=== PATIENT | male | born 1955 | race African-American/Black ===

== ENCOUNTER 2017-01-09 15:44 | Inpatient (IN) | payer OTHER ==
[~2017-01-09] VITALS: Ht 172.7 cm; Wt 95.1 kg
--- NOTE | 2017-01-09 16:01 | NUR ---
BIBA FROM HOME FOR INCREASED LETHARGY, ACCUCHECK >500 AND PAIN TO BUTTOCKS. PT IS WHEELCHAIR/MOTORIZED CHAIR BOUND AND WAS UNABLE TO ASSIST IN PERSONAL TRANSFER FROM CHAIR TO CAR TO SEE HIS WOUND CARE DR CONNER TODAY. ARRIVES WITH ACCUCHECK >500, MENTATING APPROPRIATELY AND NORMOTENSIVE, BUT TACHYCARDIC RATE 120'S AND FEBRILE RECTAL TEMP 102.3. INCONTINENT OF LARGE SOFT BROWN BM, GUIAIC NEGATIVE. PERICARE PROVIDED. VERY LARGE SORE NOTED TO LOWER FOLD BENEATH RIGHT BUTTOCK, AND OPEN SORE TO PENIS. ALSO NOTED TO HAVE CAVED IN HEALED SORE TO UPPER COCCYX/LOWER LUMBAR AREA. PT ENDORSES POLYDYPSIA. STATES HE USED INSULIN SLIDING SCALE THIS AM. ABDOMEN DISTENDED AND FIRM, DENIES ABD PAIN OR N/V
--- NOTE | 2017-01-09 16:24 | NUR ---
NS IVF BOLUS AND TYLENOL GTT RUNNING PER ORDER. PCXR COMPLETED. PT STATES HE DOES NOT HAVE SENSATION FOR URGES TO VOID. UNABLE TO CATH AT THIS TIME DUE TO WOUND TO PENIS
[2017-01-09 16:31] LABS: ABSOLUTE BASOPHIL COUNT 0 /CUMM (0.0-0.2); ABSOLUTE EOSINOPHIL COUNT 0 /CUMM (0.0-0.7); ABSOLUTE GRANULOCYTE CT 13.1 /CUMM (1.4-6.5); ABSOLUTE LYMPH COUNT 0.4 /CUMM (1.2-3.4); ABSOLUTE MONOCYTE COUNT 0.2 /CUMM (0.10-0.60); BASOPHIL % 0 % (0.0-2.0); EOSINOPHIL % 0.1 % (0-5); GRANULOCYTE % 95.4 % (42.2-75.2); HEMATOCRIT 27.6 % (42-52); MEAN CORPUSCULAR HGB 25.7 PG (27.0-31.0); MEAN CORPUSCULAR HGB CONC 32.3 G/DL (33.0-37.0); MEAN CORPUSCULAR VOLUME 79.8 FL (80.0-94.0); MEAN PLATELET VOLUME 8.3 FL (7.4-10.4); RBC DISTRIBUTION WIDTH 14.9 % (11.5-14.5); RED BLOOD CELL CT 3.46 /CUMM (4.70-6.10); WHITE BLOOD CELL COUNT 13.8 /CUMM (4.8-10.8)
--- NOTE | 2017-01-09 16:34 | RADIOLOGY REPORT ---
EXAMINATION: XR PORTABLE CHEST CLINICAL INFORMATION: Fever and weakness COMPARISON: None TECHNIQUE: Portable frontal view of the chest was obtained. FINDINGS: The cardiomediastinal silhouette is normal. The lungs are clear. No consolidation, pulmonary edema, pleural effusion, or pneumothorax. The spine is not well visualized due to technique. Otherwise no acute osseous abnormalities. IMPRESSION: No acute abnormality.
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
[2017-01-09 16:52] LABS: PLATELET COUNT 547 /CUMM (130-400)
[2017-01-09] MEDS ORDERED: LEVOTHYROXINE50 MCG PO (17:12)
[2017-01-09] MEDS ORDERED: LO-DOSE ASPIRIN81 MG PO (17:12)
[2017-01-09] MEDS ORDERED: BUPROPION XL150 MG PO (17:12)
[2017-01-09] MEDS ORDERED: MELATONIN5 M7 (17:13)
[2017-01-09] MEDS ORDERED: JANUVIA100 M1 (17:13)
[2017-01-09] MEDS ORDERED: PROAIR HFA8.5 GM INH (17:14)
[2017-01-09] MEDS ORDERED: LYRICA100 M1 PO (17:14)
[2017-01-09] MEDS ORDERED: BREO ELLIPTA 11 EACH INH (17:14)
[2017-01-09] MEDS ORDERED: OXCARBAZEPINE150 M1 PO (17:15)
--- NOTE | 2017-01-09 17:15 | NUR ---
CRITICAL TEST RESULTS [id number] RIO FELIPE 61 M TESTS AND RESULTS: [id number] Results received and read back by: ABISAI CHRISTIANSON Results received date and time: 01/09/17 1715 The following provider was notified of the results, and read the results back: DONA Notified date and time: 01/09/17 at 1711
[2017-01-09] MEDS ORDERED: GABAPENTIN300 M2 PO (17:16)
[2017-01-09] MEDS ORDERED: LISINOPRIL-HCT1 EAC1 PO (17:17)
[2017-01-09] MEDS ORDERED: ATORVASTATIN CA20 M1 PO (17:17)
[2017-01-09] MEDS ORDERED: AMLODIPINE BESY10 M1 PO (17:17)
[2017-01-09] MEDS ORDERED: METFORMIN HCL500 M3 PO (17:17)
[2017-01-09] MEDS ORDERED: PANTOPRAZOLE SO20 M1 PO (17:18)
--- NOTE | 2017-01-09 17:18 | NUR ---
SECOND LITER NS IVF BOLUS RUNNING AND PT MEDICATED WITH INSULIN IV PER ORDER, DOSE VERIFIED WITH ANGIE PERALTA. INFORMED WAITING PROVIDED. PT AND FRIEND AWARE OF PLAN FOR CONSULT WITH DR REGALADO WITHIN THE HOUR
--- NOTE | 2017-01-09 17:27 | NUR ---
DR REGALADO TO BEDSIDE FOR EVALUATION
--- NOTE | 2017-01-09 17:31 | NUR ---
WOUND CARE: PT SEEN IN ER WITH DR COVARRUBIAS PRESENT FOR EVALUATION OF STAGE 4 PRESSURE INJURIES TO RIGHT ISCHIUM POSITIVE OSTEOMYELITIS - SISTER PRESENT AT BEDSIDE MADE AWARE OF DR SALDANA RECOMMENDATIONS - PLEASE REFER TO MD DICTATION FOR FURTHER WOUND RECOMMENDATIONS - TO NOTE, PT WILL REQUIRE CLINITRON MATTRESS ONCE ON FLOOR INPT
--- NOTE | 2017-01-09 18:18 | NUR ---
PT AGAIN CLEANED AND PERICARE PROVIDED AFTER THIRD SOFT BM. REPOSITIONED ONTO R SIDE. REMAINS LETHARGIC, HOT TO TOUCH. REPEAT TEMP 99.6. REMAINS SINUS TACH 110. ADDITIONAL NS IVF RUNNING AND MED WITH FORTAZ, TOLERATING WELL
--- NOTE | 2017-01-09 18:21 | ED GENERAL ADULT ---
History of Present Illness General Chief Complaint: General Adult Stated Complaint: BIBA WEAKNESS Source: patient, old records, friend Exam Limitations: clinical condition Vital Signs & Intake/Output Vital Signs & Intake/Output Vital Signs Date Time Temp Pulse Resp B/P B/P Pulse O2 O2 Flow FiO2 Mean Ox Delivery Rate 01/09 1817 99.6 110 18 111/55 95 Nasal 2.0L Cannula 01/09 1659 100.4 112 16 113/59 96 Nasal 2.0L Cannula 01/09 1640 85 Room Air 01/09 1620 102.3 01/09 1612 102.3 122 16 122/66 87 Room Air Allergies Coded Allergies: Penicillins (U 01/09/17) latex (U 01/09/17) sulfamethoxazole (From BACTRIM) (U 01/09/17) trimethoprim (From BACTRIM) (U 01/09/17) Reconcile Medications Albuterol Sulfate (Proair Hfa) 90 MCG HFA.AER.AD 2 PUF INH AD PRN RESPIRATORY (Reported) Amlodipine Besylate 10 MG TABLET 1 TAB PO DAILY HEART/BP (Reported) Aspirin (Lo-Dose Aspirin EC) 81 MG TABLET.DR 1 TAB PO DAILY HEART/BLOOD ( Reported) Atorvastatin Calcium 20 MG TABLET 1 TAB PO DAILY CHOLESTEROL (Reported) Bupropion HCl (Bupropion XL) 150 MG TAB.ER.24H 1 TAB PO DAILY UNKNOWN ( Reported) Fluticasone/Vilanterol (Breo Ellipta 100-25 Mcg INH) 100 MCG-25 MCG/DOSE BLST.W.DEV 1 PUFF INH AD RESPIRATORY (Reported) Gabapentin 300 MG CAPSULE 1 CAP PO TID UNKNOWN (Reported) Levothyroxine Sodium 50 MCG TABLET 1 TAB PO DAILY THYROID (Reported) Lisinopril/Hydrochlorothiazide (Lisinopril-Hctz 20-25 MG Tab) 20 MG-25 MG TABLET 1 TAB PO AD HEART/BP (Reported) Melatonin (Unknown Strength) TABLET (Unknown Dose) UNKNOWN (Reported) Metformin HCl 500 MG TABLET 1 TAB PO DAILY DM (Reported) Oxcarbazepine 150 MG TABLET 1 TAB PO BID UNKNOWN (Reported) Pantoprazole Sodium 20 MG TABLET.DR 1 TAB PO DAILY GI (Reported) Pregabalin (Lyrica) 100 MG CAPSULE 1 CAP PO DAILY PAIN (Reported) Sitagliptin Phosphate (Januvia) (Unknown Strength) TABLET (Unknown Dose) UNKNOWN (Reported) Triage Note: BIBA FROM HOME FOR INCREASED LETHARGY, ACCUCHECK >500 AND PAIN TO BUTTOCKS. PT IS WHEELCHAIR/MOTORIZED CHAIR BOUND AND WAS UNABLE TO ASSIST IN PERSONAL TRANSFER FROM CHAIR TO CAR TO SEE HIS WOUND CARE DR CONNER TODAY. ARRIVES WITH ACCUCHECK >500, MENTATING APPROPRIATELY AND NORMOTENSIVE, BUT TACHYCARDIC RATE 120'S AND FEBRILE RECTAL TEMP 102.3. INCONTINENT OF LARGE SOFT BROWN BM, GUIAIC NEGATIVE. PERICARE PROVIDED. VERY LARGE SORE NOTED TO LOWER FOLD BENEATH RIGHT BUTTOCK, AND OPEN SORE TO PENIS. ALSO NOTED TO HAVE CAVED IN HEALED SORE TO UPPER COCCYX/LOWER LUMBAR AREA. PT ENDORSES POLYDYPSIA. STATES HE USED INSULIN SLIDING SCALE THIS AM. ABDOMEN DISTENDED AND FIRM, DENIES ABD PAIN OR N/V Triage Nurses Notes Reviewed? yes Onset: Just prior to arrival Duration: day(s):, constant, continues in ED Timing: recent history Injury Environment: home Severity: severe Modifying Factors: Improves With: movement. HPI: 1 week prior to admission patient had worsening wounds in his sacral area and scrotum. He developed increasing weakness unable to transfer himself with decreased appetite dysuria. Emergency department he had a fever. He denies nausea vomiting chest pain cough shortness of breath headache. Past History Travel History Traveled to [place] past 21 day No Medical History Any Pertinent Medical History? see below for history Neurological: NONE Endocrine: diabetes Surgical History Surgical History: non-contributory Psychosocial History What is your primary language Danish Tobacco Use: Current Daily Use Daily Tobacco Use Amount/Type: => 5 Cigarettes daily Family History Hx Contributory? No Review of Systems Review of Systems Constitutional: Reports: see HPI, fever, weakness. EENTM: Reports: no symptoms. Respiratory: Reports: no symptoms. Cardiovascular: Reports: no symptoms. GI: Reports: no symptoms. Genitourinary: Reports: see HPI, pain. Musculoskeletal: Reports: no symptoms. Skin: Reports: see HPI. Neurological/Psychological: Reports: no symptoms. Hematologic/Endocrine: Reports: no symptoms. Immunologic/Allergic: Reports: no symptoms. All Other Systems: Reviewed and Negative Physical Exam Physical Exam General Appearance: well developed/nourished, alert, awake, moderate distress, obese Head: atraumatic, normal appearance Eyes: Bilateral: normal appearance, PERRL, EOMI. Ears, Nose, Throat: normal pharynx, normal ENT inspection, dry mucous membranes Neck: normal inspection, supple, full range of motion, no midline tenderness Respiratory: normal breath sounds, chest non-tender, no respiratory distress, quiet respiration, lungs clear Cardiovascular: regular rate/rhythm, normal peripheral pulses, norml femoral pulses equa Peripheral Pulses: 4+ carotid (R), 4+ carotid (L) Gastrointestinal: normal bowel sounds, soft, non-tender, no organomegaly Back: normal inspection, no vertebral tenderness Extremities: slow capillary refill, no ligament instability Neurologic/Psych: awake, alert, oriented x 3, media manager II-XII nml as tested Reflexes: 2+: bicep (R), bicep (L). Skin: right hemiscrotum with denuded macerated skin, sacral area with chronic wound with inflammation at wound margins Lymphatic: no anterior cervical flex Core Measures ACS in differential dx? No CVA/TIA Diagnosis: No Severe Sepsis Present: Yes Septic Shock Present: No Progress Differential Diagnoses I considered the following diagnoses in my evaluation of the patient: DKA osteomyelitis bacteremia Plan of Care: Orders Procedure Date/time Status Consistent Carbohydrate 2 01/10 B Active Patient Data 01/09 191 Active LACTIC ACID 01/09 191 Active FingerStick- Glucose 01/09 1855 Active OXYGEN SETUP (GEN) 01/09 184 Active Saline Lock 01/09 1849 Active Admit to inpatient 01/09 1849 Active Vital Signs 01/09 1849 Active Activity/Ambulation 01/09 1849 Active Code Status 01/09 1849 Active C-REACTIVE PROTEIN 01/09 1619 Complete MIXED VENOUS BLOOD GAS (GEN) 01/09 161 Active BLOOD CULTURE 01/09 1613 Active TROPONIN LEVEL 01/09 161 Complete LACTIC ACID 01/09 161 Complete HIGH SENSITIVITY CRP 01/09 161 Complete WESTERGREN SED RATE 01/09 161 Complete COMPREHENSIVE METABOLIC PANEL 01/09 161 Complete CBC WITHOUT DIFFERENTIAL 01/09 161 Complete ACETONE 01/09 161 Complete EKG 01/09 1613 Active Current Medications Sig/Michelle Start time Last Medication Dose Stop Time Status Admin Sodium Chloride 1,000 ML BOLUS ONE 01/09 1830 AC (Normal Saline 0.9%) 01/09 1929 Sodium Chloride 1,000 ML BOLUS ONE 01/09 1830 AC (Normal Saline 0.9%) 01/09 1929 Laboratory Tests 01/09/17 1707: Bicarbonate Actual 27 H, Mixed VBG pH 7.44 H, Mixed VBG pCO2 42, Mixed VBG O2 Saturation 59 H, Carboxyhemoglobin 0.3 L, O2 Concentration % 2L, O2 Delivery Method N/C, Phlebotomy Draw Site VENOUS 01/09/17 1619: Anion Gap 14, Estimated GFR 44 L, BUN/Creatinine Ratio 23.8, Glucose 735 *H, Lactic Acid 2.2 H, Calcium 7.9 L, Total Bilirubin 0.6, AST 17, ALT 31, Alkaline Phosphatase 143 H, Troponin I < 0.01, C-Reactive Prot, Quant > 9.0 H, C-React Prot High Sens > 15.0 H, Total Protein 5.7 L, Albumin 2.5 L, Globulin 3.2, Albumin/Globulin Ratio 0.8 L, CBC w Diff MAN DIFF ORDERED, RBC 3.46 L, MCV 79.8 L, MCH 25.7 L, RDW 14.9 H, MPV 8.3, Gran % 95.4 H, Lymphocytes % 3.2 L, Monocytes % 1.3 L, Eosinophils % 0.1, Basophils % 0 L, Absolute Granulocytes 13.1 H, Segmented Neutrophils 89 H, Band Neutrophils 6 H, Absolute Lymphocytes 0.4 L, Lymphocytes 4 L, Monocytes 1 L, Absolute Monocytes 0.2, Absolute Eosinophils 0, Absolute Basophils 0, Platelet Estimate INCREASED, Poikilocytosis 1+, Target Cells 1+, Stomatocytes 1+, PUBS MCHC 32.3 L, ESR Westergren > 130 H, Acetone Level NEGATIVE Microbiology 01/09 173 BLOOD: Blood Culture - RECD 01/09 1707 BLOOD: Blood Culture - RECD Diagnostic Imaging: Viewed by Me: Radiology Read. Discussed w/RAD: Radiology Read. CXR Impression: no acute abnormality Initial ED EKG: normal axis, normal intervals, normal p-waves, normal QRS complex, normal sinus rhythm, nonspecific ST T wave chg Comments: D/W Dr. Ibrahim no repeat imaging of pelvis needed. Departure Departure Disposition: STILL A PATIENT Condition: Stable Clinical Impression Primary Impression: Osteomyelitis Secondary Impressions: Acute renal failure Qualifiers: Acute renal failure type: unspecified Qualified Code: N17.9 - Acute kidney failure, unspecified Hyperglycemia Leukocytosis Qualifiers: Leukocytosis type: unspecified Qualified Code: D72.829 - Elevated white blood cell count, unspecified Referrals: MARK DELUNA,LUANNE Jones (PCP/Family) Departure Forms: Customer Survey General Discharge Information Admission Note Spoke With: OMA EASON MD Documentation of Exam: Documentation of any treatments & extenuating circumstances including Concerns Regarding Discharge (functional status, medication knowledge or non-compliance, living conditions, etc.) that warrant an admission rather than observation: IV fluid IV antibiotic blood sugar control medication adjustment plastic surgery evaluation wound evaluation continuing care discharge planning Critical Care Note Critical Care Note Critical Care Time: 30-74 min (45)
--- NOTE | 2017-01-09 19:28 | NUR ---
HOUSE STAFF AT BEDSIDE. REPORT GIVEN TO RECEIVING RN AND AT BEDSIDE FOR WOUND EVAL WITH MD AND REPEAT ACCUCHECK AND VS
--- NOTE | 2017-01-09 19:30 | NUR ---
HOUSESTAFF IN TO EVAL PT. PT APPEARS TO BE IN SEVERE PAIN. FINGERSTICK [phone]. SKIN AROUND SCROTUM RED AND EXCORIATED. DEEP WOUND TO LEFT SIDE OF BUTTOCKS NONBLANCHABLE, RED, PEELING AND DARK IN COLOR. DR GOOD FIGUEROA.
--- NOTE | 2017-01-09 19:42 | NUR ---
RESP CALLED FOR TREATMENT.
--- NOTE | 2017-01-09 19:53 | NUR ---
PT MEDICATED WITH MORPHINE 2MG IV AND NOVOLOG 6 UNITS SC. RESP AT BEDSIDE.
--- NOTE | 2017-01-09 20:08 | NUR ---
REPEAT LACTIC ACID DRAWN AND SENT TO LAB.
--- NOTE | 2017-01-09 20:36 | NUR ---
PT TO AND FROM CAT SCAN WITH THIS RN AND JOSÉ CRESPO. MARTHA CARE GIVEN.
--- NOTE | 2017-01-09 20:39 | NUR ---
PAGER [phone] BEEPED REGARDING PT'S FINGERSTICK.
--- NOTE | 2017-01-09 20:41 | History & Physical ---
ANITA SHOOK 01/09/172039: General Information and HPI MD Statement: I have seen and personally examined RIO FELIPE and documented this H&P. The patient is a 61 year old M who presented with a patient stated chief complaint of [genital wound, confusion, lethargic]. Source of Information: patient, female friend Exam Limitations: patient very drowsy/lethargic History of Present Illness: Patient is 61-year-old man with past medical history significant for hypertension, hyperlipidemia, stage IV sacral wound, hypothyroidism, diabetes mellitus was brought into ER by female friend after she noticed that the patient is increasingly lethargic and confused. Patient says that he has not been feeling well since past 1 week, he started having fever since last Sunday and has been having poor oral intake. Female friend states that also the patient is wheelchair-bound however patient is very mobile in transporting himself from one chair to another or into the car. However this morning on the way to appointment to Dr. Trinidad the patient was very confused and couldn't transport himself to the car. Patient has a sacral stage IV wound which was discovered on his admission at [place] around a couple of weeks ago. Patient also reports that he has been using condom catheter for his urinary incontinence and he tried a balm for random catheter to stay in place and that caused the initial tear and later maceration of the penile and scrotal skin. Patient has also been having diarrhea since yesterday and he was found covered in stools today. Her female friend, patient has been noncompliant with his fingersticks and insulin administration. He has a visiting nurse at home, and lives alone by himself. Allergies/Medications Allergies: Coded Allergies: Penicillins (U 01/09/17) latex (U 01/09/17) sulfamethoxazole (From BACTRIM) (U 01/09/17) trimethoprim (From BACTRIM) (U 01/09/17) Home Med list Albuterol Sulfate (Proair Hfa) 90 MCG HFA.AER.AD 2 PUF INH AD PRN RESPIRATORY (Reported) Amlodipine Besylate 10 MG TABLET 1 TAB PO DAILY HEART/BP (Reported) Aspirin (Lo-Dose Aspirin EC) 81 MG TABLET.DR 1 TAB PO DAILY HEART/BLOOD ( Reported) Atorvastatin Calcium 20 MG TABLET 1 TAB PO DAILY CHOLESTEROL (Reported) Bupropion HCl (Bupropion XL) 150 MG TAB.ER.24H 1 TAB PO DAILY UNKNOWN ( Reported) Fluticasone/Vilanterol (Breo Ellipta 100-25 Mcg INH) 100 MCG-25 MCG/DOSE BLST.W.DEV 1 PUFF INH AD RESPIRATORY (Reported) Gabapentin 300 MG CAPSULE 1 CAP PO TID UNKNOWN (Reported) Levothyroxine Sodium 50 MCG TABLET 1 TAB PO DAILY THYROID (Reported) Lisinopril/Hydrochlorothiazide (Lisinopril-Hctz 20-25 MG Tab) 20 MG-25 MG TABLET 1 TAB PO AD HEART/BP (Reported) Melatonin (Unknown Strength) TABLET (Unknown Dose) UNKNOWN (Reported) Metformin HCl 500 MG TABLET 1 TAB PO DAILY DM (Reported) Oxcarbazepine 150 MG TABLET 1 TAB PO BID UNKNOWN (Reported) Pantoprazole Sodium 20 MG TABLET.DR 1 TAB PO DAILY GI (Reported) Pregabalin (Lyrica) 100 MG CAPSULE 1 CAP PO DAILY PAIN (Reported) Sitagliptin Phosphate (Januvia) (Unknown Strength) TABLET (Unknown Dose) UNKNOWN (Reported) Past History Travel History Traveled to [place] past 21 day No Medical History Neurological: NONE Endocrine: diabetes Surgical History Surgical History: non-contributory Past Family/Social History Psychosocial History Where do you live? Home Who Do You Live With? self Services at Home: Nursing Smoking Status: Current Everyday Smoker Review of Systems Review of Systems Constitutional: Reports: see HPI. Cardiovascular: Denies: chest pain. Respiratory: Denies: cough, hemoptysis, orthopnea, short of breath, sputum production. GI: Denies: abdominal pain. Genitourinary: Reports: pain, urgency. Musculoskeletal: Reports: back pain. Skin: Reports: see HPI. Neurological/Psychological: Reports: see HPI. Hematologic/Endocrine: Reports: see HPI. Exam & Diagnostic Data Last 24 Hrs of Vital Signs/I&O Vital Signs Date Time Temp Pulse Resp B/P B/P Pulse O2 O2 Flow FiO2 Mean Ox Delivery Rate 01/09 2033 98.5 116 18 115/55 95 Nasal 2.0L Cannula 01/09 1951 100 Nasal 2.0L Cannula 01/09 1934 110 18 96/64 96 Nasal 2.0L Cannula 01/09 1817 99.6 110 18 111/55 95 Nasal 2.0L Cannula 01/09 1659 100.4 112 16 113/59 96 Nasal 2.0L Cannula 01/09 1640 85 Room Air 01/09 1620 102.3 01/09 1612 102.3 122 16 122/66 87 Room Air Physical Exam General Appearance Alert, drowsy and confused during examination Skin stage 4 wound at coccyx/lumbar area. maceration of penis and scrotal area Sepsis Skin Exam (color): Normal for Ethnicity HEENT Atraumatic Neck Supple Cardiovascular Regular Rate Lungs unable to evaluate due to body habitus and patient was in pain Abdomen Soft, No Tenderness Neurological slow and incomprehensible speech Extremities No Edema Sepsis Peripheral Pulse Location: Dorsalis Pedis Sepsis Peripheral Pulse Exam: Normal Sepsis Cap Refill Exam: <2 Sec Body Front and Back (Adult) 1) 2) Last 24 Hrs of Labs/Ervin: Laboratory Tests 01/09/172006: Lactic Acid 1.9 01/09/17 1707: Bicarbonate Actual 27 H, Mixed VBG pH 7.44 H, Mixed VBG pCO2 42, Mixed VBG O2 Saturation 59 H, Carboxyhemoglobin 0.3 L, O2 Concentration % 2L, O2 Delivery Method N/C, Phlebotomy Draw Site VENOUS 01/09/17 1619: Anion Gap 14, Estimated GFR 44 L, BUN/Creatinine Ratio 23.8, Glucose 735 *H, Serum Osmolality 325 H, Lactic Acid 2.2 H, Calcium 7.9 L, Total Bilirubin 0.6 , AST 17, ALT 31, Alkaline Phosphatase 143 H, Troponin I < 0.01, C-Reactive Prot, Quant > 9.0 H, C-React Prot High Sens > 15.0 H, Total Protein 5.7 L, Albumin 2.5 L, Globulin 3.2, Albumin/Globulin Ratio 0.8 L, PT Pending, INR Pending, APTT Pending, CBC w Diff MAN DIFF ORDERED, RBC 3.46 L, MCV 79.8 L, MCH 25.7 L, RDW 14.9 H, MPV 8.3, Gran % 95.4 H, Lymphocytes % 3.2 L, Monocytes % 1.3 L, Eosinophils % 0.1, Basophils % 0 L, Absolute Granulocytes 13.1 H, Segmented Neutrophils 89 H, Band Neutrophils 6 H, Absolute Lymphocytes 0.4 L, Lymphocytes 4 L, Monocytes 1 L, Absolute Monocytes 0.2, Absolute Eosinophils 0, Absolute Basophils 0, Platelet Estimate INCREASED, Poikilocytosis 1+, Target Cells 1+, Stomatocytes 1+, PUBS MCHC 32.3 L, ESR Westergren > 130 H, Acetone Level NEGATIVE Microbiology 01/09 2030 URINE ROUT: Urine Culture - ORD 01/09 1739 BLOOD: Blood Culture - RECD 01/09 170 BLOOD: Blood Culture - RECD Diagnostic Data EKG Results Normal sinus with HR 118, non specific ST changes, QTC 460 CXR Results clear Assessment/Plan Assessment: Patient is 61-year-old male with past medical history significant for hyperlipidemia hypertension, diabetes mellitus, stage IV coccyx wound, penile sore/maceration was brought in by female friend due to increased lethargic and confusion. Patient has been complaining of fever and chills since past 1 week and upon presentation had a stage IV lumbosacral wound and maceration of penile and scrotal skin. CAT scan was significant for large amount of air in the scrotal sac into peritoneum. Patient reported excruciating pain in scrotal area upon palpation. In ER patient was given 6 bolus of normal saline to maintain pressure. And he had a blood sugar of 735 which was managed by subcutaneous NovoLog units. Patient was also given 1 dose of ceftazidime, vancomycin and IV clindamycin. Labs and vitals as above CAT scan abdominal pelvis without contrast There is a large air collection in the pelvis. Extends from the scrotal sac into the peritoneum and posterior into the initial ischio rectal fat. Extends into left buttocks subcutaneous tissue. The air extends along the left side of the anus and rectum. Air extends to the level of the pelvic sling on the left side. There is surrounding edema and induration around the air collection. No focal fluid collection or abscess. Edema is present in the lower pelvis in the presacral fat adjacent to the distal rectum sigmoid. There is no change of the bowel wall. No bowel wall edema. Moderate volume of stool in the visualized colonic bowel loops. No dilation of the bowel loops. 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 Dr. 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 We will continue broad-spectrum antibiotics including vancomycin and ceftazidime and clindamycin. -Please obtain infectious disease consult in a.m. -We will continue hydration with normal saline at 200 mL per hour after 6 boluses of normal saline. If blood pressure continues to drops patient might require pressors and central line -LORENZO will be treated with hydration as above -We will monitor fingersticks every hour if blood sugar continues to her remain greater than 500, will consider insulin drip. - Endo consult in a.m. -Patient is requiring 2 L of nasal cannula, TRC nebs as needed -will continue his home medications except antihypertensives. DVT prophylaxis subcutaneous continuous heparin Patient is full code Core Measures/Miscellaneous Acute Coronary Syndrome ACS Diagnosis: No Cerebrovascular Accident CVA/TIA Diagnosis: No Congestive Heart Failure CHF Diagnosis: No Venous Thromboembolism VTE Risk Factors: Age > 40 [facility] prophylaxis d/t: No contraindications No VTE Pharm Prophylaxis d/t: No contraindications VTE Diagnosis: No VTE Type: NONE VTE Confirmed by (Test): NONE Severe Sepsis Severe Sepsis Present: Yes Septic Shock Septic Shock Present: No Miscellaneous Documentation Attending Case Discussed With: OMA EASON MD Primary Care Physician: LUANNE FLORES MD Patient sees these Specialists unknown Level of Patient Care: Critical Care (CRI) OMA EASON 01/10/17 0031: Assessment/Plan As Ranked By This Provider Problem List: 1. Osteomyelitis 2. Hyperglycemia 3. Acute renal failure Qualifiers Acute renal failure type: unspecified Qualified Code: N17.9 - Acute kidney failure, unspecified 4. 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 Necrotizing fasciitis 7. Sepsis 8. Hyponatremia Attending MD Review Statement Attending Statement Attending MD Statement: examined this patient, discuss w/resident/PA/RESERVATIONS SALES SUPERVISOR, agreed w/resident/PA/RESERVATIONS SALES SUPERVISOR, reviewed EMR data (avail), reviewed images, amended to note Attending Assessment/Plan: CC: Fever chills, buttock wound infection PMH: HTN, HLD, DM,? Seizure, spina bifid, paraplegia, hypothyroidism Patient has long-standing nonhealing wound on sacrum since August. Patient was initially admitted to [facility] with flu, might have developed wound during that time, was discharged to rehabilitation, the wound was neglected there, again he was hospitalized in last 2-3 months and was found to have the sacral wound, treated with IV antibiotics. Because patient is urinary and fecal incontinent the wound was getting repeatedly contaminated. Eventually patient was started on condom catheter and his friend was making him sit on the commode so sacral wound gradually healed. Then a new wound started on the left buttock area. Meanwhile condom catheter was not staying on and it may have caused penile and scrotal inflammation. But main problem that the friend brought him to ER was fever and chills since yesterday. Patient had decreased oral intake, worsening wound and was confused today. So patient was taken to wound care clinic and from there patient was referred to ER. The history is provided by patient's friend. Vitals: T max 102.3, RR 16, pulse 122 initially patient's blood pressure in 122/ 66 later on dropped to 96/64 even after 3 L IV fluid, hypoxic at 85 improved to 95 after 2 L nasal cannula. On exam: Alert, not oriented, slurred speech, very dry mucosa, neck supple, and no lymphadenopathy, no JVD, decreased respiratory sounds bilateral bases, wheezing present, CVS: S1-S2, RRR. Abdomen: Distended, soft, nontender, bowel sounds present, paraplegic, lower extremity wasted. Macerated scrotal wound more so on right aspect than left, left infra gluteal fold has approximately 5 cm diameter wound with pus, patient was told incontinent, foul-smelling, on palpation no crepitus but pain out of proportion to inflammation. Labs: WBC 13.8, neutrophils 95%, bands 6, hemoglobin 8.9, hematocrit 27.6, platelet 547, sodium 129, chloride 88, BUN 38, creatinine 1.6, anion gap 14, glucose 735, lactate 2.2, albumin 2.5, INR 1.35 acetone negative. CXR:No acute abnormality CT pelvis without IV contrast Large volume of air in the scrotum and the fat at the perineum, left buttocks and ischiorectal fat. Edema induration is seen around the distal rectum and sigmoid in the pelvis but no focal abscess or fluid collection. EKG: T-wave inversion in V4 A and P Patient has sepsis secondary to wound infection he has infra gluteal fold wound on left side which appear secondarily infected, and macerated appearing scrotum, palpation has pain out of proportion to inflammation. No crepitus observed, patient's vitals and symptoms were more worrisome for either abscess formation or necrotizing fasciitis so CT pelvis was obtained without contrast which showed large volume of air in scrotum and fat in perineum. Stat call was made to surgeon. Dr. Hernandez came examined and decided to take patient for surgery. Initially patient and patient's friend was reluctant about this procedure, did not understand the gravity of situation. Later on when they spoke to surgeon, and he explained that this is life threatening situation, they agreed for the surgery. Meanwhile patient was transiently hypotensive secondary to infection, responded to fluids. Off note MRI done on December 20 shows left ischio decubitus ulcers extending to ischial tuberosity and left inferior rami. Suspected osteomyelitis. # Necrotizing fasciitis of perineum and scrotum # Sepsis # Severe hyperglycemia # Hyponatremia secondary to hyperglycemia # LORENZO # History of HTN, DM, HLD, suspected seizure disorder, spina bifida - Admit to ICU after surgery - Continue aggressive hydration with normal saline, continue at 200 mL per hour after fifth bolus - Continue vancomycin, ceftaz 2gm Q 8, clindamycin 900mg Q8 - Insulin drip if patient is does not respond to subcutaneous insulin , Accu- Cheks every hourly - blood cultures - trend lactate - add CPK to sample in lab - ID consult, Critical care consult, endocrine consult in a.m. - Appreciate surgical consult - Troponin 2, repeat EKG - Critical condition of patient is explained to patient's friend who is not immediate relative and not ready to take the responsibility. She does not understand the gravity of the situation. Patient mentions that he has a niece Charito in [facility] who should be contacted just in case. But patient's friend says that she is too young to take decisions for him. This status remains unclear. Please try to reach patient's immediate family after his consent TTS 1 hr
--- NOTE | 2017-01-09 20:43 | NUR ---
MD BROWN MADE AWARE OF PT'S FINGERSTICK OF >500.
--- NOTE | 2017-01-09 20:47 | NUR ---
PT GOING TO ROOM 107-1.
--- NOTE | 2017-01-09 20:49 | NUR ---
PER MD BOONE HOWARD, PT NEEDS URINALYSIS AND URINE CULTURE. PT IS INCONTINENT OF URINE. MD BOONE HOWARD STATES TO STRAIGHT CATH PT. MD BOONE HOWARD MADE AWARE THAT SCROTUM AREA IS VERY RED AND EXCORIATED, PER MD BOONE HOWARD, SHE WILL COME DOWN TO EVAL PT.
--- NOTE | 2017-01-09 20:55 | CT SCAN REPORT ---
EXAMINATION: CT PELVIS WITHOUT CONTRAST CLINICAL INFORMATION: Buttocks wound. Macerated scrotum. Fever. Pain. Ulceration. COMPARISON: None TECHNIQUE: Axial images obtained through pelvis. Coronal and sagittal reformatted images performed at CT scanner DLP: 877.65 mGy-cm FINDINGS: There is a large air collection in the pelvis. Extends from the scrotal sac into the peritoneum and posterior into the initial ischio rectal fat. Extends into left buttocks subcutaneous tissue. The air extends along the left side of the anus and rectum. Air extends to the level of the pelvic sling on the left side. There is surrounding edema and induration around the air collection. No focal fluid collection or abscess. Edema is present in the lower pelvis in the presacral fat adjacent to the distal rectum sigmoid. There is no change of the bowel wall. No bowel wall edema. Moderate volume of stool in the visualized colonic bowel loops. No dilation of the bowel loops. Bladder unremarkable. There is a fat-containing umbilical hernia. Fat-containing right inguinal hernia measuring 3 cm transverse. Fat-containing left inguinal hernia measuring 2 cm transverse. There are multiple small subcentimeter lymph nodes in the groin bilaterally. Largest lymph node on the left with a short axis diameter 1.5 cm. Joint narrowing of the hips bilateral with spurring at the superior lateral acetabulum. IMPRESSION: Large volume of air in the scrotum and the fat at the perineum, left buttocks and ischiorectal fat. Edema induration is seen around the distal rectum and sigmoid in the pelvis but no focal abscess or fluid collection.
--- NOTE | 2017-01-09 20:59 | NUR ---
DIA IN TO [facility] SANCHEZ
--- NOTE | 2017-01-09 21:09 | NUR ---
PT STATES HE WANTS TO TRY AND USE URINAL. PT ONLY ABLE TO EXPEL ONE DROP OF URINE. MD BOONE HOWARD MADE AWARE.
--- NOTE | 2017-01-09 22:22 | NUR ---
SURGICAL PA AT BEDSIDE FOR EVAL.
--- NOTE | 2017-01-09 22:24 | NUR ---
THIS RN AT BEDSIDE FOR BLOOD DRAW. THIS RN UNSUCCESSFUL AFTER 2 ATTEMPTS. JOSÉ CRESPO IN PRIOR TO THIS RN AND UNSUCCESSFUL. HOUSESTAFF MADE AWARE.
[2017-01-09 22:25] LABS: PT 14.1 SEC (9.4-12.5); PTT 28 SEC (25-37)
--- NOTE | 2017-01-09 22:31 | Cons- General Surgery ---
ROBEL KING PA-C 01/09/17 2229: General Information and HPI Consulting Request Date of Consult: 01/09/17 Requested By: OMA EASON MD Reason for Consult: Management of necrotizing fasciitis/simeon's gangrene Source of Information: old records, friend Exam Limitations: clinical condition, confusion History of Present Illness: Patient is 61-year-old man with past medical history significant for hypertension, hyperlipidemia, stage IV sacral wound, recent MRI December 20 2016 which shows abnormal bone marrow edema in the inferior pubic rami and to a lesser extent the inferior aspect of the adjacent ischial tuberosity and subtle osteomyelitis was brought into ER by female friend after she noticed that the patient is increasingly lethargic and confused over the last few days. He has had a sacral ulcer wound for approximately 4 months, history of spina bifida, has poor sensation in this area , when started after a fall when he was admitted to rehabilitation facility, it has progressively been getting worse, he was treated at [facility] but the female friend accompanies him in the room states that they "weren't doing anything for him" and she has been helping take care of him. He was recently seen by Juan Martinez MD at our wound care center twice in the last week who ordered the MRI and started wound care treatments. About a week ago patient started complaining of pain to the Left groin area. He also had some swelling of his scrotal area that was noted while using a condom catheter. Over the weekend he started getting more ill, fever, flulike illness, confusion, elevated blood sugar. Patient has also been having diarrhea since yesterday and he was found covered in stools today. Patient has been noncompliant with his diabetes management. He is he is lethargic but able to answer most questing in the ER. Patient was noted to have an elevated heart rate to 122, elevated temperature to 102.3 in the emergency room today and a CT scan that is suggestive of simeon's gangrene. The surgical service was consulted for managment of this. Allergies/Medications Allergies: Coded Allergies: Penicillins (U 01/09/17) latex (U 01/09/17) sulfamethoxazole (From BACTRIM) (U 01/09/17) trimethoprim (From BACTRIM) (U 01/09/17) Home Med List: Albuterol Sulfate (Proair Hfa) 90 MCG HFA.AER.AD 2 PUF INH AD PRN RESPIRATORY (Reported) Amlodipine Besylate 10 MG TABLET 1 TAB PO DAILY HEART/BP (Reported) Aspirin (Lo-Dose Aspirin EC) 81 MG TABLET.DR 1 TAB PO DAILY HEART/BLOOD ( Reported) Atorvastatin Calcium 20 MG TABLET 1 TAB PO DAILY CHOLESTEROL (Reported) Bupropion HCl (Bupropion XL) 150 MG TAB.ER.24H 1 TAB PO DAILY UNKNOWN ( Reported) Fluticasone/Vilanterol (Breo Ellipta 100-25 Mcg INH) 100 MCG-25 MCG/DOSE BLST.W.DEV 1 PUFF INH AD RESPIRATORY (Reported) Gabapentin 300 MG CAPSULE 1 CAP PO TID UNKNOWN (Reported) Levothyroxine Sodium 50 MCG TABLET 1 TAB PO DAILY THYROID (Reported) Lisinopril/Hydrochlorothiazide (Lisinopril-Hctz 20-25 MG Tab) 20 MG-25 MG TABLET 1 TAB PO AD HEART/BP (Reported) Melatonin (Unknown Strength) TABLET (Unknown Dose) UNKNOWN (Reported) Metformin HCl 500 MG TABLET 1 TAB PO DAILY DM (Reported) Oxcarbazepine 150 MG TABLET 1 TAB PO BID UNKNOWN (Reported) Pantoprazole Sodium 20 MG TABLET.DR 1 TAB PO DAILY GI (Reported) Pregabalin (Lyrica) 100 MG CAPSULE 1 CAP PO DAILY PAIN (Reported) Sitagliptin Phosphate (Januvia) (Unknown Strength) TABLET (Unknown Dose) UNKNOWN (Reported) Past History Medical History Neurological: NONE Musculoskeletal: spina bifida Endocrine: diabetes Surgical History Pertinent Surgical History: non-contributory Psychosocial History Where Do You Live? Home Who Do You Live With? self Services at Home: Nursing Smoking Status: Current Everyday Smoker Review of Systems Review of Systems: limited review of systems deu to the patient's lethargy please see HPI Exam & Diagnostic Data Vital Signs and I&O Vital Signs Date Time Temp Pulse Resp B/P B/P Pulse O2 O2 Flow FiO2 Mean Ox Delivery Rate 01/09 2222 101.2 112 18 113/78 95 Nasal 2.0L Cannula 01/09 2033 98.5 116 18 115/55 95 Nasal 2.0L Cannula 01/09 1951 100 Nasal 2.0L Cannula 01/09 1934 110 18 96/64 96 Nasal 2.0L Cannula 05/02 1817 99.6 110 18 111/55 95 Nasal 2.0L Cannula 01/09 1659 100.4 112 16 113/59 96 Nasal 2.0L Cannula 01/09 1640 85 Room Air 01/09 1620 102.3 01/09 1612 102.3 122 16 122/66 87 Room Air Physical Exam Other Physical Findings: Well-developed well-nourished -[place] male, obese, lethargic, confused, unable to provide much medical history HEENT: Atraumatic, dry mucous membranes Neck: Supple, no lymphadenopathy Heart: Tachycardic Respiratory: Tachypneic, lungs clear Abdomen: Obese, nontender Pelvic and : Necrotic skin over the proximal and anterior portion of the scrotum, more on the right side and around the foreskin of the penis, there is small amount of purulent thin discharge that is foul smelling. The skin is very thin and friable. Crepitus noted. There is tenderness and swelling into the suprapubic region and off to the right side of the groin. unable to evaluate sacrum and buttock at this time Extremities: No edema, Neuro: lethargic Psych: Unable to determine Skin: Warm, mildly diaphoretic, no rash on exposed skin Last 24 Hours of Labs: Laboratory Tests 01/09 1707 1619 Blood Gas Bicarbonate Actual (22 - 26 MEQ/L) 27 H Mixed VBG pH (7.31 - 7.41 PH) 7.44 H Mixed VBG pCO2 (41 - 51 TORR) 42 Mixed VBG O2 Saturation (35 - 45 TORR) 59 H Carboxyhemoglobin (1.5 - 5.0 %) 0.3 L O2 Concentration % 2L O2 Delivery Method N/C Chemistry Sodium (137 - 145 mmol/L) 129 L Potassium (3.5 - 5.1 mmol/L) 4.1 Chloride (98 - 107 mmol/L) 88 L Carbon Dioxide (22 - 30 mmol/L) 28 Anion Gap (5 - 16) 14 BUN (9 - 20 mg/dL) 38 H Creatinine (0.7 - 1.2 mg/dL) 1.6 H Estimated GFR (>60 ml/min) 44 L BUN/Creatinine Ratio (7 - 25 %) 23.8 Glucose (65 - 99 mg/dL) 735 *H Serum Osmolality (285 - 295 MOSM/KG) 325 H Lactic Acid (0.7 - 2.1 mmol/L) 1.9 2.2 H Calcium (8.4 - 10.2 mg/dL) 7.9 L Total Bilirubin (0.2 - 1.3 mg/dL) 0.6 AST (17 - 59 U/L) 17 ALT (21 - 72 U/L) 31 Alkaline Phosphatase (< 127 U/L) 143 H Troponin I (<0.11 ng/ml) < 0.01 C-Reactive Prot, Quant (<1.0 mg/dL) > 9.0 H C-React Prot High Sens (1.0 - 3.0 mg/L) > 15.0 H Total Protein (6.3 - 8.2 g/dL) 5.7 L Albumin (3.5 - 5.0 g/dL) 2.5 L Globulin (1.9 - 4.2 gm/dL) 3.2 Albumin/Globulin Ratio (1.1 - 2.2 %) 0.8 L Coagulation PT (9.4 - 12.5 SEC) 14.1 H INR (0.90 - 1.17) 1.35 H APTT (25 - 37 SEC) 28 Hematology CBC w Diff MAN DIFF ORDERED WBC (4.8 - 10.8 /CUMM) 13.8 H RBC (4.70 - 6.10 /CUMM) 3.46 L Hgb (14.0 - 18.0 G/DL) 8.9 L Hct (42 - 52 %) 27.6 L MCV (80.0 - 94.0 FL) 79.8 L MCH (27.0 - 31.0 PG) 25.7 L RDW (11.5 - 14.5 %) 14.9 H Plt Count (130 - 400 /CUMM) 547 H MPV (7.4 - 10.4 FL) 8.3 Gran % (42.2 - 75.2 %) 95.4 H Lymphocytes % (20.5 - 51.1 %) 3.2 L Monocytes % (1.7 - 9.3 %) 1.3 L Eosinophils % (0 - 5 %) 0.1 Basophils % (0.0 - 2.0 %) 0 L Absolute Granulocytes (1.4 - 6.5 /CUMM) 13.1 H Segmented Neutrophils (42.2 - 75.2 %) 89 H Band Neutrophils (0.0 - 5.0 %) 6 H Absolute Lymphocytes (1.2 - 3.4 /CUMM) 0.4 L Lymphocytes (20.5 - 51.1 %) 4 L Monocytes (1.7 - 9.3 %) 1 L Absolute Monocytes (0.10 - 0.60 /CUMM) 0.2 Absolute Eosinophils (0.0 - 0.7 /CUMM) 0 Absolute Basophils (0.0 - 0.2 /CUMM) 0 Platelet Estimate (ADEQUATE) INCREASED Poikilocytosis 1+ Target Cells 1+ Stomatocytes 1+ PUBS MCHC (33.0 - 37.0 G/DL) 32.3 L ESR Westergren (0 - 10 MM) > 130 H Miscellaneous Phlebotomy Draw Site VENOUS Toxicology Acetone Level (NEGATIVE) NEGATIVE Imaging Results: PATIENT: RIO FELIPE PRESENT AGE: 61 PATIENT ACCOUNT NO: [id number] : 56 LOCATION: [facility] ORDERING PHYSICIAN: OMA EASON MD SERVICE DATE: 01/09/17 EXAM TYPE: CAT - CT PELVIS WO IV CONTRAST EXAMINATION: CT PELVIS WITHOUT CONTRAST CLINICAL INFORMATION: Buttocks wound. Macerated scrotum. Fever. Pain. Ulceration. COMPARISON: None TECHNIQUE: Axial images obtained through pelvis. Coronal and sagittal reformatted images performed at CT scanner DLP: 877.65 mGy-cm FINDINGS: There is a large air collection in the pelvis. Extends from the scrotal sac into the peritoneum and posterior into the initial ischio rectal fat. Extends into left buttocks subcutaneous tissue. The air extends along the left side of the anus and rectum. Air extends to the level of the pelvic sling on the left side. There is surrounding edema and induration around the air collection. No focal fluid collection or abscess. Edema is present in the lower pelvis in the presacral fat adjacent to the distal rectum sigmoid. There is no change of the bowel wall. No bowel wall edema. Moderate volume of stool in the visualized colonic bowel loops. No dilation of the bowel loops. Bladder unremarkable. There is a fat-containing umbilical hernia. Fat-containing right inguinal hernia measuring 3 cm transverse. Fat-containing left inguinal hernia measuring 2 cm transverse. There are multiple small subcentimeter lymph nodes in the groin bilaterally. Largest lymph node on the left with a short axis diameter 1.5 cm. Joint narrowing of the hips bilateral with spurring at the superior lateral acetabulum. IMPRESSION: Large volume of air in the scrotum and the fat at the perineum, left buttocks and ischiorectal fat. Edema induration is seen around the distal rectum and sigmoid in the pelvis but no focal abscess or fluid collection. DICTATED BY: MARTA NORTH MD DATE/TIME DICTATED:01/09/172041 STAFF SONOGRAPHER:ERMA DATE/TIME TRANSCRIBED:01/09/172041 Assessment/Plan Assessment/Plan Simeon's Gangrene/necrotizing fasciitis of the scrotum, L buttock, critically ill, likely septic, hyperglycemic, multisystem organ dysfunction Requires emergent operative debridement as this is life threatening, and discussed with patient and friend, Dr. Hernandez evaluated the patient was well, agrees with plan Critical care management per the medical team, IV antibiotics, IV fluids, likely insulin drip, possibly urology consult and infectious disease consult tomorrow Consult Acknowledgment - Thank you for your consult request. TIGIST HERNANDEZ MD 01/09/17 1672: Assessment/Plan Consult Acknowledgment - Thank you for your consult request. Attending MD Review Statement Attending Statement Attending MD Statement: examined this patient, discuss w/resident/PA/WASTE CHOPPER, discussed with family, reviewed images Attending Assessment/Plan: 61-year-old male presents with progressive gas forming infection of the perineum. 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 It now has progressed to gas- forming gangrene of the perineum (Simeon's). He shows signs of sepsis with tachycardia and fevers as well as mental status changes. There is also evidence of severe hyperglycemia. Plan will be broad-spectrum IV antibiotics and prompt surgical debridement of his perineum. IV insulin drip will be initiated prior to surgery. He understands the nature of this disease process and the likely need for multiple debridements in the operating room. He understands that if necessary diverting suprapubic tube of the bladder and/or colostomy may be required at a future date. He understands that there'll be a long healing process associated with this disease and treatment of it. He also understands that without surgery mortality approaches 100%. He is in agreement to proceed with surgical resection. He and his friend at the bedside understand and asked appropriate questions. All questions were answered.
--- NOTE | 2017-01-09 22:42 | NUR ---
PT'S FINGERSTICK GREATER THAN 500. HOUSESTAFF AWARE. PT MEDICATED PER EMAR.
--- NOTE | 2017-01-09 22:42 | NUR ---
ZURDO BARBAMEGHANN AT BEDSIDE FOR BLOOD DRAW. SST, LAV, BLUE AND PINK TOP TUBES DRAWN.
--- NOTE | 2017-01-09 22:53 | NUR ---
DR MCCALLUM AT BEDSIDE FOR EVAL.
--- NOTE | 2017-01-09 23:40 | NUR ---
INSULIN DRIP STARTED PER EMAR WITH CHARGE NURSE. PT TAKEN TO OR VIA THIS RN, JOSÉ GAO AND JOSÉ DRAPER.
--- NOTE | 2017-01-10 00:35 | Admission Certification ---
Admission Certification Certification Statement - As attending physician, I certify that at the time of - admission, based on clinical presentation, severity of - symptoms, need for further diagnostic testing and - therapeutic interventions, and risk of adverse outcomes - without in-hospital treatment, in my clinical assessment, - this patient requires an acute hospital stay for a minimum - of two nights or longer. I have also considered psychsocial - factors such as support system, advanced age, financial - issues, cognitive issues, and failed out-patient treatments, - past re-admission history, safety of patient, and lack of - compliance as applicable. Specific rationale supporting this admission is: Necrotizing fasciitis perineum
--- NOTE | 2017-01-10 01:43 | Operative Report ---
Operative/Inv Procedure Report Surgery Date: 01/10/17 Name of Procedure: Debridement of skin subcutaneous tissue muscle and fascia, perineum Pre-Operative Diagnosis: Jerad's gangrene Post-Operative Diagnosis: Same Estimated Blood Loss: less than 50ml Surgeon/[place] Supervisor: Yuan Hernandez M.D./Adam CERVANTES Anesthesia: general endotracheal tube Microbiology: Tissue and fluid for culture Operative Indication: This is a this is a obese -[place] diabetic male with spina bifida and hemiparesis. He presents with necrotizing soft tissue infection to the perineum Operative/Procedure Note Note: Patient brought to the operating room and laid supine. Gen. anesthesia was obtained and placed in lithotomy position. His perineum was then prepped and draped. There was a large partially granulating initial tuberosity pressure ulcer. There appeared to be some tracking to the thigh as well as to the perineum. There was purulence in the perineum. The tissues overlying the scrotum and perineum showed partial skin necrosis. The deeper dermal tissue was viable. An incision was made over the tunnel that was palpated from the tuberosity wound. We opened the skin and in the deeper subcutaneous tissues was a large cavity with necrotic areolar tissue. We lengthened the incisions up onto the scrotum and sharply excised approximately 60-80 cm of necrotic tissue. We then pulse lavaged the area and curetted any residual necrosis. The skin, for the most part was viable. The testicles were not involved. We then curetted the tunnel down to the tuberosity wound. This wound too was sharply debrided down to muscle and fascia. There was no exposed bone. We curetted down to healthy tissue on the fascia and muscle. This area too was pulse lavaged. Once we had debrided all the necrotic tissue wounds were packed with dilute Betadine soaked Kerlix gauze. Sterile dressing was applied. CC: MARK DELUNA,LUANNE Jones
--- NOTE | 2017-01-10 02:59 | RADIOLOGY REPORT ---
EXAMINATION: XR PORTABLE CHEST CLINICAL INFORMATION: Hypertension, assess triple lumen catheter position COMPARISON: 01/09/2017 TECHNIQUE: Portable frontal view of the chest was obtained. FINDINGS: Endotracheal tube tip lies approximately 3 cm above the arie. Right IJ central line tip lies in the region of the cavoatrial junction. Enteric tube is present, although not well seen distally. The lungs are hypoinflated. No definite consolidation is seen. No evidence of pneumothorax or significant pleural effusion. There is mildly increased prominence of the cardiomediastinal contour, which may be accentuated by low lung volumes. No acute osseous findings are seen. IMPRESSION: Right IJ central line tip lies in the region of the cavoatrial junction. Low lung volumes.
[2017-01-10 03:03] LABS: ABSOLUTE BASOPHIL COUNT 0 /CUMM (0.0-0.2); ABSOLUTE EOSINOPHIL COUNT 0 /CUMM (0.0-0.7); ABSOLUTE GRANULOCYTE CT 10.4 /CUMM (1.4-6.5); ABSOLUTE LYMPH COUNT 0.7 /CUMM (1.2-3.4); ABSOLUTE MONOCYTE COUNT 0.5 /CUMM (0.10-0.60); BASOPHIL % 0.1 % (0.0-2.0); EOSINOPHIL % 0.2 % (0-5); GRANULOCYTE % 89.3 % (42.2-75.2); HEMATOCRIT 23.5 % (42-52); MEAN CORPUSCULAR HGB 25.3 PG (27.0-31.0); MEAN CORPUSCULAR HGB CONC 32.4 G/DL (33.0-37.0); MEAN CORPUSCULAR VOLUME 78.2 FL (80.0-94.0); MEAN PLATELET VOLUME 7.8 FL (7.4-10.4); PLATELET COUNT 483 /CUMM (130-400); RBC DISTRIBUTION WIDTH 15.1 % (11.5-14.5); RED BLOOD CELL CT 3.01 /CUMM (4.70-6.10); WHITE BLOOD CELL COUNT 11.6 /CUMM (4.8-10.8)
--- NOTE | 2017-01-10 06:37 | NUR ---
Admission note- Late entry- Patient arrived to ICU at 0200 am as post-op recovery. Patient arrived via stretcher and is transferred to ICU bed and placed on monitor without incident. Patient is sedated, SAS-2 without sedation and flutters eyes to sternal rub only. Patient is ST on the monitor, and SBP's are 90-100's. Patient is intubated with #7.5 ETT to the Left and upon arrival to ICU is placed on the vent at 24cm; AC-16, TV-500, FiO2- 40% and PEEP-5. There is a Guthrie in place with small amount of light cheri, clear urine noted. An OGT is placed at 60cm and taped to ETT to Left. There is a surgical site dressing in place to patients left groin and buttocks that is clean/dry/intact. There is also small open but healing area on the right roman that is covered and kept dry. Clinitron mattress is ordered. Patient has 3 patent peripheral IV's, a RIJ TLC and a Left radial A-line. There is an insulin gtt infusing and NS @ 200ml/hr. No distress noted at this time, will monitor.
--- NOTE | 2017-01-10 07:16 | Cons- CRCU ---
WILBERT DELUNA,VIKI 01/10/17 0716: General Information and HPI Consulting Request Date of Consult: 01/10/17 Requested By: Dr. Anaya Reason for Consult: Jerad's gangrene with sepsis Source of Information: old records Exam Limitations: clinical condition History of Present Illness: Mr. Bowens is a 61 year old male with PMH obesity, HTN, HLD, diabetes mellitus type 2, possible seizure disorder, stage 4 sacral wound, spina bifida, paraplegia and hypothyroidism who presented to the [facility] ED due to lethargy, confusion and fever for the past few days. As per a family friend, Angel has had a sacral wound since about August which has recently been getting worse. He placed a consultation and followed up closely with Dr. Juan Johns MD who ordered a CT scan of his wound and started wound care treatments. Along with the lethargy, fever and worsening sacral ulcer, there is also recent history of flu-like symptoms, confusion, elevated blood sugar, decreased oral intake, non-compliance with diabetic regimen and an episode of fecal incontinence yesterday. Review of systems while in ICU difficult to be obtained due to clinical condition. Of note, patient's next of kin is Purvi Sol, his niece, who can be contacted at . She would like to be contacted with any change in clinical status or change in treatment plan. Also of note, the patient is wheelchair-bound however patient is very mobile in transporting himself from one chair to another or into the car. Allergies/Medications Allergies: Coded Allergies: Penicillins (U 01/09/17) latex (U 01/09/17) sulfamethoxazole (From BACTRIM) (U 01/09/17) trimethoprim (From BACTRIM) (U 01/09/17) Home Med List: Albuterol Sulfate (Proair Hfa) 90 MCG HFA.AER.AD 2 PUF INH AD PRN RESPIRATORY (Reported) Amlodipine Besylate 10 MG TABLET 1 TAB PO DAILY HEART/BP (Reported) Aspirin (Lo-Dose Aspirin EC) 81 MG TABLET.DR 1 TAB PO DAILY HEART/BLOOD ( Reported) Atorvastatin Calcium 20 MG TABLET 1 TAB PO DAILY CHOLESTEROL (Reported) Bupropion HCl (Bupropion XL) 150 MG TAB.ER.24H 1 TAB PO DAILY UNKNOWN ( Reported) Fluticasone/Vilanterol (Breo Ellipta 100-25 Mcg INH) 100 MCG-25 MCG/DOSE BLST.W.DEV 1 PUFF INH AD RESPIRATORY (Reported) Gabapentin 300 MG CAPSULE 1 CAP PO TID UNKNOWN (Reported) Levothyroxine Sodium 50 MCG TABLET 1 TAB PO DAILY THYROID (Reported) Lisinopril/Hydrochlorothiazide (Lisinopril-Hctz 20-25 MG Tab) 20 MG-25 MG TABLET 1 TAB PO AD HEART/BP (Reported) Melatonin (Unknown Strength) TABLET (Unknown Dose) UNKNOWN (Reported) Metformin HCl 500 MG TABLET 1 TAB PO DAILY DM (Reported) Oxcarbazepine 150 MG TABLET 1 TAB PO BID UNKNOWN (Reported) Pantoprazole Sodium 20 MG TABLET.DR 1 TAB PO DAILY GI (Reported) Pregabalin (Lyrica) 100 MG CAPSULE 1 CAP PO DAILY PAIN (Reported) Sitagliptin Phosphate (Januvia) (Unknown Strength) TABLET (Unknown Dose) UNKNOWN (Reported) Current Medications: Current Medications Sig/Michelle Start time Last Medication Dose Route Stop Time Status Admin Acetaminophen 1,000 MG Q6P PRN 01/10 0830 AC 01/10 N/A 1 UNIT IV 0938 Acetaminophen 650 MG Q8P PRN 01/09 2200 DC PO Acetaminophen 0 .STK-MED ONE 01/09 1621 DC IV Acetaminophen 1,000 MG ONCE ONE 01/09 1615 DC 01/09 IV 01/09 1616 1620 Albuterol Sulfate 3 ML Q4H PRN 01/10 1015 AC INH Albuterol Sulfate 2 PUF Q4P PRN 01/09 2230 DC INH Albuterol Sulfate 3 ML ONCE ONE 01/09 1945 DC 01/09 INH 01/09 194 1948 Aspirin Buffered 81 MG DAILY 01/10 1000 CAN PO Atorvastatin Calcium 20 MG 1700 01/10 1700 CAN PO Bupropion HCl 150 MG DAILY 01/10 1000 CAN PO Ceftazidime 2,000 MG IQ8 01/10 0800 CAN IV Ceftazidime 2,000 MG IQ8 01/10 0800 DC Sodium Chloride 100 ML IV Ceftazidime 2,000 MG Q8H 01/10 0500 DC 01/10 Sodium Chloride 100 ML IV 0551 Ceftazidime 1,000 MG IQ8 01/10 0000 DC IV Ceftazidime 0 .STK-MED ONE 01/09 1804 DC .ROUTE Ceftazidime 1,000 MG ONCE ONE 01/09 1745 DC 05/ IV 01/09 1746 1810 Clindamycin 900 MG Q8H 01/10 1000 AC 05 Sodium Chloride 50 ML IV 1030 Clindamycin 600 MG ONCE ONE 01/10 0330 DC 05/ Sodium Chloride 50 ML IV 01/10 0359 0424 Clindamycin 300 MG IQ8 / 0000 DC Dextrose/Water 50 ML IV Fentanyl Citrate 1,000 MCG Q24H 01/10 0945 AC 05 Dextrose/Water 250 ML IV 1132 Fentanyl Citrate 250 MCG .STK-MED ONE 01/09 2335 DC IM 01/09 2336 Fluticasone 2 PUF BID 01/10 1000 DC Propionate INH Gabapentin 300 MG TID 01/10 1000 CAN PO Heparin Sodium 5,000 UNIT Q8 / 0600 AC 01/10 (Porcine) SC 1407 Hydromorphone HCl 1 MG Q4P PRN 01/10 0215 DC IV Hydromorphone HCl 2 MG .STK-MED ONE 01/09 2334 DC IM 01/09 2335 Insulin Aspart 0 TIDAC / 0800 CAN SC Insulin Aspart 5 UNITS ONCE ONE 01/09 2145 DC 01/09 SC 01/09 214 224 Insulin Aspart 6 UNITS ONCE ONE 01/09 194 DC 01/09 SC 01/09 1946 195 Insulin Human Regular 100 UNIT Q24H / 2300 AC 01/09 Sodium Chloride 100 ML IV 2340 Insulin Human Regular 10 UNITS ONCE ONE 01/09 1715 DC 05/ IV 01/09 171 171 Ipratropium [place] 2.5 ML ONCE ONE 01/09 194 DC 01/09 INH 01/09 1946 194 Levothyroxine Sodium 0.05 MG DAILY AC 01/10 0700 CAN PO Lorazepam 50 MG Q24H 01/10 0300 DC 05 Sodium Chloride 500 ML IV 0410 Melatonin 3 MG AT BEDTIME 01/10 2200 CAN PO Meropenem 1 GM IQ8 01/10 1600 AC IV Midazolam HCl 2 MG .STK-MED ONE 01/09 2335 DC IM 01/09 2336 Morphine Sulfate 4 MG Q6P PRN 01/09 2200 DC 05 IV 0247 Morphine Sulfate 0 .STK-MED ONE 01/09 1949 DC .ROUTE Morphine Sulfate 2 MG ONCE ONE 01/09 194 DC 05/ IV 01/09 194 195 Norepinephrine 4 MG Q24H 01/10 0530 AC 01/10 Sodium Chloride 250 ML IV 0523 Norepinephrine 4 MG .STK-MED ONE 01/10 0522 DC IV 01/10 0523 Nystatin 5 ML 4 TIMES/DAY 01/10 0530 AC 01/10 PO 1407 Omeprazole 20 MG DAILY AC 01/10 0700 CAN PO Oxcarbazepine 150 MG BID 01/10 1000 CAN PO Oxycodone/ 1 TAB Q8P PRN 01/09 2200 DC Acetaminophen PO Pantoprazole Sodium 40 MG DAILY 01/10 1000 AC 01/10 IV 1101 Potassium Chloride 10 MEQ ONCE ONE 01/10 0845 DC 01/10 IV 01/10 0846 0938 Pregabalin 100 MG DAILY 01/10 1000 CAN PO Sodium Chloride 500 ML .Q2H 01/10 0430 DC 01/10 IV 0230 Sodium Chloride 1,000 ML Q10H 01/09 2200 AC 01/10 IV 1029 Sodium Chloride 1,000 ML BOLUS ONE 01/09 1945 DC IV 01/09 2044 Sodium Chloride 1,000 ML BOLUS ONE 01/09 1945 DC IV 01/09 2044 Sodium Chloride 1,000 ML BOLUS ONE 01/09 1830 DC 05/02 IV 01/09 1929 1942 Sodium Chloride 1,000 ML BOLUS ONE 01/09 1830 DC IV 01/09 1929 Sodium Chloride 1,000 ML BOLUS ONE 01/09 1745 DC 05/ IV 01/09 1844 1810 Sodium Chloride 1,000 ML BOLUS ONE 01/09 1715 DC 05/ IV 01/09 1814 1717 Sodium Chloride 1,000 ML BOLUS ONE 01/09 1615 DC 05/ IV / 1714 1620 Vancomycin HCl 1,500 MG DAILY 01/11 1000 AC Sodium Chloride 250 ML IV Vancomycin HCl 500 MG ONCE ONE 01/10 1500 AC Sodium Chloride 250 ML IV 01/10 1559 Vancomycin HCl 500 MG ONCE ONE 01/10 1430 CAN IV 01/10 1431 Vancomycin HCl 1,000 MG DAILY 01/10 1000 AC / Sodium Chloride 250 ML IV 01/11 0959 1101 Vancomycin HCl 0 .STK-MED ONE 01/09 1825 DC .ROUTE Vancomycin HCl 1,000 MG ONCE ONE 01/09 1745 DC 01/09 Sodium Chloride 250 ML IV 01/09 4917 0762 Review of Systems Review of Systems Constitutional: Reports: see HPI, chills, diaphoresis, fever, malaise, weakness. EENTM: Reports: see HPI. Denies: nasal congestion. Cardiovascular: Reports: see HPI. Denies: chest pain, palpitations. Respiratory: Reports: see HPI. Denies: short of breath. GI: Reports: see HPI (Decreased oral intake). Genitourinary: Reports: see HPI (incontinence). Musculoskeletal: Reports: muscle pain (Area overlaying ulcer). Skin: Reports: lesions. Neurological/Psychological: Reports: confusion, weakness. Hematologic/Endocrine: Denies: bleeding. Immunologic/Allergic: Denies: splenectomy. 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 Home Who Do You Live With? self Services at Home: Nursing Smoking Status: Current Everyday Smoker Functional Ability Ambulation: non-ambulatory Exam & Diagnostic Data Last 24 Hrs of Vital Signs/I&O Vital Signs Date Time Temp Pulse Resp B/P B/P Pulse O2 O2 Flow FiO2 Mean Ox Delivery Rate 01/10 1041 40 01/10 1030 99.4 / 0938 100.6 01/10 0842 Ventilator 40% 01/10 0836 40 01/10 0800 100 Ventilator 40% 01/10 0800 100.6 108 18 112/40 97 Ventilator 40% 01/10 0615 40 / 0523 107 84/42 01/10 0309 97 Ventilator 40% 01/10 0217 40 01/09 2340 101.2 112 18 115/79 95 Nasal 2.0L Cannula 01/09 2222 101.2 112 18 113/78 95 Nasal 2.0L Cannula 01/09 2033 98.5 116 18 115/55 95 Nasal 2.0L Cannula 01/09 1951 100 Nasal 2.0L Cannula 01/09 1934 110 18 96/64 96 Nasal 2.0L Cannula 05/02 1817 99.6 110 18 111/55 95 Nasal 2.0L Cannula 01/09 1659 100.4 112 16 113/59 96 Nasal 2.0L Cannula 01/09 1640 85 Room Air 01/09 1620 102.3 01/09 1612 102.3 122 16 122/66 87 Room Air Intake & Output 01/10 1600 01/10 0800 01/10 0000 Intake Total 1544 1000 Output Total 43 Balance 1501 1000 Intake, IV 1544 1000 Output, Urine 43 Patient 271 lb Weight Weight Bed scale Measurement Method Physical Exam General Appearance: no apparent distress, sedated, intubated, obese Head: atraumatic, normal appearance Eyes: Bilateral: normal appearance. Ears, Nose, Throat: Dry mucous membranes Neck: normal inspection, supple Respiratory: normal breath sounds, no respiratory distress, Intubated, occasional crackles Cardiovascular: regular rate/rhythm, normal peripheral pulses Peripheral Pulses: 2+ carotid (R), 2+ carotid (L) Gastrointestinal: normal bowel sounds, soft, non-tender, no organomegaly, Slightly distended Extremities: normal capillary refill, no edema Neurologic/Psych: Patient currently intubated and sedated. Cranial Nerves: No facial droop appreciated. on admission, noted incomprehensible and slow speech on admission. Skin: Stage IV coccyx/lumbar wound, maceration of penis and scrotal area Lymphatic: no anterior cervical flex Last 48 Hrs of Labs/Ervin: Laboratory Tests 01/10/17 1100: Anion Gap 12, Estimated GFR 44 L, Glucose 213 H, Lactic Acid 1.9, Calcium 6.7 L, Phosphorus 2.6, Magnesium 2.0, Total Bilirubin 0.4, AST 16 L, ALT 28, Troponin I < 0.01, Albumin 1.9 L, CBC w Diff MAN DIFF ORDERED, RBC 2.77 L, MCV 80.1, MCH 25.4 L, RDW 14.5, MPV 8.0, Gran % 87.9 H, Lymphocytes % 6.8 L, Monocytes % 4.6, Eosinophils % 0.6, Basophils % 0.1, Absolute Granulocytes 10.1 H, Absolute Lymphocytes 0.8 L, Absolute Monocytes 0.5, Absolute Eosinophils 0.1 , Absolute Basophils 0, Platelet Estimate INCREASED, Hypochromic-Microcytic 1+, Poikilocytosis 1+, Anisocytosis 1+, PUBS MCHC 31.7 L 01/10/17 1035: pH 7.40, pCO2 42, pO2 79 L, HCO3 25, ABG O2 Sat (Measured) 94.0 L, P-50 (Temp Corrected) YES, Carboxyhemoglobin 0.3 L, O2 Concentration % 40%, Temperature 100.6 H, Respiration Rate 16, O2 Delivery Method VENTILATOR, Vent Mode AC, Expiratory Pressure 5, Tidal Volume 500, Phlebotomy Draw Site LIVONIA 01/10/17 0240: pH 7.39, pCO2 41, pO2 77 L, HCO3 25, ABG O2 Sat (Measured) 93.0 L, P-50 (Temp Corrected) N, Carboxyhemoglobin 0.5 L, O2 Concentration % .40, Respiration Rate 16, O2 Delivery Method VENT, Vent Mode A/C, Expiratory Pressure 5, Tidal Volume 500, Phlebotomy Draw Site LIVONIA 01/10/17 0230: Troponin I < 0.01 01/10/17 0230: Anion Gap 13, Estimated GFR 44 L, Glucose 461 H, Lactic Acid 1.6, Calcium 7.2 L, Phosphorus 3.1, Magnesium 2.0, Total Bilirubin 0.4, AST 14 L, ALT 32, Albumin 2.1 L, CBC w Diff NO MAN DIFF REQ, RBC 3.01 L, MCV 78.2 L, MCH 25.3 L, RDW 15.1 H, MPV 7.8, Gran % 89.3 H, Lymphocytes % 5.9 L, Monocytes % 4.5, Eosinophils % 0.2, Basophils % 0.1, Absolute Granulocytes 10.4 H, Absolute Lymphocytes 0.7 L, Absolute Monocytes 0.5, Absolute Eosinophils 0, Absolute Basophils 0, PUBS MCHC 32.4 L, Random Vancomycin 7.8 01/09/17 2242: Anion Gap 16, Estimated GFR 52 L, Glucose 557 *H, Calcium 7.2 L, Phosphorus 3.4, Magnesium 1.9, Total Bilirubin 0.6, AST 15 L, ALT 34, Albumin 2.4 L 01/09/17 2030: Urine Color Cancelled, Urine Clarity Cancelled, Urine pH Cancelled, Ur Specific [place] Cancelled, Urine Protein Cancelled, Urine Ketones Cancelled, Urine Nitrite Cancelled, Urine Bilirubin Cancelled, Urine Urobilinogen Cancelled, Ur Leukocyte Esterase Cancelled, Ur Microscopic Cancelled, Urine Hemoglobin Cancelled, Urine Glucose Cancelled 01/09/172006: Lactic Acid 1.9 01/09/17 1707: Bicarbonate Actual 27 H, Mixed VBG pH 7.44 H, Mixed VBG pCO2 42, Mixed VBG O2 Saturation 59 H, Carboxyhemoglobin 0.3 L, O2 Concentration % 2L, O2 Delivery Method N/C, Phlebotomy Draw Site VENOUS 01/09/17 1619: Anion Gap 14, Estimated GFR 44 L, BUN/Creatinine Ratio 23.8, Glucose 735 *H, Serum Osmolality 325 H, Lactic Acid 2.2 H, Calcium 7.9 L, Total Bilirubin 0.6 , AST 17, ALT 31, Alkaline Phosphatase 143 H, Troponin I < 0.01, C-Reactive Prot, Quant > 9.0 H, C-React Prot High Sens > 15.0 H, Total Protein 5.7 L, Albumin 2.5 L, Globulin 3.2, Albumin/Globulin Ratio 0.8 L, PT 14.1 H, INR 1.35 H, APTT 28, CBC w Diff MAN DIFF ORDERED, RBC 3.46 L, MCV 79.8 L, MCH 25.7 L, RDW 14.9 H, MPV 8.3, Gran % 95.4 H, Lymphocytes % 3.2 L, Monocytes % 1.3 L, Eosinophils % 0.1, Basophils % 0 L, Absolute Granulocytes 13.1 H, Segmented Neutrophils 89 H, Band Neutrophils 6 H, Absolute Lymphocytes 0.4 L, Lymphocytes 4 L, Monocytes 1 L, Absolute Monocytes 0.2, Absolute Eosinophils 0 , Absolute Basophils 0, Platelet Estimate INCREASED, Poikilocytosis 1+, Target Cells 1+, Stomatocytes 1+, PUBS MCHC 32.3 L, ESR Westergren > 130 H, Acetone Level NEGATIVE Diagnostic Data EKG Results Normal sinus with HR 118, non specific ST changes, QTC 460 CXR Results Within normal limits. Other Results Pelvis CT: IMPRESSION: Large volume of air in the scrotum and the fat at the perineum, left buttocks and ischiorectal fat. Edema induration is seen around the distal rectum and sigmoid in the pelvis but no focal abscess or fluid collection. 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 Bowens is a 61 year old male with PMH type 2 diabetes mellitus, medication non-compliance, HTN, HLD, spina bifida, paraplegia, hypothyroidism and stage IV sacral decubitus ulcer who presented to the [facility] ED with chief complaint of confusion and chills. Associated symptoms included worsening of his buttocks wound infection, fever, penile/scrotal irritation from catheter placement and decreased oral intake. In the ED: Vital signs showed Tmax 102.3, HR 122, RR 16, BEP 122/66 which dropped to 96/64 after 3 L IV fluid bolus, and 85% on room air improved to 95% on 2 L NC. Labs were significant for WBC 13.8, neutrophils 95%, 6 bands, H&H 8.9 /27.6, Plt 547, Na 129, Cl 88, BUN 38, cre 1.6, AG 14, Glu 735, Lactate 2.2, INR 1.35, negative acetone. CXR was WNL. CT pelvis showed air in samuel scrotum and fat at the perineum/left buttocks/ischiorectal fat. No focal collection/abscess in the distal rectum or sigmoid. EKG showed T wave inversion in V4. Patient is currently admitted to the ICU and the following is the management: 1. 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 * He remains intubated on levophed for pressor support * Continue IVF at 200 cc/h for fluid rescusitation * ID consult placed and appreciated, suggested tailoring antibiotic regimen to the following: Vancomycin 1.5 g IV daily, IV meropenem 1gm Q8 and 900 mg clindamycin IV Q8 * Cultures from the OR growing group B strep and blood cultures growing gram positive cocci in chains * Continue to monitor for fevers and provide IV tylenol as needed * Patient to return to the OR likely Sunday for further debridement, will follow up surgery recommendations * Long discussion with grey Sol (next of kin) today regarding Angel's care; will update her with any changes in clinical status 2. Severe hyperglycemia * Endocrinology consult appreciated * Glu 735 with negative acetone * Patient remains on insulin drip which is titrated per protocol, patient currently in column 2 * While patient is on levophed drip, will continue patient on insulin drip as recommended Dr. Anthony MD * Continue fluids with NS at 200 cc/h, no role for D5 as per endo * Continue accuchecks Q1H * Keep patient NPO for now 3. Acute respiratory failure * Patient noted to have an O2 saturation of 85% on room air * Continue mechanical ventialation assist control while on pressors and critially ill * Continue fentanyl drip for sedation and pain * Follow up daily CXR * IV protonix while on the vent, head of bed 30 degrees 4. Hyponatremia, resolved * Likely hyponatremia 2/2 hyperglycemia * ICU bundle Q8H for now * Na level currently 142 * Continue NS at 200 cc/h 5. LORENZO in the setting of septic shock * Baseline cre 0.9 as seen on labs from 2016; current cre 1.6 * Continue aggressive fluid hydration * Consider nephrology consult if urine output drops * F/U urine randome cre, random Na, random K, FeNa 6. Acute anemia * Patient has history of anemia noted in December 2016 at 1030.8 * However, patient acutely low at 7.2 requiring 2 U PRBC transfusion * Follow up repeat CBC and trend Q8 FULL CODE DVTP: Heparin SC Diet: NPO Pain: Fentanyl drip Recommendations: As above. Problem List: 1. Hyperglycemia 2. Necrotizing fasciitis 3. Sepsis 4. Hyperglycemia due to type 2 diabetes mellitus 5. Hyponatremia Consult Acknowledgment - Thank you for your consult request. JOÃO DELUNA,[facility] 01/10/17 0802: General Information and HPI Allergies/Medications Current Medications: Current Medications Sig/Michelle Start time Last Medication Dose Route Stop Time Status Admin Acetaminophen 650 MG Q8P PRN 01/09 2200 DC PO Acetaminophen 0 .STK-MED ONE 01/09 1621 DC IV Acetaminophen 1,000 MG ONCE ONE 01/09 1615 DC / IV 01/09 1616 1620 Albuterol Sulfate 2 PUF Q4P PRN 01/09 2230 DC INH Albuterol Sulfate 3 ML ONCE ONE 01/09 1945 DC 01/09 INH 01/09 194 1948 Aspirin Buffered 81 MG DAILY 01/10 1000 CAN PO Atorvastatin Calcium 20 MG 1700 01/10 1700 CAN PO Bupropion HCl 150 MG DAILY 01/10 1000 CAN PO Ceftazidime 2,000 MG IQ8 01/10 0800 CAN IV Ceftazidime 2,000 MG IQ8 01/10 0800 DC Sodium Chloride 100 ML IV Ceftazidime 2,000 MG Q8H / 0500 AC 05/03 Sodium Chloride 100 ML IV 0551 Ceftazidime 1,000 MG IQ8 01/10 0000 DC IV Ceftazidime 0 .STK-MED ONE 01/09 1804 DC .ROUTE Ceftazidime 1,000 MG ONCE ONE 01/09 1745 DC 01/09 IV 01/09 1746 1810 Clindamycin 900 MG Q8H 01/10 1000 AC Sodium Chloride 50 ML IV Clindamycin 600 MG ONCE ONE 01/10 0330 DC 05 Sodium Chloride 50 ML IV 01/10 0359 0424 Clindamycin 300 MG IQ8 01/10 0000 DC Dextrose/Water 50 ML IV Fentanyl Citrate 250 MCG .STK-MED ONE 01/09 2335 DC IM 01/09 2336 Fluticasone 2 PUF BID 01/10 1000 AC Propionate INH Gabapentin 300 MG TID 01/10 1000 CAN PO Heparin Sodium 5,000 UNIT Q8 01/10 0600 01/10 (Porcine) SC 0523 Hydromorphone HCl 1 MG Q4P PRN 01/10 0215 AC IV Hydromorphone HCl 2 MG .STK-MED ONE 01/09 2334 DC IM 01/09 2335 Insulin Aspart 0 TIDAC / 0800 CAN SC Insulin Aspart 5 UNITS ONCE ONE 01/09 2145 DC 01/09 SC 01/09 214 2242 Insulin Aspart 6 UNITS ONCE ONE 01/09 194 DC 01/09 SC 01/09 194 195 Insulin Human Regular 100 UNIT Q24H / 2300 AC 01/09 Sodium Chloride 100 ML IV 2340 Insulin Human Regular 10 UNITS ONCE ONE 01/09 1715 DC 05/ IV 01/09 1716 1717 Ipratropium [place] 2.5 ML ONCE ONE 01/09 194 DC 01/09 INH 01/09 194 194 Levothyroxine Sodium 0.05 MG DAILY AC 01/10 0700 CAN PO Lorazepam 50 MG Q24H / 0300 AC 01/10 Sodium Chloride 500 ML IV 0410 Melatonin 3 MG AT BEDTIME 01/10 2200 CAN PO Midazolam HCl 2 MG .STK-MED ONE 01/09 2335 DC IM 01/09 2336 Morphine Sulfate 4 MG Q6P PRN 01/09 2200 AC 01/10 IV 0247 Morphine Sulfate 0 .STK-MED ONE 01/09 194 DC .ROUTE Morphine Sulfate 2 MG ONCE ONE 01/09 1945 DC 05/02 IV 01/09 194 195 Norepinephrine 4 MG Q24H 01/10 0530 AC 01/10 Sodium Chloride 250 ML IV 0523 Nystatin 5 ML 4 TIMES/DAY 01/10 0530 AC PO Omeprazole 20 MG DAILY AC 01/10 0700 CAN PO Oxcarbazepine 150 MG BID 01/10 1000 CAN PO Oxycodone/ 1 TAB Q8P PRN 01/09 2200 DC Acetaminophen PO Pregabalin 100 MG DAILY 01/10 1000 CAN PO Sodium Chloride 500 ML .Q2H 01/10 0430 DC 01/10 IV 0230 Sodium Chloride 1,000 ML Q10H 01/09 2200 AC 01/10 IV 0219 Sodium Chloride 1,000 ML BOLUS ONE 01/09 1945 DC IV 01/09 2044 Sodium Chloride 1,000 ML BOLUS ONE 01/09 1945 DC IV 01/09 2044 Sodium Chloride 1,000 ML BOLUS ONE 01/09 1830 DC 05/02 IV 01/09 1929 1942 Sodium Chloride 1,000 ML BOLUS ONE 01/09 1830 DC IV 01/09 1929 Sodium Chloride 1,000 ML BOLUS ONE 01/09 1745 DC 05/02 IV 01/09 1844 1810 Sodium Chloride 1,000 ML BOLUS ONE 01/09 1715 DC 05/ IV 01/09 1814 1717 Sodium Chloride 1,000 ML BOLUS ONE 01/09 1615 DC 05/ IV 01/09 1714 1620 Vancomycin HCl 1,000 MG DAILY 01/10 1000 AC Sodium Chloride 250 ML IV Vancomycin HCl 0 .STK-MED ONE 01/09 182 DC .ROUTE Vancomycin HCl 1,000 MG ONCE ONE 01/09 1745 DC 01/09 Sodium Chloride 250 ML IV 01/09 1844 1829 Assessment/Plan Impression/Plan: I have personally seen and examined the patient and agree with the resident's assessment and plan as above. The patient is a 61 year old male with a past medical history significant for hypertension, hyperlipidemia, diabetes, hypothyroidism, spina bifida, in paraplegia. The patient has had chronic pain noting that he has been in and out of different hospitals but has not been to [facility] in the past. The patient was brought in for worsening of a wound infection, fever and chills for 2 days previous to admission. The patient was evaluated in the emergency department and found to have a 5 cm left inferior gluteal fold wound infection that was foul-smelling associated with urine and stool incontinence as well as significant pain. The patient had increased leukocytosis, fever, hypotension, acute kidney injury, hyperglycemia and hyponatremia. A stat pelvic CT was done that showed necrotizing fasciitis with gas in the scrotum and perineum. He was pancultured, and started on vancomycin and ceftazidime and clindamycin. He was fluid resuscitated as per the sepsis protocol. The patient was taken to the OR immediately for debridement. Postoperatively, the patient remains intubated and sedated on Ativan. His hemodynamics continued to be poor, noting that he remains on Levophed. He is making minimal urine. The patient is not able to offer complaints. Impression: 1. Jerad's gangrene, status post debridement of skin, subcutaneous tissue muscle and fascia, and perineum. 2. Multisystem organ failure with septic shock. 3. Acute kidney injury in the setting of septic shock, rule out ATN. Of note, the patient was not exposed to IV contrast during imaging studies. 4. Respiratory failure, on mechanical ventilation. 5. History of diabetes with uncontrolled hyperglycemia. No evidence of DKA. 6. History of hypothyroidism. 7. Spina bifida and paraplegia with chronic pressure ulcers. Plan: * Check an ABG now. Will adjust vent settings as necessary. * Transfuse 2 units of packed red blood cells now. * Check labs every 8 hours today including CBC, ICU bundle, troponin, and lactic acid. * Continue insulin drip, for now remain in column 1 on insulin sliding scale, moderate control for blood sugars. Endocrine called. * Start fentanyl drip at 50 g per hour. Will need to adjust for control of pain. * Disontinue Dilaudid and morphine. * IV Tylenol as needed. * Decrease/adjust Ativan to keep SAS at 2. * Continue IV fluid resuscitation with normal saline at 200 ML per hour. * Monitor strict I's and O's. Will adjust IV fluid for adequate urine output. * If the patient's urine output continues to worsen, we will consult nephrology. * Urology consult for possible necrosis of penis - suprapubic catheter placement ? * Continue Levaquin, keep MAP at > 65 mmHg. * Check an echocardiogram today. * Follow up culture results. * Continue vancomycin, ceftazidime and clindamycin. * Please request an ID consult for further recommendations. * NPO/no tube feeds for now. * Will discuss starting TPN with surgery. * Discontinue Flovent. * Add IV Protonix daily. * Continue subcutaneous heparin for DVT prophylaxis at all times. * Ventilator bundle every 8 hours. * Social service consult for assistance in determining the patient's next of kin. * We will need to update the patient's family as soon as possible. * Continue all supportive care. The patient is critically ill and needs close continuous monitoring. I have discussed the case with the housestaff and asked him to contact me should the patient's condition change or deteriorate. Consult Acknowledgment - Thank you for your consult request.
[2017-01-10 08:00] VITALS: BP 112/40
--- NOTE | 2017-01-10 08:58 | Cons- Endocrinology ---
General Information and HPI Consulting Request Date of Consult: 01/10/17 Requested By: ICU team Reason for Consult: management of DM type 2/ HHS Source of Information: old records Exam Limitations: sedation History of Present Illness: Patient is 61-year-old man with past medical history significant for hypertension, hyperlipidemia, stage IV sacral wound, hypothyroidism, diabetes mellitus type 2, was brought into ER after the patient was found to be lethargic and confused. Patient is wheel chair bound due to Hx of spina bifida. 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 He underwent debridement. Currently he is intubated, on pressor. His glucose level remains in the 300s. He is on insulin drip between 4 units per hour. Allergies/Medications Allergies: Coded Allergies: Penicillins (U 01/09/17) latex (U 01/09/17) sulfamethoxazole (From BACTRIM) (U 01/09/17) trimethoprim (From BACTRIM) (U 01/09/17) Home Med List: Albuterol Sulfate (Proair Hfa) 90 MCG HFA.AER.AD 2 PUF INH AD PRN RESPIRATORY (Reported) Amlodipine Besylate 10 MG TABLET 1 TAB PO DAILY HEART/BP (Reported) Aspirin (Lo-Dose Aspirin EC) 81 MG TABLET.DR 1 TAB PO DAILY HEART/BLOOD ( Reported) Atorvastatin Calcium 20 MG TABLET 1 TAB PO DAILY CHOLESTEROL (Reported) Bupropion HCl (Bupropion XL) 150 MG TAB.ER.24H 1 TAB PO DAILY UNKNOWN ( Reported) Fluticasone/Vilanterol (Breo Ellipta 100-25 Mcg INH) 100 MCG-25 MCG/DOSE BLST.W.DEV 1 PUFF INH AD RESPIRATORY (Reported) Gabapentin 300 MG CAPSULE 1 CAP PO TID UNKNOWN (Reported) Levothyroxine Sodium 50 MCG TABLET 1 TAB PO DAILY THYROID (Reported) Lisinopril/Hydrochlorothiazide (Lisinopril-Hctz 20-25 MG Tab) 20 MG-25 MG TABLET 1 TAB PO AD HEART/BP (Reported) Melatonin (Unknown Strength) TABLET (Unknown Dose) UNKNOWN (Reported) Metformin HCl 500 MG TABLET 1 TAB PO DAILY DM (Reported) Oxcarbazepine 150 MG TABLET 1 TAB PO BID UNKNOWN (Reported) Pantoprazole Sodium 20 MG TABLET.DR 1 TAB PO DAILY GI (Reported) Pregabalin (Lyrica) 100 MG CAPSULE 1 CAP PO DAILY PAIN (Reported) Sitagliptin Phosphate (Januvia) (Unknown Strength) TABLET (Unknown Dose) UNKNOWN (Reported) Review of Systems Review of Systems Constitutional: Reports: see HPI (intubated). 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 Home Who Do You Live With? self Services at Home: Nursing Smoking Status: Current Everyday Smoker Exam & Diagnostic Data Last 24 Hrs of Vital Signs/I&O Vital Signs Date Time Temp Pulse Resp B/P B/P Pulse O2 O2 Flow FiO2 Mean Ox Delivery Rate 01/10 0842 Ventilator 40% 01/10 0836 40 01/10 0615 40 01/10 0523 107 84/42 01/10 0309 97 Ventilator 40% 01/10 0217 40 01/09 2340 101.2 112 18 115/79 95 Nasal 2.0L Cannula 01/09 2222 101.2 112 18 113/78 95 Nasal 2.0L Cannula 01/09 2033 98.5 116 18 115/55 95 Nasal 2.0L Cannula 01/09 1951 100 Nasal 2.0L Cannula 01/09 1934 110 18 96/64 96 Nasal 2.0L Cannula 01/09 1817 99.6 110 18 111/55 95 Nasal 2.0L Cannula 01/09 1659 100.4 112 16 113/59 96 Nasal 2.0L Cannula 01/09 1640 85 Room Air 01/09 1620 102.3 05/ 1612 102.3 122 16 122/66 87 Room Air Intake & Output 01/10 1600 / 0800 05/ 0000 Intake Total 1544 1000 Output Total 43 Balance 1501 1000 Intake, IV 1544 1000 Output, Urine 43 Patient 271 lb Weight Weight Bed scale Measurement Method Physical Exam General Appearance: intubated, sedated Respiratory: decreased breath sounds Cardiovascular: tachycardia Gastrointestinal: non-tender Extremities: no edema Assessment/Plan Assessment/Plan Patient is 61-year-old man with past medical history significant for hypertension, hyperlipidemia, stage IV sacral wound, hypothyroidism, diabetes mellitus type 2, was brought into ER after the patient was found to be lethargic and confused. Patient is wheel chair bound due to Hx of spina bifida. 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 He is currently intubated, on pressor and his glucose level is not controlled. Management: 1. continue insulin drip; 2. monitor FSG every one hour; 3. adjust insulin drip rate according to in sulin drip protocol; the target of his glucose level is between 140 and 180 mg/dl. 4. monitor electrolytes. will follow. Consult Acknowledgment - Thank you for your consult request.
--- NOTE | 2017-01-10 10:11 | Cons- Infect Disease ---
General Information and HPI Consulting Request Date of Consult: 01/10/17 Requested By: OMA EASON MD Reason for Consult: Jerad's gangrene Exam Limitations: clinical condition History of Present Illness: This is a 61-year-old man with a history of spina bifida, paraplegia, diabetes, with a nonhealing sacral decubitus for the past 4 months, hospitalized at [place] and apparently treated with IV antibiotics, with a condom catheter used to avoid contamination, with the development of penile and scrotal maceration, and with the more recent development of a left ischial decubitus, with an MRI of the pelvis 3 weeks prior to admission revealing abnormal bone marrow edema in the inferior pubic rami and inferior aspect of the adjacent ischial tuberosity suspicious for subtle osteomyelitis, admitted on January 09 after he was brought to the emergency room with a one-week history of decreased oral intake, increased weakness, left groin pain and fevers and more acute onset of diarrhea and confusion. On admission he was febrile to 102.3. Laboratory data revealed a white blood cell count of 14,000, with 89 segs and 6 bands, glucose 735, BUN/ creatinine 38 and 1.6, sodium 129, lactic acid 2.2, alk phosphatase 143, INR 1.35. Chest x-ray was negative. CT of the pelvis revealed a large volume of air extending from the scrotal sac into the peritoneum and posteriorly into the ischiorectal fat, with induration seen around the distal rectum and sigmoid. He was given 6 L of fluid in the emergency room for hypotension and was begun on Vancomycin, Clindamycin and Ceftazidime. 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 A right IJ was inserted in the ER. He was transferred to the ICU postoperatively, with the addition of Levophed for hypotension, and he has remained intubated and sedated. He is, therefore, unable to provide any history at this time. This morning blood cultures 2 were reported positive for gram-positive cocci in chains. Allergies/Medications Allergies: Coded Allergies: Penicillins (U 01/09/17) latex (U 01/09/17) sulfamethoxazole (From BACTRIM) (U 01/09/17) trimethoprim (From BACTRIM) (U 01/09/17) Home Med List: Albuterol Sulfate (Proair Hfa) 90 MCG HFA.AER.AD 2 PUF INH AD PRN RESPIRATORY (Reported) Amlodipine Besylate 10 MG TABLET 1 TAB PO DAILY HEART/BP (Reported) Aspirin (Lo-Dose Aspirin EC) 81 MG TABLET.DR 1 TAB PO DAILY HEART/BLOOD ( Reported) Atorvastatin Calcium 20 MG TABLET 1 TAB PO DAILY CHOLESTEROL (Reported) Bupropion HCl (Bupropion XL) 150 MG TAB.ER.24H 1 TAB PO DAILY UNKNOWN ( Reported) Fluticasone/Vilanterol (Breo Ellipta 100-25 Mcg INH) 100 MCG-25 MCG/DOSE BLST.W.DEV 1 PUFF INH AD RESPIRATORY (Reported) Gabapentin 300 MG CAPSULE 1 CAP PO TID UNKNOWN (Reported) Levothyroxine Sodium 50 MCG TABLET 1 TAB PO DAILY THYROID (Reported) Lisinopril/Hydrochlorothiazide (Lisinopril-Hctz 20-25 MG Tab) 20 MG-25 MG TABLET 1 TAB PO AD HEART/BP (Reported) Melatonin (Unknown Strength) TABLET (Unknown Dose) UNKNOWN (Reported) Metformin HCl 500 MG TABLET 1 TAB PO DAILY DM (Reported) Oxcarbazepine 150 MG TABLET 1 TAB PO BID UNKNOWN (Reported) Pantoprazole Sodium 20 MG TABLET.DR 1 TAB PO DAILY GI (Reported) Pregabalin (Lyrica) 100 MG CAPSULE 1 CAP PO DAILY PAIN (Reported) Sitagliptin Phosphate (Januvia) (Unknown Strength) TABLET (Unknown Dose) UNKNOWN (Reported) Past History Travel History Traveled to [place] past 21 day No Medical History Blood Transfusion Hx: No EENT: NONE Cardiovascular: hypertension, hyperlipidemia Respiratory: NONE Gastrointestinal: NONE Hepatic: NONE Renal: NONE Musculoskeletal: spina bifida Psychiatric: NONE Endocrine: diabetes, hyperthyroidism Blood Disorders: NONE Cancer(s): NONE 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 Home Who Do You Live With? self Services at Home: Nursing Smoking Status: Current Everyday Smoker Review of Systems Comments Unobtainable Exam & Diagnostic Data Last 24 Hrs of Vital Signs/I&O Vital Signs Date Time Temp Pulse Resp B/P B/P Pulse O2 O2 Flow FiO2 Mean Ox Delivery Rate 01/10 0938 100.6 01/10 0842 Ventilator 40% 01/10 0836 40 01/10 0800 100 Ventilator 40% 01/10 0800 100.6 108 18 112/40 97 Ventilator 40% 01/10 0615 40 / 0523 107 84/42 05/ 0309 97 Ventilator 40% 01/10 0217 40 05/ 2340 101.2 112 18 115/79 95 Nasal 2.0L Cannula 01/09 2222 101.2 112 18 113/78 95 Nasal 2.0L Cannula 01/09 2033 98.5 116 18 115/55 95 Nasal 2.0L Cannula 01/09 1951 100 Nasal 2.0L Cannula 01/09 1934 110 18 96/64 96 Nasal 2.0L Cannula 01/09 1817 99.6 110 18 111/55 95 Nasal 2.0L Cannula 01/09 1659 100.4 112 16 113/59 96 Nasal 2.0L Cannula 01/09 1640 85 Room Air 01/09 1620 102.3 05 1612 102.3 122 16 122/66 87 Room Air Intake & Output 01/10 1600 01/10 0800 05/ 0000 Intake Total 1544 1000 Output Total 43 Balance 1501 1000 Intake, IV 1544 1000 Output, Urine 43 Patient 271 lb Weight Weight Bed scale Measurement Method Physical Exam Other Physical Findings: He is sedated, but responsive to pain on the ventilator. MAXIMUM TEMPERATURE 102.3. Skin reveals no rash. HEENT exam is negative. Neck is supple with no adenopathy; right IJ triple-lumen catheter with no inflammation at the site. Lungs are clear. Heart regular rhythm with no murmur. Abdomen is soft, nontender with positive bowel sounds. Back left ischial decubitus, with dressing in place. Extremities no cyanosis, clubbing or edema. Neuro unable to examine fully. Guthrie catheter is in place with maceration of the scrotum and with a dressing in place over the perineum. Last 24 Hours of Lab Results: Laboratory Tests 01/10 01/10 01/10 0240 0230 0230 Blood Gas pH (7.35 - 7.45 PH) 7.39 pCO2 (35 - 45 TORR) 41 pO2 (80 - 100 TORR) 77 L HCO3 (21 - 28 MEQ/L) 25 ABG O2 Sat (Measured) (>96.0 %) 93.0 L P-50 (Temp Corrected) N Carboxyhemoglobin (1.5 - 5.0 %) 0.5 L O2 Concentration % .40 Respiration Rate (BPM) 16 O2 Delivery Method VENT Vent Mode A/C Expiratory Pressure (CMH2O/P) 5 Tidal Volume (CC) 500 Chemistry Sodium (137 - 145 mmol/L) 139 Potassium (3.5 - 5.1 mmol/L) 3.7 Chloride (98 - 107 mmol/L) 102 Carbon Dioxide (22 - 30 mmol/L) 24 Anion Gap (5 - 16) 13 BUN (9 - 20 mg/dL) 37 H Creatinine (0.7 - 1.2 mg/dL) 1.6 H Estimated GFR (>60 ml/min) 44 L Glucose (65 - 99 mg/dL) 461 H Lactic Acid (0.7 - 2.1 mmol/L) 1.6 Calcium (8.4 - 10.2 mg/dL) 7.2 L Phosphorus (2.5 - 4.5 mg/dL) 3.1 Magnesium (1.6 - 2.3 mg/dL) 2.0 Total Bilirubin (0.2 - 1.3 mg/dL) 0.4 AST (17 - 59 U/L) 14 L ALT (21 - 72 U/L) 32 Troponin I (<0.11 ng/ml) < 0.01 Albumin (3.5 - 5.0 g/dL) 2.1 L Hematology CBC w Diff NO MAN DIFF REQ WBC (4.8 - 10.8 /CUMM) 11.6 H RBC (4.70 - 6.10 /CUMM) 3.01 L Hgb (14.0 - 18.0 G/DL) 7.6 L Hct (42 - 52 %) 23.5 L MCV (80.0 - 94.0 FL) 78.2 L MCH (27.0 - 31.0 PG) 25.3 L RDW (11.5 - 14.5 %) 15.1 H Plt Count (130 - 400 /CUMM) 483 H MPV (7.4 - 10.4 FL) 7.8 Gran % (42.2 - 75.2 %) 89.3 H Lymphocytes % (20.5 - 51.1 %) 5.9 L Monocytes % (1.7 - 9.3 %) 4.5 Eosinophils % (0 - 5 %) 0.2 Basophils % (0.0 - 2.0 %) 0.1 Absolute Granulocytes (1.4 - 6.5 /CUMM) 10.4 H Absolute Lymphocytes (1.2 - 3.4 /CUMM) 0.7 L Absolute Monocytes (0.10 - 0.60 /CUMM) 0.5 Absolute Eosinophils (0.0 - 0.7 /CUMM) 0 Absolute Basophils (0.0 - 0.2 /CUMM) 0 PUBS MCHC (33.0 - 37.0 G/DL) 32.4 L Miscellaneous Phlebotomy Draw Site RUSS 01/09 170 Blood Gas Bicarbonate Actual (22 - 26 MEQ/L) 27 H Mixed VBG pH (7.31 - 7.41 PH) 7.44 H Mixed VBG pCO2 (41 - 51 TORR) 42 Mixed VBG O2 Saturation (35 - 45 TORR) 59 H Carboxyhemoglobin (1.5 - 5.0 %) 0.3 L O2 Concentration % 2L O2 Delivery Method N/C Chemistry Sodium (137 - 145 mmol/L) 136 L Potassium (3.5 - 5.1 mmol/L) 4.5 Chloride (98 - 107 mmol/L) 99 Carbon Dioxide (22 - 30 mmol/L) 22 Anion Gap (5 - 16) 16 BUN (9 - 20 mg/dL) 38 H Creatinine (0.7 - 1.2 mg/dL) 1.4 H Estimated GFR (>60 ml/min) 52 L Glucose (65 - 99 mg/dL) 557 *H Lactic Acid (0.7 - 2.1 mmol/L) 1.9 Calcium (8.4 - 10.2 mg/dL) 7.2 L Phosphorus (2.5 - 4.5 mg/dL) 3.4 Magnesium (1.6 - 2.3 mg/dL) 1.9 Total Bilirubin (0.2 - 1.3 mg/dL) 0.6 AST (17 - 59 U/L) 15 L ALT (21 - 72 U/L) 34 Albumin (3.5 - 5.0 g/dL) 2.4 L Miscellaneous Phlebotomy Draw Site VENOUS 01/09 1619 Chemistry Sodium (137 - 145 mmol/L) 129 L Potassium (3.5 - 5.1 mmol/L) 4.1 Chloride (98 - 107 mmol/L) 88 L Carbon Dioxide (22 - 30 mmol/L) 28 Anion Gap (5 - 16) 14 BUN (9 - 20 mg/dL) 38 H Creatinine (0.7 - 1.2 mg/dL) 1.6 H Estimated GFR (>60 ml/min) 44 L BUN/Creatinine Ratio (7 - 25 %) 23.8 Glucose (65 - 99 mg/dL) 735 *H Serum Osmolality (285 - 295 MOSM/KG) 325 H Lactic Acid (0.7 - 2.1 mmol/L) 2.2 H Calcium (8.4 - 10.2 mg/dL) 7.9 L Total Bilirubin (0.2 - 1.3 mg/dL) 0.6 AST (17 - 59 U/L) 17 ALT (21 - 72 U/L) 31 Alkaline Phosphatase (< 127 U/L) 143 H Troponin I (<0.11 ng/ml) < 0.01 C-Reactive Prot, Quant (<1.0 mg/dL) > 9.0 H C-React Prot High Sens (1.0 - 3.0 mg/L) > 15.0 H Total Protein (6.3 - 8.2 g/dL) 5.7 L Albumin (3.5 - 5.0 g/dL) 2.5 L Globulin (1.9 - 4.2 gm/dL) 3.2 Albumin/Globulin Ratio (1.1 - 2.2 %) 0.8 L Coagulation PT (9.4 - 12.5 SEC) 14.1 H INR (0.90 - 1.17) 1.35 H APTT (25 - 37 SEC) 28 Hematology CBC w Diff MAN DIFF ORDERED WBC (4.8 - 10.8 /CUMM) 13.8 H RBC (4.70 - 6.10 /CUMM) 3.46 L Hgb (14.0 - 18.0 G/DL) 8.9 L Hct (42 - 52 %) 27.6 L MCV (80.0 - 94.0 FL) 79.8 L MCH (27.0 - 31.0 PG) 25.7 L RDW (11.5 - 14.5 %) 14.9 H Plt Count (130 - 400 /CUMM) 547 H MPV (7.4 - 10.4 FL) 8.3 Gran % (42.2 - 75.2 %) 95.4 H Lymphocytes % (20.5 - 51.1 %) 3.2 L Monocytes % (1.7 - 9.3 %) 1.3 L Eosinophils % (0 - 5 %) 0.1 Basophils % (0.0 - 2.0 %) 0 L Absolute Granulocytes (1.4 - 6.5 /CUMM) 13.1 H Segmented Neutrophils (42.2 - 75.2 %) 89 H Band Neutrophils (0.0 - 5.0 %) 6 H Absolute Lymphocytes (1.2 - 3.4 /CUMM) 0.4 L Lymphocytes (20.5 - 51.1 %) 4 L Monocytes (1.7 - 9.3 %) 1 L Absolute Monocytes (0.10 - 0.60 /CUMM) 0.2 Absolute Eosinophils (0.0 - 0.7 /CUMM) 0 Absolute Basophils (0.0 - 0.2 /CUMM) 0 Platelet Estimate (ADEQUATE) INCREASED Poikilocytosis 1+ Target Cells 1+ Stomatocytes 1+ PUBS MCHC (33.0 - 37.0 G/DL) 32.3 L ESR Westergren (0 - 10 MM) > 130 H Toxicology Acetone Level (NEGATIVE) NEGATIVE Last 24 Hours of Ervin Results: Blood cultures January 09 positive for gram-positive cocci in chains OR culture January 10 pending Urine culture January 10 pending Diagnostic Data Recent Imaging Findings: CT of the pelvis revealed a large volume of air extending from the scrotal sac into the peritoneum and posteriorly into the ischiorectal fat, with induration seen around the distal rectum and sigmoid. Chest x-ray January 10 negative Assessment/Plan Assessment/Plan Impression: This is a 61-year-old man with a history of spina bifida, paraplegia, diabetes with a chronic sacral decubitus for 4 months and the more recent development of a left ischial decubitus, with a recent MRI suggestive of possible osteomyelitis , admitted on January 09 with a one-week history of decreased intake, left groin pain , weakness and fevers and more acute onset of diarrhea and confusion, found to be febrile with a leukocytosis, hyperglycemia and an elevated lactic acid, with a CT scan of the pelvis suggesting necrotizing fasciitis, confirmed on exploration in the OR, now status post debridement of skin, subcutaneous tissue, muscle and fascia of the perineum with blood cultures 2 positive for gram- positive cocci in chains. 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 This may be polymicrobial, and will need to await OR cultures, but his blood cultures suggest streptococcus (perhaps Group A or Group B) or Enterococcus. He should be continued on broad spectrum antibiotics to cover these organisms as well as anaerobes and gram-negative rods pending final cultures. The possibility of underlying osteomyelitis must be considered based on the recent MRI, though there was no exposed bone noted in the OR. Suggestion: 1. Await return to the OR later this week for further debridement per Surgery 2. Will need to discuss possibility of bone involvement with Surgery 3. Follow-up recent blood and OR cultures 4. Discontinue Ceftazidime 5. Begin Meropenem 1 g IV every 8 hours 6. Would check a random Vancomycin level from this morning's blood work and re- dose with 1.5 grams IV if less than 15 7. Continue Clindamycin Consult Acknowledgment - Thank you for your consult request.
[2017-01-10 11:17] LABS: ABSOLUTE BASOPHIL COUNT 0 /CUMM (0.0-0.2); ABSOLUTE EOSINOPHIL COUNT 0.1 /CUMM (0.0-0.7); ABSOLUTE LYMPH COUNT 0.8 /CUMM (1.2-3.4); RBC DISTRIBUTION WIDTH 14.5 % (11.5-14.5); RED BLOOD CELL CT 2.77 /CUMM (4.70-6.10); WHITE BLOOD CELL COUNT 11.5 /CUMM (4.8-10.8)
[2017-01-10 11:25] LABS: ABSOLUTE GRANULOCYTE CT 10.1 /CUMM (1.4-6.5); ABSOLUTE MONOCYTE COUNT 0.5 /CUMM (0.10-0.60); BASOPHIL % 0.1 % (0.0-2.0); EOSINOPHIL % 0.6 % (0-5); GRANULOCYTE % 87.9 % (42.2-75.2); HEMATOCRIT 22.2 % (42-52); MEAN CORPUSCULAR HGB 25.4 PG (27.0-31.0); MEAN CORPUSCULAR HGB CONC 31.7 G/DL (33.0-37.0); MEAN CORPUSCULAR VOLUME 80.1 FL (80.0-94.0); PLATELET COUNT 452 /CUMM (130-400)
--- NOTE | 2017-01-10 13:20 | Cons- Plastic Surgery ---
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 Recently had some changes in his medical status and was brought in for evaluation. mri currently shows osteomyelitis of the right ischium. Patient was seen in the past but refused further workup or treatment. Allergies/Medications Allergies: Coded Allergies: Penicillins (U 01/09/17) latex (U 01/09/17) sulfamethoxazole (From BACTRIM) (U 01/09/17) trimethoprim (From BACTRIM) (U 01/09/17) Home Med List: Albuterol Sulfate (Proair Hfa) 90 MCG HFA.AER.AD 2 PUF INH AD PRN RESPIRATORY (Reported) Amlodipine Besylate 10 MG TABLET 1 TAB PO DAILY HEART/BP (Reported) Aspirin (Lo-Dose Aspirin EC) 81 MG TABLET.DR 1 TAB PO DAILY HEART/BLOOD ( Reported) Atorvastatin Calcium 20 MG TABLET 1 TAB PO DAILY CHOLESTEROL (Reported) Bupropion HCl (Bupropion XL) 150 MG TAB.ER.24H 1 TAB PO DAILY UNKNOWN ( Reported) Fluticasone/Vilanterol (Breo Ellipta 100-25 Mcg INH) 100 MCG-25 MCG/DOSE BLST.W.DEV 1 PUFF INH AD RESPIRATORY (Reported) Gabapentin 300 MG CAPSULE 1 CAP PO TID UNKNOWN (Reported) Levothyroxine Sodium 50 MCG TABLET 1 TAB PO DAILY THYROID (Reported) Lisinopril/Hydrochlorothiazide (Lisinopril-Hctz 20-25 MG Tab) 20 MG-25 MG TABLET 1 TAB PO AD HEART/BP (Reported) Melatonin (Unknown Strength) TABLET (Unknown Dose) UNKNOWN (Reported) Metformin HCl 500 MG TABLET 1 TAB PO DAILY DM (Reported) Oxcarbazepine 150 MG TABLET 1 TAB PO BID UNKNOWN (Reported) Pantoprazole Sodium 20 MG TABLET.DR 1 TAB PO DAILY GI (Reported) Pregabalin (Lyrica) 100 MG CAPSULE 1 CAP PO DAILY PAIN (Reported) Sitagliptin Phosphate (Januvia) (Unknown Strength) TABLET (Unknown Dose) UNKNOWN (Reported) Past History Medical History Blood Transfusion Hx: No EENT: NONE Cardiovascular: hypertension, hyperlipidemia Respiratory: NONE Gastrointestinal: NONE Hepatic: NONE Renal: NONE Musculoskeletal: spina bifida Psychiatric: NONE Endocrine: diabetes, hyperthyroidism Blood Disorders: NONE Cancer(s): NONE 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 Home Who Do You Live With? self Services at Home: Nursing Smoking Status: Current Everyday Smoker Exam & Diagnostic Data Vital Signs and I&O Vital Signs Date Time Temp Pulse Resp B/P B/P Pulse O2 O2 Flow FiO2 Mean Ox Delivery Rate 01/10 1041 40 01/10 1030 99.4 01/10 0938 100.6 01/10 0842 Ventilator 40% 01/10 0836 40 01/10 0800 100 Ventilator 40% 01/10 0800 100.6 108 18 112/40 97 Ventilator 40% 01/10 0615 40 01/10 0523 107 84/42 01/10 0309 97 Ventilator 40% 01/10 0217 40 01/09 2340 101.2 112 18 115/79 95 Nasal 2.0L Cannula 01/09 2222 101.2 112 18 113/78 95 Nasal 2.0L Cannula 01/09 2033 98.5 116 18 115/55 95 Nasal 2.0L Cannula 01/09 1951 100 Nasal 2.0L Cannula 01/09 1934 110 18 96/64 96 Nasal 2.0L Cannula 01/09 1817 99.6 110 18 111/55 95 Nasal 2.0L Cannula 01/09 1659 100.4 112 16 113/59 96 Nasal 2.0L Cannula 01/09 1640 85 Room Air 01/09 1620 102.3 05/ 1612 102.3 122 16 122/66 87 Room Air Intake & Output 01/10 1600 01/10 0800 01/10 0000 05/ 1600 01/09 0800 01/09 0000 Intake Total 1544 1000 Output Total 43 Balance 1501 1000 Intake, IV 1544 1000 Output, Urine 43 Patient 271 lb Weight Weight Bed scale Measurement Method Physical Exam: Exam shows the following abnormalities of the right buttock: There is a small area that intact to cortical bone. There is no undermining cellulitis or active drainage. There is some necrotic soft tissues overlying a pink wound bed lateral to the area of grossly exposed cortical bone. Assessment/Plan Assessment/Plan Osteomyelitis right atrium. Patient will likely be admitted for medical management which might include abx. Discussed outpatient biopsy of the right ischium when he is off antibiotics for a minimum of 3 days. This will occur if the patient chooses to follow up. Local wound care per Dr. Trinidad , wound center. Consult Acknowledgment - Thank you for your consult request.
--- NOTE | 2017-01-10 13:48 | PN- General Surgery ---
Surgical Brief Attending Note Brief Attending Note: patient still vented, pressors. plan for repeat debridement Sunday. Will coordinate suprapubic tube with urology. Dr. Garcia to cover sunday.
[2017-01-10 16:00] VITALS: BP 104/50
--- NOTE | 2017-01-10 17:41 | Cons- Urology ---
General Information and HPI Consulting Request Date of Consult: 01/10/17 Requested By: OMA EASON MD Reason for Consult: necrotic penis Source of Information: old records Exam Limitations: unable to give history History of Present Illness: 61-yo male with PMH of hypertension, hyperlipidemia, stage IV sacral wound, hypothyroidism, diabetes mellitus was brought into ER by female friend after she noticed that the patient is increasingly lethargic and confused. He was having loss of appetite and generally feeling unwell. He has a hx of sacral decubitus and has been using condom catheter for his urinary incontinence and he apparently caused a tear and later maceration of the penile and scrotal skin while caring for his condom catheter. He was found covered in stools at home. Her female friend, patient has been noncompliant with his fingersticks and insulin administration. He has a visiting nurse at home, and lives alone by himself. 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 Allergies/Medications Allergies: Coded Allergies: Penicillins (U 01/09/17) latex (U 01/09/17) sulfamethoxazole (From BACTRIM) (U 01/09/17) trimethoprim (From BACTRIM) (U 01/09/17) Home Med List: Albuterol Sulfate (Proair Hfa) 90 MCG HFA.AER.AD 2 PUF INH AD PRN RESPIRATORY (Reported) Amlodipine Besylate 10 MG TABLET 1 TAB PO DAILY HEART/BP (Reported) Aspirin (Lo-Dose Aspirin EC) 81 MG TABLET.DR 1 TAB PO DAILY HEART/BLOOD ( Reported) Atorvastatin Calcium 20 MG TABLET 1 TAB PO DAILY CHOLESTEROL (Reported) Bupropion HCl (Bupropion XL) 150 MG TAB.ER.24H 1 TAB PO DAILY UNKNOWN ( Reported) Fluticasone/Vilanterol (Breo Ellipta 100-25 Mcg INH) 100 MCG-25 MCG/DOSE BLST.W.DEV 1 PUFF INH AD RESPIRATORY (Reported) Gabapentin 300 MG CAPSULE 1 CAP PO TID UNKNOWN (Reported) Levothyroxine Sodium 50 MCG TABLET 1 TAB PO DAILY THYROID (Reported) Lisinopril/Hydrochlorothiazide (Lisinopril-Hctz 20-25 MG Tab) 20 MG-25 MG TABLET 1 TAB PO AD HEART/BP (Reported) Melatonin (Unknown Strength) TABLET (Unknown Dose) UNKNOWN (Reported) Metformin HCl 500 MG TABLET 1 TAB PO DAILY DM (Reported) Oxcarbazepine 150 MG TABLET 1 TAB PO BID UNKNOWN (Reported) Pantoprazole Sodium 20 MG TABLET.DR 1 TAB PO DAILY GI (Reported) Pregabalin (Lyrica) 100 MG CAPSULE 1 CAP PO DAILY PAIN (Reported) Sitagliptin Phosphate (Januvia) (Unknown Strength) TABLET (Unknown Dose) UNKNOWN (Reported) Current Medications: Current Medications Sig/Michelle Start time Last Medication Dose Route Stop Time Status Admin Acetaminophen 1,000 MG Q6P PRN 01/10 0830 AC 01/10 N/A 1 UNIT IV 0938 Acetaminophen 650 MG Q8P PRN 01/09 2200 DC PO Albuterol Sulfate 3 ML Q4H PRN 01/10 1015 AC INH Albuterol Sulfate 2 PUF Q4P PRN 01/09 2230 DC INH Albuterol Sulfate 3 ML ONCE ONE 01/09 1945 DC 01/09 INH 01/09 1946 1948 Aspirin Buffered 81 MG DAILY 01/10 1000 CAN PO Atorvastatin Calcium 20 MG 1700 05/ 1700 CAN PO Bupropion HCl 150 MG DAILY 01/10 1000 CAN PO Ceftazidime 2,000 MG IQ8 / 0800 CAN IV Ceftazidime 2,000 MG IQ8 / 0800 DC Sodium Chloride 100 ML IV Ceftazidime 2,000 MG Q8H 01/10 0500 DC 05 Sodium Chloride 100 ML IV 0551 Ceftazidime 1,000 MG IQ8 01/10 0000 DC IV Ceftazidime 0 .STK-MED ONE 01/09 1804 DC .ROUTE Ceftazidime 1,000 MG ONCE ONE 01/09 1745 DC 05/02 IV 01/09 1746 1810 Clindamycin 900 MG Q8H 01/10 1000 AC 05/ Sodium Chloride 50 ML IV 1709 Clindamycin 600 MG ONCE ONE 01/10 0330 DC 05 Sodium Chloride 50 ML IV 01/10 0359 0424 Clindamycin 300 MG IQ8 01/10 0000 DC Dextrose/Water 50 ML IV Fentanyl Citrate 1,000 MCG Q24H 01/10 0945 AC 05 Dextrose/Water 250 ML IV 1132 Fentanyl Citrate 250 MCG .STK-MED ONE 01/09 2335 DC IM 01/09 2336 Fluticasone 2 PUF BID 01/10 1000 DC Propionate INH Gabapentin 300 MG TID 01/10 1000 CAN PO Heparin Sodium 5,000 UNIT Q8 01/10 0600 AC 01/10 (Porcine) SC 1407 Hydromorphone HCl 1 MG Q4P PRN 01/10 0215 DC IV Hydromorphone HCl 2 MG .STK-MED ONE 01/09 2334 DC IM 01/09 2335 Insulin Aspart 0 TIDAC 01/10 0800 CAN SC Insulin Aspart 5 UNITS ONCE ONE 01/09 2145 DC 01/09 SC 01/09 214 224 Insulin Aspart 6 UNITS ONCE ONE 01/09 194 DC 01/09 SC 01/09 1941952 Insulin Human Regular 100 UNIT Q24H 01/09 2300 AC 01/09 Sodium Chloride 100 ML IV 2340 Ipratropium Regina 2.5 ML ONCE ONE 01/09 194 DC 01/09 INH 01/09 Levothyroxine Sodium 0.05 MG DAILY AC 01/10 0700 CAN PO Lorazepam 50 MG Q24H 01/10 0300 DC 01/10 Sodium Chloride 500 ML IV 0410 Melatonin 3 MG AT BEDTIME 01/10 2200 CAN PO Meropenem 1 GM IQ8 01/10 1600 AC 01/10 IV 1702 Midazolam HCl 2 MG .STK-MED ONE 01/09 233 DC IM 01/09 2336 Morphine Sulfate 4 MG Q6P PRN 01/09 2200 DC 01/10 IV 0247 Morphine Sulfate 0 .STK-MED ONE 01/09 194 DC .ROUTE Morphine Sulfate 2 MG ONCE ONE 01/09 194 DC 02 IV 01/09 1941952 Norepinephrine 4 MG Q24H 01/10 0530 AC 01/10 Sodium Chloride 250 ML IV 0523 Norepinephrine 4 MG .STK-MED ONE 01/10 0522 DC IV 01/10 0523 Nystatin 5 ML 4 TIMES/DAY 01/10 0530 AC 01/10 PO 1407 Omeprazole 20 MG DAILY AC 01/10 0700 CAN PO Oxcarbazepine 150 MG BID 01/10 1000 CAN PO Oxycodone/ 1 TAB Q8P PRN 01/09 2200 DC Acetaminophen PO Pantoprazole Sodium 40 MG DAILY 01/10 1000 AC 01/10 IV 1101 Potassium Chloride 10 MEQ Q1H 01/10 1700 AC IV 05/ 1801 Potassium Chloride 10 MEQ ONCE ONE 01/10 0845 DC 05/03 IV 05 0846 0938 Pregabalin 100 MG DAILY 05/ 1000 CAN PO Sodium Chloride 500 ML .Q2H 05/ 0430 DC 05/03 IV 0230 Sodium Chloride 1,000 ML Q10H / 2200 AC 05/03 IV 1708 Sodium Chloride 1,000 ML BOLUS ONE 01/09 1945 DC IV 05 2044 Sodium Chloride 1,000 ML BOLUS ONE 01/09 1945 DC IV 05/ 2044 Sodium Chloride 1,000 ML BOLUS ONE 01/09 1830 DC 05/ IV 01/09 1929 1942 Sodium Chloride 1,000 ML BOLUS ONE 01/09 1830 DC IV 05 1929 Sodium Chloride 1,000 ML BOLUS ONE 01/09 1745 DC 05/ IV / 1844 1810 Sodium Chloride 1,000 ML BOLUS ONE 01/09 1715 DC 05/ IV 01/09 1814 1717 Vancomycin HCl 1,500 MG DAILY 01/11 1000 AC Sodium Chloride 250 ML IV Vancomycin HCl 500 MG ONCE ONE 01/10 1500 DC 05/ Sodium Chloride 250 ML IV 01/10 1559 1657 Vancomycin HCl 500 MG ONCE ONE 01/10 1430 CAN IV 01/10 1431 Vancomycin HCl 1,000 MG DAILY / 1000 AC 05/03 Sodium Chloride 250 ML IV 01/11 0959 1101 Vancomycin HCl 0 .STK-MED ONE 01/09 1825 DC .ROUTE Vancomycin HCl 1,000 MG ONCE ONE 01/09 1745 DC 01/09 Sodium Chloride 250 ML IV 01/09 1844 1829 Past History Medical History Blood Transfusion Hx: No EENT: NONE Cardiovascular: hypertension, hyperlipidemia Respiratory: NONE Gastrointestinal: NONE Hepatic: NONE Renal: NONE Musculoskeletal: spina bifida Psychiatric: NONE Endocrine: diabetes Blood Disorders: NONE Cancer(s): NONE DISEASE MANAGEMENT NURSE/Reproductive: NONE Surgical History Pertinent Surgical History: non-contributory Psychosocial History Where Do You Live? Home Who Do You Live With? self Smoking Status: Current Everyday Smoker Functional Ability Ambulation: non-ambulatory Review of Systems Review of Systems: cannot obtain Review of Systems Constitutional: Reports: see HPI. Exam & Diagnostic Data Vital Signs and I&O Vital Signs Date Time Temp Pulse Resp B/P B/P Pulse O2 O2 Flow FiO2 Mean Ox Delivery Rate 01/10 1614 35 01/10 1600 97 Ventilator 35% 01/10 1600 98.3 102 18 104/50 98 Ventilator 35% 01/10 1405 40 05 1200 100 Ventilator 40% 01/10 1041 40 01/10 1030 99.4 01/10 0938 100.6 01/10 0842 Ventilator 40% 01/10 0836 40 01/10 0800 100 Ventilator 40% 01/10 0800 100.6 108 18 112/40 97 Ventilator 40% 01/10 0615 40 01/10 0523 107 84/42 05 0309 97 Ventilator 40% 01/10 0217 40 01/09 2340 101.2 112 18 115/79 95 Nasal 2.0L Cannula 01/09 2222 101.2 112 18 113/78 95 Nasal 2.0L Cannula 01/09 2033 98.5 116 18 115/55 95 Nasal 2.0L Cannula 01/09 1951 100 Nasal 2.0L Cannula 01/09 1934 110 18 96/64 96 Nasal 2.0L Cannula 01/09 1817 99.6 110 18 111/55 95 Nasal 2.0L Cannula Intake & Output 01/10 1600 01/10 0800 05/ 0000 / 1600 01/09 0800 01/09 0000 Intake Total 2831 1544 1000 Output Total 500 43 Balance 2331 1501 1000 Intake, Blood 459 Product Intake, IV 2372 1544 1000 Output, 200 Gastric Drainage Output, Urine 300 43 Patient 123.037 kg Weight Weight Bed scale Measurement Method Physical Exam: intubated. responds to genitalia exam with wincing and coughing bilaterally descended testicles. denuded skin on scortum and penis. Penis markedly distorted. Unclear but appears uncircumcised with markedly edematous penile foreskin? Physical Exam General Appearance: sedated, intubated Head: atraumatic, normal appearance Gastrointestinal: soft, non-tender Rectal: deferred Reproductive: Normal male genitalia (very banormal male genitalia) Last 24 Hours of Labs: Laboratory Tests 01/10 01/10 01/10 1100 1035 0240 Blood Gas pH (7.35 - 7.45 PH) 7.40 7.39 pCO2 (35 - 45 TORR) 42 41 pO2 (80 - 100 TORR) 79 L 77 L HCO3 (21 - 28 MEQ/L) 25 25 ABG O2 Sat (Measured) (>96.0 %) 94.0 L 93.0 L P-50 (Temp Corrected) YES N Carboxyhemoglobin (1.5 - 5.0 %) 0.3 L 0.5 L O2 Concentration % 40% .40 Temperature (97.0 - 100.0 FARH) 100.6 H Respiration Rate (BPM) 16 16 O2 Delivery Method VENTILATOR VENT Vent Mode AC A/C Expiratory Pressure (CMH2O/P) 5 5 Tidal Volume (CC) 500 500 Chemistry Sodium (137 - 145 mmol/L) 142 Potassium (3.5 - 5.1 mmol/L) 3.6 Chloride (98 - 107 mmol/L) 105 Carbon Dioxide (22 - 30 mmol/L) 24 Anion Gap (5 - 16) 12 BUN (9 - 20 mg/dL) 40 H Creatinine (0.7 - 1.2 mg/dL) 1.6 H Estimated GFR (>60 ml/min) 44 L Glucose (65 - 99 mg/dL) 213 H Lactic Acid (0.7 - 2.1 mmol/L) 1.9 Calcium (8.4 - 10.2 mg/dL) 6.7 L Phosphorus (2.5 - 4.5 mg/dL) 2.6 Magnesium (1.6 - 2.3 mg/dL) 2.0 Total Bilirubin (0.2 - 1.3 mg/dL) 0.4 AST (17 - 59 U/L) 16 L ALT (21 - 72 U/L) 28 Troponin I (<0.11 ng/ml) < 0.01 Albumin (3.5 - 5.0 g/dL) 1.9 L Hematology CBC w Diff MAN DIFF ORDERED WBC (4.8 - 10.8 /CUMM) 11.5 H RBC (4.70 - 6.10 /CUMM) 2.77 L Hgb (14.0 - 18.0 G/DL) 7.0 *L Hct (42 - 52 %) 22.2 L MCV (80.0 - 94.0 FL) 80.1 MCH (27.0 - 31.0 PG) 25.4 L RDW (11.5 - 14.5 %) 14.5 Plt Count (130 - 400 /CUMM) 452 H MPV (7.4 - 10.4 FL) 8.0 Gran % (42.2 - 75.2 %) 87.9 H Lymphocytes % (20.5 - 51.1 %) 6.8 L Monocytes % (1.7 - 9.3 %) 4.6 Eosinophils % (0 - 5 %) 0.6 Basophils % (0.0 - 2.0 %) 0.1 Absolute Granulocytes (1.4 - 6.5 /CUMM) 10.1 H Absolute Lymphocytes (1.2 - 3.4 /CUMM) 0.8 L Absolute Monocytes (0.10 - 0.60 /CUMM) 0.5 Absolute Eosinophils (0.0 - 0.7 /CUMM) 0.1 Absolute Basophils (0.0 - 0.2 /CUMM) 0 Platelet Estimate (ADEQUATE) INCREASED Hypochromic-Microcytic 1+ Poikilocytosis 1+ Anisocytosis 1+ PUBS MCHC (33.0 - 37.0 G/DL) 31.7 L Miscellaneous Phlebotomy Draw Site [facility] 01/10 01/10 01/09 0230 0230 2242 Chemistry Sodium (137 - 145 mmol/L) 139 136 L Potassium (3.5 - 5.1 mmol/L) 3.7 4.5 Chloride (98 - 107 mmol/L) 102 99 Carbon Dioxide (22 - 30 mmol/L) 24 22 Anion Gap (5 - 16) 13 16 BUN (9 - 20 mg/dL) 37 H 38 H Creatinine (0.7 - 1.2 mg/dL) 1.6 H 1.4 H Estimated GFR (>60 ml/min) 44 L 52 L Glucose (65 - 99 mg/dL) 461 H 557 *H Lactic Acid (0.7 - 2.1 mmol/L) 1.6 Calcium (8.4 - 10.2 mg/dL) 7.2 L 7.2 L Phosphorus (2.5 - 4.5 mg/dL) 3.1 3.4 Magnesium (1.6 - 2.3 mg/dL) 2.0 1.9 Total Bilirubin (0.2 - 1.3 mg/dL) 0.4 0.6 AST (17 - 59 U/L) 14 L 15 L ALT (21 - 72 U/L) 32 34 Troponin I (<0.11 ng/ml) < 0.01 Albumin (3.5 - 5.0 g/dL) 2.1 L 2.4 L Hematology CBC w Diff NO MAN DIFF REQ WBC (4.8 - 10.8 /CUMM) 11.6 H RBC (4.70 - 6.10 /CUMM) 3.01 L Hgb (14.0 - 18.0 G/DL) 7.6 L Hct (42 - 52 %) 23.5 L MCV (80.0 - 94.0 FL) 78.2 L MCH (27.0 - 31.0 PG) 25.3 L RDW (11.5 - 14.5 %) 15.1 H Plt Count (130 - 400 /CUMM) 483 H MPV (7.4 - 10.4 FL) 7.8 Gran % (42.2 - 75.2 %) 89.3 H Lymphocytes % (20.5 - 51.1 %) 5.9 L Monocytes % (1.7 - 9.3 %) 4.5 Eosinophils % (0 - 5 %) 0.2 Basophils % (0.0 - 2.0 %) 0.1 Absolute Granulocytes (1.4 - 6.5 /CUMM) 10.4 H Absolute Lymphocytes (1.2 - 3.4 /CUMM) 0.7 L Absolute Monocytes (0.10 - 0.60 /CUMM) 0.5 Absolute Eosinophils (0.0 - 0.7 /CUMM) 0 Absolute Basophils (0.0 - 0.2 /CUMM) 0 PUBS MCHC (33.0 - 37.0 G/DL) 32.4 L Toxicology Random Vancomycin (ug/ml) 7.8 02 01/09 Chemistry Lactic Acid (0.7 - 2.1 mmol/L) 1.9 Urines Urine Color Cancelled Urine Clarity Cancelled Urine pH Cancelled Ur Specific [place] Cancelled Urine Protein Cancelled Urine Ketones Cancelled Urine Nitrite Cancelled Urine Bilirubin Cancelled Urine Urobilinogen Cancelled Ur Leukocyte Esterase Cancelled Ur Microscopic Cancelled Urine Hemoglobin Cancelled Urine Glucose Cancelled Assessment/Plan Assessment/Plan 61yo male with poorly controlled DM with a week of detiorating condition presumeably due to a 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 He has a markedly distorted penis and active perineal/genital infection that is tracking to the backside. Recommend SPT placement in the OR when he is taken back for further debridement by Gen Surgery. Given the state of his genitalia, this will be more comfortable situation for him in the future as well. Will need to obtain consent for the SPT placement from next of kin. Consult Acknowledgment - Thank you for your consult request.
--- NOTE | 2017-01-10 19:39 | NUR ---
0800: RECEIVED PATIENT SEDATED, SAS=2 ON ATIVAN GTT AT 2 MG/HR. EVENTUALLY TITRATED PATIENT OFF AND STARTED FENTANYL GTT @ 50 MCG/HR AT 1130 AM WITH GOOD EFFECT. PUPILS 1MM AND SLUGGISH THROUGHOUT THE SHIFT BUT IMPROVED TO 3MM AND BRISK UPON WAKING PATIENT UP. PATIENT OPENS EYES UPON REQUEST BUT DOES NOT SQUEEZE YET AND ONLY INTERMITTENTLY TRACKS. NSR-ST ON THE RN BIRTHING. SBP MANUALLY AND AUTOCUFF ASSESSED TO BE 100S-120S THROUGHOUT THE DAY. A-LINE TO LEFT RADIAL ARTERY NOTED TO BE LOWER AT 80S-100S THROUGHOUT THE DAY. LEVOPHED RECEIVED AT 4.5 MCG/MIN BUT TITRATED OFF BY 1730 WHILE PATIENT MAINTAINED GOOD SB/P'S 110S. NORMAL SALINE RUNNING AT 200 MLS/HR ALONG WITH A NON-DKA INSULIN GTT THROUGH THE WHITE PORT OF THE RIJ TLC PLACED 01/10/17. GOAL BLOOD SUGAR PER DR. BROWN TO BE 140S-180S. DR. MOYER'S SLIDING SCALE IN USE. CVP = 13-14. PATIENT IS ORALLY INTUBATED W/ #7.5 AT THE LEFT, AT 24 CM AND MECHANICALLY VENTILATED W/ RATE OF 16, TV 500, FIO2 35%, AND PEEP OF 5 SATTING 97-100% ALL DAY. SCANT WHITE/CLEAR FROTHY SPUTUM NOTED UPON DEEP SUCTION AND ORALLY. THRUSH NOTED TO MOUTH AND NYSTATIN APPLIED PER EMAR. 2 UNITS PRBCS GIVEN WITHOUT INCIDENT THROUGHOUT THE DAY. NO BLEEDING NOTED. OGT TO R SIDE OF MOUTH AND WOULD NOT STAY TAPED TO ETT AT THE LEFT. TO LOW WALL SUCTION W/ BROWN DRAINAGE. ABDOMEN SOFT/NONTENDER, +BS. MONTES IN PLACE DRAINING SCANT-MODERATE CLEAR JUDY URINE. UNSTAGEABLE ULCER TO R JONES W/ OCCULUSIVE DSG. NECROTIC/MACERATED AREA TO GROIN/UNDER-SCROTUM/PERINEUM. DRESSING TO L BUTTOCK W/ SCANT-MODERATE BROWN DRAINAGE, TO BY CHANGED BY SURGERY TOMORROW 01/11/17 AND BACK TO THE OR ON 01/12/17. NO EDEMA NOTED. NEXT OF KIN/PERSON TO NOTIFY DETERMINED TODAY TO BE FREDDY, RAMOS, NIECE AND NOT 'MICHELE'. PATIENT INFORMATION OKAY'D TO BE SHARED W/ MICHELE AND PATIENT'S SISTER, LILLY. SAFETY MAINTAINED. PATIENT GIVEN VERBAL EMOTIONAL REASSURANCE.
[2017-01-10 20:01] LABS: ABSOLUTE BASOPHIL COUNT 0 /CUMM (0.0-0.2); ABSOLUTE EOSINOPHIL COUNT 0.1 /CUMM (0.0-0.7); ABSOLUTE GRANULOCYTE CT 10.3 /CUMM (1.4-6.5); ABSOLUTE MONOCYTE COUNT 0.9 /CUMM (0.10-0.60); BASOPHIL % 0.1 % (0.0-2.0); EOSINOPHIL % 0.7 % (0-5); GRANULOCYTE % 84.2 % (42.2-75.2); MEAN CORPUSCULAR HGB 26.7 PG (27.0-31.0); MEAN CORPUSCULAR VOLUME 81.1 FL (80.0-94.0); MEAN PLATELET VOLUME 8.5 FL (7.4-10.4); PLATELET COUNT 421 /CUMM (130-400); RBC DISTRIBUTION WIDTH 14.7 % (11.5-14.5); RED BLOOD CELL CT 3.36 /CUMM (4.70-6.10); WHITE BLOOD CELL COUNT 12.2 /CUMM (4.8-10.8)
[2017-01-10 20:20] LABS: HEMATOCRIT 27.3 % (42-52)
--- NOTE | 2017-01-10 21:14 | ECHOCARDIOGRAM REPORT ---
RIO FELIPE Age: 61 : 1955 Gender: M Exam Date: 01/10/2017 16:58 Exam Location: [facility] Ht (in): 68 Wt (lb): 271 BSA: 2.49 BP: 112 / 40 Ordering Physician: VIKI ATKISN MD Referring Physician: VIKI ATKINS MD Technologist: Mariann Aguilera RDCS Room Number: 107 Indications: HYPOTENSION Rhythm: Technical Quality: poor FINDINGS Left Ventricle Normal global left ventricular size, wall thickness, systolic function with no obvious regional wall motion abnormalities. Normal left ventricular ejection fraction estimated at 55-60%. Right Ventricle Right ventricle not well visualized, grossly normal. Right Atrium Right atrium not well visualized, grossly normal. Left Atrium Left atrial size at the upper limits of normal. Mitral Valve Mitral valve not well visualized, grossly normal. Mild mitral regurgitation. Aortic Valve Aortic valve not well visualized. Aortic sclerosis. Tricuspid Valve Tricuspid valve is normal in structure and function. Mild tricuspid regurgitation. Pulmonic Valve Pulmonic valve not well visualized, grossly normal. Pericardium Minimal effusion located laterally Great Vessels Normal size aortic root. CONCLUSIONS Poor Echo window. Contrast given. Normal left ventricular systolic function. No significant valvular abnormalities noted. Orlin Haile M.D. (Electronically Signed) Final Date: 10 Jan 2017 21:13 MEASUREMENTS (Male / Female) Normal Values 2D ECHO LV Diastolic Diameter PLAX 4.6 cm 4.2 - 5.9 / 3.9 - 5.3 cm LV Systolic Diameter PLAX 3.2 cm 2.1 - 4.0 cm LV Fractional Shortening PLAX 30.4 % 25 - 46 % LV Ejection Fraction 2D Teich 57.9 % IVS Diastolic Thickness 1.0 cm LVPW Diastolic Thickness 1.0 cm LV Relative Wall Thickness 0.4 RV Internal Dim ED PLAX 3.2 cm 1.9 - 3.8 cm LVOT Diameter 1.9 cm Aortic Root Diameter 2.6 cm LA Systolic Diameter LX 3.8 cm 3.0 - 4.0 / 2.7 - 3.8 cm LA Volume 37.0 cm 18 - 58 / 22 - 52 cm Ascending Aorta Diameter 2.5 cm DOPPLER AV Peak Velocity 199.0 cm/s AV Peak Gradient 15.8 mmHg AV Mean Velocity 152.0 cm/s AV Mean Gradient 10.0 mmHg AV Velocity Time Integral 36.4 cm LVOT Peak Velocity 139.0 cm/s LVOT Peak Gradient 7.7 mmHg LVOT Mean Velocity 101.0 cm/s LVOT Mean Gradient 5.0 mmHg LVOT Velocity Time Integral 25.1 cm LVOT Stroke Volume 71.2 cm AV Area Cont Eq vti 2.0 cm AV Area Cont Eq pk 2.0 cm MV Peak Velocity 144.0 cm/s MV Peak Gradient 8.3 mmHg MV Mean Velocity 85.6 cm/s MV Mean Gradient 4.0 mmHg Mitral E Point Velocity 119.0 cm/s Mitral A Point Velocity 107.0 cm/s Mitral E to A Ratio 1.1 MV PHT Velocity 145.0 cm/s MV Deceleration Tama 842.0 cm/s MV Pressure Half Time 51.7 ms MV Area PHT 4.3 cm MV Deceleration Time 185.0 ms PV Peak Velocity 116.0 cm/s PV Peak Gradient 5.4 mmHg PV Mean Velocity 84.2 cm/s PV Mean Gradient 3.0 mmHg PV Velocity Time Integral 23.0 cm LV E' Lateral Velocity 10.7 cm/s Mitral E to LV E' Lateral Ratio 11.1 LV E' Septal Velocity 7.1 cm/s Mitral E to LV E' Septal Ratio 16.8
[2017-01-11] VITALS: BP 104/60
--- NOTE | 2017-01-11 | NUR ---
PATIENT WILL OPEN EYES TO NAME.FOLLOW COMMANDS.SAS=3.PATIENT WILL FALL OFF TO SLEEP WHEN UNDISTURBED.FENTANYL DRIP AT 50 MCG/HR.MONITOR SINUS TACHYCARDIA AT RATE OF 107.BP VIA L RADIAL BFIML=937/57.CVP VIA RIJ TLC=18.IVF AT 200 ML/HR. [id number]=616.INSULIN DRIP ADJUSTED TO 2 UNITS/HR ACCORDING TO ADULT INSULIN INFUSION REGIMEN.ENDOTRACHEAL TUBE TO VENTILATOR AT 35%.OGT TO LOW WALL SUCTION.DRAINING GREEN LIQUID.MONTES CATHETER DRAINING JUDY URINE.DRESSING FROM UNDER SCROTUM TO R BUTTOCK DRY AND INTACT.
[2017-01-11 02:53] LABS: ABSOLUTE BASOPHIL COUNT 0 /CUMM (0.0-0.2); ABSOLUTE EOSINOPHIL COUNT 0.1 /CUMM (0.0-0.7); ABSOLUTE LYMPH COUNT 0.9 /CUMM (1.2-3.4); ABSOLUTE MONOCYTE COUNT 0.7 /CUMM (0.10-0.60); BASOPHIL % 0 % (0.0-2.0); EOSINOPHIL % 1.1 % (0-5); HEMATOCRIT 25.5 % (42-52); MEAN CORPUSCULAR HGB 26.4 PG (27.0-31.0); MEAN CORPUSCULAR HGB CONC 33.1 G/DL (33.0-37.0); MEAN CORPUSCULAR VOLUME 79.7 FL (80.0-94.0); MEAN PLATELET VOLUME 8.1 FL (7.4-10.4); PLATELET COUNT 425 /CUMM (130-400); RBC DISTRIBUTION WIDTH 14.4 % (11.5-14.5); WHITE BLOOD CELL COUNT 11.7 /CUMM (4.8-10.8)
[2017-01-11 03:11] LABS: GRANULOCYTE % 85.3 % (42.2-75.2)
--- NOTE | 2017-01-11 06:11 | NUR ---
SEEN BY SHAKA CERVANTES.DRESSING OF DEBRIDED AREA ON L BUTTOCK PACKED WITH BETADINE GAUZE ALONG WITH AREA BEHIND SCROTUM.
--- NOTE | 2017-01-11 06:24 | PN- Resident CRCU ---
Subjective HPI/CRCU Issues: Mr. Bowens was seen and examined this morning. He appears comfortable and is resting in bed. He was minimally responsive during our clinical interaction, however able to follow basic verbal commands. He is currently intubated. The last 24 hours required him to be on a very short duration of pressors which have subsequently been discontinued. 24 Hour Events: No issues reported. Objective Vital Signs & I&O Last 8 Hrs of Vitals and I&O: Intake & Output 05/ 1600 Intake Total 1320 Output Total 550 Balance 770 Intake, IV 1320 Output, 100 Gastric Drainage Output, Urine 450 Patient 95.073 kg Weight Weight Bed scale Measurement Method Exam General Appearance: well developed/nourished, no apparent distress, sedated, intubated, obese Head: atraumatic, normal appearance Respiratory: normal breath sounds, chest non-tender Cardiovascular: regular rate/rhythm, normal peripheral pulses Gastrointestinal: soft, non-tender, Hypoactive Bowel Sounds Extremities: normal inspection, no edema Skin: intact Skin Temp/Moisture Exam: Warm/Dry Sepsis Skin Exam (color): Normal for Ethnicity Current Medications: Current Medications Sig/Michelle Start time Last Medication Dose Route Stop Time Status Admin Acetaminophen 1,000 MG Q6P PRN / 0830 AC / N/A 1 UNIT IV 0938 Albuterol Sulfate 3 ML Q4H PRN / 1015 AC INH Clindamycin 900 MG Q8H /03 1000 DC 05/04 Sodium Chloride 50 ML IV 0125 Fat Emulsion 500 ML Q24H /04 1900 AC Intravenous IV / 1859 Fentanyl Citrate 1,000 MCG Q20H / 0300 AC Dextrose/Water 250 ML IV Fentanyl Citrate 1,000 MCG Q24H / 0945 AC 05/04 Dextrose/Water 250 ML IV / 0659 0735 Heparin Sodium 5,000 UNIT Q8 / 0600 AC 05/ (Porcine) SC 1437 Insulin Aspart 0 Q4 05/04 1000 AC 05/04 SC 1438 Insulin Detemir 10 UNITS DAILY /04 1000 DC 05/04 SC 1035 Insulin Human Regular 100 UNIT Q24H 05/02 2300 DC 05/03 Sodium Chloride 100 ML IV 2300 Meropenem 1 GM IQ8 05/03 1600 AC 05/04 IV 0747 Norepinephrine 4 MG Q24H / 0530 DC 05/03 Sodium Chloride 250 ML IV 0523 Nystatin 5 ML 4 TIMES/DAY 01/10 0530 AC 05/04 PO 1437 Pantoprazole Sodium 40 MG DAILY 01/10 1000 AC 01/11 IV 1035 Potassium Chloride 10 MEQ Q1H 01/10 1700 DC 05/ IV 01/10 1801 2036 Sodium Chloride 1,000 ML Q10H 01/09 2200 AC 05/04 IV 1439 Total Parenteral 1 UNIT ONE 01/11 1900 AC Nutrition IV 01/12 1859 Vancomycin HCl 1,500 MG DAILY 01/11 1000 CAN Sodium Chloride 250 ML IV Vancomycin HCl 500 MG ONCE ONE 01/10 1500 DC 01/10 Sodium Chloride 250 ML IV 01/10 1559 1657 Vancomycin HCl 1,000 MG DAILY 01/10 1000 DC 01/10 Sodium Chloride 250 ML IV 01/11 0959 1101 Impression/Plan Impression/Problem List Impression: Mr. Bowens is a 61 year old male with PMH type 2 diabetes mellitus, medication non-compliance, HTN, HLD, spina bifida, paraplegia, hypothyroidism and stage IV sacral decubitus ulcer who presented to the [place] ED with chief complaint of confusion and chills. Associated symptoms included worsening of his buttocks wound infection, fever, penile/scrotal irritation from catheter placement and decreased oral intake. In the ED: Vital signs showed Tmax 102.3, HR 122, RR 16, BEP 122/66 which dropped to 96/64 after 3 L IV fluid bolus, and 85% on room air improved to 95% on 2 L NC. Labs were significant for WBC 13.8, neutrophils 95%, 6 bands, H&H 8.9 /27.6, Plt 547, Na 129, Cl 88, BUN 38, cre 1.6, AG 14, Glu 735, Lactate 2.2, INR 1.35, negative acetone. CXR was WNL. CT pelvis showed air in the scrotum and fat at the perineum/left buttocks/ischiorectal fat. No focal collection/abscess in the distal rectum or sigmoid. EKG showed T wave inversion in V4. 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 Vancomycin and clindamycin discontinued. * Cultures from the OR growing Gram Negative Rods, Yeast, Alpha Strep. * Blood cultures growing Beta Strep Group B * Urine Culture: Yeast, likeley a contaminant. * Continue to monitor for fevers and provide IV tylenol as needed * Patient to return to the OR likely Sunday for further debridement and placement of a SPT, will follow up surgery recommendations #Severe hyperglycemia * Endocrinology consult appreciated * Glu 735 with negative acetone * Insulin drip was discontinued. * Continue fluids with NS at 100 cc/h, no role for D5 as per endo * Continue accuchecks Q1H * The patient was started on TPN today. 15 units of insulin will be added to his formula daily. This was confirmed with movie producer. In addition to the above the patient will also continue on NovoLog sliding scale. #Acute respiratory failure * Patient noted to have an O2 saturation of 85% on room air * Continue fentanyl drip for sedation and pain * Follow up daily CXR * IV protonix while on the vent, head of bed 30 degrees #Hyponatremia, resolved * Likely hyponatremia 2/2 hyperglycemia * ICU bundle Q12H for now * Na level currently 144 * Continue NS at 100 cc/h #LORENZO in the setting of septic shock * Baseline cre 0.9 as seen on labs from 2016; current cre 1.3 * Continue aggressive fluid hydration, 100ml/hr * Consider nephrology consult if urine output drops * F/U urine randome cre, random Na, random K, FeNa #Acute anemia * Patient has history of anemia noted in December 2016 at 1030.8 * However, patient acutely low at 7/22.2 requiring 2 U PRBC transfusion 2016. * Follow up repeat CBC and trend Q12. H/H this am: .10/06.8 FULL CODE DVTP: Heparin SC Diet: NPO Pain: Fentanyl drip Problem List: 1. Hyperglycemia 2. Necrotizing fasciitis 3. Sepsis 4. Hyperglycemia due to type 2 diabetes mellitus 5. Hyponatremia Pain Ratin Tomorrow's Labs & Rationales: CBC: Pt critically Ill ICU Bundle: Monitor electrolytes Plan DVT/Prophylaxis: pharmacological
--- NOTE | 2017-01-11 06:36 | PN- General Surgery ---
See Addendum Subjective Subjective: pod 2 s/p i&d left buttock/groin fornier's gangrene intubated/sedated(fentanyl gtt) inuslin gtt off levo gtt early this am no major issues overnight Objective Vital Signs and I&Os Vital Signs Date Time Temp Pulse Resp B/P B/P Pulse O2 O2 Flow FiO2 Mean Ox Delivery Rate 05/ 0537 35 05/04 0400 96 Ventilator 35% 05/04 0318 35 05/04 0046 35 05/04 0000 97.3 107 18 104/60 100 Ventilator 35% 05/04 0000 100 Ventilator 35% 05/03 2216 35 05/03 2000 100 Ventilator 35% 05/03 1914 35 05/03 1614 35 05/03 1600 97 Ventilator 35% 05/03 1600 98.3 102 18 104/50 98 Ventilator 35% 05/03 1405 40 05/03 1200 100 Ventilator 40% 05/03 1041 40 05/03 1030 99.4 05/03 0938 100.6 05/03 0842 Ventilator 40% 05/03 0836 40 05/03 0800 100 Ventilator 40% 05/03 0800 100.6 108 18 112/40 97 Ventilator 40% Intake & Output 05/04 0800 05/04 0000 05/03 1600 05/03 0800 05/03 0000 05/02 1600 Intake Total 1163 2831 1544 1000 Output Total 450 500 43 Balance 713 2331 1501 1000 Intake, Blood 459 Product Intake, IV 1163 2372 1544 1000 Intake, Oral 0 Output, 100 200 Gastric Drainage Output, Urine 350 300 43 Patient 271 lb Weight Weight Bed scale Measurement Method Physical Exam: rolled to right side packing removed tissue with mild purulent exudate not foul smelling minimal local necrotic tissue no claude wound crepitus Assessment/Plan Assessment/Plan pod#1 i&d left groin gangrene plan change betadine soaked packing nursing can change dressings today with bedside cleaning/rolling if needed plan for i&d in am tomorrow will d/w attending
[2017-01-11 08:00] VITALS: BP 110/50
--- NOTE | 2017-01-11 08:21 | RADIOLOGY REPORT ---
EXAMINATION: XR PORTABLE CHEST CLINICAL INFORMATION: Mechanical ventilation and critically ill patient. Evaluate endotracheal tube placement. COMPARISON: Chest x-ray dated 01/10/2017 and 01/09/2017. TECHNIQUE: Portable semierect view of the chest was obtained. FINDINGS: The patient is rotated toward the right side. Endotracheal tube is approximately 4.5 cm above the arie. Enteric tube can be followed to the GE junction with tip not visualized due to technique of the film. Right jugular central venous line is in the right atrium. The cardiomediastinal silhouette is enlarged, unchanged. Low lung volumes are seen with central vascular congestion and mild bibasilar subsegmental atelectasis, similar to previous exam. There may be a trace right-sided pleural effusion. No pneumothorax is seen. Bony structures are grossly unremarkable. IMPRESSION: 1. Endotracheal tube tip approximately 4.5 cm above the arie. 2. Positioning of the enteric tube cannot be confirmed on this exam. 3. Right jugular central venous line is in the right atrium. 4. Cardiomegaly with central vascular congestion and bibasilar subsegmental atelectasis, similar to prior exam.
--- NOTE | 2017-01-11 08:34 | PN- Diabetes ---
Assessment/Plan Assessment: Patient is 61-year-old man with past medical history significant for hypertension, hyperlipidemia, stage IV sacral wound, hypothyroidism, diabetes mellitus type 2, was brought into ER after the patient was found to be lethargic and confused. Patient is wheel chair bound due to Hx of spina bifida. 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 He underwent debridement. Currently he remains intubated. His was off on pressor and his FSGs were between 110 and 130. He was on insulin drip 2 units per hour. He is off on insulin drip and repeat FSG is 121. Currently he is on NS at 200 ml/hour. Plan: 1. d/c insulin drip; 2. consider changing IVF or addingt free water via GI as his sodium level has been rising. 3. start Levemir 10 units daily; 4. start Novolog coverage every 4 hours-- detail see the inpatient DM order; 5. monitor FSGs and electrolytes 6. please inform me if his nutritional status changes, then his insulin regimen will be adjusted accordingly. will follow. Inpatient Diabetes Orders Every 4 Hours: Bolus Insulin: Novolog < 80 mg/dl: no coverage 80-100 mg/dl: no coverage 101-120 mg/dl: no coverage 121-150 mg/dl: no coverage 151-200 mg/dl: 2 units 201-250 mg/dl: 4 units 251-300 mg/dl: 6 units 301-350 mg/dl: 8 units 351-400 mg/dl: 10 units > 400 mg/dl: 12 units Subjective Subjective: He remains intubated. Objective Last 24 Hrs of Vital Signs/I&O Vital Signs Date Time Temp Pulse Resp B/P B/P Pulse O2 O2 Flow FiO2 Mean Ox Delivery Rate / 0813 35 05/04 0537 35 05/ 0400 96 Ventilator 35% 05/ 0318 35 05/04 0046 35 05/04 0000 97.3 107 18 104/60 100 Ventilator 35% 05/04 0000 100 Ventilator 35% 05/03 2216 35 05/03 2000 100 Ventilator 35% 05/03 1914 35 05/03 1614 35 05/03 1600 97 Ventilator 35% 05/03 1600 98.3 102 18 104/50 98 Ventilator 35% 05/03 1405 40 05/03 1200 100 Ventilator 40% 05/03 1041 40 01/10 1030 99.4 01/10 0938 100.6 01/10 0842 Ventilator 40% 01/10 0836 40 Intake & Output 01/11 1600 01/11 0800 01/11 0000 Intake Total 1163 Output Total 450 Balance 713 Intake, IV 1163 Intake, Oral 0 Output, 100 Gastric Drainage Output, Urine 350 Findings Pertinent Lab/Ervin Results: Laboratory Tests 01/11 01/10 0228 1828 Chemistry Sodium (137 - 145 mmol/L) 145 143 Potassium (3.5 - 5.1 mmol/L) 4.0 3.9 Chloride (98 - 107 mmol/L) 112 H 108 H Carbon Dioxide (22 - 30 mmol/L) 23 23 Anion Gap (5 - 16) 10 11 BUN (9 - 20 mg/dL) 39 H 41 H Creatinine (0.7 - 1.2 mg/dL) 1.4 H 1.4 H Estimated GFR (>60 ml/min) 52 L 52 L Glucose (65 - 99 mg/dL) 96 134 H Lactic Acid (0.7 - 2.1 mmol/L) 0.8 1.1 Calcium (8.4 - 10.2 mg/dL) 6.4 L 6.4 L Phosphorus (2.5 - 4.5 mg/dL) 3.2 3.2 Magnesium (1.6 - 2.3 mg/dL) 1.9 1.9 Total Bilirubin (0.2 - 1.3 mg/dL) 0.5 0.6 AST (17 - 59 U/L) 24 19 ALT (21 - 72 U/L) 30 29 Troponin I (<0.11 ng/ml) 0.02 < 0.01 Albumin (3.5 - 5.0 g/dL) 1.8 L 1.9 L Hematology CBC w Diff NO MAN DIFF REQ NO MAN DIFF REQ WBC (4.8 - 10.8 /CUMM) 11.7 H 12.2 H RBC (4.70 - 6.10 /CUMM) 3.20 L 3.36 L Hgb (14.0 - 18.0 G/DL) 8.4 L 9.0 L Hct (42 - 52 %) 25.5 L 27.3 L MCV (80.0 - 94.0 FL) 79.7 L 81.1 MCH (27.0 - 31.0 PG) 26.4 L 26.7 L RDW (11.5 - 14.5 %) 14.4 14.7 H Plt Count (130 - 400 /CUMM) 425 H 421 H MPV (7.4 - 10.4 FL) 8.1 8.5 Gran % (42.2 - 75.2 %) 85.3 H 84.2 H Lymphocytes % (20.5 - 51.1 %) 7.4 L 7.8 L Monocytes % (1.7 - 9.3 %) 6.2 7.2 Eosinophils % (0 - 5 %) 1.1 0.7 Basophils % (0.0 - 2.0 %) 0 L 0.1 Absolute Granulocytes (1.4 - 6.5 /CUMM) 10.0 H 10.3 H Absolute Lymphocytes (1.2 - 3.4 /CUMM) 0.9 L 1.0 L Absolute Monocytes (0.10 - 0.60 /CUMM) 0.7 H 0.9 H Absolute Eosinophils (0.0 - 0.7 /CUMM) 0.1 0.1 Absolute Basophils (0.0 - 0.2 /CUMM) 0 0 PUBS MCHC (33.0 - 37.0 G/DL) 33.1 33.0 05/03 05/03 1100 1035 Blood Gas pH (7.35 - 7.45 PH) 7.40 pCO2 (35 - 45 TORR) 42 pO2 (80 - 100 TORR) 79 L HCO3 (21 - 28 MEQ/L) 25 ABG O2 Sat (Measured) (>96.0 %) 94.0 L P-50 (Temp Corrected) YES Carboxyhemoglobin (1.5 - 5.0 %) 0.3 L O2 Concentration % 40% Temperature (97.0 - 100.0 FARH) 100.6 H Respiration Rate (BPM) 16 O2 Delivery Method VENTILATOR Vent Mode AC Expiratory Pressure (CMH2O/P) 5 Tidal Volume (CC) 500 Chemistry Sodium (137 - 145 mmol/L) 142 Potassium (3.5 - 5.1 mmol/L) 3.6 Chloride (98 - 107 mmol/L) 105 Carbon Dioxide (22 - 30 mmol/L) 24 Anion Gap (5 - 16) 12 BUN (9 - 20 mg/dL) 40 H Creatinine (0.7 - 1.2 mg/dL) 1.6 H Estimated GFR (>60 ml/min) 44 L Glucose (65 - 99 mg/dL) 213 H Lactic Acid (0.7 - 2.1 mmol/L) 1.9 Calcium (8.4 - 10.2 mg/dL) 6.7 L Phosphorus (2.5 - 4.5 mg/dL) 2.6 Magnesium (1.6 - 2.3 mg/dL) 2.0 Total Bilirubin (0.2 - 1.3 mg/dL) 0.4 AST (17 - 59 U/L) 16 L ALT (21 - 72 U/L) 28 Troponin I (<0.11 ng/ml) < 0.01 Albumin (3.5 - 5.0 g/dL) 1.9 L Hematology CBC w Diff MAN DIFF ORDERED WBC (4.8 - 10.8 /CUMM) 11.5 H RBC (4.70 - 6.10 /CUMM) 2.77 L Hgb (14.0 - 18.0 G/DL) 7.0 *L Hct (42 - 52 %) 22.2 L MCV (80.0 - 94.0 FL) 80.1 MCH (27.0 - 31.0 PG) 25.4 L RDW (11.5 - 14.5 %) 14.5 Plt Count (130 - 400 /CUMM) 452 H MPV (7.4 - 10.4 FL) 8.0 Gran % (42.2 - 75.2 %) 87.9 H Lymphocytes % (20.5 - 51.1 %) 6.8 L Monocytes % (1.7 - 9.3 %) 4.6 Eosinophils % (0 - 5 %) 0.6 Basophils % (0.0 - 2.0 %) 0.1 Absolute Granulocytes (1.4 - 6.5 /CUMM) 10.1 H Absolute Lymphocytes (1.2 - 3.4 /CUMM) 0.8 L Absolute Monocytes (0.10 - 0.60 /CUMM) 0.5 Absolute Eosinophils (0.0 - 0.7 /CUMM) 0.1 Absolute Basophils (0.0 - 0.2 /CUMM) 0 Platelet Estimate (ADEQUATE) INCREASED Hypochromic-Microcytic 1+ Poikilocytosis 1+ Anisocytosis 1+ PUBS MCHC (33.0 - 37.0 G/DL) 31.7 L Miscellaneous Phlebotomy Draw Site JUNCOS
--- NOTE | 2017-01-11 09:22 | PN- CRCU ---
Subjective HPI/Critical Care Issues: The patient is more awake. He remains on mechanical ventilation at 35% with saturations in the high 90s to 100%. He is afebrile. The patient's urine output has significantly improved. He is now off pressors. The patient is much more awake and is responding to questions. He remains on a fentanyl drip and denies any pain at present. Overall, he appears to be significantly improving. Objective Current Medications: Current Medications Sig/Michelle Start time Last Medication Dose Route Stop Time Status Admin Acetaminophen 1,000 MG Q6P PRN 01/10 0830 AC 05 N/A 1 UNIT IV 0938 Albuterol Sulfate 3 ML Q4H PRN / 1015 AC INH Ceftazidime 2,000 MG Q8H / 0500 DC 05/03 Sodium Chloride 100 ML IV 0551 Clindamycin 900 MG Q8H / 1000 AC 05/ Sodium Chloride 50 ML IV 0125 Fentanyl Citrate 1,000 MCG Q24H / 0945 AC 01/11 Dextrose/Water 250 ML IV 0735 Fluticasone 2 PUF BID 05/ 1000 DC Propionate INH Heparin Sodium 5,000 UNIT Q8 / 0600 AC 05/04 (Porcine) SC 0638 Hydromorphone HCl 1 MG Q4P PRN / 0215 DC IV Insulin Aspart 0 Q4 / 1000 AC SC Insulin Detemir 10 UNITS DAILY 04 1000 AC SC Insulin Human Regular 100 UNIT Q24H 05/ 2300 DC 05/03 Sodium Chloride 100 ML IV 2300 Lorazepam 50 MG Q24H / 0300 DC 05/03 Sodium Chloride 500 ML IV 0410 Meropenem 1 GM IQ8 05/03 1600 AC 05/04 IV 0747 Morphine Sulfate 4 MG Q6P PRN 05/ 2200 DC 05/03 IV 0247 Norepinephrine 4 MG Q24H / 0530 DC 05/03 Sodium Chloride 250 ML IV 0523 Nystatin 5 ML 4 TIMES/DAY 05/ 0530 AC 05/03 PO 2118 Pantoprazole Sodium 40 MG DAILY 05/03 1000 AC 05/03 IV 1101 Potassium Chloride 10 MEQ Q1H 05/03 1700 DC 05/03 IV 05/03 1801 2036 Sodium Chloride 1,000 ML Q10H 05/02 2200 AC 05/04 IV 0635 Vancomycin HCl 1,500 MG DAILY 01/11 1000 AC Sodium Chloride 250 ML IV Vancomycin HCl 500 MG ONCE ONE 01/10 1500 DC 01/10 Sodium Chloride 250 ML IV 01/10 1559 1657 Vancomycin HCl 500 MG ONCE ONE 01/10 1430 CAN IV 01/10 1431 Vancomycin HCl 1,000 MG DAILY 01/10 1000 AC 01/10 Sodium Chloride 250 ML IV 01/11 0959 1101 Vital Signs & I&O Last 24 Hrs of Vitals and I&O: Vital Signs Date Time Temp Pulse Resp B/P B/P Pulse O2 O2 Flow FiO2 Mean Ox Delivery Rate 01/11 0813 35 / 0800 97.8 114 18 110/50 100 Ventilator 35% / 0537 35 / 0400 96 Ventilator 35% / 0318 35 / 0046 35 05/ 0000 97.3 107 18 104/60 100 Ventilator 35% 05/ 0000 100 Ventilator 35% / 2216 35 / 2000 100 Ventilator 35% 05/03 1914 35 /03 1614 35 /03 1600 97 Ventilator 35% 05/03 1600 98.3 102 18 104/50 98 Ventilator 35% 05/03 1405 40 05/03 1200 100 Ventilator 40% 05/03 1041 40 05/03 1030 99.4 05/03 0938 100.6 Intake & Output 01/11 1600 01/11 0800 01/11 0000 Intake Total 1163 Output Total 450 Balance 713 Intake, IV 1163 Intake, Oral 0 Output, 100 Gastric Drainage Output, Urine 350 Physical Exam General Appearance: no apparent distress, sedated, intubated, obese Head: atraumatic, normal appearance. Neck: normal inspection, supple Respiratory: normal breath sounds, no respiratory distress, Intubated, occasional crackles Cardiovascular: regular rate/rhythm, normal peripheral pulses Gastrointestinal: normal bowel quiet, soft, non-tender, no organomegaly Extremities: normal capillary refill, no edema Neurologic/Psych: Patient currently intubated and sedated. Skin: Stage IV coccyx/lumbar wound, maceration of penis and scrotal area Results Last 24 Hrs of Lab Results: Laboratory Tests 01/11/17 0228: Anion Gap 10, Estimated GFR 52 L, Glucose 96, Lactic Acid 0.8, Calcium 6.4 L, Phosphorus 3.2, Magnesium 1.9, Total Bilirubin 0.5, AST 24, ALT 30, Troponin I 0.02, Albumin 1.8 L, CBC w Diff NO MAN DIFF REQ, RBC 3.20 L, MCV 79.7 L, MCH 26.4 L, RDW 14.4, MPV 8.1, Gran % 85.3 H, Lymphocytes % 7.4 L, Monocytes % 6.2, Eosinophils % 1.1, Basophils % 0 L, Absolute Granulocytes 10.0 H, Absolute Lymphocytes 0.9 L, Absolute Monocytes 0.7 H, Absolute Eosinophils 0.1 , Absolute Basophils 0, PUBS MCHC 33.1 01/10/17 1828: Anion Gap 11, Estimated GFR 52 L, Glucose 134 H, Lactic Acid 1.1, Calcium 6.4 L, Phosphorus 3.2, Magnesium 1.9, Total Bilirubin 0.6, AST 19, ALT 29, Troponin I < 0.01, Albumin 1.9 L, CBC w Diff NO MAN DIFF REQ, RBC 3.36 L, MCV 81.1, MCH 26.7 L, RDW 14.7 H, MPV 8.5, Gran % 84.2 H, Lymphocytes % 7.8 L, Monocytes % 7.2, Eosinophils % 0.7, Basophils % 0.1, Absolute Granulocytes 10.3 H, Absolute Lymphocytes 1.0 L, Absolute Monocytes 0.9 H, Absolute Eosinophils 0.1, Absolute Basophils 0, PUBS MCHC 33.0 01/10/17 1100: Anion Gap 12, Estimated GFR 44 L, Glucose 213 H, Lactic Acid 1.9, Calcium 6.7 L, Phosphorus 2.6, Magnesium 2.0, Total Bilirubin 0.4, AST 16 L, ALT 28, Troponin I < 0.01, Albumin 1.9 L, CBC w Diff MAN DIFF ORDERED, RBC 2.77 L, MCV 80.1, MCH 25.4 L, RDW 14.5, MPV 8.0, Gran % 87.9 H, Lymphocytes % 6.8 L, Monocytes % 4.6, Eosinophils % 0.6, Basophils % 0.1, Absolute Granulocytes 10.1 H, Absolute Lymphocytes 0.8 L, Absolute Monocytes 0.5, Absolute Eosinophils 0.1 , Absolute Basophils 0, Platelet Estimate INCREASED, Hypochromic-Microcytic 1+, Poikilocytosis 1+, Anisocytosis 1+, PUBS MCHC 31.7 L 01/10/17 1035: pH 7.40, pCO2 42, pO2 79 L, HCO3 25, ABG O2 Sat (Measured) 94.0 L, P-50 (Temp Corrected) YES, Carboxyhemoglobin 0.3 L, O2 Concentration % 40%, Temperature 100.6 H, Respiration Rate 16, O2 Delivery Method VENTILATOR, Vent Mode AC, Expiratory Pressure 5, Tidal Volume 500, Phlebotomy Draw Site RUSS Impression/Plan Impression/Plan Impression/Plan: 1. Jerad's gangrene, status post debridement of skin, subcutaneous tissue muscle and fascia, and perineum, POD # 2. 2. Multisystem organ failure with septic shock - hemodynamics improving. 3. Acute kidney injury in the setting of septic shock, ATN. UO improving with fluid resuscitation. 4. Respiratory failure, on mechanical ventilation. 5. History of diabetes with uncontrolled hyperglycemia, now off insulin drip. 6. History of hypothyroidism. 7. Spina bifida and paraplegia with chronic pressure ulcers. Recommendations: * Check labs every 12 hours today including CBC, and ICU bundle. * Start fentanyl drip at 50 g per hour. Will need to adjust for control of pain. * Continue IV fluid resuscitation with normal saline at 100 ML per hour. * Monitor strict I's and O's. Will adjust IV fluid for adequate urine output. * Suprapubic catheter placement and debridement tomorrow. * Continue antibiotics per ID. * Please request an ID consult for further recommendations. * NPO/no tube feeds for now. * Start TPN today. Please discuss the need for insulin in the TPN with Dr. Cruz. * IV Protonix daily. * Continue subcutaneous heparin for DVT prophylaxis at all times. * Ventilator bundle every 8 hours. * Continue all supportive care. The patient is critically ill and needs close continuous monitoring. I have discussed the case with the housestaff and asked them to contact me should the patient's condition change or deteriorate.
--- NOTE | 2017-01-11 10:03 | PN- Infect Dx ---
Subjective Subjective: Afebrile. His blood pressure has improved, now off pressors. Objective Last 24 Hrs of Vital Signs/I&O Vital Signs Date Time Temp Pulse Resp B/P B/P Pulse O2 O2 Flow FiO2 Mean Ox Delivery Rate 01/11 0813 35 05/ 0800 100 Ventilator 35% 05/ 0800 97.8 114 18 110/50 100 Ventilator 35% 05/04 0537 35 05/04 0400 96 Ventilator 35% 05/04 0318 35 05/04 0046 35 05/04 0000 97.3 107 18 104/60 100 Ventilator 35% 05/04 0000 100 Ventilator 35% 05/03 2216 35 05/03 2000 100 Ventilator 35% 05/03 1914 35 05/03 1614 35 05/03 1600 97 Ventilator 35% 05/03 1600 98.3 102 18 104/50 98 Ventilator 35% 05/03 1405 40 05/03 1200 100 Ventilator 40% 05/03 1041 40 05/03 1030 99.4 Intake & Output / 1600 / 0800 05/ 0000 Intake Total 1163 Output Total 450 Balance 713 Intake, IV 1163 Intake, Oral 0 Output, 100 Gastric Drainage Output, Urine 350 Physical Exam Other Physical Findings: He is awake and alert on the ventilator in no acute distress Neck right IJ triple lumen catheter with no inflammation at the site Lungs rhonchi bilaterally Heart regular rhythm with no murmur Abdomen is soft, nontender with positive bowel sounds Extremities no cyanosis, clubbing or edema Guthrie catheter remains in place; dressing in place over the perineum Results Last 24 Hours of Lab Results: Laboratory Tests 01/11 01/10 0228 1828 Chemistry Sodium (137 - 145 mmol/L) 145 143 Potassium (3.5 - 5.1 mmol/L) 4.0 3.9 Chloride (98 - 107 mmol/L) 112 H 108 H Carbon Dioxide (22 - 30 mmol/L) 23 23 Anion Gap (5 - 16) 10 11 BUN (9 - 20 mg/dL) 39 H 41 H Creatinine (0.7 - 1.2 mg/dL) 1.4 H 1.4 H Estimated GFR (>60 ml/min) 52 L 52 L Glucose (65 - 99 mg/dL) 96 134 H Lactic Acid (0.7 - 2.1 mmol/L) 0.8 1.1 Calcium (8.4 - 10.2 mg/dL) 6.4 L 6.4 L Phosphorus (2.5 - 4.5 mg/dL) 3.2 3.2 Magnesium (1.6 - 2.3 mg/dL) 1.9 1.9 Total Bilirubin (0.2 - 1.3 mg/dL) 0.5 0.6 AST (17 - 59 U/L) 24 19 ALT (21 - 72 U/L) 30 29 Troponin I (<0.11 ng/ml) 0.02 < 0.01 Albumin (3.5 - 5.0 g/dL) 1.8 L 1.9 L Hematology CBC w Diff NO MAN DIFF REQ NO MAN DIFF REQ WBC (4.8 - 10.8 /CUMM) 11.7 H 12.2 H RBC (4.70 - 6.10 /CUMM) 3.20 L 3.36 L Hgb (14.0 - 18.0 G/DL) 8.4 L 9.0 L Hct (42 - 52 %) 25.5 L 27.3 L MCV (80.0 - 94.0 FL) 79.7 L 81.1 MCH (27.0 - 31.0 PG) 26.4 L 26.7 L RDW (11.5 - 14.5 %) 14.4 14.7 H Plt Count (130 - 400 /CUMM) 425 H 421 H MPV (7.4 - 10.4 FL) 8.1 8.5 Gran % (42.2 - 75.2 %) 85.3 H 84.2 H Lymphocytes % (20.5 - 51.1 %) 7.4 L 7.8 L Monocytes % (1.7 - 9.3 %) 6.2 7.2 Eosinophils % (0 - 5 %) 1.1 0.7 Basophils % (0.0 - 2.0 %) 0 L 0.1 Absolute Granulocytes (1.4 - 6.5 /CUMM) 10.0 H 10.3 H Absolute Lymphocytes (1.2 - 3.4 /CUMM) 0.9 L 1.0 L Absolute Monocytes (0.10 - 0.60 /CUMM) 0.7 H 0.9 H Absolute Eosinophils (0.0 - 0.7 /CUMM) 0.1 0.1 Absolute Basophils (0.0 - 0.2 /CUMM) 0 0 PUBS MCHC (33.0 - 37.0 G/DL) 33.1 33.0 05/03 05/03 1100 1035 Blood Gas pH (7.35 - 7.45 PH) 7.40 pCO2 (35 - 45 TORR) 42 pO2 (80 - 100 TORR) 79 L HCO3 (21 - 28 MEQ/L) 25 ABG O2 Sat (Measured) (>96.0 %) 94.0 L P-50 (Temp Corrected) YES Carboxyhemoglobin (1.5 - 5.0 %) 0.3 L O2 Concentration % 40% Temperature (97.0 - 100.0 FARH) 100.6 H Respiration Rate (BPM) 16 O2 Delivery Method VENTILATOR Vent Mode AC Expiratory Pressure (CMH2O/P) 5 Tidal Volume (CC) 500 Chemistry Sodium (137 - 145 mmol/L) 142 Potassium (3.5 - 5.1 mmol/L) 3.6 Chloride (98 - 107 mmol/L) 105 Carbon Dioxide (22 - 30 mmol/L) 24 Anion Gap (5 - 16) 12 BUN (9 - 20 mg/dL) 40 H Creatinine (0.7 - 1.2 mg/dL) 1.6 H Estimated GFR (>60 ml/min) 44 L Glucose (65 - 99 mg/dL) 213 H Lactic Acid (0.7 - 2.1 mmol/L) 1.9 Calcium (8.4 - 10.2 mg/dL) 6.7 L Phosphorus (2.5 - 4.5 mg/dL) 2.6 Magnesium (1.6 - 2.3 mg/dL) 2.0 Total Bilirubin (0.2 - 1.3 mg/dL) 0.4 AST (17 - 59 U/L) 16 L ALT (21 - 72 U/L) 28 Troponin I (<0.11 ng/ml) < 0.01 Albumin (3.5 - 5.0 g/dL) 1.9 L Hematology CBC w Diff MAN DIFF ORDERED WBC (4.8 - 10.8 /CUMM) 11.5 H RBC (4.70 - 6.10 /CUMM) 2.77 L Hgb (14.0 - 18.0 G/DL) 7.0 *L Hct (42 - 52 %) 22.2 L MCV (80.0 - 94.0 FL) 80.1 MCH (27.0 - 31.0 PG) 25.4 L RDW (11.5 - 14.5 %) 14.5 Plt Count (130 - 400 /CUMM) 452 H MPV (7.4 - 10.4 FL) 8.0 Gran % (42.2 - 75.2 %) 87.9 H Lymphocytes % (20.5 - 51.1 %) 6.8 L Monocytes % (1.7 - 9.3 %) 4.6 Eosinophils % (0 - 5 %) 0.6 Basophils % (0.0 - 2.0 %) 0.1 Absolute Granulocytes (1.4 - 6.5 /CUMM) 10.1 H Absolute Lymphocytes (1.2 - 3.4 /CUMM) 0.8 L Absolute Monocytes (0.10 - 0.60 /CUMM) 0.5 Absolute Eosinophils (0.0 - 0.7 /CUMM) 0.1 Absolute Basophils (0.0 - 0.2 /CUMM) 0 Platelet Estimate (ADEQUATE) INCREASED Hypochromic-Microcytic 1+ Poikilocytosis 1+ Anisocytosis 1+ PUBS MCHC (33.0 - 37.0 G/DL) 31.7 L Miscellaneous Phlebotomy Draw Site RUSS Last 24 Hours of Ervin Results: Blood cultures 2 January 09 positive for Group B strep Urine culture January 10 approximately 15,000 colonies of yeast OR culture January 10 positive for Group B strep, Klebsiella resistant to Ampicillin and a second gram-negative rhonda to be identified Recent Imaging Studies: Chest x-ray January 11, personally reviewed, reveals cardiomegaly with central vascular congestion and bibasilar atelectasis Assessment/Plan 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 He is scheduled for a return to the OR in the a.m. for further debridement and suprapubic cystostomy. The possibility of underlying osteomyelitis must be considered based on the recent MRI, though there was no exposed bone noted in the OR. The positive urine culture likely represents contamination or colonization and would not treat at this time. Suggestion: 1. Await return to the OR in the a.m. for further debridement and suprapubic cystostomy 2. Would consider bone biopsy in the OR to rule out underlying osteomyelitis 3. Follow-up final OR cultures 4. Would pursue placement of a PICC so that the right IJ can be removed 5. Discontinue Vancomycin and Clindamycin 6. Continue Meropenem pending above
--- NOTE | 2017-01-11 11:10 | NUR ---
RECEIVED PATIENT AT 0800, AROUSABLE, SAS 3-4. DENIES PAIN. ON FENTANYL GTT @ 50 MCG/HR OR 12.5 MLS/HR THROUGH THE WHITE PORT OF THE RIJ TLC PLACED 01/10/17. ST ON THE SUGAR MIXER 110S UPON RECEIVING PATIENT BUT INCREASING TO THE 120S AT REST AND UP TO 133 WITH RETAPING OF THE ETT AT 1100. LEB=563I MANUALLY AND PER THE RUSS IN THE LEFT WRIST ARTERY. AUTOCUFF READING 120S-130S. NS DECREASED FROM 200 MLS/HR TO 100 MLS/HR AT 1053. CVP READING 16 TO BROWN PORT OF RIJ TLC. INSULIN GTT D/C'D AT 0720 AND BLOOD SUGARS RUNNING 121-149. TO GIVEN REGULAR INSULIN FOR BS >149 AND LEVEMIR BID. PATIENT IS NPO. OGT TO R SIDE OF MOUTH TO LOW WALL SUCTION W/ MODERATE BILIOUS DRAINAGE. ABDOMEN SOFT/NONTENDER, +BS. MONTES IN PLACE W/ IMPROVED LIGHT HAZY JUDY OUTPUT. RIGHT JONES UNSTAGEABLE ULCER W/ OCCULUSIVE DRESSING. L BUTTOCK DRESSING CHANGED THIS AM BY SURGICAL SHAKA CERVANTES. BETADINE SOAKED GAUZE IN PLACE. PATIENT TO BE PLACED ON CLINITRON THIS AFTERNOON. EULALIO CALLED TO SAY BED IS ON ITS WAY. MACERATED TISSUE NOTED TO SCROTUM/PERINEUM/AND PENIS. NO DRAINAGE NOTED. PATIENT REORIENTED TO ROOM/FOLLOWS COMMANDS/ MOVES ARMS. GIVEN VERBAL EMOTIONAL REASSURANCE AND SAFETY MAINTAINED.
[2017-01-11 11:41] LABS: ABSOLUTE BASOPHIL COUNT 0 /CUMM (0.0-0.2); ABSOLUTE EOSINOPHIL COUNT 0.1 /CUMM (0.0-0.7); ABSOLUTE GRANULOCYTE CT 11.2 /CUMM (1.4-6.5); ABSOLUTE LYMPH COUNT 0.8 /CUMM (1.2-3.4); ABSOLUTE MONOCYTE COUNT 0.9 /CUMM (0.10-0.60); BASOPHIL % 0 % (0.0-2.0); EOSINOPHIL % 0.4 % (0-5); GRANULOCYTE % 86.2 % (42.2-75.2); HEMATOCRIT 27.8 % (42-52); MEAN CORPUSCULAR HGB 26.5 PG (27.0-31.0); MEAN CORPUSCULAR HGB CONC 32.6 G/DL (33.0-37.0); MEAN CORPUSCULAR VOLUME 81.2 FL (80.0-94.0); MEAN PLATELET VOLUME 8.6 FL (7.4-10.4); PLATELET COUNT 437 /CUMM (130-400); RBC DISTRIBUTION WIDTH 14.9 % (11.5-14.5); RED BLOOD CELL CT 3.42 /CUMM (4.70-6.10)
--- NOTE | 2017-01-11 15:02 | NUR ---
Referral received yesterday . This patient is a 61 year old man, admitted to the hospital on 01/09/17 with hyperglycemia. Patient subsequently deteriorated; was intubated and taken to OR. Reason for social work consult was related to assessing who patients next of kin is. I spoke with patients nurse Jennifer, yesterday. She reports that reina hernández has been to the hospital and has provided her contact information. Admitting office updated. Purvi Sol is doorperson or luggage porter for now. Follow.
[2017-01-11 16:00] VITALS: BP 132/78
[2017-01-11 20:00] VITALS: BP 118/60
[2017-01-11 20:58] LABS: ABSOLUTE BASOPHIL COUNT 0 /CUMM (0.0-0.2); ABSOLUTE EOSINOPHIL COUNT 0.1 /CUMM (0.0-0.7); ABSOLUTE GRANULOCYTE CT 9.9 /CUMM (1.4-6.5); ABSOLUTE LYMPH COUNT 1.1 /CUMM (1.2-3.4); ABSOLUTE MONOCYTE COUNT 0.8 /CUMM (0.10-0.60); BASOPHIL % 0.2 % (0.0-2.0); EOSINOPHIL % 0.7 % (0-5); MEAN CORPUSCULAR HGB 26.2 PG (27.0-31.0); MEAN CORPUSCULAR HGB CONC 32.1 G/DL (33.0-37.0); MEAN CORPUSCULAR VOLUME 81.7 FL (80.0-94.0); MEAN PLATELET VOLUME 8.2 FL (7.4-10.4); PLATELET COUNT 432 /CUMM (130-400); RBC DISTRIBUTION WIDTH 15.5 % (11.5-14.5); RED BLOOD CELL CT 3.31 /CUMM (4.70-6.10); WHITE BLOOD CELL COUNT 11.9 /CUMM (4.8-10.8)
--- NOTE | 2017-01-12 01:41 | NUR ---
@1999 RECEIVED PT DROWSY BUT AROUSABLE TO SPEECH, FOLLOWS COMMANDS, +HAND GRASPS ABLE TO COMMUNICATE BY SHAKING HEAD YES OR NO. FENTANYL @50MCG/HR=12.5ML/HR, SAS 4, HR ST 116'S, AFEBRILE, BP STABLE SEE ICU FLOWSHEET FOR HOURLY VITALS.CVP 15 PT RECIEVING IVF @100ML/HR PER MD ORDER PT VENTED ON 35% FIO2 SCATTERED RHONCHI AND WHEEZING NOTED, ET SUCTIONING WITH THICK YELLOW CREAMY RETURNS, INCREASED ORAL SECRETIONS NOTED, DURING ORAL SUCTIONING OR MOUTH CARE PT FREQUENTLY THRASHES HEAD SIDE TO SIDE. TPN AND LIPIDS STARTED PER MD ORDER. MONTES IN PLACE ADEQUATE OUTPUT. SURGICAL DRESSING CHANGED IN AM BY PA, PT TO GO TO OR IN AM FOR DEBRIDEMENT AND SUPRAPUBIC TUBE, PT REPOSITIONED ON CLINITRON BED.
[2017-01-12 05:26] LABS: ABSOLUTE BASOPHIL COUNT 0 /CUMM (0.0-0.2); ABSOLUTE EOSINOPHIL COUNT 0.1 /CUMM (0.0-0.7); ABSOLUTE GRANULOCYTE CT 9.9 /CUMM (1.4-6.5); ABSOLUTE LYMPH COUNT 1.1 /CUMM (1.2-3.4); ABSOLUTE MONOCYTE COUNT 0.8 /CUMM (0.10-0.60); BASOPHIL % 0.1 % (0.0-2.0); EOSINOPHIL % 1.1 % (0-5); GRANULOCYTE % 83.4 % (42.2-75.2); HEMATOCRIT 27.2 % (42-52); MEAN CORPUSCULAR HGB 26.4 PG (27.0-31.0); MEAN CORPUSCULAR HGB CONC 32.6 G/DL (33.0-37.0); MEAN PLATELET VOLUME 8.4 FL (7.4-10.4); PLATELET COUNT 457 /CUMM (130-400); RBC DISTRIBUTION WIDTH 15.8 % (11.5-14.5); RED BLOOD CELL CT 3.36 /CUMM (4.70-6.10); WHITE BLOOD CELL COUNT 11.9 /CUMM (4.8-10.8)
--- NOTE | 2017-01-12 06:21 | PN- Resident CRCU ---
Subjective HPI/CRCU Issues: Mr Bowens was seen and examined this morning is resting comfortably in bed. He appears in no distress. He is able to follow commands and able to respond via his hand. He denies any fever, chills, nausea, vomiting. 24 Hour Events: No Events reported Objective Vital Signs & I&O Last 8 Hrs of Vitals and I&O: T: 97.7-98.5 HR:107-130 BP:94/48-137/63 : Urine Output: SI:450 SII:600 SIII: 980 Intake & Output 05 1600 Intake Total 760 Output Total 600 Balance 160 Intake, IV 760 Output, Urine 600 Exam General Appearance: well developed/nourished Head: atraumatic Ears, Nose, Throat: normal pharynx, Right IJ in Place Neck: Right IJ in place Respiratory: normal breath sounds Cardiovascular: regular rate/rhythm Gastrointestinal: normal bowel sounds, soft, non-tender Extremities: normal inspection, normal capillary refill, normal range of motion Cranial Nerves: PERRL Skin: Penile and scrotal Maceration. Lumbar/Coccyx wound Stage IV, dressing present Current Medications: Current Medications Sig/Michelle Start time Last Medication Dose Route Stop Time Status Admin Acetaminophen 1,000 MG Q6P PRN 01/10 0830 AC 01/10 N/A 1 UNIT IV 0938 Albuterol Sulfate 3 ML Q4H PRN / 1015 AC INH Fat Emulsion 500 ML Q24H / 1900 AC / Intravenous IV / 1859 1930 Fentanyl Citrate 1,000 MCG Q20H / 0300 AC / Dextrose/Water 250 ML IV 0049 Fentanyl Citrate 1,000 MCG Q24H / 0945 DC / Dextrose/Water 250 ML IV / 0659 0735 Heparin Sodium 5,000 UNIT Q8 / 0600 AC 01/11 (Porcine) SC 2140 Insulin Aspart 0 Q4 / 1000 AC 01/12 SC 0625 Insulin Detemir 10 UNITS DAILY / 1000 DC 01/11 SC 1035 Lorazepam 1 MG ONCE ONE 01/12 0845 DC 01/12 IV 01/12 0846 0843 Meropenem 1 GM IQ8 / 1600 AC 01/12 IV 0836 Nystatin 5 ML 4 TIMES/DAY 01/10 0530 AC 05/04 PO 2140 Pantoprazole Sodium 40 MG DAILY 01/10 1000 AC 01/11 IV 1035 Sodium Chloride 1,000 ML Q10H 01/09 2200 DC 01/11 IV 2343 Total Parenteral 1 UNIT ONE 01/11 1900 AC 01/11 Nutrition IV 01/12 1859 1930 Vancomycin HCl 1,000 MG DAILY 01/10 1000 DC 01/10 Sodium Chloride 250 ML IV 01/11 0959 1101 Impression/Plan Impression/Problem List Impression: Mr. Bowens is a 61 year old male with PMH type 2 diabetes mellitus, medication non-compliance, HTN, HLD, spina bifida, paraplegia, hypothyroidism and stage IV sacral decubitus ulcer who presented to the [facility] ED with chief complaint of confusion and chills. Associated symptoms included worsening of his buttocks wound infection, fever, penile/scrotal irritation from catheter placement and decreased oral intake. In the ED: Vital signs showed Tmax 102.3, HR 122, RR 16, BEP 122/66 which dropped to 96/64 after 3 L IV fluid bolus, and 85% on room air improved to 95% on 2 L NC. Labs were significant for WBC 13.8, neutrophils 95%, 6 bands, H&H 8.9 /27.6, Plt 547, Na 129, Cl 88, BUN 38, cre 1.6, AG 14, Glu 735, Lactate 2.2, INR 1.35, negative acetone. CXR was WNL. CT pelvis showed air in the scrotum and fat at the perineum/left buttocks/ischiorectal fat. No focal collection/abscess in the distal rectum or sigmoid. EKG showed T wave inversion in V4. 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 Vancomycin and clindamycin discontinued. * Cultures from the OR growing Gram Negative Rods, Yeast, Alpha Strep. * Blood cultures growing Beta Strep Group B * Urine Culture: Yeast, beginning Fluconazole 800 mg IV loading dose, followed by 600 mg IV from 01/13/2017. * Continue to monitor for fevers and provide IV tylenol as needed * Patient to return to the OR later today for further debridement and placement of a suprapubic cystostomy, will follow up surgery recommendations * We have also asked them to take a bone biopsy as recomended by ID to rule out possibility of Osteomyelitis. * PICC placement recommendations have been placed #Severe hyperglycemia * Endocrinology consult appreciated * Glu 735 with negative acetone * Insulin drip was discontinued. * Fluids have been discontinued, we will repeat a ICU bundle this evening and monitor the NA level. * Continue accuchecks Q1H * The patient is on TPN today, day two. 45 units of insulin will be added to his formula. This was confirmed with line closer. In addition to the above the patient will also continue on NovoLog sliding scale, this has been corrected as blood sugars were elevated. #Acute respiratory failure * Patient noted to have an O2 saturation of 85% on room air * Continue fentanyl drip for sedation and pain * Follow up daily CXR * IV protonix while on the vent, head of bed 30 degrees #Hypernatremia * ICU bundle Q12H for now, repeat CBC in PM. * Na level currently 146 #Hypocalcemia * Ionized Calcium to be repeated this evening. #LORENZO in the setting of septic shock * Baseline cre 0.9 as seen on labs from 2016; current cre 1.0 * Consider nephrology consult if urine output drops #Acute anemia * Patient has history of anemia noted in December 2016 at 10/30.8 * However, patient acutely low at 7/22.2 requiring 2 U PRBC transfusion 2016. * Follow up repeat CBC and trend Q12. H/H this am: 8.9/27.2 FULL CODE DVTP: Heparin SC Diet: NPO Pain: Fentanyl drip Problem List: 1. Sepsis 2. 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 Leukocytosis 5. Acute renal failure 6. Hyperglycemia Pain Ratin Tomorrow's Labs & Rationales: CBC ICU Bundle ABG Plan DVT/Prophylaxis: pharmacological
[2017-01-12 08:00] VITALS: BP 134/72
--- NOTE | 2017-01-12 08:10 | RADIOLOGY REPORT ---
EXAMINATION: XR PORTABLE CHEST CLINICAL INFORMATION: Status post intubation. Check ET tube placement. COMPARISON: Chest done on 01/11/2017. TECHNIQUE: Portable frontal view of the chest was obtained. FINDINGS: The tip of the endotracheal tube is located 4.3 cm above the level of the arie. There is a right-sided central line present, appear to be projecting at the cavoatrial junction. Asymmetric airspace opacities noted within the right hemithorax, not optimally included within the tonuw-le-rpmh, may represent edema versus infection. Focal airspace disease is also noted at left lung base, unchanged. Enteric tube is visualized however, the tip is not optimally identified within the abdomen. IMPRESSION: The tip of the endotracheal tube is located approximately 4.3 cm above the level of the arie, unchanged.
--- NOTE | 2017-01-12 09:49 | PN- CRCU ---
Subjective HPI/Critical Care Issues: pt seen and examined remains on mechanical ventilation fio2 35% ETT 4.3cm above arie on cxr wbc 11.9 sodium 146 creatinine 1 calcium 6.4 ROS unobtainable secondary to ventilated state Objective Current Medications: Current Medications Sig/Michelle Start time Last Medication Dose Route Stop Time Status Admin Acetaminophen 1,000 MG Q6P PRN / 0830 AC 01/10 N/A 1 UNIT IV 0938 Albuterol Sulfate 3 ML Q4H PRN / 1015 AC INH Fat Emulsion 500 ML Q24H / 1900 AC 05/ Intravenous IV 01/12 1859 1930 Fentanyl Citrate 1,000 MCG Q20H / 0300 AC 05 Dextrose/Water 250 ML IV 0049 Fentanyl Citrate 1,000 MCG Q24H / 0945 DC / Dextrose/Water 250 ML IV 01/12 0659 0735 Heparin Sodium 5,000 UNIT Q8 / 0600 AC 01/11 (Porcine) SC 2140 Insulin Aspart 0 Q4 / 1000 AC 01/12 SC 0625 Insulin Detemir 10 UNITS DAILY / 1000 DC / SC 1035 Lorazepam 1 MG ONCE ONE 01/12 0845 DC 05 IV 05 0846 0843 Meropenem 1 GM IQ8 05/ 1600 AC 05 IV 0836 Nystatin 5 ML 4 TIMES/DAY / 0530 AC 05/ PO 2140 Pantoprazole Sodium 40 MG DAILY 05/ 1000 AC 05/ IV 1035 Sodium Chloride 1,000 ML Q10H 05/02 2200 DC 05/ IV 2343 Total Parenteral 1 UNIT ONE 01/11 1900 AC 01/11 Nutrition IV 01/12 1859 1930 Vancomycin HCl 1,000 MG DAILY 05/ 1000 DC 05/ Sodium Chloride 250 ML IV 05/ 0959 1101 Vital Signs & I&O Last 24 Hrs of Vitals and I&O: Vital Signs Date Time Temp Pulse Resp B/P B/P Pulse O2 O2 Flow FiO2 Mean Ox Delivery Rate 01/12 0849 35 / 0800 97.9 111 19 134/72 97 Ventilator 30% 01/12 0800 97 Ventilator 35% 01/12 0554 35 05/05 0400 98 Ventilator 35% 01/12 0325 35 / 0026 35 05/ 0000 97 Ventilator 35% 01/11 2229 35 01/12 2000 98 Ventilator 35% 01/12 2000 98.3 115 20 118/60 98 Ventilator 35% 01/11 1910 35 01/11 1605 35 01/11 1600 99 Ventilator 35% 01/11 1600 98.1 130 34 132/78 100 Ventilator 35% 01/11 1355 35 01/11 1200 99 Ventilator 35% 01/11 1107 35 Intake & Output 01/12 0800 01/12 0000 Intake Total 1497.1 987.0 Output Total 1025 650 Balance 472.1 337.0 Intake, IV 1058 879.1 Intake, Lipid 72.1 17.9 Intake, Oral 0 0 Intake, 367 90 TPN/PPN Number 0 Bowel Movements Output, 75 50 Gastric Drainage Output, Urine 950 600 Exam Other Physical Findings: gen intubated heent ett cvs s1, s2 lungs transmitted bs abd soft bs+ ext without edema sacral wound, genital area wounds Results Last 24 Hrs of Lab Results: Laboratory Tests 01/12/17 0343: Anion Gap 11, Estimated GFR > 60, Glucose 232 H, Calcium 6.4 L, Phosphorus 3.0 , Magnesium 2.0, Total Bilirubin 0.4, AST 17, ALT 31, Albumin 1.9 L, CBC w Diff NO MAN DIFF REQ, RBC 3.36 L, MCV 81.0, MCH 26.4 L, RDW 15.8 H, MPV 8.4, Gran % 83.4 H, Lymphocytes % 8.9 L, Monocytes % 6.5, Eosinophils % 1.1, Basophils % 0.1, Absolute Granulocytes 9.9 H, Absolute Lymphocytes 1.1 L, Absolute Monocytes 0.8 H, Absolute Eosinophils 0.1, Absolute Basophils 0, PUBS MCHC 32.6 L 01/11/172030: Anion Gap 13, Estimated GFR > 60, Glucose 161 H, Calcium 6.5 L, Phosphorus 3.3 , Magnesium 1.9, Total Bilirubin 0.4, AST 21, ALT 32, Albumin 1.9 L, CBC w Diff NO MAN DIFF REQ, RBC 3.31 L, MCV 81.7, MCH 26.2 L, RDW 15.5 H, MPV 8.2, Gran % 83.0 H, Lymphocytes % 9.2 L, Monocytes % 6.9, Eosinophils % 0.7, Basophils % 0.2, Absolute Granulocytes 9.9 H, Absolute Lymphocytes 1.1 L, Absolute Monocytes 0.8 H, Absolute Eosinophils 0.1, Absolute Basophils 0, PUBS MCHC 32.1 L 01/11/17 1048: Anion Gap 14, Estimated GFR 56 L, Glucose 136 H, Lactic Acid 0.7, Calcium 6.4 L, Phosphorus 3.3, Magnesium 1.8, Total Bilirubin 0.6, AST 27, ALT 37, Troponin I 0.02, Albumin 2.0 L, CBC w Diff NO MAN DIFF REQ, RBC 3.42 L, MCV 81.2, MCH 26.5 L, RDW 14.9 H, MPV 8.6, Gran % 86.2 H, Lymphocytes % 6.4 L, Monocytes % 7.0, Eosinophils % 0.4, Basophils % 0 L, Absolute Granulocytes 11.2 H, Absolute Lymphocytes 0.8 L, Absolute Monocytes 0.9 H, Absolute Eosinophils 0.1 , Absolute Basophils 0, PUBS MCHC 32.6 L Impression/Plan Impression/Plan Impression/Plan: Impression 61 year old man * necrotizing fasciitis, s/p surgical intervention * MODS - hemodynamically stable * LORENZO, s/p septic shock and hypovolemia * respiratory failure on mechanical ventilation * spina bifida history, paraplegia/chronic pressure ulcers Plan Respiratory - check abg - ett in good position ID - f/u ID recs - on meropenem - fluconazole added due to yeast in urine (also in sputum) - back to OR today - wash out, with consderation for bx CVS - monitor hemodynamics - when feasible get PICC and d/c tlc Heme -monitor cbc, coags Metabolic - ins/outs - check ionized calcium and replete if needed - monitor electrolytes and urine outut Alimentary - nutrition consultation Neuro - sedation as needed DVT prophylaxis at all times TTS 40 min
--- NOTE | 2017-01-12 10:24 | PN- Infect Dx ---
Subjective Subjective: Afebrile without complaints Objective Last 24 Hrs of Vital Signs/I&O Vital Signs Date Time Temp Pulse Resp B/P B/P Pulse O2 O2 Flow FiO2 Mean Ox Delivery Rate 01/12 0849 35 01/12 08 97.9 111 19 134/72 97 Ventilator 30% 01/12 0800 97 Ventilator 35% 01/12 0554 35 01/12 0400 98 Ventilator 35% 01/12 0325 35 01/12 0026 35 01/12 0000 97 Ventilator 35% 01/11 2229 35 01/12 2000 98 Ventilator 35% 01/12 2000 98.3 115 20 118/60 98 Ventilator 35% 01/11 1910 35 01/11 1605 35 01/11 1600 99 Ventilator 35% 01/11 1600 98.1 130 34 132/78 100 Ventilator 35% 01/11 1355 35 01/11 1200 99 Ventilator 35% 01/11 1107 35 Intake & Output 01/12 1600 01/12 0800 05 0000 Intake Total 1497.1 987.0 Output Total 1025 650 Balance 472.1 337.0 Intake, IV 1058 879.1 Intake, Lipid 72.1 17.9 Intake, Oral 0 0 Intake, 367 90 TPN/PPN Number 0 Bowel Movements Output, 75 50 Gastric Drainage Output, Urine 950 600 Physical Exam Other Physical Findings: He appears comfortable on the ventilator in no acute distress Neck right IJ triple lumen catheter with no inflammation at the site Lungs are clear Heart regular rhythm with no murmur Abdomen is soft, nontender with positive bowel sounds Extremities right hand swelling with IV in place Guthrie catheter in place; perineal dressing intact Results Last 24 Hours of Lab Results: Laboratory Tests 01/12 Chemistry Sodium (137 - 145 mmol/L) 146 H 143 Potassium (3.5 - 5.1 mmol/L) 4.2 4.0 Chloride (98 - 107 mmol/L) 112 H 110 H Carbon Dioxide (22 - 30 mmol/L) 23 19 L Anion Gap (5 - 16) 11 13 BUN (9 - 20 mg/dL) 33 H 35 H Creatinine (0.7 - 1.2 mg/dL) 1.0 1.2 Estimated GFR (>60 ml/min) > 60 > 60 Glucose (65 - 99 mg/dL) 232 H 161 H Calcium (8.4 - 10.2 mg/dL) 6.4 L 6.5 L Phosphorus (2.5 - 4.5 mg/dL) 3.0 3.3 Magnesium (1.6 - 2.3 mg/dL) 2.0 1.9 Total Bilirubin (0.2 - 1.3 mg/dL) 0.4 0.4 AST (17 - 59 U/L) 17 21 ALT (21 - 72 U/L) 31 32 Albumin (3.5 - 5.0 g/dL) 1.9 L 1.9 L Hematology CBC w Diff NO MAN DIFF REQ NO MAN DIFF REQ WBC (4.8 - 10.8 /CUMM) 11.9 H 11.9 H RBC (4.70 - 6.10 /CUMM) 3.36 L 3.31 L Hgb (14.0 - 18.0 G/DL) 8.9 L 8.7 L Hct (42 - 52 %) 27.2 L 27.0 L MCV (80.0 - 94.0 FL) 81.0 81.7 MCH (27.0 - 31.0 PG) 26.4 L 26.2 L RDW (11.5 - 14.5 %) 15.8 H 15.5 H Plt Count (130 - 400 /CUMM) 457 H 432 H MPV (7.4 - 10.4 FL) 8.4 8.2 Gran % (42.2 - 75.2 %) 83.4 H 83.0 H Lymphocytes % (20.5 - 51.1 %) 8.9 L 9.2 L Monocytes % (1.7 - 9.3 %) 6.5 6.9 Eosinophils % (0 - 5 %) 1.1 0.7 Basophils % (0.0 - 2.0 %) 0.1 0.2 Absolute Granulocytes (1.4 - 6.5 /CUMM) 9.9 H 9.9 H Absolute Lymphocytes (1.2 - 3.4 /CUMM) 1.1 L 1.1 L Absolute Monocytes (0.10 - 0.60 /CUMM) 0.8 H 0.8 H Absolute Eosinophils (0.0 - 0.7 /CUMM) 0.1 0.1 Absolute Basophils (0.0 - 0.2 /CUMM) 0 0 PUBS MCHC (33.0 - 37.0 G/DL) 32.6 L 32.1 L 01/11 1048 Chemistry Sodium (137 - 145 mmol/L) 144 Potassium (3.5 - 5.1 mmol/L) 4.1 Chloride (98 - 107 mmol/L) 110 H Carbon Dioxide (22 - 30 mmol/L) 19 L Anion Gap (5 - 16) 14 BUN (9 - 20 mg/dL) 36 H Creatinine (0.7 - 1.2 mg/dL) 1.3 H Estimated GFR (>60 ml/min) 56 L Glucose (65 - 99 mg/dL) 136 H Lactic Acid (0.7 - 2.1 mmol/L) 0.7 Calcium (8.4 - 10.2 mg/dL) 6.4 L Phosphorus (2.5 - 4.5 mg/dL) 3.3 Magnesium (1.6 - 2.3 mg/dL) 1.8 Total Bilirubin (0.2 - 1.3 mg/dL) 0.6 AST (17 - 59 U/L) 27 ALT (21 - 72 U/L) 37 Troponin I (<0.11 ng/ml) 0.02 Albumin (3.5 - 5.0 g/dL) 2.0 L Hematology CBC w Diff NO MAN DIFF REQ WBC (4.8 - 10.8 /CUMM) 13.0 H RBC (4.70 - 6.10 /CUMM) 3.42 L Hgb (14.0 - 18.0 G/DL) 9.1 L Hct (42 - 52 %) 27.8 L MCV (80.0 - 94.0 FL) 81.2 MCH (27.0 - 31.0 PG) 26.5 L RDW (11.5 - 14.5 %) 14.9 H Plt Count (130 - 400 /CUMM) 437 H MPV (7.4 - 10.4 FL) 8.6 Gran % (42.2 - 75.2 %) 86.2 H Lymphocytes % (20.5 - 51.1 %) 6.4 L Monocytes % (1.7 - 9.3 %) 7.0 Eosinophils % (0 - 5 %) 0.4 Basophils % (0.0 - 2.0 %) 0 L Absolute Granulocytes (1.4 - 6.5 /CUMM) 11.2 H Absolute Lymphocytes (1.2 - 3.4 /CUMM) 0.8 L Absolute Monocytes (0.10 - 0.60 /CUMM) 0.9 H Absolute Eosinophils (0.0 - 0.7 /CUMM) 0.1 Absolute Basophils (0.0 - 0.2 /CUMM) 0 PUBS MCHC (33.0 - 37.0 G/DL) 32.6 L Last 24 Hours of Ervin Results: OR culture January 3 positive for alpha strep, Group B strep, Escherichia coli resistant to Ampicillin, Klebsiella resistant to Ampicillin and yeast Urine culture January 3 approximately 15,000 colonies of yeast Sputum culture January 11 light growth of yeast Recent Imaging Studies: Chest x-ray January 12, with right lung partially obscured, reveals asymmetric airspace opacities within the right hemithorax and focal airspace disease at the left lung base Assessment/Plan Impression: 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 The significance of yeast in this setting is unclear but, as it has also been isolated from the sputum and urine, it may be reasonable to treat. He is scheduled for a return to the OR later today for further debridement and placement of suprapubic cystostomy. The possibility of underlying osteomyelitis must be considered based on the recent MRI, though there was no exposed bone noted in the OR. Suggestion: 1. Await return to the OR later today for further debridement and suprapubic cystostomy 2. Would consider bone biopsy in the OR to rule out underlying osteomyelitis 3. Would pursue placement of a PICC so that the right IJ can be removed 4. Begin Fluconazole 800 mg IV loading dose, followed by 600 mg IV every 24 hours 5. Continue Meropenem
--- NOTE | 2017-01-12 11:50 | NUR ---
Patient is drowsey but easily arousable to verbal stimuli, SAS 3-4. Can follow commands and shakes head yes and no appropriately to questions. Hx. of paraplegia. Fentanyl gtt infusing at 100mcg and was titrated up for pain- he also received a 1 time dose of 1mg IV ativan for c/o anxiety. Sfot bilateral wrist restraints in place. ST on tele monitor, HR= 100-120's. SBP: 120-140's and pt denies chest pain. Left radial Eliz in place and site is WNL- site is positional. CVP ranging from 13-15. Remains intubated with a #7.5 to the right at 24cm, Vent settings currently AC 16/500/35/5. Lungs clear with scattered rhonchi. O2 sats stable at 95-99%. Suctioned frequently for a moderate amount of thick martinez secretions. OGT in place to low wall suction with green output. Abdomen is distended and soft with very hypoactive bowel sounds. Remains NPO. Guthrie in place draining clear yellow urine with good output. A healing wound is noted to the right roman. A surgical dressing is noted to the perineum and extends around to the left ischium and buttock. Multiple full thickness wounds are also noted to the right ischium and buttocks which were present on admission per notes and nursing staff. Patient is followed by Dr. Martinez at the wound center for chronic non healing pressure injuries. Scrotum appears macerated. He was placed on a Clinatron bed yesterday. TPN and Lipids infusing per order. NS has been d/c. IV abx per ID. Plan if for another debridement with a dressing change in the OR this afternoon followed by a suprapubic tube placement. PICC line placement also being discussed- Vitals currently stable. Will continue to closely monitor patient.
--- NOTE | 2017-01-12 12:08 | PN- Diabetes ---
Assessment/Plan Assessment: Patient is 61-year-old man with past medical history significant for hypertension, hyperlipidemia, stage IV sacral wound, hypothyroidism, diabetes mellitus type 2, was brought into ER after the patient was found to be lethargic and confused. Patient is wheel chair bound due to Hx of spina bifida. 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 He underwent debridement. Currently he remains intubated. He was put on Levemir 10 units daily and Novolog coverage every 4 hours. Last night, he was started on TPN-- 15% dextrose x 1000 ml/ 24 hours with 15 units of insulin in TPN. His FSGs were 169, 231, 181, 187, 235, 274 and 312. His TPN for today will be 18% dextrose x 1300 ml/24 hours. Plan: 1. add 45 units of insulin to today's TPN ( 18% dextrose x 1300 ml/24 hours); 2. adjust Novolog coverage every 4 hours-- detail see the insulin order sheet. 3. monitor FSGs and electrolytes; will follow. Inpatient Diabetes Orders Every 4 Hours: Bolus Insulin: Novolog < 80 mg/dl: no coverage 80-100 mg/dl: no coverage 101-120 mg/dl: no coverage 121-150 mg/dl: no coverage 151-200 mg/dl: 5 units 201-250 mg/dl: 8 units 251-300 mg/dl: 11 units 301-350 mg/dl: 14 units 351-400 mg/dl: 16 units > 400 mg/dl: 18 units Subjective Subjective: patient is intubated. Objective Last 24 Hrs of Vital Signs/I&O Vital Signs Date Time Temp Pulse Resp B/P B/P Pulse O2 O2 Flow FiO2 Mean Ox Delivery Rate 01/12 1140 35 05/05 0849 35 05/ 0800 97.9 111 19 134/72 97 Ventilator 30% 05/ 0800 97 Ventilator 35% 05/05 0554 35 05/ 0400 98 Ventilator 35% 05/ 0325 35 05/ 0026 35 05/ 0000 97 Ventilator 35% 05/ 2229 35 / 2000 98 Ventilator 35% 051999 98.3 115 20 118/60 98 Ventilator 35% 05/ 1910 35 05/ 1605 35 05/04 1600 99 Ventilator 35% 05/ 1600 98.1 130 34 132/78 100 Ventilator 35% 01/11 1355 35 Intake & Output 01/12 1600 01/12 0800 01/12 0000 Intake Total 1497.1 987.0 Output Total 1025 650 Balance 472.1 337.0 Intake, IV 1058 879.1 Intake, Lipid 72.1 17.9 Intake, Oral 0 0 Intake, 367 90 TPN/PPN Number 0 Bowel Movements Output, 75 50 Gastric Drainage Output, Urine 950 600
--- NOTE | 2017-01-12 16:00 | NUR ---
Patient was transported to the OR by stretcher on athletic monitor. Report was given to anesthesia. Family updated on POC. Vitals stable.
[2017-01-12 18:38] VITALS: BP 138/64
--- NOTE | 2017-01-12 18:46 | NUR ---
Patient arrived back to [facility] from OR at approx 1745 accompanied by OR staff. Patient remains sedated on a fentanyl gtt that is infusing at 100mcg- SAS 2-3 post-op, at this time patient is arousable to verbal stimuli. Soft bilateral wrist restrains in place. ST on tele monitor, HR= 100-110's. SBP: 120-140's. Left radial a-line in place and site is WNL. Remains intubated with a #7.5 to the right at 24cm, he was suctioned for a large amount of secretions both orally and to the ETT- mostly white and thin. Lungs clear with scant rhonchi noted. O2 sats 95-99%. Vent settings currently AC 16/500/35/5. OGT in place to low wall suction with green output. NPO. Abdomen is soft and non tender. Guthrie remamins in place draining clear yellow urine. A suprapubic tube was placed with pink tinged urine noted pos-op. Dressing to surgical site is clean dry and intact and extends from the perineum to the buttocks. Clinatron mattress remains in place. RIJ TLC in place and WNL. TPN and lipids continue to infuse. No s/s of pain are currently noted and vitals are stable. Patient was recovered by this RN post-op- see sheet for vitals. Labs drawn at 1820 per order. Will continue to closely monitor patient.
--- NOTE | 2017-01-12 19:24 | Operative Report ---
Operative/Inv Procedure Report Surgery Date: 01/12/17 Name of Procedure: Sharp scalpel debridement of necrotizing fasciitis scrotum and left perineum, extent included skin subcutaneous fat deep fascia muscle, periosteum and bone ( sent for micro, histo) Pre-Operative Diagnosis: Necrotizing fasciitis perineum and scrotum Post-Operative Diagnosis: Same Estimated Blood Loss: less than 50ml Surgeon/Sheet Rocker: MD Dr. Мария Francois Anesthesia: general endotracheal tube Operative/Procedure Note Note: Patient was transferred from the hospital bed to the operating room table and his legs were positioned in stirrups, lithotomy. After urology placed the suprapubic catheter he was repositioned slightly and the previous excision site that was open and packed at his scrotum and perineum and ischial areas were prepped and draped in the usual sterile fashion. Sharp excisional debridement was done both with scissors and scalpel of the surfaces of this open wound, to the bleeding edge. Overall there was some granulation there was no obvious tracking deeper further spreading fasciitis, there was some exposed bone issue which appeared grossly healthy but we cut some off with a scalpel and sent for specimen, after Sharp excisional debridement with further pulse lavaged the area and then we dressed it by packing it with 2 inch iodoform gauze tape followed by gauze and ABDs and tape. Of note the testicles and rectum were palpable and exposed in this complex wound but both were not breeched. EBL minimal lap and sponge counts correct wound expectancy contaminated, IV fluids crystalloid complications none patient tolerated the procedure well was extubated and returned to recovery room (ICU), in satisfactory condition.
[2017-01-13] VITALS: BP 132/70
--- NOTE | 2017-01-13 00:01 | PN- General Surgery ---
Subjective Subjective: Postop check Pt is now s/p re-I&D of simeon's gangrene with placement of suprapubic catheter. He tolerated the procedure well and returned to the ICU. He is intubated and sedated. Not on any pressors. Tmax 99. U/o 60-90 mL per hour. Objective Vital Signs and I&Os Vital Signs Date Time Temp Pulse Resp B/P B/P Pulse O2 O2 Flow FiO2 Mean Ox Delivery Rate 01/12 2139 35 01/12 2000 98 Ventilator 35% 0505 1838 97.1 104 16 138/64 100 Ventilator 35% 05/ 1808 35 05/ 1545 100 Ventilator 35% 05 1342 35 05/05 1200 100 Ventilator 35% 05/ 1140 35 / 0849 35 05/ 0800 97.9 111 19 134/72 97 Ventilator 30% / 0800 97 Ventilator 35% 05/05 0554 35 05/05 0400 98 Ventilator 35% 01/12 0325 35 05 0026 35 05/ 0000 97 Ventilator 35% Intake & Output 01/12 1600 05/ 0800 05/05 0000 /04 1600 01/11 0800 05/ 0000 Intake Total 760 1497.1 987.0 1320 1163 Output Total 600 1025 650 550 450 Balance 160 472.1 337.0 770 713 Intake, IV 760 1058 879.1 1320 1163 Intake, Lipid 72.1 17.9 Intake, Oral 0 0 0 Intake, 367 90 TPN/PPN Number 0 Bowel Movements Output, 75 50 100 100 Gastric Drainage Output, Urine 600 950 600 450 350 Patient 210 lb Weight Weight Bed scale Measurement Method Physical Exam: General: Pt is intubated and sedated. Responds to painful stimuli. Ext: the posterior dressing contains a moderate amount of serosanginous drainage. Guthrie catheter is in place with clear urine. There is mild hematuria from the suprapubic tube. Sloughing of the R penile skin is noted. Current Medications: Current Medications Sig/Michelle Start time Last Medication Dose Route Stop Time Status Admin Acetaminophen 1,000 MG Q6P PRN 01/10 0830 AC / N/A 1 UNIT IV 0938 Albuterol Sulfate 3 ML Q4H PRN 01/10 1015 AC INH Fat Emulsion 500 ML Q24H 01/12 1900 AC 01/12 Intravenous IV 01/13 Fat Emulsion 500 ML Q24H / 1900 DC / Intravenous IV 01/12 185 193 Fentanyl Citrate 250 MCG .STK-MED ONE 01/12 1458 DC IM / 1459 Fentanyl Citrate 1,000 MCG Q20H / 0300 AC 05/ Dextrose/Water 250 ML IV 2229 Fentanyl Citrate 1,000 MCG Q24H / 0945 DC 01/11 Dextrose/Water 250 ML IV 01/12 0659 0735 Fluconazole 200 MG Q24H / 1200 AC Sodium Chloride 100 ML IV Fluconazole 400 MG Q24H / 1200 AC Sodium Chloride 200 ML IV Fluconazole 400 MG Q2H / 1200 DC 01/12 Sodium Chloride 200 ML IV 01/12 1559 1452 Heparin Sodium 5,000 UNIT Q8 / 0600 AC 01/12 (Porcine) SC 2233 Hydromorphone HCl 2 MG .STK-MED ONE 01/12 1458 DC IM 01/12 1459 Insulin Aspart 0 Q4 01/11 1000 AC 01/12 SC 2233 Ketamine HCl 50 MG .STK-MED ONE 01/12 1458 DC IM 01/12 1459 Lorazepam 1 MG ONCE ONE 01/12 0845 DC 01/12 IV 01/12 0846 0843 Meropenem 1 GM IQ8 / 1600 AC 01/12 IV 2300 Midazolam HCl 5 MG .STK-MED ONE 01/12 1500 DC IM 01/12 1501 Nystatin 5 ML 4 TIMES/DAY 01/10 0530 AC 01/12 PO 2233 Pantoprazole Sodium 40 MG DAILY 01/10 1000 AC 01/12 IV 1007 Sodium Chloride 1,000 ML Q10H / 2200 DC 01/11 IV 2343 Total Parenteral 1 UNIT ONE 01/12 190 AC 01/12 Nutrition IV 01/13 Total Parenteral 1 UNIT ONE 01/11 190 DC 01/11 Nutrition IV 01/12 1859 193 Results Last 48 Hours of Labs: Laboratory Tests 01/12 01/12 01/12 01/12 1930 1820 1820 0500 Blood Gas pH (7.35 - 7.45 PH) 7.36 pCO2 (35 - 45 TORR) 41 pO2 (80 - 100 TORR) 79 L HCO3 (21 - 28 MEQ/L) 23 ABG O2 Sat (Measured) (>96.0 %) 93.0 L P-50 (Temp Corrected) Y Carboxyhemoglobin (1.5 - 5.0 %) 0.7 L O2 Concentration % 35% Temperature (97.0 - 100.0 FARH) 99.0 Respiration Rate (BPM) 16 O2 Delivery Method VENT Vent Mode CMV Expiratory Pressure (CMH2O/P) 5 Tidal Volume (CC) 500 Chemistry Sodium (137 - 145 mmol/L) 146 H Potassium (3.5 - 5.1 mmol/L) 4.2 Chloride (98 - 107 mmol/L) 112 H Carbon Dioxide (22 - 30 mmol/L) 22 Anion Gap (5 - 16) 11 BUN (9 - 20 mg/dL) 27 H Creatinine (0.7 - 1.2 mg/dL) 0.9 Estimated GFR (>60 ml/min) > 60 Glucose (65 - 99 mg/dL) 220 H Calcium (8.4 - 10.2 mg/dL) 6.8 L Ionized Calcium Pending Cancelled Phosphorus (2.5 - 4.5 mg/dL) 3.2 Magnesium (1.6 - 2.3 mg/dL) 2.1 Total Bilirubin (0.2 - 1.3 mg/dL) 0.3 AST (17 - 59 U/L) 15 L ALT (21 - 72 U/L) 29 Albumin (3.5 - 5.0 g/dL) 2.1 L Miscellaneous Phlebotomy Draw Site [place] 01/12 01/11 0343 2030 Chemistry Sodium (137 - 145 mmol/L) 146 H 143 Potassium (3.5 - 5.1 mmol/L) 4.2 4.0 Chloride (98 - 107 mmol/L) 112 H 110 H Carbon Dioxide (22 - 30 mmol/L) 23 19 L Anion Gap (5 - 16) 11 13 BUN (9 - 20 mg/dL) 33 H 35 H Creatinine (0.7 - 1.2 mg/dL) 1.0 1.2 Estimated GFR (>60 ml/min) > 60 > 60 Glucose (65 - 99 mg/dL) 232 H 161 H Calcium (8.4 - 10.2 mg/dL) 6.4 L 6.5 L Phosphorus (2.5 - 4.5 mg/dL) 3.0 3.3 Magnesium (1.6 - 2.3 mg/dL) 2.0 1.9 Total Bilirubin (0.2 - 1.3 mg/dL) 0.4 0.4 AST (17 - 59 U/L) 17 21 ALT (21 - 72 U/L) 31 32 Albumin (3.5 - 5.0 g/dL) 1.9 L 1.9 L Hematology CBC w Diff NO MAN DIFF REQ NO MAN DIFF REQ WBC (4.8 - 10.8 /CUMM) 11.9 H 11.9 H RBC (4.70 - 6.10 /CUMM) 3.36 L 3.31 L Hgb (14.0 - 18.0 G/DL) 8.9 L 8.7 L Hct (42 - 52 %) 27.2 L 27.0 L MCV (80.0 - 94.0 FL) 81.0 81.7 MCH (27.0 - 31.0 PG) 26.4 L 26.2 L RDW (11.5 - 14.5 %) 15.8 H 15.5 H Plt Count (130 - 400 /CUMM) 457 H 432 H MPV (7.4 - 10.4 FL) 8.4 8.2 Gran % (42.2 - 75.2 %) 83.4 H 83.0 H Lymphocytes % (20.5 - 51.1 %) 8.9 L 9.2 L Monocytes % (1.7 - 9.3 %) 6.5 6.9 Eosinophils % (0 - 5 %) 1.1 0.7 Basophils % (0.0 - 2.0 %) 0.1 0.2 Absolute Granulocytes (1.4 - 6.5 /CUMM) 9.9 H 9.9 H Absolute Lymphocytes (1.2 - 3.4 /CUMM) 1.1 L 1.1 L Absolute Monocytes (0.10 - 0.60 /CUMM) 0.8 H 0.8 H Absolute Eosinophils (0.0 - 0.7 /CUMM) 0.1 0.1 Absolute Basophils (0.0 - 0.2 /CUMM) 0 0 PUBS MCHC (33.0 - 37.0 G/DL) 32.6 L 32.1 L /01/11 1048 0228 Chemistry Sodium (137 - 145 mmol/L) 144 145 Potassium (3.5 - 5.1 mmol/L) 4.1 4.0 Chloride (98 - 107 mmol/L) 110 H 112 H Carbon Dioxide (22 - 30 mmol/L) 19 L 23 Anion Gap (5 - 16) 14 10 BUN (9 - 20 mg/dL) 36 H 39 H Creatinine (0.7 - 1.2 mg/dL) 1.3 H 1.4 H Estimated GFR (>60 ml/min) 56 L 52 L Glucose (65 - 99 mg/dL) 136 H 96 Lactic Acid (0.7 - 2.1 mmol/L) 0.7 0.8 Calcium (8.4 - 10.2 mg/dL) 6.4 L 6.4 L Phosphorus (2.5 - 4.5 mg/dL) 3.3 3.2 Magnesium (1.6 - 2.3 mg/dL) 1.8 1.9 Total Bilirubin (0.2 - 1.3 mg/dL) 0.6 0.5 AST (17 - 59 U/L) 27 24 ALT (21 - 72 U/L) 37 30 Troponin I (<0.11 ng/ml) 0.02 0.02 Albumin (3.5 - 5.0 g/dL) 2.0 L 1.8 L Hematology CBC w Diff NO MAN DIFF REQ NO MAN DIFF REQ WBC (4.8 - 10.8 /CUMM) 13.0 H 11.7 H RBC (4.70 - 6.10 /CUMM) 3.42 L 3.20 L Hgb (14.0 - 18.0 G/DL) 9.1 L 8.4 L Hct (42 - 52 %) 27.8 L 25.5 L MCV (80.0 - 94.0 FL) 81.2 79.7 L MCH (27.0 - 31.0 PG) 26.5 L 26.4 L RDW (11.5 - 14.5 %) 14.9 H 14.4 Plt Count (130 - 400 /CUMM) 437 H 425 H MPV (7.4 - 10.4 FL) 8.6 8.1 Gran % (42.2 - 75.2 %) 86.2 H 85.3 H Lymphocytes % (20.5 - 51.1 %) 6.4 L 7.4 L Monocytes % (1.7 - 9.3 %) 7.0 6.2 Eosinophils % (0 - 5 %) 0.4 1.1 Basophils % (0.0 - 2.0 %) 0 L 0 L Absolute Granulocytes (1.4 - 6.5 /CUMM) 11.2 H 10.0 H Absolute Lymphocytes (1.2 - 3.4 /CUMM) 0.8 L 0.9 L Absolute Monocytes (0.10 - 0.60 /CUMM) 0.9 H 0.7 H Absolute Eosinophils (0.0 - 0.7 /CUMM) 0.1 0.1 Absolute Basophils (0.0 - 0.2 /CUMM) 0 0 PUBS MCHC (33.0 - 37.0 G/DL) 32.6 L 33.1 Assessment/Plan Assessment/Plan Pt is a 61 yo M, admitted 01/09/17 with necrotizing fascitis of the scrotum and left buttock. Now s/p 2nd I&D. He remains intubated and sedated. Off pressors. Plan: -Dressing change in the morning most likely. -Continue IV vanco/meropenem/diflucan as per ID. Monitor temps, wbc. -Continue TPN for nutrional support. -Blood glucose control. -Medical management per critical care team. Core Measures/Miscellaneous Guthrie Catheter Still Needed? Yes Venous Thromboembolism VTE Risk Factors: Acute medical illness, Age > 40, Immobility, paresis, Obesity, Surgery VTE Contraindications: No Contraindications VTE Diagnosis: No VTE Type: NONE VTE Confirmed by (Test): NONE Beta Rodrigo Is Beta Rodrigo a Home Med? No Antibiotics Is Patient on Antibiotics? Yes If Yes: infection
[2017-01-13 04:57] LABS: ABSOLUTE BASOPHIL COUNT 0 /CUMM (0.0-0.2); ABSOLUTE EOSINOPHIL COUNT 0.1 /CUMM (0.0-0.7); ABSOLUTE LYMPH COUNT 1.2 /CUMM (1.2-3.4); ABSOLUTE MONOCYTE COUNT 0.9 /CUMM (0.10-0.60); BASOPHIL % 0.2 % (0.0-2.0); EOSINOPHIL % 1.1 % (0-5); GRANULOCYTE % 83.1 % (42.2-75.2); HEMATOCRIT 28.2 % (42-52); MEAN CORPUSCULAR HGB 26.6 PG (27.0-31.0); MEAN CORPUSCULAR HGB CONC 32.8 G/DL (33.0-37.0); MEAN CORPUSCULAR VOLUME 81.2 FL (80.0-94.0); PLATELET COUNT 477 /CUMM (130-400); RBC DISTRIBUTION WIDTH 15.9 % (11.5-14.5); RED BLOOD CELL CT 3.48 /CUMM (4.70-6.10); WHITE BLOOD CELL COUNT 13.3 /CUMM (4.8-10.8)
--- NOTE | 2017-01-13 07:15 | RADIOLOGY REPORT ---
EXAMINATION: XR PORTABLE CHEST CLINICAL INFORMATION: Intubated. Check ET tube placement. COMPARISON: Previous chest x-rays most recent from yesterday TECHNIQUE: Portable frontal view of the chest was obtained. FINDINGS: There is a right internal jugular line with tip projecting over the SVC. There is an endotracheal tube tip 8 cm above the arie. This has pulled back compared to yesterday's exam. Nasogastric tube tip is not well seen. The cardiac and mediastinal contours are stable. The lung volumes are low. There may be atelectasis at the lung bases. There is no pleural effusion or pneumothorax. IMPRESSION: Endotracheal tube tip 8 cm above the arie. Advancement several centimeters should be considered. Satisfactory position of right internal jugular line. Nasogastric tube tip is not well seen. Low lung volumes and atelectasis at the lung bases.
[2017-01-13 08:00] VITALS: BP 128/62
--- NOTE | 2017-01-13 08:05 | PN- Resident CRCU ---
Subjective HPI/CRCU Issues: 1. Necrotizing fasciitis of the perineum and scrotum 2. Severe hyperglycemia 3. Respiratory failure, on ventilation 4. Hypernatremia 5. Hypocalcemia 6. LORENZO in the setting of septic shock 7. Acute anemia 24 Hour Events: Patient was agitated overnight requiring two runs of 1 mg IV ativan. No events were recorded on telemetry. He is alert and awake this morning, able to follow commands and able to move his head for yes or no. Does not report any pain and does not seem to be in any distress. Objective Vital Signs & I&O Last 8 Hrs of Vitals and I&O: max Temp 99.4 NJ 98-108 RR 16-18 BP systolic 114 to 132 BP diastolic 58-70 Ventilation setting: Rate 16/ TV 500/ Fio2 35%/PEEP 5 SO2 98-100% I 774 O 465 Exam General Appearance: well developed/nourished, no apparent distress, alert, awake , intubated, obese Head: atraumatic, normal appearance Ears, Nose, Throat: normal ENT inspection Neck: normal inspection, supple, full range of motion Respiratory: normal breath sounds, no respiratory distress, quiet respiration, lungs clear, intubated Cardiovascular: regular rate/rhythm Gastrointestinal: normal bowel sounds, soft, non-tender Extremities: normal capillary refill, normal range of motion, no edema Cranial Nerves: normal hearing Skin: intact, normal color, warm/dry Skin Temp/Moisture Exam: Warm/Dry Current Medications: Current Medications Sig/Michelle Start time Last Medication Dose Route Stop Time Status Admin Acetaminophen 1,000 MG Q6P PRN / 0830 AC 01/10 N/A 1 UNIT IV 0938 Albuterol Sulfate 3 ML Q4H PRN 05/03 1015 AC / INH 1412 Fat Emulsion 300 ML 1900 / 1900 AC Intravenous IV / 1859 Fat Emulsion 500 ML Q24H / 1900 AC 05/05 Intravenous IV / 185 2014 Fat Emulsion 500 ML Q24H / 1900 DC 05/04 Intravenous IV 05/ 185 1930 Fentanyl Citrate 1,000 MCG Q8H / 0700 AC 05/06 Dextrose/Water 250 ML IV 1550 Fentanyl Citrate 1,000 MCG Q20H /05 0300 DC 05/05 Dextrose/Water 250 ML IV 2229 Fluconazole 200 MG Q24H / 1200 AC 05/ Sodium Chloride 100 ML IV 1146 Fluconazole 400 MG Q24H 05/06 1200 AC 05/06 Sodium Chloride 200 ML IV 1146 Heparin Sodium 5,000 UNIT Q8 / 0600 AC 05/ (Porcine) SC 1504 Insulin Aspart 0 Q4 / 1000 AC 05/ SC 1503 Lorazepam 1 MG ONCE ONE 01/13 0700 DC 05/ IV 01/13 0701 0655 Lorazepam 1 MG ONCE ONE 01/13 0030 DC 05/ IV 01/13 0031 0036 Meropenem 1 GM IQ8 / 1600 AC 05/ IV 1646 Nystatin 5 ML 4 TIMES/DAY 01/10 0530 AC / PO 1503 Pantoprazole Sodium 40 MG DAILY 01/10 1000 AC 05/ IV 1119 Total Parenteral 1 UNIT 1900 01/13 1900 AC Nutrition IV 01/14 185 Total Parenteral 1 UNIT ONE 01/12 1900 AC 01/12 Nutrition IV 01/13 1852013 Total Parenteral 1 UNIT ONE 01/11 1900 DC 01/11 Nutrition IV 01/12 185 1930 Impression/Plan Impression/Problem List Impression: Mr. Bowens is a 61 year old male with PMH type 2 diabetes mellitus, medication non-compliance, HTN, HLD, spina bifida, paraplegia, hypothyroidism and stage IV sacral decubitus ulcer who presented to the [facility] ED with chief complaint of confusion and chills. Associated symptoms included worsening of his buttocks wound infection, fever, penile/scrotal irritation from catheter placement and decreased oral intake. In the ED: Vital signs showed Tmax 102.3, HR 122, RR 16, BEP 122/66 which dropped to 96/64 after 3 L IV fluid bolus, and 85% on room air improved to 95% on 2 L NC. Labs were significant for WBC 13.8, neutrophils 95%, 6 bands, H&H 8.9 /27.6, Plt 547, Na 129, Cl 88, BUN 38, cre 1.6, AG 14, Glu 735, Lactate 2.2, INR 1.35, negative acetone. CXR was WNL. CT pelvis showed air in the scrotum and fat at the perineum/left buttocks/ischiorectal fat. No focal collection/abscess in the distal rectum or sigmoid. EKG showed T wave inversion in V4. 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 Vancomycin and clindamycin discontinued. * Cultures from the OR growing Gram Negative Rods, Yeast, Alpha Strep. * Blood cultures growing Beta Strep Group B * Urine Culture: growing Yeast, beginning Fluconazole 800 mg IV loading dose, followed by 600 mg IV from 01/13/2017. * Continue to monitor for fevers and provide IV tylenol as needed * Patient went to the OR yesterday for further debridement and placement of a suprapubic cystostomy, will follow up surgery recommendations, he will go to the OR again on Sunday per Sx * Sx were asked to take a bone biopsy as recomended by ID to rule out possibility of Osteomyelitis, will follow * PICC placement recommendations have been placed #Severe hyperglycemia * Endocrinology consult appreciated * Glu 735 with negative acetone * Insulin drip and IV fluids are discontinued. * Continue accuchecks Q1H * The patient is on TPN today, day 3. Increased Insulin to 60 in the TPN today, this was confirmed with parking lot manager. In addition to the above the patient will also continue on NovoLog sliding scale, this has been further adjusted as blood sugars were elevated. #Acute respiratory failure * Patient noted to have an O2 saturation of 85% on room air * Continue fentanyl drip for sedation and pain * Follow up daily CXR * IV protonix while on the vent, head of bed 30 degrees #Hypernatremia * ICU bundle Q12H for now * Na level currently 149, decreased Na in the TPN. We will monitor the Na level this pm. #Hypocalcemia * Ca slightly increased however remains to be low, we continued Ca at the same rate of 9 mEq/liter for Day 3 TPN * repeat ICU bundle this pm #LORENZO in the setting of septic shock * Baseline cre 0.9 as seen on labs from 2016; current cre 0.8 * Consider nephrology consult if urine output drops #Acute anemia * Patient has history of anemia noted in December 2016 at 10/30.8 * However, patient acutely low at 7/22.2 requiring 2 U PRBC transfusion 2016. * Follow up repeat CBC and trend Q12. H/H this am: 9.11/07.2 FULL CODE DVTP: Heparin SC Diet: NPO Pain: Fentanyl drip Problem List: 1. Sepsis 2. 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 Leukocytosis 5. Acute renal failure 6. Hyperglycemia Pain Ratin Tomorrow's Labs & Rationales: CBC (leukocytosis) ICU bundle (hypernatremia, monitor electrolytes while on TPN) Lipid panel (while on TPN) Plan DVT/Prophylaxis: pharmacological
--- NOTE | 2017-01-13 09:51 | PN- CRCU ---
Subjective HPI/Critical Care Issues: She remains intubated is hemodynamically stable is becoming more hypernatremic and hyperchloremic Objective Current Medications: Current Medications Sig/Michelle Start time Last Medication Dose Route Stop Time Status Admin Acetaminophen 1,000 MG Q6P PRN 01/10 0830 AC 01/10 N/A 1 UNIT IV 0938 Albuterol Sulfate 3 ML Q4H PRN / 1015 AC INH Fat Emulsion 500 ML Q24H 01/12 1900 AC 01/12 Intravenous IV 01/13 1852013 Fat Emulsion 500 ML Q24H / 1900 DC / Intravenous IV 01/12 185 1930 Fentanyl Citrate 1,000 MCG Q8H / 0700 AC 01/13 Dextrose/Water 250 ML IV 0546 Fentanyl Citrate 250 MCG .STK-MED ONE 01/12 1458 DC IM 01/12 1459 Fentanyl Citrate 1,000 MCG Q20H / 0300 DC 05/ Dextrose/Water 250 ML IV 2229 Fluconazole 200 MG Q24H / 1200 AC Sodium Chloride 100 ML IV Fluconazole 400 MG Q24H / 1200 AC Sodium Chloride 200 ML IV Fluconazole 400 MG Q2H / 1200 DC 01/12 Sodium Chloride 200 ML IV / 1559 1452 Heparin Sodium 5,000 UNIT Q8 / 0600 AC 01/13 (Porcine) SC 0548 Hydromorphone HCl 2 MG .STK-MED ONE 01/12 1458 DC IM 01/12 1459 Insulin Aspart 0 Q4 / 1000 AC / SC 0548 Ketamine HCl 50 MG .STK-MED ONE 01/12 1458 DC IM 01/12 1459 Lorazepam 1 MG ONCE ONE 01/13 0700 DC 05/ IV 01/13 0701 0655 Lorazepam 1 MG ONCE ONE 01/13 0030 DC 05/ IV / 0031 0036 Meropenem 1 GM IQ8 01/10 1600 AC 01/13 IV 0750 Midazolam HCl 5 MG .STK-MED ONE 01/12 1500 DC IM 01/12 1501 Nystatin 5 ML 4 TIMES/DAY / 0530 AC 05 PO 2233 Pantoprazole Sodium 40 MG DAILY / 1000 AC 01/12 IV 1007 Total Parenteral 1 UNIT ONE 01/12 190 AC 01/12 Nutrition IV 01/13 1852013 Total Parenteral 1 UNIT ONE 01/11 1900 DC 01/11 Nutrition IV 01/12 1859 1930 Vital Signs & I&O Last 24 Hrs of Vitals and I&O: Vital Signs Date Time Temp Pulse Resp B/P B/P Pulse O2 O2 Flow FiO2 Mean Ox Delivery Rate / 0844 35 05/ 0800 100 Ventilator 35% / 0800 97.7 102 16 128/62 100 Ventilator 35% 05/06 0620 35 05/06 0400 98 Ventilator 35% 05/06 0308 35 05/06 0038 35 05/06 0000 98 Ventilator 35% 05/06 0000 99.1 106 16 132/70 98 Ventilator 35% 05/05 2139 35 05/05 2000 98 Ventilator 35% 05/05 1838 97.1 104 16 138/64 100 Ventilator 35% 05/05 1808 35 05/05 1545 100 Ventilator 35% 05/05 1342 35 05/05 1200 100 Ventilator 35% 05/05 1140 35 Intake & Output / 1600 01/13 0800 05/ 0000 Intake Total 774.0 675.0 Output Total 465 1260 Balance 309.0 -585.0 Intake, IV 260 236 Intake, Lipid 96.0 76.0 Intake, Oral 0 0 Intake, 418 363 TPN/PPN Number 0 0 Bowel Movements Output, 50 Gastric Drainage Output, Urine 415 1260 Ventilatory settings reviewed arterial blood gases appropriate. Temperature shows diminished breath sounds cardiac exam shows regular S1 and S2 Sebastian of the abdomen shows quiet abdomen Impression/Plan Impression/Plan Impression/Plan: [id number] status post repeated surgery for necrotizing fasciitis is currently hemodynamically stable well oxygenated on mechanical ventilation coming more hypernatremic hyperchloremic Recommendations: Change IV fluids to D5W with tight glycemic control contact pharmacy regarding adjustment of sodium and chloride content to TPN continue current ventilator settings FiO2 can be tapered
--- NOTE | 2017-01-13 11:10 | PN- Diabetes ---
Assessment/Plan Assessment: Patient is 61-year-old man with past medical history significant for hypertension, hyperlipidemia, stage IV sacral wound, hypothyroidism, diabetes mellitus type 2, was brought into ER after the patient was found to be lethargic and confused. Patient is wheel chair bound due to Hx of spina bifida. 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 He underwent debridement. Currently he remains intubated. He is on TPN-- 18% dextrose x 1400 ml/ 24 hours with 45 units of insulin in TPN. His FSGs were 345, 260, 262, 228, 233 and 228. His TPN for today will be 18% dextrose x 1400 ml/24 hours. Am lab showed sodium 149 which is rising. Plan: 1. Hypernatremia ---check with pharmacy ? decrease on sodium in TPN or consider giving patient free water via OG tube; ---monitor electrolytes twice a day 2. DM: ---add 60 units of insulin to TPN (18% dextrose x 1400 ml/24 hours) ---monitor lipid panel tomorrow ---adjust Novolog coverage every 4 hours-- detail see the insulin order; ---monitor FSGs; goal of FSG is between 140 and 180 mg/dl. will follow. Inpatient Diabetes Orders Every 4 Hours: Bolus Insulin: Novolog < 80 mg/dl: no coverage 80-100 mg/dl: no coverage 101-120 mg/dl: no coverage 121-150 mg/dl: 4 units 151-200 mg/dl: 7 units 201-250 mg/dl: 10 units 251-300 mg/dl: 13 units 301-350 mg/dl: 16 units 351-400 mg/dl: 18 units > 400 mg/dl: 20 units Subjective Subjective: patient remains intubated. Objective Last 24 Hrs of Vital Signs/I&O Vital Signs Date Time Temp Pulse Resp B/P B/P Pulse O2 O2 Flow FiO2 Mean Ox Delivery Rate 01/13 1020 35 01/13 0844 35 01/13 0800 100 Ventilator 35% 01/13 0800 97.7 102 16 128/62 100 Ventilator 35% 05/ 0620 35 01/13 0400 98 Ventilator 35% 01/13 0308 35 01/13 0038 35 05 0000 98 Ventilator 35% 01/13 0000 99.1 106 16 132/70 98 Ventilator 35% 01/12 2139 35 01/13 2000 98 Ventilator 35% 01/12 1838 97.1 104 16 138/64 100 Ventilator 35% 01/12 1808 35 01/12 1545 100 Ventilator 35% 01/12 1342 35 01/12 1200 100 Ventilator 35% 01/12 1140 35 Intake & Output 01/13 1600 01/13 0800 05 0000 Intake Total 774.0 675.0 Output Total 465 1260 Balance 309.0 -585.0 Intake, IV 260 236 Intake, Lipid 96.0 76.0 Intake, Oral 0 0 Intake, 418 363 TPN/PPN Number 0 0 Bowel Movements Output, 50 Gastric Drainage Output, Urine 415 1260 Findings Pertinent Lab/Ervin Results: Laboratory Tests 01/13 01/12 01/12 0415 1930 1820 Blood Gas pH (7.35 - 7.45 PH) 7.36 pCO2 (35 - 45 TORR) 41 pO2 (80 - 100 TORR) 79 L HCO3 (21 - 28 MEQ/L) 23 ABG O2 Sat (Measured) (>96.0 %) 93.0 L P-50 (Temp Corrected) Y Carboxyhemoglobin (1.5 - 5.0 %) 0.7 L O2 Concentration % 35% Temperature (97.0 - 100.0 FARH) 99.0 Respiration Rate (BPM) 16 O2 Delivery Method VENT Vent Mode CMV Expiratory Pressure (CMH2O/P) 5 Tidal Volume (CC) 500 Chemistry Sodium (137 - 145 mmol/L) 149 H Potassium (3.5 - 5.1 mmol/L) 4.4 Chloride (98 - 107 mmol/L) 115 H Carbon Dioxide (22 - 30 mmol/L) 23 Anion Gap (5 - 16) 11 BUN (9 - 20 mg/dL) 26 H Creatinine (0.7 - 1.2 mg/dL) 0.8 Estimated GFR (>60 ml/min) > 60 Glucose (65 - 99 mg/dL) 165 H Calcium (8.4 - 10.2 mg/dL) 7.0 L Ionized Calcium Pending Phosphorus (2.5 - 4.5 mg/dL) 3.2 Magnesium (1.6 - 2.3 mg/dL) 2.1 Total Bilirubin (0.2 - 1.3 mg/dL) 0.2 AST (17 - 59 U/L) 15 L ALT (21 - 72 U/L) 32 Albumin (3.5 - 5.0 g/dL) 2.0 L Hematology CBC w Diff MAN DIFF ORDERED WBC (4.8 - 10.8 /CUMM) 13.3 H RBC (4.70 - 6.10 /CUMM) 3.48 L Hgb (14.0 - 18.0 G/DL) 9.2 L Hct (42 - 52 %) 28.2 L MCV (80.0 - 94.0 FL) 81.2 MCH (27.0 - 31.0 PG) 26.6 L RDW (11.5 - 14.5 %) 15.9 H Plt Count (130 - 400 /CUMM) 477 H MPV (7.4 - 10.4 FL) 8.0 Gran % (42.2 - 75.2 %) 83.1 H Lymphocytes % (20.5 - 51.1 %) 8.8 L Monocytes % (1.7 - 9.3 %) 6.8 Eosinophils % (0 - 5 %) 1.1 Basophils % (0.0 - 2.0 %) 0.2 Absolute Granulocytes (1.4 - 6.5 /CUMM) 11.0 H Absolute Lymphocytes (1.2 - 3.4 /CUMM) 1.2 Absolute Monocytes (0.10 - 0.60 /CUMM) 0.9 H Absolute Eosinophils (0.0 - 0.7 /CUMM) 0.1 Absolute Basophils (0.0 - 0.2 /CUMM) 0 Platelet Estimate (ADEQUATE) INCREASED Ovalocytes 1+ PUBS MCHC (33.0 - 37.0 G/DL) 32.8 L Miscellaneous Phlebotomy Draw Site [place] 01/12 1820 Chemistry Sodium (137 - 145 mmol/L) 146 H Potassium (3.5 - 5.1 mmol/L) 4.2 Chloride (98 - 107 mmol/L) 112 H Carbon Dioxide (22 - 30 mmol/L) 22 Anion Gap (5 - 16) 11 BUN (9 - 20 mg/dL) 27 H Creatinine (0.7 - 1.2 mg/dL) 0.9 Estimated GFR (>60 ml/min) > 60 Glucose (65 - 99 mg/dL) 220 H Calcium (8.4 - 10.2 mg/dL) 6.8 L Phosphorus (2.5 - 4.5 mg/dL) 3.2 Magnesium (1.6 - 2.3 mg/dL) 2.1 Total Bilirubin (0.2 - 1.3 mg/dL) 0.3 AST (17 - 59 U/L) 15 L ALT (21 - 72 U/L) 29 Albumin (3.5 - 5.0 g/dL) 2.1 L
--- NOTE | 2017-01-13 12:12 | RADIOLOGY REPORT ---
EXAMINATION: XR PORTABLE CHEST CLINICAL INFORMATION: Intubated patient. Repeat x-ray after advancement of endotracheal tube. COMPARISON: Several prior chest x-rays, most recent of which is from earlier today. TECHNIQUE: Portable AP semierect view of the chest was obtained. FINDINGS: Endotracheal tube is approximately 4 cm above the arie. Enteric tube can only be followed to the mid retrocardiac region with remainder of the endotracheal tube obscured by soft tissues. Right jugular central venous line is in the right atrium. Cardiomediastinal silhouette is enlarged, unchanged. Low lung volumes are again seen with bibasilar opacities, consistent with subsegmental atelectasis. No central vascular congestion, pulmonary edema or pneumothorax. No significant pleural effusion. Bony structures unremarkable. IMPRESSION: 1. Endotracheal tube tip approximately 4 cm above the arie. 2. Enteric tube course not adequately assessed. 3. Right jugular central venous line in right atrium. 4. Low lung volumes with bibasilar subsegmental atelectasis, unchanged from prior exam.
[2017-01-13 16:00] VITALS: BP 130/68
--- NOTE | 2017-01-13 17:32 | NUR ---
1645: RECEIVED PATIENT W/ PENDING 200 CC FLUSH OF FREE WATER TO OGT. MULTIPLE XRAYS DONE AND PLACEMENT ON TIP NOTED TO BE VAGUE. UPON AIR BOLUS, THIS RN CONFIRMED UPON AUSCULTATION THAT OGT IS LOCATED IN THE STOMACH. WHEN CONNECTED TO LOW WALL SUCTION, SMALL-MODERATE BILEOUS FLUID COMING UP THE TUBE INTO SUCTION CANISTER. OGT TAPED AT 52 CM AT THE ETT. NO NEW XRAY ORDERED. THIS WAS CONFIRMED PER DR. JACOB AND DR. SHOOK.
--- NOTE | 2017-01-13 19:11 | RADIOLOGY REPORT ---
EXAMINATION: XR PORTABLE CHEST CLINICAL INFORMATION: Verification of oral gastric tube tip positioning. COMPARISON: Chest x-ray from earlier today. TECHNIQUE: Portable frontal view of the abdomen focused on the left upper quadrant was obtained. FINDINGS: Enteric tube continues to be poorly visualized and can be followed down to approximately the T6-T7 level, beyond which, its course is not adequately seen. IMPRESSION: Coarse of enteric tube cannot be verified on this radiograph. Clinical staff does not desire additional view at this point.
[2017-01-14] VITALS: BP 133/55
--- NOTE | 2017-01-14 05:19 | NUR ---
PT HAS EXCESSIVE SECRETIONS WITH VERY STRONG COUGH,OGT WAS COUGHED OUT AT MIDNIGHT UNABLE TO REINSERT PT NOT COOPERATIVE, DISCUSSED THIS WITH DR HUTCHISON, PT IS AWAKE WANTS TO WATCH TV SOFT RESTRAINTS TO WRISTS TO PREVENT EXTUBATION. MONTES DRAINING CLOUDY YELLOW URINE. SUPRAPUBIC TUBE DRAINING SMA AMT ORANGE TINGED URINE.
[2017-01-14 05:24] LABS: ABSOLUTE BASOPHIL COUNT 0 /CUMM (0.0-0.2); ABSOLUTE EOSINOPHIL COUNT 0.2 /CUMM (0.0-0.7); ABSOLUTE GRANULOCYTE CT 10.8 /CUMM (1.4-6.5); ABSOLUTE LYMPH COUNT 1.3 /CUMM (1.2-3.4); ABSOLUTE MONOCYTE COUNT 0.9 /CUMM (0.10-0.60); BASOPHIL % 0.3 % (0.0-2.0); EOSINOPHIL % 1.6 % (0-5); GRANULOCYTE % 81.5 % (42.2-75.2); HEMATOCRIT 28.6 % (42-52); MEAN CORPUSCULAR HGB 26.1 PG (27.0-31.0); MEAN CORPUSCULAR HGB CONC 31.8 G/DL (33.0-37.0); MEAN CORPUSCULAR VOLUME 81.9 FL (80.0-94.0); MEAN PLATELET VOLUME 8.8 FL (7.4-10.4); PLATELET COUNT 461 /CUMM (130-400); RBC DISTRIBUTION WIDTH 15.9 % (11.5-14.5); RED BLOOD CELL CT 3.49 /CUMM (4.70-6.10); WHITE BLOOD CELL COUNT 13.2 /CUMM (4.8-10.8)
--- NOTE | 2017-01-14 07:11 | PN- General Surgery ---
Subjective Subjective: Pt is now POD 2 s/p re-I&D of simeon's gangrene with placement of suprapubic catheter. He tolerated the procedure well and returned to the ICU. He remains intubated and sedated. Not on any pressors. Objective Vital Signs and I&Os Vital Signs Date Time Temp Pulse Resp B/P B/P Pulse O2 O2 Flow FiO2 Mean Ox Delivery Rate 01/14 0546 30 / 0302 30 / 0054 30 01/14 0000 99 Ventilator 30% 05/ 0000 98.1 111 16 133/55 99 Ventilator 30% 05/ 2255 30 05/ 2000 98 Ventilator 30% 05/ 1950 30 05/06 1635 30 05/ 1600 97.6 101 16 130/68 100 Ventilator 35% 05/06 1600 100 Ventilator 35% 05/06 1358 35 05/06 1200 100 Ventilator 35% 05/06 1020 35 05/06 0844 35 05/ 0800 100 Ventilator 35% / 0800 97.7 102 16 128/62 100 Ventilator 35% Intake & Output 01/14 0800 05/07 0000 05/06 1600 05/06 0800 05/06 0000 05/05 1600 Intake Total 999.0 1143 774.0 675.0 760 Output Total 620 629 009 4317 600 Balance 379.0 640 309.0 -585.0 160 Intake, IV 250 1143 260 236 760 Intake, Lipid 100.0 96.0 76.0 Intake, Oral 0 0 0 Intake, 449 418 363 TPN/PPN Intake, Tube 200 Irrigant Number 0 0 0 Bowel Movements Output, 75 50 Gastric Drainage Output, Urine 620 734 313 1143 600 Physical Exam: General: Intubated, sedated but arousable Cardiac: sinus tachycardia, hr 110's Pulm: Vented, cta Dressings contain serosanguinous drainage, suprapubic tube with mild hematuria, castaneda catheter in place with minimal output Assessment/Plan Assessment/Plan This is a 61 year old male, hospital day 5, s/p I&D x2 and 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 PMH significant for: dm, htn, spina bifida, and sacral wound Has been normotensive and afebrile over the past 24 hours, heart rate remaining in 100's. Plan: -Continue current pain regimen -Continue IV abx/diflucan per ID recommendations -Continue TPN -Plan for OR on Sunday -Keep castaneda catheter for now in addition to suprapubic catheter, will discuss removal of castaneda with Dr. Willoughby
[2017-01-14 08:00] VITALS: BP 132/64
--- NOTE | 2017-01-14 09:32 | PN- Infect Dx ---
Subjective Subjective: Afebrile without complaints Objective Last 24 Hrs of Vital Signs/I&O Vital Signs Date Time Temp Pulse Resp B/P B/P Pulse O2 O2 Flow FiO2 Mean Ox Delivery Rate 01/14 0820 30 01/14 0800 98.7 108 18 132/64 100 Ventilator 30% 01/14 0800 99 Ventilator 30% / 0546 30 01/14 0400 100 Ventilator 30% 01/14 0302 30 01/14 0054 30 01/14 0000 99 Ventilator 30% 01/14 0000 98.1 111 16 133/55 99 Ventilator 30% 05/ 2255 30 01/13 2000 98 Ventilator 30% / 1950 30 / 1635 30 01/13 1600 97.6 101 16 130/68 100 Ventilator 35% 01/13 1600 100 Ventilator 35% 01/13 1358 35 / 1200 100 Ventilator 35% 01/13 1020 35 Intake & Output 01/14 1600 01/14 0800 05 0000 Intake Total 816.0 999.0 Output Total 585 650 Balance 231.0 349.0 Intake, IV 250 250 Intake, Lipid 100.0 100.0 Intake, 466 449 TPN/PPN Intake, Tube 200 Irrigant Output, Other 15 30 Output, Urine 570 620 Physical Exam Other Physical Findings: He is sedated but responsive in no acute distress on the ventilator Neck right IJ triple-lumen catheter with no inflammation at the site Lungs are clear Heart regular rhythm with no murmur Abdomen mildly distended, nontender with positive bowel sounds; suprapubic catheter in place with no urine output Extremities 1+ edema of the upper extremities perineal dressings intact; Guthrie catheter remains in place with urine output Results Last 24 Hours of Lab Results: Laboratory Tests 01/14 01/13 0430 1900 Chemistry Sodium (137 - 145 mmol/L) 147 H 148 H Potassium (3.5 - 5.1 mmol/L) 4.5 4.5 Chloride (98 - 107 mmol/L) 112 H 114 H Carbon Dioxide (22 - 30 mmol/L) 24 24 Anion Gap (5 - 16) 11 10 BUN (9 - 20 mg/dL) 23 H 23 H Creatinine (0.7 - 1.2 mg/dL) 0.8 0.8 Estimated GFR (>60 ml/min) > 60 > 60 Glucose (65 - 99 mg/dL) 98 167 H Calcium (8.4 - 10.2 mg/dL) 7.2 L 7.0 L Phosphorus (2.5 - 4.5 mg/dL) 3.3 3.2 Magnesium (1.6 - 2.3 mg/dL) 2.2 2.1 Total Bilirubin (0.2 - 1.3 mg/dL) 0.3 0.2 AST (17 - 59 U/L) 16 L 14 L ALT (21 - 72 U/L) 27 28 Albumin (3.5 - 5.0 g/dL) 2.0 L 2.0 L Triglycerides (<150 mg/dL) 144 Cholesterol (< 200 MG/DL) 68 LDL Cholesterol, Calc (65 - 129 mg/dL) 26 L HDL Cholesterol (40 - 60 mg/dL) 14 L Cholesterol/HDL Ratio (0.00 - 4.88 %) 5 H Hematology CBC w Diff NO MAN DIFF REQ WBC (4.8 - 10.8 /CUMM) 13.2 H RBC (4.70 - 6.10 /CUMM) 3.49 L Hgb (14.0 - 18.0 G/DL) 9.1 L Hct (42 - 52 %) 28.6 L MCV (80.0 - 94.0 FL) 81.9 MCH (27.0 - 31.0 PG) 26.1 L RDW (11.5 - 14.5 %) 15.9 H Plt Count (130 - 400 /CUMM) 461 H MPV (7.4 - 10.4 FL) 8.8 Gran % (42.2 - 75.2 %) 81.5 H Lymphocytes % (20.5 - 51.1 %) 10.1 L Monocytes % (1.7 - 9.3 %) 6.5 Eosinophils % (0 - 5 %) 1.6 Basophils % (0.0 - 2.0 %) 0.3 Absolute Granulocytes (1.4 - 6.5 /CUMM) 10.8 H Absolute Lymphocytes (1.2 - 3.4 /CUMM) 1.3 Absolute Monocytes (0.10 - 0.60 /CUMM) 0.9 H Absolute Eosinophils (0.0 - 0.7 /CUMM) 0.2 Absolute Basophils (0.0 - 0.2 /CUMM) 0 PUBS MCHC (33.0 - 37.0 G/DL) 31.8 L Last 24 Hours of Ervin Results: OR culture January 12 labeled gluteal area positive for Group B strep Recent Imaging Studies: Chest x-ray January 13, personally reviewed, reveals atelectasis at the lung bases Assessment/Plan Impression: Stable status post further debridement of necrotizing fasciitis 2 days ago, with exposed bone identified, with Group B strep isolated from a culture labeled gluteal area, which is presumably the bone specimen, but it is not clear if a specimen was submitted for pathology. He remains afebrile with white blood cell count mildly elevated on Meropenem and Fluconazole for Jerad's gangrene, which is polymicrobial with alpha strep, Klebsiella, Escherichia coli, yeast as well as Group B strep isolated from the OR cultures and with blood cultures also positive for Group B strep. He also underwent placement of a suprapubic cystostomy in the OR 2 days ago, with no urine output noted, and with the Guthrie catheter left in place, which is draining urine. Suggestion: 1. Urology follow-up regarding removal of the Guthrie catheter 2. Follow-up final bone biopsy results 3. Would pursue placement of a PICC in the a.m. so that the right IJ can be removed 4. Continue Meropenem and Fluconazole
--- NOTE | 2017-01-14 09:33 | PN- General Surgery ---
Surgical Brief Attending Note Brief Attending Note: stable. plan for last OR debridement tomorrow. d/c castaneda. continue suprapubic tube.
--- NOTE | 2017-01-14 10:45 | PN- CRCU ---
Subjective HPI/Critical Care Issues: Patient remains intubated in preparation for further debridement tomorrow Objective Current Medications: Current Medications Sig/Michelle Start time Last Medication Dose Route Stop Time Status Admin Acetaminophen 1,000 MG Q6P PRN / 0830 AC 01/10 N/A 1 UNIT IV 0938 Albuterol Sulfate 3 ML Q4H PRN /03 1015 AC / INH 1412 Fat Emulsion 300 ML 1900 / 1900 AC / Intravenous IV 01/14 1851999 Fat Emulsion 500 ML Q24H /05 1900 DC 05/05 Intravenous IV / 1852013 Fentanyl Citrate 1,000 MCG Q8H / 0700 AC 01/14 Dextrose/Water 250 ML IV 0603 Fluconazole 200 MG Q24H / 1200 AC / Sodium Chloride 100 ML IV 1146 Fluconazole 400 MG Q24H / 1200 AC / Sodium Chloride 200 ML IV 1146 Heparin Sodium 5,000 UNIT Q8 / 0600 01/14 (Porcine) SC 0601 Insulin Aspart 0 Q4 / 1000 01/14 SC 1041 Meropenem 1 GM IQ8 05/03 1600 AC 01/14 IV 0819 Nystatin 5 ML 4 TIMES/DAY / 0530 DC 01/13 PO 2239 Pantoprazole Sodium 40 MG DAILY / 1000 AC 01/14 IV 1042 Total Parenteral 1 UNIT 1900 / 1900 AC / Nutrition IV 01/14 1851999 Total Parenteral 1 UNIT ONE / 1900 DC 01/12 Nutrition IV 01/13 Vital Signs & I&O Last 24 Hrs of Vitals and I&O: Vital Signs Date Time Temp Pulse Resp B/P B/P Pulse O2 O2 Flow FiO2 Mean Ox Delivery Rate 01/14 0820 30 01/14 0800 98.7 108 18 132/64 100 Ventilator 30% 01/14 0800 99 Ventilator 30% / 0546 30 01/14 0400 100 Ventilator 30% / 0302 30 / 0054 30 05/ 0000 99 Ventilator 30% 05/ 0000 98.1 111 16 133/55 99 Ventilator 30% 05/06 2255 30 / 2000 98 Ventilator 30% 05/ 1950 30 05/ 1635 30 05/ 1600 97.6 101 16 130/68 100 Ventilator 35% 05/06 1600 100 Ventilator 35% 01/13 1358 35 / 1200 100 Ventilator 35% Intake & Output 01/14 1600 01/14 0800 05 0000 Intake Total 816.0 999.0 Output Total 585 650 Balance 231.0 349.0 Intake, IV 250 250 Intake, Lipid 100.0 100.0 Intake, 466 449 TPN/PPN Intake, Tube 200 Irrigant Output, Other 15 30 Output, Urine 570 620 Oxygen saturation 30% 99% exam of his chest shows occasional rhonchi cardiac exam shows a regular rhythm abdomen is soft Impression/Plan Impression/Plan Impression/Plan: [id number] status post repeated surgery for necrotizing fasciitis is currently hemodynamically stable well oxygenated on mechanical ventilation coming more hypernatremic hyperchloremic Recommendations: Change IV fluids to D5W with tight glycemic control contact pharmacy regarding adjustment of sodium and chloride content to TPN continue current ventilator settings FiO2 can be tapered. Continue present ventilator settings hypernatremia is improving
--- NOTE | 2017-01-14 11:28 | PN- Diabetes ---
Assessment/Plan Assessment: Patient is 61-year-old man with past medical history significant for hypertension, hyperlipidemia, stage IV sacral wound, hypothyroidism, diabetes mellitus type 2, was brought into ER after the patient was found to be lethargic and confused. Patient is wheel chair bound due to Hx of spina bifida. 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 He underwent debridement. Currently he remains intubated. He is on TPN-- 18% dextrose x 1400 ml/ 24 hours with 60 units of insulin in TPN. His FSGs were 206, 136, 137 and 124. Sodium content in TPN was adjusted yesterday. Repeat sodium level this morning was 147 which is improving. His TPN for today will be 20% dextrose x 1700 ml/24 hours. Plan: 1. add insulin 70 units to today's TPN ( 20% dextrosex 1700 ml/24 hours); 2. continue the current Novolog coverage every 4 hours; 3. monitor electrolytes twice a day and continuje monitoring FSGs; will follow. Subjective Subjective: patient remains intubated. Objective Last 24 Hrs of Vital Signs/I&O Vital Signs Date Time Temp Pulse Resp B/P B/P Pulse O2 O2 Flow FiO2 Mean Ox Delivery Rate 01/14 0820 30 / 0800 98.7 108 18 132/64 100 Ventilator 30% 01/14 0800 99 Ventilator 30% 05/ 0546 30 / 0400 100 Ventilator 30% / 0302 30 / 0054 30 05/ 0000 99 Ventilator 30% 05/ 0000 98.1 111 16 133/55 99 Ventilator 30% 05/06 2255 30 / 2000 98 Ventilator 30% 05/06 1950 30 05/06 1635 30 05/ 1600 97.6 101 16 130/68 100 Ventilator 35% 05/06 1600 100 Ventilator 35% 05/06 1358 35 05/06 1200 100 Ventilator 35% Intake & Output 01/14 1600 / 0800 05/ 0000 Intake Total 816.0 999.0 Output Total 585 650 Balance 231.0 349.0 Intake, IV 250 250 Intake, Lipid 100.0 100.0 Intake, 466 449 TPN/PPN Intake, Tube 200 Irrigant Output, Other 15 30 Output, Urine 570 620 Findings Pertinent Lab/Ervin Results: Laboratory Tests 01/14 01/13 0430 1900 Chemistry Sodium (137 - 145 mmol/L) 147 H 148 H Potassium (3.5 - 5.1 mmol/L) 4.5 4.5 Chloride (98 - 107 mmol/L) 112 H 114 H Carbon Dioxide (22 - 30 mmol/L) 24 24 Anion Gap (5 - 16) 11 10 BUN (9 - 20 mg/dL) 23 H 23 H Creatinine (0.7 - 1.2 mg/dL) 0.8 0.8 Estimated GFR (>60 ml/min) > 60 > 60 Glucose (65 - 99 mg/dL) 98 167 H Calcium (8.4 - 10.2 mg/dL) 7.2 L 7.0 L Phosphorus (2.5 - 4.5 mg/dL) 3.3 3.2 Magnesium (1.6 - 2.3 mg/dL) 2.2 2.1 Total Bilirubin (0.2 - 1.3 mg/dL) 0.3 0.2 AST (17 - 59 U/L) 16 L 14 L ALT (21 - 72 U/L) 27 28 Albumin (3.5 - 5.0 g/dL) 2.0 L 2.0 L Triglycerides (<150 mg/dL) 144 Cholesterol (< 200 MG/DL) 68 LDL Cholesterol, Calc (65 - 129 mg/dL) 26 L HDL Cholesterol (40 - 60 mg/dL) 14 L Cholesterol/HDL Ratio (0.00 - 4.88 %) 5 H Hematology CBC w Diff NO MAN DIFF REQ WBC (4.8 - 10.8 /CUMM) 13.2 H RBC (4.70 - 6.10 /CUMM) 3.49 L Hgb (14.0 - 18.0 G/DL) 9.1 L Hct (42 - 52 %) 28.6 L MCV (80.0 - 94.0 FL) 81.9 MCH (27.0 - 31.0 PG) 26.1 L RDW (11.5 - 14.5 %) 15.9 H Plt Count (130 - 400 /CUMM) 461 H MPV (7.4 - 10.4 FL) 8.8 Gran % (42.2 - 75.2 %) 81.5 H Lymphocytes % (20.5 - 51.1 %) 10.1 L Monocytes % (1.7 - 9.3 %) 6.5 Eosinophils % (0 - 5 %) 1.6 Basophils % (0.0 - 2.0 %) 0.3 Absolute Granulocytes (1.4 - 6.5 /CUMM) 10.8 H Absolute Lymphocytes (1.2 - 3.4 /CUMM) 1.3 Absolute Monocytes (0.10 - 0.60 /CUMM) 0.9 H Absolute Eosinophils (0.0 - 0.7 /CUMM) 0.2 Absolute Basophils (0.0 - 0.2 /CUMM) 0 PUBS MCHC (33.0 - 37.0 G/DL) 31.8 L
--- NOTE | 2017-01-14 11:34 | PN- Resident CRCU ---
Subjective HPI/CRCU Issues: Mr. Bowens was seen and examined this morning. Is resting comfortably in bed. He is alert and oriented although is currently intubated. He is able to follow commands and was able to respond by hand squeeze. Denies any pain. Currently has both a Castaneda and supra pubic catheter in place. 24 Hour Events: No events Reported Objective Vital Signs & I&O Last 8 Hrs of Vitals and I&O: T: 97.8 HR: 98-112 ST/SR RR: 16 BP: 104/66-146/62 Urine Output: S1 425 S2 620 S3 570 Exam General Appearance: well developed/nourished, no apparent distress, intubated Neck: normal inspection Respiratory: normal breath sounds, chest non-tender Cardiovascular: regular rate/rhythm Gastrointestinal: soft, non-tender, distention, Hypoactive BS Extremities: normal inspection, no edema Cranial Nerves: normal hearing Skin: Penile Maceration. Back wound, covered in dressing. Skin Temp/Moisture Exam: Warm/Dry Weaning Parameters NIF: 499 Minute Volume: 10.8 Resp rate: 22 Vt: 506 Heart Rate: 108 Weaning Schedule Start Time: 1105 Minute Volume: 7.33 Resp Rate: 15 Vt: 543 Heart Rate: 108 End Time: 1204 Minute Volume: 7.50 Resp Rate: 14 Vt: 600 Heart Rate: 105 Current Medications: Current Medications Sig/Michelle Start time Last Medication Dose Route Stop Time Status Admin Acetaminophen 1,000 MG Q6P PRN / 0830 AC 01/10 N/A 1 UNIT IV 0938 Albuterol Sulfate 3 ML Q4H PRN / 1015 AC / INH 1412 Dextrose/Water 1,000 ML ONCE ONE 01/14 1130 CAN IV 01/15 0729 Fat Emulsion 300 ML 1900 / 1900 AC Intravenous IV / 1859 Fat Emulsion 300 ML 1900 / 1900 AC 05/06 Intravenous IV / 1851999 Fat Emulsion 500 ML Q24H / 1900 DC 05/05 Intravenous IV / 1852013 Fentanyl Citrate 1,000 MCG Q8H / 0700 AC 05/07 Dextrose/Water 250 ML IV 0603 Fluconazole 200 MG Q24H 05/06 1200 AC 05/06 Sodium Chloride 100 ML IV 1146 Fluconazole 400 MG Q24H 05/06 1200 AC 05/06 Sodium Chloride 200 ML IV 1146 Heparin Sodium 5,000 UNIT Q8 01/10 0600 AC 01/14 (Porcine) SC 0601 Insulin Aspart 0 Q4 01/11 1000 AC 01/14 SC 1041 Lorazepam 1 MG ONCE ONE 01/14 1200 DC / IV 01/14 1201 1205 Meropenem 1 GM IQ8 / 1600 AC 01/14 IV 0819 Nystatin 5 ML 4 TIMES/DAY 01/10 0530 DC 01/13 PO 2239 Oxybutynin Chloride 30 MG DAILY 01/14 1143 UNVr PO Pantoprazole Sodium 40 MG DAILY 01/10 1000 AC 05 IV 1042 Total Parenteral 1 UNIT 1900 01/14 1900 AC Nutrition IV 01/15 1859 Total Parenteral 1 UNIT 1900 01/13 1900 AC / Nutrition IV 01/14 1851999 Total Parenteral 1 UNIT ONE 01/12 1900 DC 01/12 Nutrition IV 01/13 1852013 Impression/Plan Impression/Problem List Impression: Mr. Bowens is a 61 year old male with PMH type 2 diabetes mellitus, medication non-compliance, HTN, HLD, spina bifida, paraplegia, hypothyroidism and stage IV sacral decubitus ulcer who presented to the [facility] ED with chief complaint of confusion and chills. Associated symptoms included worsening of his buttocks wound infection, fever, penile/scrotal irritation from catheter placement and decreased oral intake. In the ED: Vital signs showed Tmax 102.3, HR 122, RR 16, BEP 122/66 which dropped to 96/64 after 3 L IV fluid bolus, and 85% on room air improved to 95% on 2 L NC. Labs were significant for WBC 13.8, neutrophils 95%, 6 bands, H&H 8.9 /27.6, Plt 547, Na 129, Cl 88, BUN 38, cre 1.6, AG 14, Glu 735, Lactate 2.2, INR 1.35, negative acetone. CXR was WNL. CT pelvis showed air in the scrotum and fat at the perineum/left buttocks/ischiorectal fat. No focal collection/abscess in the distal rectum or sigmoid. EKG showed T wave inversion in V4. 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 Vancomycin and clindamycin discontinued. * Cultures from the OR growing Gram Negative Rods, Yeast, Alpha Strep. * Blood cultures growing Beta Strep Group B * Urine Culture: growing Yeast, Continue Fluconazole 600 mg IV from 01/13/2017. * Continue to monitor for fevers and provide IV tylenol as needed * This morning the patient's Castaneda was discontinued. He subsequently developed decreased output from the SPT. Brief conversation had with the urologist revealed that the patient is likely having bladder spasms and would benefit from some oxybutynin. Currently no by mouth oxybutynin available. We placed a pad under the patient however continued to be incontinent of a significant amount of urine via penis. Reinserted the castaneda and will reclamp in the hope that this will improve output through the SPT. * He will go to the OR again on Sunday per Sx * Sx were asked to take a bone biopsy as recomended by ID to rule out possibility of Osteomyelitis, will follow * PICC placement recommendations have been placed #Severe hyperglycemia * Endocrinology consult appreciated * Glu 735 with negative acetone * Insulin drip and IV fluids are discontinued. * Continue accuchecks Q1H * The patient is on TPN today, day 4. Increased Insulin to 70 in the TPN today, this was confirmed with industrial manufacturing technician. In addition to the above the patient will also continue on NovoLog sliding scale. #Acute respiratory failure * Patient noted to have an O2 saturation of 85% on room air * Continue fentanyl drip for sedation and pain * Follow up daily CXR * IV protonix while on the vent, head of bed 30 degrees #Hypernatremia * ICU bundle Q12H for now * Na level currently 147, decreased Na in the TPN. We will monitor the Na level this pm. #Hypocalcemia * Ca slightly increased however remains to be low, we continued Ca at the same rate of 9 mEq/liter for Day 4 TPN * Ionized Calcium level pending * repeat ICU bundle this pm #LORENZO in the setting of septic shock * Baseline cre 0.9 as seen on labs from 2016; current cre 0.8 * Consider nephrology consult if urine output drops #Acute anemia * Patient has history of anemia noted in December 2016 at 07/09.8 * However, patient acutely low at 7.2 requiring 2 U PRBC transfusion 2016. * Follow up repeat CBC and trend Q12. H/H this am: 9.10/07.6 FULL CODE DVTP: Heparin SC Diet: NPO Pain: Fentanyl drip Problem List: 1. Hyperglycemia due to type 2 diabetes mellitus 2. Sepsis 3. 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 Leukocytosis 6. Acute renal failure 7. Hyperglycemia 8. Osteomyelitis Pain Ratin Tomorrow's Labs & Rationales: CBC ICU Chest X Ray Plan DVT/Prophylaxis: pharmacological
[2017-01-14 16:00] VITALS: BP 140/80
--- NOTE | 2017-01-14 19:06 | NUR ---
RECEIVED PATIENT AT 0800, SAS 3-4, FOLLOWS COMMANDS, MOVES ARMS, NODS/SHAKES HEAD TO QUESTIONS. FENTANYL GTT RUNNING AT 125 MCG THROUGH RIJ TLC. DIMINISHED PEDAL PULSES BILATERALLY AND RADIAL PULSES ASSESSED BILATERALLY AND WNL. ORALLY INTUBATED W/ #7.5 ETT TO THE RIGHT AT 24 CM AND MECHANICALLY VENTILATED W/ AC-16, TV-500, FIO2 30%, PEEP OF 5 SATTING 99-100%. SUCTIONED FOR OCCASIONAL MOD FROTHY WHITE SECRETIONS. ST ON THE ASSOCIATE MEDICAL DIRECTOR 110S, DOWN TO 90S WHEN SLEEPING, AND UP TO 130S WITH RESTLESSNESS. OGT NO LONGER IN PLACE. ABDOMEN IS SOFT/DISTENDED W/ POSITIVE BOWEL SOUNDS. TPN/LIPIDS RUNNING THROUGH RIJ TLC, TPN RATE-58.3 MLS/HR AND LIPIDS RATE-12.5 MLS/HR. NO PAIN NOTED. UNSTAGEABLE ULCER TO R JONES, SURGICAL WOUND TO L BUTTOCK W/ DEEP PACKING. OUTER DRESSING REPLACED. SUPRAPUBIC TO MIDLINE ABDOMEN W/ NO OUTPUT. 450 ML CLOUDY JUDY URINE IN MONTES FROM 7A-10A. MONTES REMOVED AT [address] ACOSTA. URINE DID NOT COME FROM SUPRAPUBIC CATHETER. PATIENT INCONTINENT OF LARGE AMOUNT OF URINE. UNABLE TO GIVE DITROPAN SINCE PATIENT DOES NOT HAVE GI ACCESS. 1MG OF IV ATIVAN GIVEN TO RELAX PATIENT BEFORE REPLACING MONTES. MONTES REPLACED PER DR. TAYLRO AND OKAY'D PER DR. PRINGLE AT 1300. CLAMPED OFF UNTIL 1700 TO SEE IF URINE COMES FROM SUPRAPUBIC. AFTER 4 HOURS, SUPRAPUBIC STILL HAS NO DRAINAGE. UNCLAMPED MONTES WITH LITTLE DRAINAGE TO MONTES. FLUSHED WITH 10 CC OF NORMAL SALINE WITH CLEAR YELLOW URINE DRAINAGE PICKING UP. PATIENT HAS INCREASED EDEMA TO UPPER MARTH[place] AREA. DR. TAYLOR AWARE. RECOMMENDED TO ONCOMING RN AND DR. TAYLOR TO PLACE KO FEED FOR ADDITIONAL PO MEDS. A-LINE D/C'D AT 1830 FOR IRREGULAR VALUES AND INABILITY TO DRAW BLOOD OFF OF EVEN THOUGH IT WAS PREVIOUS EXTENDED X1 DAY.
--- NOTE | 2017-01-14 23:02 | NUR ---
PT C/O LOWER ABD AND BUTTOCK PAIN SPOKE WITH DR TAYLOR FENTANYL GTT INCREASED TO 150 MCG WITH ADEQUATE RELIEF OF DISCOMFORT. MONTES DRAINING CL YELLOW URINE, SUPRAPUBIC DRAINING SCANT AMT ORANGE. BUTTOCK DRSG D/I. SUCTIONED LG AMTS SECRETIONS FROM MOUTH, SUCTIONED SM AMTS WHITE THICK FROM ETT.
[2017-01-15] VITALS: BP 132/60
[2017-01-15 06:20] LABS: ABSOLUTE BASOPHIL COUNT 0 /CUMM (0.0-0.2); ABSOLUTE EOSINOPHIL COUNT 0.2 /CUMM (0.0-0.7); ABSOLUTE LYMPH COUNT 1.6 /CUMM (1.2-3.4); BASOPHIL % 0.1 % (0.0-2.0); EOSINOPHIL % 1.2 % (0-5); MEAN CORPUSCULAR HGB 26.3 PG (27.0-31.0)
[2017-01-15 06:39] LABS: HEMATOCRIT 22.9 % (42-52)
--- NOTE | 2017-01-15 06:56 | PN- Resident CRCU ---
[facility] 01/15/17 0656: Subjective HPI/CRCU Issues: Mr. Bowens was seen and examined this morning. He is resting comfortably in bed. He is alert and able to follow verbal commands by way of his right hand. Unable to elicit any pain. He currently is scheduled to go to the OR later on today with Dr. Hernandez for wound debridement/revision. 24 Hour Events: Suprapubic catheter has had minimal drainage overnight. Objective Vital Signs & I&O Last 8 Hrs of Vitals and I&O: T: 97.9 HR: 92-124 ST/SR RR: 16-20 BP: 119/47-150/62 Urine Output: S1: 450 S2: 464 S3:760 Exam General Appearance: well developed/nourished Respiratory: normal breath sounds, quiet respiration, lungs clear Cardiovascular: regular rate/rhythm Gastrointestinal: normal bowel sounds, soft, non-tender, distention Extremities: normal inspection, Left Heel Ulcer. 1.5cm x 1.5 cm. Cranial Nerves: normal hearing Skin: Wound Dressed. Penile Maceration. Guthrie in Place. Draining well. SPT in place, minimal drainage. Skin Temp/Moisture Exam: Warm/Dry Weaning Parameters NIF: 499 Minute Volume: 10.8 Resp rate: 22 Vt: 506 Heart Rate: 108 Weaning Schedule Start Time: 1105 Minute Volume: 7.33 Resp Rate: 15 Vt: 543 Heart Rate: 108 End Time: 1204 Minute Volume: 7.50 Resp Rate: 14 Vt: 600 Heart Rate: 105 Current Medications: Current Medications Sig/Michelle Start time Last Medication Dose Route Stop Time Status Admin Acetaminophen 1,000 MG Q6P PRN 01/10 0830 AC 01/10 N/A 1 UNIT IV 0938 Albuterol Sulfate 3 ML Q4H PRN / 1015 AC / INH 1412 Dextrose/Water 1,000 ML ONCE ONE 01/15 0900 AC / IV 01/16 0459 0930 Fat Emulsion 300 ML Q24H 01/15 1900 AC Intravenous IV 01/16 1859 Fat Emulsion 300 ML 1900 01/14 1900 AC /07 Intravenous IV 01/15 185 194 Fat Emulsion 300 ML 19001/13 1900 DC / Intravenous IV 01/14 1851999 Fentanyl Citrate 1,000 MCG Q8H 01/13 0700 AC 05/08 Dextrose/Water 250 ML IV 0836 Fluconazole 200 MG Q24H 05/06 1200 AC 05/08 Sodium Chloride 100 ML IV 1241 Fluconazole 400 MG Q24H 05/06 1200 AC 05/08 Sodium Chloride 200 ML IV 1240 Heparin Sodium 5,000 UNIT Q8 05/03 0600 AC 05/08 (Porcine) SC 1407 Insulin Aspart 0 Q4 05/04 1000 AC 05/08 SC 1404 Meropenem 1 GM IQ8 05/03 1600 AC 05/08 IV 1603 Pantoprazole Sodium 40 MG DAILY / 1000 AC 05/08 IV 0941 Total Parenteral 1 UNIT 1900 05/08 1900 AC Nutrition IV / 1859 Total Parenteral 1 UNIT 1900 /07 1900 AC 05/07 Nutrition IV / 1859 1949 Total Parenteral 1 UNIT 1900 /06 1900 DC 05/06 Nutrition IV / 1859 1999 CXR Findings: SERVICE DATE: 01/15/17 EXAM TYPE: RAD - XRY-PORTABLE CHEST XRAY EXAMINATION: XR PORTABLE CHEST. CLINICAL INFORMATION: Confirm NG tube placement. Patient currently intubated. COMPARISON: X-ray portable chest dated 01/13/2017, 01/12/2017, 01/11/2017, 01/10/2017, 01/09/2017. TECHNIQUE: Portable frontal view of the chest was obtained. FINDINGS: Endotracheal tube is approximately 4 cm above the arie. Enteric tube can only be followed to the mid chest, beyond which it is not visualized due to technique. There is a right jugular central venous line in place. Tip is obscured by overlying external EKG leads but appears to be at the cavoatrial junction region. The cardiomediastinal silhouette is enlarged, unchanged. Low lung volumes are seen with bibasilar opacities, consistent with subsegmental atelectasis. No pulmonary edema, effusion or pneumothorax is noted. Bony structures are grossly unremarkable. IMPRESSION: 1. Endotracheal tube tip approximately 4 cm above the arie. 2. Enteric tube positioning cannot be verified. 3. Right jugular central venous line tip suboptimally seen but likely in region of the cavoatrial junction. 4. Bibasilar subsegmental atelectasis. DICTATED BY: VALE DELUNA,ANTONIO Alcocer Impression/Plan Impression/Problem List Impression: Mr. Bowens is a 61 year old male with PMH type 2 diabetes mellitus, medication non-compliance, HTN, HLD, spina bifida, paraplegia, hypothyroidism and stage IV sacral decubitus ulcer who presented to the [place] ED with chief complaint of confusion and chills. Associated symptoms included worsening of his buttocks wound infection, fever, penile/scrotal irritation from catheter placement and decreased oral intake. In the ED: Vital signs showed Tmax 102.3, HR 122, RR 16, BEP 122/66 which dropped to 96/64 after 3 L IV fluid bolus, and 85% on room air improved to 95% on 2 L NC. Labs were significant for WBC 13.8, neutrophils 95%, 6 bands, H&H 8.9 /27.6, Plt 547, Na 129, Cl 88, BUN 38, cre 1.6, AG 14, Glu 735, Lactate 2.2, INR 1.35, negative acetone. CXR was WNL. CT pelvis showed air in the scrotum and fat at the perineum/left buttocks/ischiorectal fat. No focal collection/abscess in the distal rectum or sigmoid. EKG showed T wave inversion in V4. 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 Vancomycin and clindamycin discontinued. * Cultures from the OR growing Gram Negative Rods, Yeast, Alpha Strep. * Blood cultures growing Beta Strep Group B * Urine Culture: growing Yeast. Continue Fluconazole 600 mg IV from 01/13/2017. * Patient has continued to have minimal discharge of urine from SPT. Urologist has been informed and came to see patient. She requested to be informed when the patient goes down to the OR for debridement later today. * He will go to the OR again today * Sx were asked to take a bone biopsy as recomended by ID to rule out possibility of Osteomyelitis. * PICC placement recommendations have been placed owing to needing detention antibiotics (minimum four weeks), Gluteal Area: Klebsiella, Escherichia coli, yeast, alpha strep, Beta group strep B. #Severe hyperglycemia * Endocrinology consult appreciated * Glu 735 with negative acetone * Insulin drip and IV fluids are discontinued. * The patient is on TPN today, day 5. Increased Insulin to 80 in the TPN today, this was confirmed with truck chauffeur. * In addition to the above the patient will also continue on NovoLog sliding scale. * FS, 143, 172, 208 and 242. [place] FSG between 140-180 * Sliding scale has been adjusted. #Acute respiratory failure * Patient noted to have an O2 saturation of 85% on room air * Continue fentanyl drip for sedation and pain * Follow up daily CXR * IV protonix while on the vent, head of bed 30 degrees #Hypernatremia * ICU bundle Q12H for now * Na level currently 148, decreased Na in the TPN to 0. * We will monitor the Na level this pm. * Patient was also started on D5 at 50ml/hr per hour. Repeat BEP at 1800. If level wnl, consider discontinuing fluids. Monitor NA in a.m. with ICU bundle. #Hypocalcemia * Ca slightly increased however remains to be low, we continued Ca at the same rate of 9 mEq/liter for Day 5 TPN * Ionized Calcium level: 4.1 #LORENZO in the setting of septic shock * Baseline cre 0.9 as seen on labs from 2016; current cre 0.7 * Consider nephrology consult if urine output drops #Acute anemia * Patient has history of anemia noted in December 2016 at 07/09.8 * However, patient required 2 U PRBC transfusion 01/11/2017. * Follow up repeat CBC. H/H this am: 7.4 and 22.9. A repeat CBC at 9:30 AM revealed that H&H was stable at 8.5 and 26.3. Maintain H&H above 7. * Type and cross was ordered although patient was not transfused. #Left Necrotic Ulcer foot * Obtain Podiatry consultation. FULL CODE DVTP: Heparin SC Diet: NPO Pain: Fentanyl drip Problem List: 1. Hyperglycemia due to type 2 diabetes mellitus 2. 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 Leukocytosis 5. Acute renal failure 6. Hyperglycemia 7. Hypernatremia Pain Ratin Tomorrow's Labs & Rationales: CBC ICU Plan DVT/Prophylaxis: pharmacological JASSI MONTERO MD 01/15/17 1100: Attending MD Review Statement Attending Sign Off Attending Cosign Statement: I have: examined this patient, reviewed avalbl EMR data, personally reviewd images, discussd w/resident/PA/BINDER SORTER, discussed mgmt plan w/devika, discussed mgmt plan w/CM, discussed mgmt plan w/pt, agreed w/resident/PA/BINDER SORTER, amended to note. Other Findings: IJassi M.D. have examined this patient, reviewed available EMR data, personally reviewed images, discussed with resident/PA/BINDER SORTER, discussed management plan with housestaff and nursing staff, discussed managment plan all of healthcare providers, discussed management plan with patient and/or family, agreed with resident/PA/BINDER SORTER. The past history and parts of the chart have been autopopulated. Impression 61 year old man * necrotizing fasciitis, s/p surgical intervention * MODS - hemodynamically stable * LORENZO, s/p septic shock and hypovolemia * respiratory failure on mechanical ventilation * spina bifida history, paraplegia/chronic pressure ulcers * anemia stable this am Plan Respiratory - monitor abgs - ett in good position ID - f/u ID recs - on meropenem - fluconazole added due to yeast in urine (also in sputum) - back to OR today [facility] - monitor hemodynamics - when feasible get PICC and d/c tlc Heme -monitor cbc, coags Metabolic - ins/outs - monitor electrolytes and urine outut Alimentary - nutrition/TPN Neuro - sedation as needed DVT prophylaxis at all times TTS 35 min
[2017-01-15 07:08] LABS: ABSOLUTE GRANULOCYTE CT 11.3 /CUMM (1.4-6.5); ABSOLUTE MONOCYTE COUNT 0.7 /CUMM (0.10-0.60); MEAN CORPUSCULAR HGB CONC 32.2 G/DL (33.0-37.0); MEAN CORPUSCULAR VOLUME 81.6 FL (80.0-94.0); MEAN PLATELET VOLUME 8.7 FL (7.4-10.4); PLATELET COUNT 571 /CUMM (130-400); RBC DISTRIBUTION WIDTH 16.1 % (11.5-14.5); WHITE BLOOD CELL COUNT 13.8 /CUMM (4.8-10.8)
[2017-01-15 08:00] VITALS: BP 139/62
--- NOTE | 2017-01-15 09:49 | PN- Diabetes ---
Assessment/Plan Assessment: Patient is 61-year-old man with past medical history significant for hypertension, hyperlipidemia, stage IV sacral wound, hypothyroidism, diabetes mellitus type 2, was brought into ER after the patient was found to be lethargic and confused. Patient is wheel chair bound due to Hx of spina bifida. 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 He underwent debridement. Currently he remains intubated. He is on TPN-- 20% dextrose x 1700 ml/ 24 hours with 70 units of insulin in TPN. In addition, he is on Novolog coverage every 4 hours. His FSGs were 153, 143, 172, 208 and 242. Sodium content in TPN was adjusted yesterday. Repeat sodium level this morning was 148 which remains mildly elevated. His TPN for today will be 20% dextrose x 1700 ml/24 hours. Plan: 1. will add 80 units of insulin to today's TPN ( 20 % dextrose x 1700 ml/24 hours); 2. mild hypernatremia--- as patient doesn't have OG tube at this point, I have recommended adding D5W at 50 ml/hour and monitoring electrolytes twice a day. 3. adjust Novolog coverage every 4 hours--detail see the inpatient DM order; 4. monitor FSGS. will follow. Inpatient Diabetes Orders Every 4 Hours: Bolus Insulin: Novolog < 80 mg/dl: no coverage 80-100 mg/dl: no coverage 101-120 mg/dl: no coverage 121-150 mg/dl: 5 units 151-200 mg/dl: 8 units 201-250 mg/dl: 11 units 251-300 mg/dl: 14 units 301-350 mg/dl: 17 units 351-400 mg/dl: 20 units > 400 mg/dl: 23 units Subjective Subjective: Patient remains intubated. Objective Last 24 Hrs of Vital Signs/I&O Vital Signs Date Time Temp Pulse Resp B/P B/P Pulse O2 O2 Flow FiO2 Mean Ox Delivery Rate 01/15 0903 100 Ventilator 30% 01/15 0857 30 01/15 0519 30 01/15 0400 100 Ventilator 30% 01/15 0243 30 01/15 0058 30 01/15 0000 99 Ventilator 30% 01/15 0000 97.9 102 20 132/60 99 Ventilator 30% 01/14 2230 30 01/14 2000 100 Ventilator 30% 01/14 1925 30 01/14 1600 30 01/14 1600 97.7 106 17 140/80 99 Ventilator 30% 01/14 1600 99 Ventilator 30% 01/14 1425 30 01/14 1205 30 01/14 1200 99 Ventilator 30% Intake & Output 01/15 0800 05 0000 Intake Total 1066.4 973.0 Output Total 760 464 Balance 306.4 509.0 Intake, IV 400 369 Intake, Lipid 100.0 100.0 Intake, 566.4 504 TPN/PPN Output, Urine 760 464 Findings Pertinent Lab/Ervin Results: Laboratory Tests 01/15 01/15 01/14 0617 0415 1840 Chemistry Sodium (137 - 145 mmol/L) 148 H 150 H Potassium (3.5 - 5.1 mmol/L) 4.7 4.6 Chloride (98 - 107 mmol/L) 113 H 114 H Carbon Dioxide (22 - 30 mmol/L) 27 26 Anion Gap (5 - 16) 9 10 BUN (9 - 20 mg/dL) 22 H 23 H Creatinine (0.7 - 1.2 mg/dL) 0.7 0.8 Estimated GFR (>60 ml/min) > 60 > 60 Glucose (65 - 99 mg/dL) 174 H 123 H Calcium (8.4 - 10.2 mg/dL) 7.6 L 7.3 L Phosphorus (2.5 - 4.5 mg/dL) 3.5 3.5 Magnesium (1.6 - 2.3 mg/dL) 2.0 2.0 Total Bilirubin (0.2 - 1.3 mg/dL) 0.2 0.1 L AST (17 - 59 U/L) 13 L 15 L ALT (21 - 72 U/L) 30 33 Albumin (3.5 - 5.0 g/dL) 2.0 L 2.0 L Hematology CBC w Diff MAN DIFF ORDERED Cancelled WBC (4.8 - 10.8 /CUMM) 13.8 H Cancelled RBC (4.70 - 6.10 /CUMM) 2.80 L Cancelled Hgb (14.0 - 18.0 G/DL) 7.4 *L Cancelled Hct (42 - 52 %) 22.9 L Cancelled MCV (80.0 - 94.0 FL) 81.6 Cancelled MCH (27.0 - 31.0 PG) 26.3 L Cancelled RDW (11.5 - 14.5 %) 16.1 H Cancelled Plt Count (130 - 400 /CUMM) 571 H Cancelled MPV (7.4 - 10.4 FL) 8.7 Cancelled Gran % (42.2 - 75.2 %) 82.0 H Cancelled Lymphocytes % (20.5 - 51.1 %) 11.6 L Cancelled Monocytes % (1.7 - 9.3 %) 5.1 Cancelled Eosinophils % (0 - 5 %) 1.2 Cancelled Basophils % (0.0 - 2.0 %) 0.1 Cancelled Absolute Granulocytes (1.4 - 6.5 /CUMM) 11.3 H Cancelled Segmented Neutrophils (42.2 - 75.2 %) 70 Absolute Lymphocytes (1.2 - 3.4 /CUMM) 1.6 Cancelled Lymphocytes (20.5 - 51.1 %) 14 L Monocytes (1.7 - 9.3 %) 13 H Absolute Monocytes (0.10 - 0.60 /CUMM) 0.7 H Cancelled Eosinophils (0 - 5.0 %) 1 Absolute Eosinophils (0.0 - 0.7 /CUMM) 0.2 Cancelled Absolute Basophils (0.0 - 0.2 /CUMM) 0 Cancelled Metamyelocytes (0.0 - 1.0 %) 2 H Platelet Estimate (ADEQUATE) INCREASED Hypochromic-Microcytic 1+ Ovalocytes 1+ PUBS MCHC (33.0 - 37.0 G/DL) 32.2 L Cancelled
--- NOTE | 2017-01-15 10:01 | PN- Infect Dx ---
Subjective Subjective: Afebrile without complaints Objective Last 24 Hrs of Vital Signs/I&O Vital Signs Date Time Temp Pulse Resp B/P B/P Pulse O2 O2 Flow FiO2 Mean Ox Delivery Rate 01/15 0903 100 Ventilator 30% 01/15 0857 30 01/15 0519 30 01/15 0400 100 Ventilator 30% 01/15 0243 30 01/15 0058 30 01/15 0000 99 Ventilator 30% 01/15 0000 97.9 102 20 132/60 99 Ventilator 30% 01/14 2230 30 01/14 2000 100 Ventilator 30% 01/14 1925 30 01/14 1600 30 01/14 1600 97.7 106 17 140/80 99 Ventilator 30% 01/14 1600 99 Ventilator 30% 01/14 1425 30 01/14 1205 30 01/14 1200 99 Ventilator 30% Intake & Output 01/15 1600 01/15 0800 05 0000 Intake Total 1066.4 973.0 Output Total 760 464 Balance 306.4 509.0 Intake, IV 400 369 Intake, Lipid 100.0 100.0 Intake, 566.4 504 TPN/PPN Output, Urine 760 464 Physical Exam Other Physical Findings: He appears comfortable on the ventilator in no acute distress Neck right IJ triple-lumen catheter with no inflammation at the site Lungs are clear Heart regular rhythm with no murmur Abdomen mildly distended, nontender with positive bowel sounds; suprapubic tube in place with no urine output Extremities minimal edema of the upper extremities Guthrie catheter is in place; dressings intact in the perineum Results Last 24 Hours of Lab Results: Laboratory Tests 01/15 01/15 01/14 0617 0415 1840 Chemistry Sodium (137 - 145 mmol/L) 148 H 150 H Potassium (3.5 - 5.1 mmol/L) 4.7 4.6 Chloride (98 - 107 mmol/L) 113 H 114 H Carbon Dioxide (22 - 30 mmol/L) 27 26 Anion Gap (5 - 16) 9 10 BUN (9 - 20 mg/dL) 22 H 23 H Creatinine (0.7 - 1.2 mg/dL) 0.7 0.8 Estimated GFR (>60 ml/min) > 60 > 60 Glucose (65 - 99 mg/dL) 174 H 123 H Calcium (8.4 - 10.2 mg/dL) 7.6 L 7.3 L Phosphorus (2.5 - 4.5 mg/dL) 3.5 3.5 Magnesium (1.6 - 2.3 mg/dL) 2.0 2.0 Total Bilirubin (0.2 - 1.3 mg/dL) 0.2 0.1 L AST (17 - 59 U/L) 13 L 15 L ALT (21 - 72 U/L) 30 33 Albumin (3.5 - 5.0 g/dL) 2.0 L 2.0 L Hematology CBC w Diff MAN DIFF ORDERED Cancelled WBC (4.8 - 10.8 /CUMM) 13.8 H Cancelled RBC (4.70 - 6.10 /CUMM) 2.80 L Cancelled Hgb (14.0 - 18.0 G/DL) 7.4 *L Cancelled Hct (42 - 52 %) 22.9 L Cancelled MCV (80.0 - 94.0 FL) 81.6 Cancelled MCH (27.0 - 31.0 PG) 26.3 L Cancelled RDW (11.5 - 14.5 %) 16.1 H Cancelled Plt Count (130 - 400 /CUMM) 571 H Cancelled MPV (7.4 - 10.4 FL) 8.7 Cancelled Gran % (42.2 - 75.2 %) 82.0 H Cancelled Lymphocytes % (20.5 - 51.1 %) 11.6 L Cancelled Monocytes % (1.7 - 9.3 %) 5.1 Cancelled Eosinophils % (0 - 5 %) 1.2 Cancelled Basophils % (0.0 - 2.0 %) 0.1 Cancelled Absolute Granulocytes (1.4 - 6.5 /CUMM) 11.3 H Cancelled Segmented Neutrophils (42.2 - 75.2 %) 70 Absolute Lymphocytes (1.2 - 3.4 /CUMM) 1.6 Cancelled Lymphocytes (20.5 - 51.1 %) 14 L Monocytes (1.7 - 9.3 %) 13 H Absolute Monocytes (0.10 - 0.60 /CUMM) 0.7 H Cancelled Eosinophils (0 - 5.0 %) 1 Absolute Eosinophils (0.0 - 0.7 /CUMM) 0.2 Cancelled Absolute Basophils (0.0 - 0.2 /CUMM) 0 Cancelled Metamyelocytes (0.0 - 1.0 %) 2 H Platelet Estimate (ADEQUATE) INCREASED Hypochromic-Microcytic 1+ Ovalocytes 1+ PUBS MCHC (33.0 - 37.0 G/DL) 32.2 L Cancelled Last 24 Hours of Ervin Results: OR culture January 5 labeled gluteal area positive for Group B strep and yeast Assessment/Plan Impression: Stable status post further debridement of necrotizing fasciitis 3 days ago, with exposed bone identified, with Group B strep and yeast isolated from a culture labeled gluteal area, which is presumably bone, thouh it is not clear if a specimen was submitted for pathology. Based on this result he will require a prolonged course (minimum 4 weeks) of IV antibiotics. He remains afebrile with white blood cell count continuing to increase on Meropenem and Fluconazole for Jerad's gangrene, with Group B strep isolated from the OR cultures, along with other organisms, as well as the blood in addition to the recently obtained bone specimen. He is scheduled for a return to the OR later today for further debridement. He underwent placement of a suprapubic cystostomy in the OR 3 days ago, but he has had no urine output from this catheter, even when the Guthrie was temporarily removed yesterday. This has been discussed with Urology, who attributes this to spasms, and will reevaluate today. Suggestion: 1. Await Urology follow-up regarding the suprapubic catheter 2. Follow-up final bone biopsy (if specimen submitted to pathology) 3. Await return to the OR later today 4. Would pursue placement of a PICC so that the right IJ can be removed 5. Continue Meropenem and Fluconazole
--- NOTE | 2017-01-15 10:10 | NUR ---
TYPE AND SCREEN OBTAINED AND CBC SENT TO CONFIRM H/H. D5 5O ML/HR STARTED PER ENDO/. BS 187 COVERED W 8U OF NOVOLOG. TPN/LIPIDS REMAIN INFUSING. PT REMAINS ON FENTANYL GTT AT 150MCG, SAS OF 4.
--- NOTE | 2017-01-15 10:12 | NUR ---
DTI TO L HEEL NOTICED. WOUND CONSULT PLACED.
--- NOTE | 2017-01-15 10:32 | NUR ---
PT COUGHING AND TOUNGING TUBE, ALMOST TO THE POINT OF DISLODGING TUBE. RE CALLED TO BEDSIDE TO SECURE AND RETAPE ETT.
[2017-01-15 10:44] LABS: ABSOLUTE BASOPHIL COUNT 0.1 /CUMM (0.0-0.2); ABSOLUTE EOSINOPHIL COUNT 0.2 /CUMM (0.0-0.7); ABSOLUTE GRANULOCYTE CT 9.3 /CUMM (1.4-6.5); ABSOLUTE LYMPH COUNT 1.2 /CUMM (1.2-3.4); ABSOLUTE MONOCYTE COUNT 1.1 /CUMM (0.10-0.60); BASOPHIL % 0.5 % (0.0-2.0); EOSINOPHIL % 1.4 % (0-5); GRANULOCYTE % 78.1 % (42.2-75.2); HEMATOCRIT 26.3 % (42-52); MEAN CORPUSCULAR HGB 26.2 PG (27.0-31.0); MEAN CORPUSCULAR HGB CONC 32.3 G/DL (33.0-37.0); MEAN PLATELET VOLUME 8.6 FL (7.4-10.4); PLATELET COUNT 582 /CUMM (130-400); RBC DISTRIBUTION WIDTH 15.7 % (11.5-14.5); RED BLOOD CELL CT 3.24 /CUMM (4.70-6.10); WHITE BLOOD CELL COUNT 11.9 /CUMM (4.8-10.8)
--- NOTE | 2017-01-15 14:55 | RADIOLOGY REPORT ---
EXAMINATION: XR PORTABLE CHEST. CLINICAL INFORMATION: Confirm NG tube placement. Patient currently intubated. COMPARISON: X-ray portable chest dated 01/13/2017, 01/12/2017, 01/11/2017, 01/10/2017, 01/09/2017. TECHNIQUE: Portable frontal view of the chest was obtained. FINDINGS: Endotracheal tube is approximately 4 cm above the arie. Enteric tube can only be followed to the mid chest, beyond which it is not visualized due to technique. There is a right jugular central venous line in place. Tip is obscured by overlying external EKG leads but appears to be at the cavoatrial junction region. The cardiomediastinal silhouette is enlarged, unchanged. Low lung volumes are seen with bibasilar opacities, consistent with subsegmental atelectasis. No pulmonary edema, effusion or pneumothorax is noted. Bony structures are grossly unremarkable. IMPRESSION: 1. Endotracheal tube tip approximately 4 cm above the arie. 2. Enteric tube positioning cannot be verified. 3. Right jugular central venous line tip suboptimally seen but likely in region of the cavoatrial junction. 4. Bibasilar subsegmental atelectasis.
[2017-01-15 16:00] VITALS: BP 156/71
--- NOTE | 2017-01-15 18:02 | PN- Urology ---
Subjective Subjective: pt still intubated Objective Vital Signs and I&Os Vital Signs Date Time Temp Pulse Resp B/P B/P Pulse O2 O2 Flow FiO2 Mean Ox Delivery Rate 01/15 1600 30 01/15 1600 97.4 107 23 156/71 99 Ventilator 30% 01/15 1330 30 01/15 1200 100 Ventilator 30% 01/15 1129 30 01/15 0903 100 Ventilator 30% 01/15 0857 30 01/15 0800 99 Ventilator 30% 01/15 0800 97.8 109 17 139/62 97 Nasal 30% Cannula 01/15 0519 30 01/15 0400 100 Ventilator 30% 01/15 0243 30 01/15 0058 30 05/ 0000 99 Ventilator 30% 01/15 0000 97.9 102 20 132/60 99 Ventilator 30% 01/14 2230 30 01/14 2000 100 Ventilator 30% 01/14 1925 30 Intake & Output 01/15 1600 01/15 0800 05/08 0000 05/ 1600 01/14 0800 05/ 0000 Intake Total 1406.0 1066.4 973.0 1023 816.0 999.0 Output Total 850 760 464 450 585 650 Balance 556.0 306.4 509.0 573 231.0 349.0 Intake, IV 740 572 429 6629 250 250 Intake, Lipid 100.0 100.0 100.0 100.0 100.0 Intake, Oral 0 Intake, 566 566.4 504 466 449 TPN/PPN Intake, Tube 200 Irrigant Number 0 Bowel Movements Output, Other 15 30 Output, Urine 850 760 464 450 570 620 Physical Exam: Pt with SPT in place as well as the castaneda. Castaneda draining yellow urine. SPT with minimal UOP. Physical Exam General Appearance: intubated Head: atraumatic Abdomen: normal bowel sounds (SPT site c/d/i) Reproductive: Normal male genitalia (castaneda in place) Current Medications: Current Medications Sig/Michelle Start time Last Medication Dose Route Stop Time Status Admin Acetaminophen 1,000 MG Q6P PRN 01/10 0830 AC 01/10 N/A 1 UNIT IV 0938 Albuterol Sulfate 3 ML Q4H PRN 01/10 1015 AC 01/13 INH 1412 Dextrose/Water 1,000 ML ONCE ONE 01/15 900 AC 01/15 IV 01/16 0459 0930 Fat Emulsion 300 ML Q24H 01/15 1900 AC Intravenous IV 01/16 1859 Fat Emulsion 300 ML 1900 01/14 190 AC / Intravenous IV 01/15 Fat Emulsion 300 ML 1900 / 1900 DC / Intravenous IV 01/14 Fentanyl Citrate 1,000 MCG Q8H / 0700 AC / Dextrose/Water 250 ML IV 1641 Fluconazole 200 MG Q24H 05/ 1200 AC 05/ Sodium Chloride 100 ML IV 1241 Fluconazole 400 MG Q24H 05/06 1200 AC /08 Sodium Chloride 200 ML IV 1240 Heparin Sodium 5,000 UNIT Q8 / 0600 AC 01/15 (Porcine) SC 1407 Insulin Aspart 0 Q4 / 1000 AC / SC 1404 Meropenem 1 GM IQ8 05/ 1600 AC 01/15 IV 1603 Pantoprazole Sodium 40 MG DAILY / 1000 AC 01/15 IV 0941 Total Parenteral 1 UNIT 0 01/15 190 AC Nutrition IV 01/16 1859 Total Parenteral 1 UNIT 1900 01/14 190 AC 01/14 Nutrition IV 01/15 Total Parenteral 1 UNIT 1900 01/13 190 DC 01/13 Nutrition IV 01/14 Results Last 48 Hours of Labs: Laboratory Tests 01/15 01/15 1550 0935 Chemistry Sodium (137 - 145 mmol/L) 141 Potassium (3.5 - 5.1 mmol/L) 4.8 Chloride (98 - 107 mmol/L) 109 H Carbon Dioxide (22 - 30 mmol/L) 24 Anion Gap (5 - 16) 8 BUN (9 - 20 mg/dL) 23 H Creatinine (0.7 - 1.2 mg/dL) 0.7 Estimated GFR (>60 ml/min) > 60 Glucose (65 - 99 mg/dL) 237 H Calcium (8.4 - 10.2 mg/dL) 7.6 L Phosphorus (2.5 - 4.5 mg/dL) 3.5 Magnesium (1.6 - 2.3 mg/dL) 1.8 Total Bilirubin (0.2 - 1.3 mg/dL) 0.3 AST (17 - 59 U/L) 14 L ALT (21 - 72 U/L) 33 Albumin (3.5 - 5.0 g/dL) 2.0 L Hematology CBC w Diff NO MAN DIFF REQ WBC (4.8 - 10.8 /CUMM) 11.9 H RBC (4.70 - 6.10 /CUMM) 3.24 L Hgb (14.0 - 18.0 G/DL) 8.5 L Hct (42 - 52 %) 26.3 L MCV (80.0 - 94.0 FL) 81.0 MCH (27.0 - 31.0 PG) 26.2 L RDW (11.5 - 14.5 %) 15.7 H Plt Count (130 - 400 /CUMM) 582 H MPV (7.4 - 10.4 FL) 8.6 Gran % (42.2 - 75.2 %) 78.1 H Lymphocytes % (20.5 - 51.1 %) 10.4 L Monocytes % (1.7 - 9.3 %) 9.6 H Eosinophils % (0 - 5 %) 1.4 Basophils % (0.0 - 2.0 %) 0.5 Absolute Granulocytes (1.4 - 6.5 /CUMM) 9.3 H Absolute Lymphocytes (1.2 - 3.4 /CUMM) 1.2 Absolute Monocytes (0.10 - 0.60 /CUMM) 1.1 H Absolute Eosinophils (0.0 - 0.7 /CUMM) 0.2 Absolute Basophils (0.0 - 0.2 /CUMM) 0.1 PUBS MCHC (33.0 - 37.0 G/DL) 32.3 L 01/15 01/15 01/14 0617 0415 1840 Chemistry Sodium (137 - 145 mmol/L) 148 H 150 H Potassium (3.5 - 5.1 mmol/L) 4.7 4.6 Chloride (98 - 107 mmol/L) 113 H 114 H Carbon Dioxide (22 - 30 mmol/L) 27 26 Anion Gap (5 - 16) 9 10 BUN (9 - 20 mg/dL) 22 H 23 H Creatinine (0.7 - 1.2 mg/dL) 0.7 0.8 Estimated GFR (>60 ml/min) > 60 > 60 Glucose (65 - 99 mg/dL) 174 H 123 H Calcium (8.4 - 10.2 mg/dL) 7.6 L 7.3 L Phosphorus (2.5 - 4.5 mg/dL) 3.5 3.5 Magnesium (1.6 - 2.3 mg/dL) 2.0 2.0 Total Bilirubin (0.2 - 1.3 mg/dL) 0.2 0.1 L AST (17 - 59 U/L) 13 L 15 L ALT (21 - 72 U/L) 30 33 Albumin (3.5 - 5.0 g/dL) 2.0 L 2.0 L Hematology CBC w Diff MAN DIFF ORDERED Cancelled WBC (4.8 - 10.8 /CUMM) 13.8 H Cancelled RBC (4.70 - 6.10 /CUMM) 2.80 L Cancelled Hgb (14.0 - 18.0 G/DL) 7.4 *L Cancelled Hct (42 - 52 %) 22.9 L Cancelled MCV (80.0 - 94.0 FL) 81.6 Cancelled MCH (27.0 - 31.0 PG) 26.3 L Cancelled RDW (11.5 - 14.5 %) 16.1 H Cancelled Plt Count (130 - 400 /CUMM) 571 H Cancelled MPV (7.4 - 10.4 FL) 8.7 Cancelled Gran % (42.2 - 75.2 %) 82.0 H Cancelled Lymphocytes % (20.5 - 51.1 %) 11.6 L Cancelled Monocytes % (1.7 - 9.3 %) 5.1 Cancelled Eosinophils % (0 - 5 %) 1.2 Cancelled Basophils % (0.0 - 2.0 %) 0.1 Cancelled Absolute Granulocytes (1.4 - 6.5 /CUMM) 11.3 H Cancelled Segmented Neutrophils (42.2 - 75.2 %) 70 Absolute Lymphocytes (1.2 - 3.4 /CUMM) 1.6 Cancelled Lymphocytes (20.5 - 51.1 %) 14 L Monocytes (1.7 - 9.3 %) 13 H Absolute Monocytes (0.10 - 0.60 /CUMM) 0.7 H Cancelled Eosinophils (0 - 5.0 %) 1 Absolute Eosinophils (0.0 - 0.7 /CUMM) 0.2 Cancelled Absolute Basophils (0.0 - 0.2 /CUMM) 0 Cancelled Metamyelocytes (0.0 - 1.0 %) 2 H Platelet Estimate (ADEQUATE) INCREASED Hypochromic-Microcytic 1+ Ovalocytes 1+ PUBS MCHC (33.0 - 37.0 G/DL) 32.2 L Cancelled 01/14 01/13 0430 1900 Chemistry Sodium (137 - 145 mmol/L) 147 H 148 H Potassium (3.5 - 5.1 mmol/L) 4.5 4.5 Chloride (98 - 107 mmol/L) 112 H 114 H Carbon Dioxide (22 - 30 mmol/L) 24 24 Anion Gap (5 - 16) 11 10 BUN (9 - 20 mg/dL) 23 H 23 H Creatinine (0.7 - 1.2 mg/dL) 0.8 0.8 Estimated GFR (>60 ml/min) > 60 > 60 Glucose (65 - 99 mg/dL) 98 167 H Calcium (8.4 - 10.2 mg/dL) 7.2 L 7.0 L Phosphorus (2.5 - 4.5 mg/dL) 3.3 3.2 Magnesium (1.6 - 2.3 mg/dL) 2.2 2.1 Total Bilirubin (0.2 - 1.3 mg/dL) 0.3 0.2 AST (17 - 59 U/L) 16 L 14 L ALT (21 - 72 U/L) 27 28 Albumin (3.5 - 5.0 g/dL) 2.0 L 2.0 L Triglycerides (<150 mg/dL) 144 Cholesterol (< 200 MG/DL) 68 LDL Cholesterol, Calc (65 - 129 mg/dL) 26 L HDL Cholesterol (40 - 60 mg/dL) 14 L Cholesterol/HDL Ratio (0.00 - 4.88 %) 5 H Hematology CBC w Diff NO MAN DIFF REQ WBC (4.8 - 10.8 /CUMM) 13.2 H RBC (4.70 - 6.10 /CUMM) 3.49 L Hgb (14.0 - 18.0 G/DL) 9.1 L Hct (42 - 52 %) 28.6 L MCV (80.0 - 94.0 FL) 81.9 MCH (27.0 - 31.0 PG) 26.1 L RDW (11.5 - 14.5 %) 15.9 H Plt Count (130 - 400 /CUMM) 461 H MPV (7.4 - 10.4 FL) 8.8 Gran % (42.2 - 75.2 %) 81.5 H Lymphocytes % (20.5 - 51.1 %) 10.1 L Monocytes % (1.7 - 9.3 %) 6.5 Eosinophils % (0 - 5 %) 1.6 Basophils % (0.0 - 2.0 %) 0.3 Absolute Granulocytes (1.4 - 6.5 /CUMM) 10.8 H Absolute Lymphocytes (1.2 - 3.4 /CUMM) 1.3 Absolute Monocytes (0.10 - 0.60 /CUMM) 0.9 H Absolute Eosinophils (0.0 - 0.7 /CUMM) 0.2 Absolute Basophils (0.0 - 0.2 /CUMM) 0 PUBS MCHC (33.0 - 37.0 G/DL) 31.8 L Assessment/Plan Assessment/Plan 61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 He has had minimal urine output from his SPT since placement. Given his previous hx of urinary incontinence with use of a condom catheter, it is unlikely that the urine will exit from the SPT during the time he is supine. Once he is up and about in his wheelchair, it will likely be functional. Would not remove the SPT as it is not a site worrisome for UTI and the patient is on abx. Would continue the castaneda catheter to aid in healing of the Jerad's infection site.
--- NOTE | 2017-01-15 18:02 | NUR ---
PT TO OR AT 1730, REPORT GIVEN TO ANESTHESIA.
--- NOTE | 2017-01-15 18:31 | Operative Report ---
Operative/Inv Procedure Report Surgery Date: 01/15/17 Name of Procedure: replacement of castaneda catheter Pre-Operative Diagnosis: Jerad's infection Post-Operative Diagnosis: same Estimated Blood Loss: scant Surgeon/Bench Worker Apprentice: Мария Willoughby Anesthesia: general endotracheal tube Drains: castaneda catheter 18fr Complications: castaneda catheter inadvertantly was expelled out of the urethra during debridement of the perineal region due to necrotic tissue of the urethra and bulbar spongiosum from infection. Condition: stable Operative Indication: castaneda expelled out of perineal urethra Operative/Procedure Note Note: patient was undergoing additional debridement of the Jerad's infection site by general surgery when the castaneda catheter was inadvertantly expelled out of the urethra while exploring the perineal site. The castaneda was placed back into the bladder with finger manipulationn. The balloon was inflated to 20cc to ensure that it stays in the bladder and hopefully will empty the bladder without compromising the perineal open wound site. Findings: castaneda balloon in the perineum outside the perineal urethra Discharge Disposition: Critical Care Unit
--- NOTE | 2017-01-15 18:40 | Operative Report ---
Operative/Inv Procedure Report Surgery Date: 01/15/17 Name of Procedure: Debridement of perineum Pre-Operative Diagnosis: Simeon's gangrene Post-Operative Diagnosis: Same Estimated Blood Loss: scant Surgeon/Sewing Machine Tester: Yuan Hernandez M.D./Мария Willoughby M.D. Anesthesia: general endotracheal tube Operative Indication: Patient presents for planned serial debridement of perineum for simeon's gangrene Operative/Procedure Note Note: Patient brought to the operating room and laid supine. He's placed in lithotomy position and his perineum was prepped and draped. The wound was explored. There was fibrinous exudate throughout the wound but no significant necrosis. The entire wound was explored and there appeared to be a cystic mass near the base of the penis. When I pushed on it the Guthrie balloon became visible. I asked Dr. Willoughby for intraoperative consultation. She confirmed that the gangrene had eroded into the urethra. She replaced the Guthrie and inflated the balloon. Wound was then curetted sharply. The wound was pulse lavaged with saline. Iodoform soaked sterile gauze was placed. Sterile dressings were applied. CC: MARK DELUNA,LUANNE Jones
--- NOTE | 2017-01-15 19:31 | NUR ---
PT RETURN FROM OR AT 1900.
[2017-01-16] VITALS: BP 124/80
--- NOTE | 2017-01-16 00:32 | PN- General Surgery ---
Subjective Subjective: POC PAIN CONTROLLED, REMAINS INTUBATED, NO ISSUES PER RN Objective Vital Signs and I&Os Vital Signs Date Time Temp Pulse Resp B/P B/P Pulse O2 O2 Flow FiO2 Mean Ox Delivery Rate 01/15 2227 35 01/16 2000 98 Ventilator 35% 01/15 1915 30 01/15 1600 30 01/15 1600 99 Ventilator 30% 01/15 1600 97.4 107 23 156/71 99 Ventilator 30% 01/15 1330 30 01/15 1200 100 Ventilator 30% 01/15 1129 30 01/15 0903 100 Ventilator 30% 01/15 0857 30 01/15 0800 99 Ventilator 30% 01/15 0800 97.8 109 17 139/62 97 Nasal 30% Cannula 01/15 0519 30 01/15 0400 100 Ventilator 30% 01/15 0243 30 01/15 0058 30 Intake & Output 01/16 0800 05/09 0000 / 1600 / 0800 05/ 0000 01/14 1600 Intake Total 1233.0 1406.0 1066.4 973.0 1023 Output Total 550 850 760 464 450 Balance 683.0 556.0 306.4 509.0 573 Intake, IV 621 740 661 194 6803 Intake, Lipid 91.0 100.0 100.0 100.0 Intake, Oral 0 0 Intake, 521 566 566.4 504 TPN/PPN Number 0 0 Bowel Movements Output, Urine 550 850 760 464 450 Physical Exam: GEN: NAD CARD: S1S2 TACHY PULM; COAUSE THROUGHOUT, INTUBATED ABD: OBESE GROIN/PERINEUM: dressing cdi, ttp, suprapubic tube in place, castaneda in place Assessment/Plan Assessment/Plan A: POD0 sp debridement forniers gangrene, castaneda reinsertion, remains intubated in ICU P: continue current care. Dressing change in ?am- will germán Hernandez. Tight glycemic control. 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
[2017-01-16 04:43] LABS: ABSOLUTE BASOPHIL COUNT 0 /CUMM (0.0-0.2); ABSOLUTE EOSINOPHIL COUNT 0.1 /CUMM (0.0-0.7); ABSOLUTE GRANULOCYTE CT 9.7 /CUMM (1.4-6.5); ABSOLUTE LYMPH COUNT 1.4 /CUMM (1.2-3.4); ABSOLUTE MONOCYTE COUNT 1.2 /CUMM (0.10-0.60); BASOPHIL % 0.1 % (0.0-2.0); GRANULOCYTE % 78.5 % (42.2-75.2); HEMATOCRIT 25.8 % (42-52); MEAN CORPUSCULAR HGB 26.4 PG (27.0-31.0); MEAN CORPUSCULAR HGB CONC 32.4 G/DL (33.0-37.0); MEAN CORPUSCULAR VOLUME 81.4 FL (80.0-94.0); MEAN PLATELET VOLUME 7.7 FL (7.4-10.4); PLATELET COUNT 586 /CUMM (130-400); RBC DISTRIBUTION WIDTH 16.3 % (11.5-14.5); RED BLOOD CELL CT 3.17 /CUMM (4.70-6.10); WHITE BLOOD CELL COUNT 12.4 /CUMM (4.8-10.8)
--- NOTE | 2017-01-16 05:45 | PN- Resident CRCU ---
Subjective HPI/CRCU Issues: Patient was seen and examined this morning, he is alert, intubated, follow simple commands. Upon questioning him if he has any pain he nodded his head "yes", denied chest pain, abdominal pain. 24 Hour Events: Temperature 99.8, MAXIMUM TEMPERATURE 100.2 Heartrate lowest 92, highest 118 sinus rhythm Blood pressure lowest 110/48, highest 161/67 Mechanical ventilator AC mode, tidal volume 500, rate 16, peak flow 650, PEEP 5, FiO2 35 TPN, lipids, Ventolin drip running at 375, 500 normal saline bolus for relatively low blood pressure 110/48 the avarage BP throughout the day yesterday was 140/60 Objective Vital Signs & I&O Last 8 Hrs of Vitals and I&O: 222 Exam General Appearance: alert, intubated Head: atraumatic, normal appearance Neck: normal inspection, full range of motion Respiratory: normal breath sounds, chest non-tender Cardiovascular: regular rate/rhythm Gastrointestinal: soft, non-tender, decrease bowel sound Extremities: pedal edema trace Bl upper and lower extermities Cranial Nerves: normal hearing, PERRL Skin: intact, normal color, warm/dry Skin Temp/Moisture Exam: Warm/Dry Other Physical Findings: castaneda catheter in place, some blood at the the tip of the exist Weaning Parameters NIF: 499 Minute Volume: 10.8 Resp rate: 22 Vt: 506 Heart Rate: 108 Weaning Schedule Start Time: 1105 Minute Volume: 7.33 Resp Rate: 15 Vt: 543 Heart Rate: 108 End Time: 1204 Minute Volume: 7.50 Resp Rate: 14 Vt: 600 Heart Rate: 105 Current Medications: Current Medications Sig/Michelle Start time Last Medication Dose Route Stop Time Status Admin Acetaminophen 1,000 MG Q6P PRN 01/10 0830 AC 01/10 N/A 1 UNIT IV 0938 Albuterol Sulfate 3 ML Q4H PRN 01/10 1015 AC 01/13 INH 1412 Dextrose/Water 1,000 ML ONCE ONE 01/15 0900 DC 05/ IV 01/16 0459 0930 Fat Emulsion 300 ML Q24H 01/15 1900 AC / Intravenous IV 01/16 1852024 Fat Emulsion 300 ML 1900 01/14 1900 DC 01/14 Intravenous IV 01/15 185 194 Fentanyl Citrate 1,000 MCG Q10H 01/16 1700 AC Dextrose/Water 250 ML IV Fentanyl Citrate 250 MCG .STK-MED ONE 01/15 1718 DC IM 01/15 1719 Fentanyl Citrate 1,000 MCG Q8H 01/13 0700 AC / Dextrose/Water 250 ML IV 01/16 1659 0708 Fluconazole 200 MG Q24H / 1200 AC 01/15 Sodium Chloride 100 ML IV 1241 Fluconazole 400 MG Q24H / 1200 AC / Sodium Chloride 200 ML IV 1240 Heparin Sodium 5,000 UNIT Q8 / 0600 AC 01/16 (Porcine) SC 0550 Hydromorphone HCl 2 MG .STK-MED ONE 01/15 1718 DC IM 01/15 1719 Insulin Aspart 0 Q4 01/11 1000 AC 01/16 SC 0300 Meropenem 1 GM IQ8 01/10 1600 AC 01/16 IV 0900 Pantoprazole Sodium 40 MG DAILY / 1000 AC 01/16 IV 0915 Sodium Chloride 500 ML BOLUS ONE 01/16 0615 DC 01/16 IV 01/16 0714 0641 Total Parenteral 1 UNIT 1900 / 1900 AC /08 Nutrition IV 01/16 1859 2025 Total Parenteral 1 UNIT 1900 /07 1900 DC /07 Nutrition IV 01/15 1859 1949 Impression/Plan Impression/Problem List Impression: Mr. Bowens is a 61 year old male with PMH type 2 diabetes mellitus, medication non-compliance, HTN, HLD, spina bifida, paraplegia, hypothyroidism and stage IV sacral decubitus ulcer who presented to the [facility] with chief complaint of confusion and chills. Associated symptoms included worsening of his buttocks wound infection, fever, penile/scrotal irritation from catheter placement and decreased oral intake. Patient is currently admitted to the ICU and the following is the management: #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 * Patient s/p debridement of skin, subcutaneous tissue, muscle and fascia of the perineum d/t Jerad's gangrene, no plans for further debridement per surgery * ID consult placed and appreciated, suggested tailoring antibiotic regimen to the following: IV meropenem 1gm Q8 and fluconazole 400 mg daily * Cultures from the OR growing Gram Negative Rods, Yeast, Alpha Strep. * Blood cultures growing Beta Strep Group B * Urine Culture: growing Yeast. Continue Fluconazole 600 mg IV from 01/13/2017. * Continue Castaneda and supra pubic tube * Follow up with biopsy * PICC placement recommendations have been placed owing to needing prison antibiotics (minimum four weeks), Gluteal Area: Klebsiella, Escherichia coli, yeast, alpha strep, Beta group strep B and removal of right IJ tube * Repeat ESR, initial ESR more than 130 on January 09 #Severe hyperglycemia * Endocrinology consult appreciated * Glu 735 with negative acetone * The patient is on TPN today, day 6. Decrease Insulin to 72 in the TPN today, this was confirmed with ribbon cleaner. * Every 4 insulin sliding scale was adjusted #Acute respiratory failure * Patient noted to have an O2 saturation of 85% on room air * Decreased fentanyl drip to 100 * Will start to wean in process for extubation today * Follow up daily CXR * IV protonix while on the vent, head of bed 30 degrees #Hypernatremia * ICU bundle Q12H for now * Na level normalized 144, follow-up electrolyte every 12 #Hypocalcemia * Ca slightly increased however remains to be low, we continued Ca at the same rate of 9 mEq/liter for Day 5 TPN * Ionized Calcium level: 4.1 #LORENZO in the setting of septic shock * Baseline cre 0.9 as seen on labs from 2016; current cre 0.7 * Consider nephrology consult if urine output drops #Acute anemia * Patient has history of anemia noted in December 2016 at 1030.8 * However, patient required 2 U PRBC transfusion 01/11/2017. * Type and cross was ordered although patient was not transfused. #Left Necrotic Ulcer foot * Obtain Podiatry consultation. FULL CODE DVTP: Heparin SC Diet: NPO Pain: Fentanyl drip decreased to 100 Plan for extubation today Problem List: 1. Osteomyelitis 2. Hyperglycemia 3. Hypernatremia 4. Necrotizing fasciitis Pain Ratin Tomorrow's Labs & Rationales: ICU bundle at 16:00 and 5:00 CBC at 5am Plan DVT/Prophylaxis: pharmacological
--- NOTE | 2017-01-16 06:28 | NUR ---
CVP 5, URINE OUTPUT FOR THE LAST TWO HRS 20ML/HR. MD ROTH MADE AWARE.
[2017-01-16 07:00] VITALS: BP 114/70
--- NOTE | 2017-01-16 07:44 | PN- General Surgery ---
Subjective Subjective: comfortable, some pain. intubated, dressing reinforced overnight by nursing Objective Vital Signs and I&Os Vital Signs Date Time Temp Pulse Resp B/P B/P Pulse O2 O2 Flow FiO2 Mean Ox Delivery Rate 01/16 0556 35 01/16 0400 100 Ventilator 35% 01/16 0347 35 01/16 0126 35 01/16 0000 98.2 114 18 124/80 100 Ventilator 35% 01/16 0000 100 Ventilator 35% 01/15 2227 35 01/15 2000 98 Ventilator 35% 01/15 1915 30 01/15 1600 30 01/15 1600 99 Ventilator 30% 01/15 1600 97.4 107 23 156/71 99 Ventilator 30% 01/15 1330 30 01/15 1200 100 Ventilator 30% 01/15 1129 30 01/15 0903 100 Ventilator 30% 01/15 0857 30 01/15 0800 99 Ventilator 30% 01/15 0800 97.8 109 17 139/62 97 Nasal 30% Cannula Intake & Output 01/16 08/ 0000 / 1600 01/15 0800 05/ 0000 01/14 1600 Intake Total 1392.0 1233.0 1406.0 1066.4 973.0 1023 Output Total 270 550 850 760 464 450 Balance 1122.0 683.0 556.0 306.4 509.0 573 Intake, IV 725 621 740 906 750 9443 Intake, Lipid 100.0 91.0 100.0 100.0 100.0 Intake, Oral 0 0 Intake, 567 521 566 566.4 504 TPN/PPN Number 0 0 0 Bowel Movements Output, Urine 270 550 850 760 464 450 Physical Exam: gen: intubated card: s1s2 slightly tachy @105 pulm: coarse, intubated abd: obese soft nt groin/perineum: dressing cdi, sp tube in place, castaneda tube in place Results Last 48 Hours of Labs: Laboratory Tests 01/16 01/15 01/15 0420 1915 1550 Blood Gas pH (7.35 - 7.45 PH) 7.43 pCO2 (35 - 45 TORR) 39 pO2 (80 - 100 TORR) 63 L HCO3 (21 - 28 MEQ/L) 25 ABG O2 Sat (Measured) (>96.0 %) 91.0 L P-50 (Temp Corrected) N Carboxyhemoglobin (1.5 - 5.0 %) 0.3 L O2 Concentration % 30% Temperature (97.0 - 100.0 FARH) 97.0 Respiration Rate (BPM) 16 O2 Delivery Method ESPRIT Vent Mode AC Expiratory Pressure (CMH2O/P) 5 Tidal Volume (CC) 500 Chemistry Sodium (137 - 145 mmol/L) 144 141 Potassium (3.5 - 5.1 mmol/L) 4.7 4.8 Chloride (98 - 107 mmol/L) 109 H 109 H Carbon Dioxide (22 - 30 mmol/L) 26 24 Anion Gap (5 - 16) 9 8 BUN (9 - 20 mg/dL) 24 H 23 H Creatinine (0.7 - 1.2 mg/dL) 0.8 0.7 Estimated GFR (>60 ml/min) > 60 > 60 Glucose (65 - 99 mg/dL) 145 H 237 H Calcium (8.4 - 10.2 mg/dL) 7.4 L 7.6 L Phosphorus (2.5 - 4.5 mg/dL) 3.7 3.5 Magnesium (1.6 - 2.3 mg/dL) 1.7 1.8 Total Bilirubin (0.2 - 1.3 mg/dL) 0.2 0.3 AST (17 - 59 U/L) 13 L 14 L ALT (21 - 72 U/L) 23 33 Albumin (3.5 - 5.0 g/dL) 1.8 L 2.0 L Hematology CBC w Diff NO MAN DIFF REQ WBC (4.8 - 10.8 /CUMM) 12.4 H RBC (4.70 - 6.10 /CUMM) 3.17 L Hgb (14.0 - 18.0 G/DL) 8.4 L Hct (42 - 52 %) 25.8 L MCV (80.0 - 94.0 FL) 81.4 MCH (27.0 - 31.0 PG) 26.4 L RDW (11.5 - 14.5 %) 16.3 H Plt Count (130 - 400 /CUMM) 586 H MPV (7.4 - 10.4 FL) 7.7 Gran % (42.2 - 75.2 %) 78.5 H Lymphocytes % (20.5 - 51.1 %) 11.0 L Monocytes % (1.7 - 9.3 %) 9.4 H Eosinophils % (0 - 5 %) 1.0 Basophils % (0.0 - 2.0 %) 0.1 Absolute Granulocytes (1.4 - 6.5 /CUMM) 9.7 H Absolute Lymphocytes (1.2 - 3.4 /CUMM) 1.4 Absolute Monocytes (0.10 - 0.60 /CUMM) 1.2 H Absolute Eosinophils (0.0 - 0.7 /CUMM) 0.1 Absolute Basophils (0.0 - 0.2 /CUMM) 0 PUBS MCHC (33.0 - 37.0 G/DL) 32.4 L Miscellaneous Phlebotomy Draw Site RIGHT RADIAL 01/15 01/15 5345 6807 Hematology CBC w Diff NO MAN DIFF REQ MAN DIFF ORDERED WBC (4.8 - 10.8 /CUMM) 11.9 H 13.8 H RBC (4.70 - 6.10 /CUMM) 3.24 L 2.80 L Hgb (14.0 - 18.0 G/DL) 8.5 L 7.4 *L Hct (42 - 52 %) 26.3 L 22.9 L MCV (80.0 - 94.0 FL) 81.0 81.6 MCH (27.0 - 31.0 PG) 26.2 L 26.3 L RDW (11.5 - 14.5 %) 15.7 H 16.1 H Plt Count (130 - 400 /CUMM) 582 H 571 H MPV (7.4 - 10.4 FL) 8.6 8.7 Gran % (42.2 - 75.2 %) 78.1 H 82.0 H Lymphocytes % (20.5 - 51.1 %) 10.4 L 11.6 L Monocytes % (1.7 - 9.3 %) 9.6 H 5.1 Eosinophils % (0 - 5 %) 1.4 1.2 Basophils % (0.0 - 2.0 %) 0.5 0.1 Absolute Granulocytes (1.4 - 6.5 /CUMM) 9.3 H 11.3 H Segmented Neutrophils (42.2 - 75.2 %) 70 Absolute Lymphocytes (1.2 - 3.4 /CUMM) 1.2 1.6 Lymphocytes (20.5 - 51.1 %) 14 L Monocytes (1.7 - 9.3 %) 13 H Absolute Monocytes (0.10 - 0.60 /CUMM) 1.1 H 0.7 H Eosinophils (0 - 5.0 %) 1 Absolute Eosinophils (0.0 - 0.7 /CUMM) 0.2 0.2 Absolute Basophils (0.0 - 0.2 /CUMM) 0.1 0 Metamyelocytes (0.0 - 1.0 %) 2 H Platelet Estimate (ADEQUATE) INCREASED Hypochromic-Microcytic 1+ Ovalocytes 1+ PUBS MCHC (33.0 - 37.0 G/DL) 32.3 L 32.2 L 01/15 05 0415 1840 Chemistry Sodium (137 - 145 mmol/L) 148 H 150 H Potassium (3.5 - 5.1 mmol/L) 4.7 4.6 Chloride (98 - 107 mmol/L) 113 H 114 H Carbon Dioxide (22 - 30 mmol/L) 27 26 Anion Gap (5 - 16) 9 10 BUN (9 - 20 mg/dL) 22 H 23 H Creatinine (0.7 - 1.2 mg/dL) 0.7 0.8 Estimated GFR (>60 ml/min) > 60 > 60 Glucose (65 - 99 mg/dL) 174 H 123 H Calcium (8.4 - 10.2 mg/dL) 7.6 L 7.3 L Phosphorus (2.5 - 4.5 mg/dL) 3.5 3.5 Magnesium (1.6 - 2.3 mg/dL) 2.0 2.0 Total Bilirubin (0.2 - 1.3 mg/dL) 0.2 0.1 L AST (17 - 59 U/L) 13 L 15 L ALT (21 - 72 U/L) 30 33 Albumin (3.5 - 5.0 g/dL) 2.0 L 2.0 L Hematology CBC w Diff Cancelled WBC Cancelled RBC Cancelled Hgb Cancelled Hct Cancelled MCV Cancelled MCH Cancelled RDW Cancelled Plt Count Cancelled MPV Cancelled Gran % Cancelled Lymphocytes % Cancelled Monocytes % Cancelled Eosinophils % Cancelled Basophils % Cancelled Absolute Granulocytes Cancelled Absolute Lymphocytes Cancelled Absolute Monocytes Cancelled Absolute Eosinophils Cancelled Absolute Basophils Cancelled PUBS MCHC Cancelled Assessment/Plan Assessment/Plan pod s/p perineal debridement, stable from surgical standpoint. no futher debridement needed per dr. reilly. will need dressing change. continue current care per medical/icu team. tight glycemix control for wound healing.
--- NOTE | 2017-01-16 08:14 | PN- Diabetes ---
Assessment/Plan Assessment: Patient is 61-year-old man with past medical history significant for hypertension, hyperlipidemia, stage IV sacral wound, hypothyroidism, diabetes mellitus type 2, was brought into ER after the patient was found to be lethargic and confused. Patient is wheel chair bound due to Hx of spina bifida. 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 He underwent debridement. Currently he remains intubated. He is on TPN-- 20% dextrose x 1700 ml/ 24 hours with 80 units of insulin in TPN. In addition, he is on D5W at 50 ml/hour and he is on Novolog coverage every 4 hours. His FSGs were 262, 291, 254, 152 and 116. Repeat sodium level this morning was 144 which is improving. His TPN for today will be 20% dextrose x 1700 ml/24 hours. Plan: 1. sodium level has improved; I will recommend discontinue D5W. 2. decrease insulin to TPN to 72 units today ( 20% dextrose x 1700 ml/24 hours); 3. monitor electrolytes twice a day; 4. adjust Novolog coverage every 4 hours-- detail see the insulin order; 5. monitor FSGs will follow. Inpatient Diabetes Orders Every 4 Hours: Bolus Insulin: Novolog < 80 mg/dl: no coverage 80-100 mg/dl: no coverage 101-120 mg/dl: no coverage 121-150 mg/dl: 3 units 151-200 mg/dl: 6 units 201-250 mg/dl: 9 units 251-300 mg/dl: 12 units 301-350 mg/dl: 15 units 351-400 mg/dl: 18 units > 400 mg/dl: 20 units Subjective Subjective: He remains intubated. Objective Last 24 Hrs of Vital Signs/I&O Vital Signs Date Time Temp Pulse Resp B/P B/P Pulse O2 O2 Flow FiO2 Mean Ox Delivery Rate 01/16 0556 35 01/16 0400 100 Ventilator 35% 01/16 0347 35 01/16 0126 35 01/16 0000 98.2 114 18 124/80 100 Ventilator 35% 01/16 0000 100 Ventilator 35% 01/15 2227 35 01/16 2000 98 Ventilator 35% 01/15 1915 30 01/15 1600 30 01/15 1600 99 Ventilator 30% 01/15 1600 97.4 107 23 156/71 99 Ventilator 30% 01/15 1330 30 01/15 1200 100 Ventilator 30% 01/15 1129 30 01/15 0903 100 Ventilator 30% 01/15 0857 30 Intake & Output 01/16 1600 01/16 0800 01/16 0000 Intake Total 1392.0 1233.0 Output Total 270 550 Balance 1122.0 683.0 Intake, IV 725 621 Intake, Lipid 100.0 91.0 Intake, Oral 0 Intake, 567 521 TPN/PPN Number 0 0 Bowel Movements Output, Urine 270 550 Findings Pertinent Lab/Ervin Results: Laboratory Tests 01/16 01/15 01/15 0420 1915 1550 Blood Gas pH (7.35 - 7.45 PH) 7.43 pCO2 (35 - 45 TORR) 39 pO2 (80 - 100 TORR) 63 L HCO3 (21 - 28 MEQ/L) 25 ABG O2 Sat (Measured) (>96.0 %) 91.0 L P-50 (Temp Corrected) N Carboxyhemoglobin (1.5 - 5.0 %) 0.3 L O2 Concentration % 30% Temperature (97.0 - 100.0 FARH) 97.0 Respiration Rate (BPM) 16 O2 Delivery Method ESPRIT Vent Mode AC Expiratory Pressure (CMH2O/P) 5 Tidal Volume (CC) 500 Chemistry Sodium (137 - 145 mmol/L) 144 141 Potassium (3.5 - 5.1 mmol/L) 4.7 4.8 Chloride (98 - 107 mmol/L) 109 H 109 H Carbon Dioxide (22 - 30 mmol/L) 26 24 Anion Gap (5 - 16) 9 8 BUN (9 - 20 mg/dL) 24 H 23 H Creatinine (0.7 - 1.2 mg/dL) 0.8 0.7 Estimated GFR (>60 ml/min) > 60 > 60 Glucose (65 - 99 mg/dL) 145 H 237 H Calcium (8.4 - 10.2 mg/dL) 7.4 L 7.6 L Phosphorus (2.5 - 4.5 mg/dL) 3.7 3.5 Magnesium (1.6 - 2.3 mg/dL) 1.7 1.8 Total Bilirubin (0.2 - 1.3 mg/dL) 0.2 0.3 AST (17 - 59 U/L) 13 L 14 L ALT (21 - 72 U/L) 23 33 Albumin (3.5 - 5.0 g/dL) 1.8 L 2.0 L Hematology CBC w Diff NO MAN DIFF REQ WBC (4.8 - 10.8 /CUMM) 12.4 H RBC (4.70 - 6.10 /CUMM) 3.17 L Hgb (14.0 - 18.0 G/DL) 8.4 L Hct (42 - 52 %) 25.8 L MCV (80.0 - 94.0 FL) 81.4 MCH (27.0 - 31.0 PG) 26.4 L RDW (11.5 - 14.5 %) 16.3 H Plt Count (130 - 400 /CUMM) 586 H MPV (7.4 - 10.4 FL) 7.7 Gran % (42.2 - 75.2 %) 78.5 H Lymphocytes % (20.5 - 51.1 %) 11.0 L Monocytes % (1.7 - 9.3 %) 9.4 H Eosinophils % (0 - 5 %) 1.0 Basophils % (0.0 - 2.0 %) 0.1 Absolute Granulocytes (1.4 - 6.5 /CUMM) 9.7 H Absolute Lymphocytes (1.2 - 3.4 /CUMM) 1.4 Absolute Monocytes (0.10 - 0.60 /CUMM) 1.2 H Absolute Eosinophils (0.0 - 0.7 /CUMM) 0.1 Absolute Basophils (0.0 - 0.2 /CUMM) 0 PUBS MCHC (33.0 - 37.0 G/DL) 32.4 L Miscellaneous Phlebotomy Draw Site RIGHT RADIAL 01/15 0935 Hematology CBC w Diff NO MAN DIFF REQ WBC (4.8 - 10.8 /CUMM) 11.9 H RBC (4.70 - 6.10 /CUMM) 3.24 L Hgb (14.0 - 18.0 G/DL) 8.5 L Hct (42 - 52 %) 26.3 L MCV (80.0 - 94.0 FL) 81.0 MCH (27.0 - 31.0 PG) 26.2 L RDW (11.5 - 14.5 %) 15.7 H Plt Count (130 - 400 /CUMM) 582 H MPV (7.4 - 10.4 FL) 8.6 Gran % (42.2 - 75.2 %) 78.1 H Lymphocytes % (20.5 - 51.1 %) 10.4 L Monocytes % (1.7 - 9.3 %) 9.6 H Eosinophils % (0 - 5 %) 1.4 Basophils % (0.0 - 2.0 %) 0.5 Absolute Granulocytes (1.4 - 6.5 /CUMM) 9.3 H Absolute Lymphocytes (1.2 - 3.4 /CUMM) 1.2 Absolute Monocytes (0.10 - 0.60 /CUMM) 1.1 H Absolute Eosinophils (0.0 - 0.7 /CUMM) 0.2 Absolute Basophils (0.0 - 0.2 /CUMM) 0.1 PUBS MCHC (33.0 - 37.0 G/DL) 32.3 L
--- NOTE | 2017-01-16 08:48 | RADIOLOGY REPORT ---
EXAMINATION: XR PORTABLE CHEST CLINICAL INFORMATION: Intubated patient. Confirm ET tube placement. COMPARISON: Several prior chest x-rays, most recent of which is dated 01/15/2017. TECHNIQUE: Portable AP semierect view of the chest was obtained. FINDINGS: Endotracheal tube is in place with tip approximately 3.4 cm above the arie. As previously, the enteric tube can only be followed down to the mid mediastinum level with the distal course not visualized. A right jugular central venous line is in region of the right atrium. The cardiovascular style silhouette is within normal limits in size allowing for technique of the film and low lung volumes. Ectasia and tortuosity of the aorta is again noted. There are bibasilar parenchymal opacities again seen, consistent with subsegmental atelectasis. There may be mild central vascular congestion. No pulmonary edema. No effusion or pneumothorax. Bony structures unremarkable. IMPRESSION: 1. Unchanged appearance of the chest with endotracheal tube tip 3.4 cm above arie, right jugular central venous line tip in region of the right atrium, and bibasilar subsegmental atelectasis. 2. Enteric tube positioning cannot be verified.
--- NOTE | 2017-01-16 09:12 | PN- Pulmonary ---
Subjective HPI/Critical Care Issues: The patient is awake and alert. The patient is following commands. He remains on mechanical ventilation. He was taken to the OR yesterday for additional debridement. There is currently no plan to go back to the OR unless the patient 's clinical condition changes. He remains on TPN. Objective Current Medications: Current Medications Sig/Michelle Start time Last Medication Dose Route Stop Time Status Admin Acetaminophen 1,000 MG Q6P PRN 01/10 0830 AC 01/10 N/A 1 UNIT IV 0938 Albuterol Sulfate 3 ML Q4H PRN / 1015 AC 01/13 INH 1412 Dextrose/Water 1,000 ML ONCE ONE 01/15 0900 DC 01/15 IV 01/16 0459 0930 Fat Emulsion 300 ML Q24H / 1900 AC / Intravenous IV 01/16 [id number] Fat Emulsion 300 ML 1900 / 1900 DC / Intravenous IV 01/15 1859 194 Fentanyl Citrate 250 MCG .STK-MED ONE 01/15 1718 DC IM 01/15 1719 Fentanyl Citrate 1,000 MCG Q8H / 0700 AC / Dextrose/Water 250 ML IV 0708 Fluconazole 200 MG Q24H / 1200 AC / Sodium Chloride 100 ML IV 1241 Fluconazole 400 MG Q24H / 1200 AC / Sodium Chloride 200 ML IV 1240 Heparin Sodium 5,000 UNIT Q8 / 0600 AC 01/16 (Porcine) SC 0550 Hydromorphone HCl 2 MG .STK-MED ONE 01/15 171 DC IM 01/15 1719 Insulin Aspart 0 Q4 / 1000 AC 01/16 SC 0300 Meropenem 1 GM IQ8 / 1600 AC 01/16 IV 0052 Pantoprazole Sodium 40 MG DAILY / 1000 AC / IV 0941 Sodium Chloride 500 ML BOLUS ONE 01/16 0615 DC 01/16 IV 01/16 0714 0641 Total Parenteral 1 UNIT 1900 01/15 1900 AC 01/15 Nutrition IV 01/16 Total Parenteral 1 UNIT 1900 / 1900 DC 01/14 Nutrition IV 01/15 185 194 Vital Signs & I&O Last 24 Hrs of Vitals and I&O: Vital Signs Date Time Temp Pulse Resp B/P B/P Pulse O2 O2 Flow FiO2 Mean Ox Delivery Rate 01/16 0817 35 01/16 0800 99 Ventilator 35% 01/16 0556 35 01/16 0400 100 Ventilator 35% 01/16 0347 35 01/16 0126 35 01/16 0000 98.2 114 18 124/80 100 Ventilator 35% 05 0000 100 Ventilator 35% / 2227 35 / 2000 98 Ventilator 35% 01/15 1915 30 01/15 1600 30 01/15 1600 99 Ventilator 30% 01/15 1600 97.4 107 23 156/71 99 Ventilator 30% 01/15 1330 30 01/15 1200 100 Ventilator 30% 01/15 1129 30 01/15 0903 100 Ventilator 30% 01/15 0857 30 Intake & Output 01/16 1600 01/16 0800 05 0000 Intake Total 1392.0 1233.0 Output Total 270 550 Balance 1122.0 683.0 Intake, IV 725 621 Intake, Lipid 100.0 91.0 Intake, Oral 0 Intake, 567 521 TPN/PPN Number 0 0 Bowel Movements Output, Urine 270 550 Physical Exam General Appearance: no apparent distress, sedated, intubated, obese Head: atraumatic, normal appearance. Neck: normal inspection, supple Respiratory: normal breath sounds, no respiratory distress, Intubated, occasional crackles Cardiovascular: regular rate/rhythm, normal peripheral pulses Gastrointestinal: normal bowel quiet, soft, non-tender, no organomegaly Extremities: normal capillary refill, no edema Neurologic/Psych: Patient currently intubated and sedated. Skin: Stage IV coccyx/lumbar wound, maceration of penis and scrotal area Results Last 24 Hrs of Lab Results: Laboratory Tests 01/16/17 0420: Anion Gap 9, Estimated GFR > 60, Glucose 145 H, Calcium 7.4 L, Phosphorus 3.7, Magnesium 1.7, Total Bilirubin 0.2, AST 13 L, ALT 23, Albumin 1.8 L, CBC w Diff NO MAN DIFF REQ, RBC 3.17 L, MCV 81.4, MCH 26.4 L, RDW 16.3 H, MPV 7.7, Gran % 78.5 H, Lymphocytes % 11.0 L, Monocytes % 9.4 H, Eosinophils % 1.0, Basophils % 0.1, Absolute Granulocytes 9.7 H, Absolute Lymphocytes 1.4, Absolute Monocytes 1.2 H, Absolute Eosinophils 0.1, Absolute Basophils 0, PUBS MCHC 32.4 L 01/15/17 1915: pH 7.43, pCO2 39, pO2 63 L, HCO3 25, ABG O2 Sat (Measured) 91.0 L, P-50 (Temp Corrected) N, Carboxyhemoglobin 0.3 L, O2 Concentration % 30%, Temperature 97.0 , Respiration Rate 16, O2 Delivery Method ESPRIT, Vent Mode AC, Expiratory Pressure 5, Tidal Volume 500, Phlebotomy Draw Site RIGHT RADIAL 01/15/17 1550: Anion Gap 8, Estimated GFR > 60, Glucose 237 H, Calcium 7.6 L, Phosphorus 3.5, Magnesium 1.8, Total Bilirubin 0.3, AST 14 L, ALT 33, Albumin 2.0 L 01/15/17 0935: CBC w Diff NO MAN DIFF REQ, RBC 3.24 L, MCV 81.0, MCH 26.2 L, RDW 15.7 H, MPV 8.6, Gran % 78.1 H, Lymphocytes % 10.4 L, Monocytes % 9.6 H, Eosinophils % 1.4, Basophils % 0.5, Absolute Granulocytes 9.3 H, Absolute Lymphocytes 1.2, Absolute Monocytes 1.1 H, Absolute Eosinophils 0.2, Absolute Basophils 0.1, PUBS MCHC 32.3 L Impression/Plan Impression/Plan Impression/Plan: 1. Jerad's gangrene, status post debridement of skin, subcutaneous tissue muscle and fascia, and perineum. 2. Multisystem organ failure, improved. 3. LORENZO - improving. Status post suprapubic catheter placement, and Castaneda catheter placement for urethral tear. 4. Respiratory failure, on mechanical ventilation. 5. History of diabetes with uncontrolled hyperglycemia, insulin added to TPN. 6. History of hypothyroidism. 7. Spina bifida and paraplegia with chronic pressure ulcers. Recommendations: * Weaning trials to begin. Will extubate if parameters are acceptable. * Decrease fentanyl drip to 100 g per hour. * Discontinue D5W. * Suprapubic catheter and castaneda to continue. * Continue antibiotics per ID. * NPO/no tube feeds. * Continue TPN and insulin. * IV Protonix daily. * Continue subcutaneous heparin for DVT prophylaxis at all times. * Ventilator bundle every 8 hours. * Continue all supportive care.
--- NOTE | 2017-01-16 09:13 | PN- General Surgery ---
See Addendum Surgical Brief Attending Note Brief Attending Note: no plans for further surgical debridement. start vent wean. begin daily dressing changes at bedside. continue both castaneda and suprapubic tube.
--- NOTE | 2017-01-16 10:18 | PN- Infect Dx ---
Subjective Subjective: MAXIMUM TEMPERATURE 100.2. He offers no complaints. Objective Last 24 Hrs of Vital Signs/I&O Vital Signs Date Time Temp Pulse Resp B/P B/P Pulse O2 O2 Flow FiO2 Mean Ox Delivery Rate 01/16 817 35 01/16 08 99 Ventilator 35% 01/16 0556 35 01/16 0400 100 Ventilator 35% 01/16 0347 35 01/16 0126 35 05 0000 98.2 114 18 124/80 100 Ventilator 35% 01/16 0000 100 Ventilator 35% 01/15 2227 35 01/15 2000 98 Ventilator 35% 01/15 1915 30 01/15 1600 30 01/15 1600 99 Ventilator 30% 01/15 1600 97.4 107 23 156/71 99 Ventilator 30% 01/15 1330 30 01/15 1200 100 Ventilator 30% 01/15 1129 30 Intake & Output 01/16 1600 01/16 0800 05 0000 Intake Total 1392.0 1233.0 Output Total 270 550 Balance 1122.0 683.0 Intake, IV 725 621 Intake, Lipid 100.0 91.0 Intake, Oral 0 Intake, 567 521 TPN/PPN Number 0 0 Bowel Movements Output, Urine 270 550 Physical Exam Other Physical Findings: He appears comfortable on the ventilator in no acute distress Neck right IJ triple-lumen catheter with no inflammation at the site Lungs are clear Heart regular rhythm with no murmur Abdomen is distended, nontender with positive bowel sounds; suprapubic catheter in place with no urine output Extremities 1+ edema both upper extremities Guthrie catheter in place, with urine output; perineal dressing intact Results Last 24 Hours of Lab Results: Laboratory Tests 01/16 01/15 01/15 0420 1915 1550 Blood Gas pH (7.35 - 7.45 PH) 7.43 pCO2 (35 - 45 TORR) 39 pO2 (80 - 100 TORR) 63 L HCO3 (21 - 28 MEQ/L) 25 ABG O2 Sat (Measured) (>96.0 %) 91.0 L P-50 (Temp Corrected) N Carboxyhemoglobin (1.5 - 5.0 %) 0.3 L O2 Concentration % 30% Temperature (97.0 - 100.0 FARH) 97.0 Respiration Rate (BPM) 16 O2 Delivery Method ESPRIT Vent Mode AC Expiratory Pressure (CMH2O/P) 5 Tidal Volume (CC) 500 Chemistry Sodium (137 - 145 mmol/L) 144 141 Potassium (3.5 - 5.1 mmol/L) 4.7 4.8 Chloride (98 - 107 mmol/L) 109 H 109 H Carbon Dioxide (22 - 30 mmol/L) 26 24 Anion Gap (5 - 16) 9 8 BUN (9 - 20 mg/dL) 24 H 23 H Creatinine (0.7 - 1.2 mg/dL) 0.8 0.7 Estimated GFR (>60 ml/min) > 60 > 60 Glucose (65 - 99 mg/dL) 145 H 237 H Calcium (8.4 - 10.2 mg/dL) 7.4 L 7.6 L Phosphorus (2.5 - 4.5 mg/dL) 3.7 3.5 Magnesium (1.6 - 2.3 mg/dL) 1.7 1.8 Total Bilirubin (0.2 - 1.3 mg/dL) 0.2 0.3 AST (17 - 59 U/L) 13 L 14 L ALT (21 - 72 U/L) 23 33 Albumin (3.5 - 5.0 g/dL) 1.8 L 2.0 L Hematology CBC w Diff NO MAN DIFF REQ WBC (4.8 - 10.8 /CUMM) 12.4 H RBC (4.70 - 6.10 /CUMM) 3.17 L Hgb (14.0 - 18.0 G/DL) 8.4 L Hct (42 - 52 %) 25.8 L MCV (80.0 - 94.0 FL) 81.4 MCH (27.0 - 31.0 PG) 26.4 L RDW (11.5 - 14.5 %) 16.3 H Plt Count (130 - 400 /CUMM) 586 H MPV (7.4 - 10.4 FL) 7.7 Gran % (42.2 - 75.2 %) 78.5 H Lymphocytes % (20.5 - 51.1 %) 11.0 L Monocytes % (1.7 - 9.3 %) 9.4 H Eosinophils % (0 - 5 %) 1.0 Basophils % (0.0 - 2.0 %) 0.1 Absolute Granulocytes (1.4 - 6.5 /CUMM) 9.7 H Absolute Lymphocytes (1.2 - 3.4 /CUMM) 1.4 Absolute Monocytes (0.10 - 0.60 /CUMM) 1.2 H Absolute Eosinophils (0.0 - 0.7 /CUMM) 0.1 Absolute Basophils (0.0 - 0.2 /CUMM) 0 PUBS MCHC (33.0 - 37.0 G/DL) 32.4 L Miscellaneous Phlebotomy Draw Site RIGHT RADIAL Last 24 Hours of Ervin Results: Urine culture January 15 negative Blood cultures 2 January 16 pending Urine culture January 16 pending Recent Imaging Studies: Chest x-ray January 16, personally reviewed, reveals bibasilar subsegmental atelectasis Assessment/Plan Impression: Stable status post further debridement of a polymicrobial necrotizing fasciitis yesterday, with fibrinous exudate noted throughout the wound but with no significant necrosis reported, and with the Guthrie catheter replaced intraoperatively, with evidence of gangrene erosion into the urethra. He remains on Meropenem and Fluconazole, with low-grade fever overnight, likely related to the recent surgery, and with white blood cell count decreased though still mildly elevated. Given the isolation of Group B strep and yeast from the OR culture labeled gluteal area(which I suspect is bone) he will likely require a prolonged course of antibiotics (4 weeks minimum), primarily directed against these organisms. It does appear that a specimen was submitted to pathology as well, which is pending. Suggestion: 1. Follow-up bone biopsy 2. Would pursue placement of a PICC so that the right IJ can be removed 3. Repeat ESR 4. Continue Meropenem and Fluconazole
--- NOTE | 2017-01-16 12:22 | NUR ---
Received patient at 0800, orally intubated w/ ETT # 7.5 to the right at 24 cm and mechanically ventilated at AC-16, TV-500, Fio2 35% and peep of 5. O2 sats 99-100%. Trialed w/ PSV of 6 at 0917 until 1032 when placed on a T-piece w/ 35%. Patient tolerated well. Fentanyl titrated down to [address] Downing. And patient extubated at 1148 and placed on Aerosol mask at 35%. Restraints removed at 1200 and d/c'd per Garry DELUNA. Patient's voice is hoarse but he's SAS-4 and following commands. Unable to understand exactly what he is saying yet to assess orientation but allowing throat to rest post extubation. Call dunne in reach. Patient oriented to RIJ TLC getting TPN @ 70.8 mls/hr and lipids @ 12.5 mls/hr. Abdomen is distended/soft, +BS. Guthrie in place draining clear cheri urine, suprapubic in place not draining. Large packed surgical dsg to left buttock - wet to dry. R roman unstageable JADON. DTI to left heel. +1 edema to lower ext., trace generalized edema, +1 scrotal/upper perineal area. Call dunne in reach. Continuing to monitor.
--- NOTE | 2017-01-16 12:40 | Cons- Podiatry ---
General Information and HPI Consulting Request Date of Consult: 01/16/17 Requested By: OMA EASON MD History of Present Illness: Mr. Bowens is a 61-year-old male with a history of diabetes and multiple other medical conditions, who is status post multiple debridements for a scrotal necrotizing fasciitis. The patient was noted on physical exam to have a necrotic lesion at the posterior lateral aspect of his left heel. The patient denies any specific complaints associated with his foot. Allergies/Medications Allergies: Coded Allergies: Penicillins (U 01/09/17) latex (U 01/09/17) sulfamethoxazole (From BACTRIM) (U 01/09/17) trimethoprim (From BACTRIM) (U 01/09/17) Home Med List: Albuterol Sulfate (Proair Hfa) 90 MCG HFA.AER.AD 2 PUF INH AD PRN RESPIRATORY (Reported) Amlodipine Besylate 10 MG TABLET 1 TAB PO DAILY HEART/BP (Reported) Aspirin (Lo-Dose Aspirin EC) 81 MG TABLET.DR 1 TAB PO DAILY HEART/BLOOD ( Reported) Atorvastatin Calcium 20 MG TABLET 1 TAB PO DAILY CHOLESTEROL (Reported) Bupropion HCl (Bupropion XL) 150 MG TAB.ER.24H 1 TAB PO DAILY UNKNOWN ( Reported) Fluticasone/Vilanterol (Breo Ellipta 100-25 Mcg INH) 100 MCG-25 MCG/DOSE BLST.W.DEV 1 PUFF INH AD RESPIRATORY (Reported) Gabapentin 300 MG CAPSULE 1 CAP PO TID UNKNOWN (Reported) Levothyroxine Sodium 50 MCG TABLET 1 TAB PO DAILY THYROID (Reported) Lisinopril/Hydrochlorothiazide (Lisinopril-Hctz 20-25 MG Tab) 20 MG-25 MG TABLET 1 TAB PO AD HEART/BP (Reported) Melatonin (Unknown Strength) TABLET (Unknown Dose) UNKNOWN (Reported) Metformin HCl 500 MG TABLET 1 TAB PO DAILY DM (Reported) Oxcarbazepine 150 MG TABLET 1 TAB PO BID UNKNOWN (Reported) Pantoprazole Sodium 20 MG TABLET.DR 1 TAB PO DAILY GI (Reported) Pregabalin (Lyrica) 100 MG CAPSULE 1 CAP PO DAILY PAIN (Reported) Sitagliptin Phosphate (Januvia) (Unknown Strength) TABLET (Unknown Dose) UNKNOWN (Reported) Past History Medical History Blood Transfusion Hx: No EENT: NONE Cardiovascular: hypertension, hyperlipidemia Respiratory: NONE Gastrointestinal: NONE Hepatic: NONE Renal: NONE Musculoskeletal: spina bifida Psychiatric: NONE Endocrine: diabetes Blood Disorders: NONE Cancer(s): NONE GORE MAKER/Reproductive: NONE Surgical History Pertinent Surgical History: non-contributory Psychosocial History Where Do You Live? Home Who Do You Live With? self Smoking Status: Current Everyday Smoker Functional Ability Ambulation: non-ambulatory Review of Systems Review of Systems: Unremarkable except noted history of present illness Exam & Diagnostic Data Vital Signs and I&O Vital Signs Date Time Temp Pulse Resp B/P B/P Pulse O2 O2 Flow FiO2 Mean Ox Delivery Rate 01/16 1200 99 Aerosol 35% Mask 01/16 0817 35 01/16 0800 99 Ventilator 35% 01/16 0700 98.3 106 16 114/70 100 Ventilator 35% 01/16 0556 35 01/16 0400 100 Ventilator 35% 01/16 0347 35 01/16 0126 35 01/16 0000 98.2 114 18 124/80 100 Ventilator 35% / 0000 100 Ventilator 35% 01/15 2227 35 01/15 2000 98 Ventilator 35% 01/15 1915 30 01/15 1600 30 01/15 1600 99 Ventilator 30% 01/15 1600 97.4 107 23 156/71 99 Ventilator 30% 01/15 1330 30 Intake & Output 01/16 1600 / 0800 / 0000 / 1600 01/15 0800 05/ 0000 Intake Total 1392.0 1233.0 1406.0 1066.4 973.0 Output Total 270 550 850 760 464 Balance 1122.0 683.0 556.0 306.4 509.0 Intake, IV 725 621 740 400 369 Intake, Lipid 100.0 91.0 100.0 100.0 100.0 Intake, Oral 0 Intake, 567 521 566 566.4 504 TPN/PPN Number 0 0 0 Bowel Movements Output, Urine 270 550 850 760 464 Physical Exam: 4 cm x 3 half centimeter eschar overlying the posterior lateral aspect of the left heel. The lesion is unstageable. Slight boggy feel noted to palpation. No fluctuance or crepitus identified. No active drainage identified. No probing or undermining identified. Assessment/Plan Assessment/Plan Deep tissue injury posterior lateral aspect the left heel. Recommend keeping the lesion dry with daily Betadine paint. Continue with offloading bed. Deferred to wound care for any further recommendations. Consult Acknowledgment - Thank you for your consult request. Attending MD Review Statement Attending Statement Attending MD Statement: examined this patient
[2017-01-16 16:00] VITALS: BP 130/70
--- NOTE | 2017-01-16 20:00 | NUR ---
MD HARRIS MADE AWARE, RIJ TLC MAY BE D.C, PT HAS KHUSHBU PICC. STATES SHE WILL REMOVE IT.
[2017-01-17] VITALS: BP 120/60
--- NOTE | 2017-01-17 05:46 | PN- General Surgery ---
Subjective Subjective: Extubated, feeling better today than yesterday. Pain has improved. No bowel movement, no flatus Objective Vital Signs and I&Os Vital Signs Date Time Temp Pulse Resp B/P B/P Pulse O2 O2 Flow FiO2 Mean Ox Delivery Rate 01/16 192 100 Nasal 2.0L Cannula 01/17 1600 97.5 110 17 130/70 100 Nasal 2.0L Cannula 01/17 1600 99 Nasal 2.0L Cannula 01/16 1200 99 Aerosol 35% Mask 01/16 817 35 01/17 800 99 Ventilator 35% 01/16 700 98.3 106 16 114/70 100 Ventilator 35% 01/16 0556 35 Intake & Output 01/17 0000 01/16 0000 01/15 1600 Intake Total 1587 1392.0 1233.0 1406.0 Output Total 700 270 550 850 Balance 887 1122.0 683.0 556.0 Intake, IV 1587 725 621 740 Intake, Lipid 100.0 91.0 100.0 Intake, Oral 0 Intake, 567 521 566 TPN/PPN Number 0 0 0 Bowel Movements Output, Urine 700 270 550 850 Physical Exam: Well-developed well-nourished no apparent distress. HEENT: Atraumatic, Neck: Supple, no lymphadenopathy Heart: Tachycardic, regular rhythm Respiratory: No respiratory distress, mild coarse breath sounds throughout Abdomen: Soft nontender nondistended. Obese. No bowel sounds. Perianal wound, moderate discharge from wound, serous sanguinous and purulent. Extremities: No edema, Neuro: Alert Skin: Warm and dry, no rash on exposed skin Results Last 48 Hours of Labs: Laboratory Tests 01/17 01/16 01/16 01/16 0540 1600 1500 1130 Blood Gas pH (7.35 - 7.45 PH) 7.43 pCO2 (35 - 45 TORR) 40 pO2 (80 - 100 TORR) 114 H HCO3 (21 - 28 MEQ/L) 26 ABG O2 Sat (Measured) (>96.0 %) 98.0 P-50 (Temp Corrected) N Carboxyhemoglobin (1.5 - 5.0 %) 0.1 L O2 Concentration % 35% O2 Delivery Method T-PIECE Chemistry Sodium (137 - 145 mmol/L) Pending 139 Cancelled Potassium (3.5 - 5.1 mmol/L) Pending 4.9 Cancelled Chloride (98 - 107 mmol/L) Pending 106 Cancelled Carbon Dioxide (22 - 30 mmol/L) Pending 26 Cancelled Anion Gap (5 - 16) Pending 8 Cancelled BUN (9 - 20 mg/dL) Pending 25 H Cancelled Creatinine (0.7 - 1.2 mg/dL) Pending 0.8 Cancelled Estimated GFR (>60 ml/min) > 60 BUN/Creatinine Ratio Cancelled Glucose (65 - 99 mg/dL) Pending 110 H Calcium (8.4 - 10.2 mg/dL) Pending 7.6 L Phosphorus (2.5 - 4.5 mg/dL) Pending 4.0 Magnesium (1.6 - 2.3 mg/dL) Pending 1.7 Total Bilirubin (0.2 - 1.3 mg/dL) Pending 0.3 AST (17 - 59 U/L) Pending 18 ALT (21 - 72 U/L) Pending 34 Troponin I (<0.11 ng/ml) < 0.01 Albumin (3.5 - 5.0 g/dL) Pending 1.9 L Hematology CBC w Diff Pending WBC Pending RBC Pending Hgb Pending Hct Pending MCV Pending MCH Pending RDW Pending Plt Count Pending MPV Pending PUBS MCHC Pending ESR Westergren (0 - 10 MM) 126 H Miscellaneous Phlebotomy Draw Site RIGHT RADIAL 01/16 01/15 01/15 0420 1915 1550 Blood Gas pH (7.35 - 7.45 PH) 7.43 pCO2 (35 - 45 TORR) 39 pO2 (80 - 100 TORR) 63 L HCO3 (21 - 28 MEQ/L) 25 ABG O2 Sat (Measured) (>96.0 %) 91.0 L P-50 (Temp Corrected) N Carboxyhemoglobin (1.5 - 5.0 %) 0.3 L O2 Concentration % 30% Temperature (97.0 - 100.0 FARH) 97.0 Respiration Rate (BPM) 16 O2 Delivery Method ESPRIT Vent Mode AC Expiratory Pressure (CMH2O/P) 5 Tidal Volume (CC) 500 Chemistry Sodium (137 - 145 mmol/L) 144 141 Potassium (3.5 - 5.1 mmol/L) 4.7 4.8 Chloride (98 - 107 mmol/L) 109 H 109 H Carbon Dioxide (22 - 30 mmol/L) 26 24 Anion Gap (5 - 16) 9 8 BUN (9 - 20 mg/dL) 24 H 23 H Creatinine (0.7 - 1.2 mg/dL) 0.8 0.7 Estimated GFR (>60 ml/min) > 60 > 60 Glucose (65 - 99 mg/dL) 145 H 237 H Calcium (8.4 - 10.2 mg/dL) 7.4 L 7.6 L Phosphorus (2.5 - 4.5 mg/dL) 3.7 3.5 Magnesium (1.6 - 2.3 mg/dL) 1.7 1.8 Total Bilirubin (0.2 - 1.3 mg/dL) 0.2 0.3 AST (17 - 59 U/L) 13 L 14 L ALT (21 - 72 U/L) 23 33 Albumin (3.5 - 5.0 g/dL) 1.8 L 2.0 L Hematology CBC w Diff NO MAN DIFF REQ WBC (4.8 - 10.8 /CUMM) 12.4 H RBC (4.70 - 6.10 /CUMM) 3.17 L Hgb (14.0 - 18.0 G/DL) 8.4 L Hct (42 - 52 %) 25.8 L MCV (80.0 - 94.0 FL) 81.4 MCH (27.0 - 31.0 PG) 26.4 L RDW (11.5 - 14.5 %) 16.3 H Plt Count (130 - 400 /CUMM) 586 H MPV (7.4 - 10.4 FL) 7.7 Gran % (42.2 - 75.2 %) 78.5 H Lymphocytes % (20.5 - 51.1 %) 11.0 L Monocytes % (1.7 - 9.3 %) 9.4 H Eosinophils % (0 - 5 %) 1.0 Basophils % (0.0 - 2.0 %) 0.1 Absolute Granulocytes (1.4 - 6.5 /CUMM) 9.7 H Absolute Lymphocytes (1.2 - 3.4 /CUMM) 1.4 Absolute Monocytes (0.10 - 0.60 /CUMM) 1.2 H Absolute Eosinophils (0.0 - 0.7 /CUMM) 0.1 Absolute Basophils (0.0 - 0.2 /CUMM) 0 PUBS MCHC (33.0 - 37.0 G/DL) 32.4 L Miscellaneous Phlebotomy Draw Site RIGHT RADIAL 01/15 01/15 0935 0617 Hematology CBC w Diff NO MAN DIFF REQ MAN DIFF ORDERED WBC (4.8 - 10.8 /CUMM) 11.9 H 13.8 H RBC (4.70 - 6.10 /CUMM) 3.24 L 2.80 L Hgb (14.0 - 18.0 G/DL) 8.5 L 7.4 *L Hct (42 - 52 %) 26.3 L 22.9 L MCV (80.0 - 94.0 FL) 81.0 81.6 MCH (27.0 - 31.0 PG) 26.2 L 26.3 L RDW (11.5 - 14.5 %) 15.7 H 16.1 H Plt Count (130 - 400 /CUMM) 582 H 571 H MPV (7.4 - 10.4 FL) 8.6 8.7 Gran % (42.2 - 75.2 %) 78.1 H 82.0 H Lymphocytes % (20.5 - 51.1 %) 10.4 L 11.6 L Monocytes % (1.7 - 9.3 %) 9.6 H 5.1 Eosinophils % (0 - 5 %) 1.4 1.2 Basophils % (0.0 - 2.0 %) 0.5 0.1 Absolute Granulocytes (1.4 - 6.5 /CUMM) 9.3 H 11.3 H Segmented Neutrophils (42.2 - 75.2 %) 70 Absolute Lymphocytes (1.2 - 3.4 /CUMM) 1.2 1.6 Lymphocytes (20.5 - 51.1 %) 14 L Monocytes (1.7 - 9.3 %) 13 H Absolute Monocytes (0.10 - 0.60 /CUMM) 1.1 H 0.7 H Eosinophils (0 - 5.0 %) 1 Absolute Eosinophils (0.0 - 0.7 /CUMM) 0.2 0.2 Absolute Basophils (0.0 - 0.2 /CUMM) 0.1 0 Metamyelocytes (0.0 - 1.0 %) 2 H Platelet Estimate (ADEQUATE) INCREASED Hypochromic-Microcytic 1+ Ovalocytes 1+ PUBS MCHC (33.0 - 37.0 G/DL) 32.3 L 32.2 L Assessment/Plan Assessment/Plan Hospital day #8 status post debridement of Jerad's gangrene Continued care per medical team Daily with dry dressing changes, packing with kerlex Continue antibiotics per ID Labs pending this morning Continue TPN and IV hydration Continue both suprapubic and Guthrie catheters
[2017-01-17 05:48] LABS: ABSOLUTE BASOPHIL COUNT 0 /CUMM (0.0-0.2); ABSOLUTE EOSINOPHIL COUNT 0.1 /CUMM (0.0-0.7); ABSOLUTE GRANULOCYTE CT 9.8 /CUMM (1.4-6.5); ABSOLUTE LYMPH COUNT 1.4 /CUMM (1.2-3.4); ABSOLUTE MONOCYTE COUNT 1.4 /CUMM (0.10-0.60); BASOPHIL % 0.1 % (0.0-2.0); EOSINOPHIL % 0.9 % (0-5); GRANULOCYTE % 77.1 % (42.2-75.2); HEMATOCRIT 26.1 % (42-52); MEAN CORPUSCULAR HGB 26.3 PG (27.0-31.0); MEAN CORPUSCULAR HGB CONC 32.6 G/DL (33.0-37.0); MEAN CORPUSCULAR VOLUME 80.6 FL (80.0-94.0); MEAN PLATELET VOLUME 7.2 FL (7.4-10.4); PLATELET COUNT 645 /CUMM (130-400); RBC DISTRIBUTION WIDTH 16.1 % (11.5-14.5); RED BLOOD CELL CT 3.23 /CUMM (4.70-6.10); WHITE BLOOD CELL COUNT 12.8 /CUMM (4.8-10.8)
--- NOTE | 2017-01-17 07:03 | PN- Resident CRCU ---
Subjective HPI/CRCU Issues: Patient was seen and examined this morning, he was extubated yesterday, he is alert oriented 3, He asked for his classes, followed commands and answered questions, denied any chest pain, abdominal pain, pain at surgical site, nausea, vomiting, shortness of breath. No bowel movement or flatus yet. No overnight events reported by the nurse. POD#3 24 Hour Events: Temperature 98.4, MAXIMUM TEMPERATURE 99.4 Heart rate lowest 106, highest 118 sinus rhythm Blood pressure lowest 100/74, highest 151/73 Respiratory rate 26 saturation 99% on room air PICC line in place right arm, TPN and lipids are running Intakes 3021, output 2400 Fentanyl drip was discontinued yesterday at 10 PM Objective Vital Signs & I&O Last 8 Hrs of Vitals and I&O: 111 Exam General Appearance: alert, awake Head: atraumatic, normal appearance Ears, Nose, Throat: normal pharynx, normal ENT inspection Neck: normal inspection, supple, full range of motion Respiratory: normal breath sounds, chest non-tender, no respiratory distress Cardiovascular: regular rate/rhythm Gastrointestinal: normal bowel sounds, soft, non-tender, distention Extremities: normal inspection, normal capillary refill, normal range of motion, Left +1 pedal edema Right trace pedal edema Cranial Nerves: normal hearing, normal speech, PERRL Skin: intact, normal color, warm/dry Weaning Parameters NIF: 39 Minute Volume: 17.2 Resp rate: 28 Vt: 640 Heart Rate: 109 Weaning Schedule Start Time: 0917 Minute Volume: 13.0 Resp Rate: 21 Vt: 621 Heart Rate: 112 End Time: 1032 Minute Volume: 10.6 Resp Rate: 17 Vt: 626 Heart Rate: 108 Start Time: 1032 Resp Rate: 20 Heart Rate: 112 End Time: 1148 Resp Rate: 22 Heart Rate: 118 Current Medications: Current Medications Sig/Michelle Start time Last Medication Dose Route Stop Time Status Admin Acetaminophen 1,000 MG Q6P PRN 01/10 0830 AC 01/10 N/A 1 UNIT IV 0938 Albuterol Sulfate 3 ML Q4H PRN 01/10 1015 AC 01/13 INH 1412 Fat Emulsion 500 ML Q24H 01/17 1900 AC Intravenous IV 01/18 1859 Fat Emulsion 500 ML Q24H 01/16 1900 AC 01/16 Intravenous IV 01/17 Fat Emulsion 300 ML Q24H / 1900 DC 05/08 Intravenous IV 01/16 Fentanyl Citrate 1,000 MCG Q10H / 1700 DC / Dextrose/Water 250 ML IV 1813 Fentanyl Citrate 1,000 MCG Q8H / 0700 DC / Dextrose/Water 250 ML IV / 1659 0708 Fluconazole 200 MG Q24H / 1200 AC 05/ Sodium Chloride 100 ML IV 1415 Fluconazole 400 MG Q24H / 1200 AC 05/ Sodium Chloride 200 ML IV 1140 Heparin Sodium 0 .STK-MED ONE 01/16 1544 DC (Porcine) IV Heparin Sodium 5,000 UNIT Q8 / 0600 AC 01/17 (Porcine) SC 0630 Insulin Aspart 0 Q4 01/17 1400 AC SC Insulin Aspart 0 Q4 / 1000 DC 01/17 SC 1020 Lidocaine 0 .STK-MED ONE 01/16 1544 DC .ROUTE Meropenem 1 GM IQ8 01/10 1600 AC 01/17 IV 0903 Morphine Sulfate 2 MG Q4P PRN 01/16 2030 AC 01/16 IV 2102 Pantoprazole Sodium 40 MG DAILY 01/10 1000 AC 01/17 IV 0903 Total Parenteral 1 UNIT ONE 01/17 1900 AC Nutrition IV 01/18 1859 Total Parenteral 1 UNIT ONE 01/16 1900 AC 01/16 Nutrition IV 01/17 Total Parenteral 1 UNIT 1900 01/15 1900 DC 01/15 Nutrition IV 01/16 Impression/Plan Impression/Problem List Impression: Mr. Bowens is a 61 year old male with PMH type 2 diabetes mellitus, medication non-compliance, HTN, HLD, spina bifida, paraplegia, hypothyroidism and stage IV sacral decubitus ulcer who presented to the [place] ED with chief complaint of confusion and chills. Associated symptoms included worsening of his buttocks wound infection, fever, penile/scrotal irritation from catheter placement and decreased oral intake. 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 * Blood cultures growing Beta Strep Group B * Urine Culture: growing Yeast. Continue Fluconazole 600 mg IV from 01/13/2017. * Continue Guthrie and supra pubic tube * Biposy did not relveal any signs of acute or chronic osteomyelitis * PICC was placed 01/16/17 for care home antibotic use, IJ was removed today * ESR 126<130 #Severe hyperglycemia * Endocrinology consult appreciated * Patient had a swallow evaluation today, he is good for puree and regular thin * Will start clear liquids for breakfast, if tolerated advance diet * Will start weaning off TPN today as well, nutrition departement was contacted for recommendations * I contact Dr. storey for her recommendation regarding NovoLog sliding scale every 4, adjustment was made * The patient is on TPN today, day 7. Insulin to 72 in the TPN * Every 4 insulin sliding scale was adjusted #Acute respiratory failure * Extubated * On room air saturation 99% * Off fentanyl drip * IV protonix 40 mg daily #Hypernatremia * Improved * TPN has zero Na #Hypocalcemia * Resolved * Corrected Ca 9.5 #LORENZO in the setting of septic shock * Resolved #Acute anemia * Patient has history of anemia noted in December 2016 at 30.8 * 2 U PRBC transfusion 01/11/2017 * H/H stable #Left Necrotic Ulcer foot * Podiatry consultation was obtained, the recommendation * Recommendation to keep the lesion dry with daily Betadine paint. Continue with offloading bed FULL CODE DVTP: Heparin SC Diet: CC2 Puree and thin Will downgrade to general med Problem List: 1. Osteomyelitis Pain Ratin Tomorrow's Labs & Rationales: ICU bundle CBC Plan DVT/Prophylaxis: pharmacological
--- NOTE | 2017-01-17 07:09 | Transfer of Care Summary ---
Hospital Course Course Hospital Course: Mr. Bowens is a 61 year old male with PMH type 2 diabetes mellitus, medication non-compliant, HTN, HLD, spina bifida, paraplegia, hypothyroidism and stage IV sacral decubitus ulcer who presented to the [facility] ED with chief complaint of confusion and chills. Associated symptoms included worsening of his buttock wound infection, fever, penile/scrotal irritation from catheter placement and decreased oral intake. In the ED: Vital signs showed Tmax 102.3, HR 122, RR 16, BEP 122/66 which dropped to 96/64 after 3 L IV fluid bolus, and 85% on room air improved to 95% on 2 L NC. Labs were significant for WBC 13.8, neutrophils 95%, 6 bands, H&H 8.9 /27.6, Plt 547, Na 129, Cl 88, BUN 38, cre 1.6, AG 14, Glu 735, Lactate 2.2, INR 1.35, negative acetone. CXR was WNL. CT pelvis showed air in the scrotum and fat at the perineum/left buttocks/ischiorectal fat. No focal collection/abscess in the distal rectum or sigmoid. EKG showed T wave inversion in V4. 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 ID consult was placed who suggested IV Meropenem. Prior to this the patient had empirically been started on Vancomycin and Clindamycin. Cultures from the OR growing Gram Negative Rods, Yeast, Alpha Strep. Blood cultures growing Beta Strep Group B. Urine Culture: growing Yeast. Patient was also started on Fluconazole IV. Surgery were asked to take a bone biopsy as recomended by ID to rule out possibility of Osteomyelitis. Patient may require half-way antibiotics via PICC #SPT Placement. Patient has continued to have minimal discharge of urine from SPT. Urologist has been informed and came to see patient. She requested to be informed when the patient goes down to the OR for debridement on 01/15/2017. #Severe hyperglycemia At the time of admission, glucose level 735. Patient was initially started on an insulin drip and IV fluids. We obtained an endocrinology consultation. Once the patient was more stable, we began him on TPN. Fasting Blood Sugars were moniroted routinely. Mr Guillaume insulin requirements were changed on a daily basis and adeed to his TPM. We also maintained him on a sliding scale. #Hypernatremia The patient was initially Hyponatremic, however developed hypernatremia. His sodium level in the TPN was reduced to the minimum. He also needed to be started on D5 at 50ml/hr per hour in an effort to bring down his sodium. We monitored his BEP every 12 hours. #Hypocalcemia Patient was hypocalcemic. An ionized Calcium level was 4.1. Calcium was supplemented through his TPN. #Acute anemia Patient has history of anemia noted in December 2016 at 07/09. During this admission, the patient was transfused two units of PRBC on 01/11/2017. On the morning of 01/15/2017, his H/H was : 7.4 and 22.9. A repeat CBC done again on 01/15 revealed that H&H was stable at 8.5 and 26.3. Our goal is to maintain H&H above 7. #Left Necrotic Ulcer foot We obtained a podiatry consultation on 01/15/2017. Diet: Patient is currently on TPN Full Code Complications: On 01/14/2017, we pulled the Guthrie catheter in an effort to encourage drainage from the suprapubic catheter. The patient however was incontinent of urine through his penis and the suprapubic catheter did not drain. Significant amount of urine was coming through and in an effort to preserve integrity of wound dressings Guthrie was reinserted. The urology service was notified of these developments. Assessment/Plan: Pending above, please follow up on the followin) Surgery: Patient was scheduled to go to the OR for further wound debridement. Please follow-up recommendations from surgery status post debridement 01/15/2017. 2) Urology: Patient continues to have both a suprapubic catheter and a Guthrie catheter. Please follow urology recommendations regarding which of the catheters the patient should be discharged home with. Since minimal urine has been draining from the suprapubic catheter consider confirming placement. 3) Podiatry: On physical exam of 01/15/2017 the patient did have a 1.5 cm 1.5 cm posterior lateral necrotic ulcer on his left heel. We subsequently requested a podiatry consultation and further recommendations. 4) Infectious: Patient antibiotics will need to be tailored appropriately. We had recommended placement of PICC line as the patient required long-term antibiotics. Pending above, please follow up on the followin) Surgery: Patient was scheduled to go to the OR for further wound debridement. Please follow-up recommendations from surgery status post debridement 01/15/2017. 2) Urology: Patient continues to have both a suprapubic catheter and a Guthrie catheter. Please follow urology recommendations regarding which of the catheters the patient should be discharged home with. Since minimal urine has been draining from the suprapubic catheter consider confirming placement. 3) Podiatry: On physical exam of 01/15/2017 the patient did have a 1.5 cm 1.5 cm posterior lateral necrotic ulcer on his left heel. We subsequently requested a podiatry consultation and further recommendations. 4) Infectious: Patient antibiotics will need to be tailored appropriately. We had recommended placement of PICC line as the patient required long-term antibiotics.
[2017-01-17 08:00] VITALS: BP 126/56
--- NOTE | 2017-01-17 08:26 | PN- Diabetes ---
Assessment/Plan Assessment: Patient is 61-year-old man with past medical history significant for hypertension, hyperlipidemia, stage IV sacral wound, hypothyroidism, diabetes mellitus type 2, was brought into ER after the patient was found to be lethargic and confused. Patient is wheel chair bound due to Hx of spina bifida. 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 He underwent debridement. Patient was extubated on 01/16/2017. He is on TPN-- 20% dextrose x 1700 ml/ 24 hours with 72 units of insulin in TPN. In addition, he is on Novolog coverage every 4 hours. His FSGs were 137, 156, 121, 160, 129 and 132. Repeat sodium level this morning was 141 which is in the normal range. His TPN for today will be 20% dextrose x 1700 ml/24 hours. Plan: 1. continue insulin 72 units in TPN ( 20% dextrose x 1700 ml/24 hours); 2. continue the current Novolog coverage every 4 hours; 3. please inform me if TPN formula or rate changes and then I will adjust insulin regimen accordingly. 4. Most likely patient will be on clear liquid diet after he passes swallow evaluation. I will recommend clear liquid diet without juice. 5. monitor FSGs and electrolytes. will follow. Subjective Subjective: Patient is awake. Objective Last 24 Hrs of Vital Signs/I&O Vital Signs Date Time Temp Pulse Resp B/P B/P Pulse O2 O2 Flow FiO2 Mean Ox Delivery Rate 01/17 0000 98.2 110 22 120/60 100 Room Air Room Air 01/17 0000 100 Room Air Room Air 01/16 2000 100 Nasal 2.0L Cannula 01/16 1922 100 Nasal 2.0L Cannula 01/16 1600 97.5 110 17 130/70 100 Nasal 2.0L Cannula 01/16 1600 99 Nasal 2.0L Cannula 01/16 1200 99 Aerosol 35% Mask Intake & Output 01/17 0800 01/17 0000 Intake Total 633.0 801.0 Output Total 1200 500 Balance -567.0 301.0 Intake, IV 94 Intake, Lipid 94.0 105.0 Intake, Oral 0 Intake, 539 602 TPN/PPN Number 0 0 Bowel Movements Output, Urine 1200 500 Findings Pertinent Lab/Ervin Results: Laboratory Tests 05/10 05/09 05/09 0540 1600 1500 Chemistry Sodium (137 - 145 mmol/L) 141 139 Cancelled Potassium (3.5 - 5.1 mmol/L) 4.7 4.9 Cancelled Chloride (98 - 107 mmol/L) 106 106 Cancelled Carbon Dioxide (22 - 30 mmol/L) 27 26 Cancelled Anion Gap (5 - 16) 8 8 Cancelled BUN (9 - 20 mg/dL) 26 H 25 H Cancelled Creatinine (0.7 - 1.2 mg/dL) 0.8 0.8 Cancelled Estimated GFR (>60 ml/min) > 60 > 60 BUN/Creatinine Ratio Cancelled Glucose (65 - 99 mg/dL) 113 H 110 H Calcium (8.4 - 10.2 mg/dL) 7.9 L 7.6 L Phosphorus (2.5 - 4.5 mg/dL) 3.9 4.0 Magnesium (1.6 - 2.3 mg/dL) 1.8 1.7 Total Bilirubin (0.2 - 1.3 mg/dL) 0.3 0.3 AST (17 - 59 U/L) 18 18 ALT (21 - 72 U/L) 34 34 Troponin I (<0.11 ng/ml) < 0.01 Albumin (3.5 - 5.0 g/dL) 2.0 L 1.9 L Hematology CBC w Diff NO MAN DIFF REQ WBC (4.8 - 10.8 /CUMM) 12.8 H RBC (4.70 - 6.10 /CUMM) 3.23 L Hgb (14.0 - 18.0 G/DL) 8.5 L Hct (42 - 52 %) 26.1 L MCV (80.0 - 94.0 FL) 80.6 MCH (27.0 - 31.0 PG) 26.3 L RDW (11.5 - 14.5 %) 16.1 H Plt Count (130 - 400 /CUMM) 645 H MPV (7.4 - 10.4 FL) 7.2 L Gran % (42.2 - 75.2 %) 77.1 H Lymphocytes % (20.5 - 51.1 %) 11.2 L Monocytes % (1.7 - 9.3 %) 10.7 H Eosinophils % (0 - 5 %) 0.9 Basophils % (0.0 - 2.0 %) 0.1 Absolute Granulocytes (1.4 - 6.5 /CUMM) 9.8 H Absolute Lymphocytes (1.2 - 3.4 /CUMM) 1.4 Absolute Monocytes (0.10 - 0.60 /CUMM) 1.4 H Absolute Eosinophils (0.0 - 0.7 /CUMM) 0.1 Absolute Basophils (0.0 - 0.2 /CUMM) 0 PUBS MCHC (33.0 - 37.0 G/DL) 32.6 L ESR Westergren (0 - 10 MM) 126 H 05/ 1130 Blood Gas pH (7.35 - 7.45 PH) 7.43 pCO2 (35 - 45 TORR) 40 pO2 (80 - 100 TORR) 114 H HCO3 (21 - 28 MEQ/L) 26 ABG O2 Sat (Measured) (>96.0 %) 98.0 P-50 (Temp Corrected) N Carboxyhemoglobin (1.5 - 5.0 %) 0.1 L O2 Concentration % 35% O2 Delivery Method T-PIECE Miscellaneous Phlebotomy Draw Site RIGHT RADIAL
--- NOTE | 2017-01-17 08:57 | PN- CRCU ---
Subjective HPI/Critical Care Issues: The patient is awake and has been stable post extubation. He is now on room air with improvement in his speech. He is off the Fentanyl drip and denies being in any pain at the present time. He remains on TPN. The patient's MAXIMUM TEMPERATURE was 99.4. Objective Current Medications: Current Medications Sig/Michelle Start time Last Medication Dose Route Stop Time Status Admin Acetaminophen 1,000 MG Q6P PRN 01/10 0830 AC 01/10 N/A 1 UNIT IV 0938 Albuterol Sulfate 3 ML Q4H PRN 01/10 1015 AC 01/13 INH 1412 Fat Emulsion 500 ML Q24H 01/16 1900 AC 01/16 Intravenous IV 01/17 Fat Emulsion 300 ML Q24H / 1900 DC 01/15 Intravenous IV 01/16 Fentanyl Citrate 1,000 MCG Q10H 01/16 1700 DC 01/16 Dextrose/Water 250 ML IV 1813 Fentanyl Citrate 1,000 MCG Q8H / 0700 DC 01/16 Dextrose/Water 250 ML IV 01/16 1659 0708 Fluconazole 200 MG Q24H / 1200 AC 01/16 Sodium Chloride 100 ML IV 1415 Fluconazole 400 MG Q24H / 1200 AC / Sodium Chloride 200 ML IV 1112 Heparin Sodium 0 .STK-MED ONE 01/16 1544 DC (Porcine) IV Heparin Sodium 5,000 UNIT Q8 / 0600 AC 01/17 (Porcine) SC 0630 Insulin Aspart 0 Q4 / 1000 AC 01/17 SC 0629 Lidocaine 0 .STK-MED ONE 01/16 1544 DC .ROUTE Meropenem 1 GM IQ8 01/10 1600 AC 01/17 IV 0010 Morphine Sulfate 2 MG Q4P PRN 01/16 2030 AC 01/16 IV 2102 Pantoprazole Sodium 40 MG DAILY / 1000 AC 01/16 IV 0915 Total Parenteral 1 UNIT ONE 01/16 1900 AC 01/16 Nutrition IV 01/17 Total Parenteral 1 UNIT 1900 01/15 1900 DC 01/15 Nutrition IV 01/16 Vital Signs & I&O Last 24 Hrs of Vitals and I&O: Vital Signs Date Time Temp Pulse Resp B/P B/P Pulse O2 O2 Flow FiO2 Mean Ox Delivery Rate 01/17 0000 98.2 110 22 120/60 100 Room Air Room Air 01/17 0000 100 Room Air Room Air 01/16 2000 100 Nasal 2.0L Cannula 01/16 1922 100 Nasal 2.0L Cannula 01/16 1600 97.5 110 17 130/70 100 Nasal 2.0L Cannula 01/16 1600 99 Nasal 2.0L Cannula 01/16 1200 99 Aerosol 35% Mask Intake & Output 01/17 0800 01/17 0000 Intake Total 633.0 801.0 Output Total 1200 500 Balance -567.0 301.0 Intake, IV 94 Intake, Lipid 94.0 105.0 Intake, Oral 0 Intake, 539 602 TPN/PPN Number 0 0 Bowel Movements Output, Urine 1200 500 Physical Exam General Appearance: no apparent distress, awake, comfortable Head: atraumatic, normal appearance Neck: normal inspection, supple Respiratory: no respiratory distress, occasional crackles Cardiovascular: regular rate/rhythm, normal peripheral pulses Gastrointestinal: normal bowel sounds, soft, non-tender, no organomegaly Extremities: warm and dry Skin: Stage IV coccyx/lumbar wound, maceration of penis and scrotal area Results Last 24 Hrs of Lab Results: Laboratory Tests 01/17/17 0540: Anion Gap 8, Estimated GFR > 60, Glucose 113 H, Calcium 7.9 L, Phosphorus 3.9, Magnesium 1.8, Total Bilirubin 0.3, AST 18, ALT 34, Albumin 2.0 L, CBC w Diff NO MAN DIFF REQ, RBC 3.23 L, MCV 80.6, MCH 26.3 L, RDW 16.1 H, MPV 7.2 L, Gran % 77.1 H, Lymphocytes % 11.2 L, Monocytes % 10.7 H, Eosinophils % 0.9, Basophils % 0.1, Absolute Granulocytes 9.8 H, Absolute Lymphocytes 1.4, Absolute Monocytes 1.4 H, Absolute Eosinophils 0.1, Absolute Basophils 0, PUBS MCHC 32.6 L 01/16/17 1600: Anion Gap 8, Estimated GFR > 60, Glucose 110 H, Calcium 7.6 L, Phosphorus 4.0, Magnesium 1.7, Total Bilirubin 0.3, AST 18, ALT 34, Troponin I < 0.01, Albumin 1.9 L, ESR Westergren 126 H 01/16/17 1500: Sodium Cancelled, Potassium Cancelled, Chloride Cancelled, Carbon Dioxide Cancelled, Anion Gap Cancelled, BUN Cancelled, Creatinine Cancelled, BUN/ Creatinine Ratio Cancelled 01/16/17 1130: pH 7.43, pCO2 40, pO2 114 H, HCO3 26, ABG O2 Sat (Measured) 98.0, P-50 (Temp Corrected) N, Carboxyhemoglobin 0.1 L, O2 Concentration % 35%, O2 Delivery Method T-PIECE, Phlebotomy Draw Site RIGHT RADIAL Impression/Plan Impression/Plan Impression/Plan: 1. Jerad's gangrene, status post debridement of skin, subcutaneous tissue muscle and fascia, and perineum. 2. Multisystem organ failure, improved. 3. LORENZO - improving. Status post suprapubic catheter placement, and Castaneda catheter placement for urethral tear. 4. Respiratory failure, stable respiratory status post extubation. 5. Diabetes with improved blood sugar control, endocrine following. 6. History of hypothyroidism. 7. Spina bifida and paraplegia with chronic pressure ulcers. Recommendations: * Check a swallowing evaluation. * If the patient passes, begin clear liquid diet. Avoid juice as per endocrine. * If the patient is able to advance his diet, will wean TPN down to off and discontinue triple-lumen catheter. * Suprapubic catheter and castaneda to continue. * Continue antibiotics per ID - Diflucan and meropenem. * Continue the patient on the pain pathway for adequate pain control. * Protonix daily. * Continue subcutaneous heparin for DVT prophylaxis at all times. * Out of bed to chair if able. * Continue all supportive care. * Down grade to gen med.
--- NOTE | 2017-01-17 10:49 | PN- Infect Dx ---
Subjective Subjective: Afebrile. He was successfully extubated yesterday. He offers no complaints at this time. Objective Last 24 Hrs of Vital Signs/I&O Vital Signs Date Time Temp Pulse Resp B/P B/P Pulse O2 O2 Flow FiO2 Mean Ox Delivery Rate 01/17 0000 98.2 110 22 120/60 100 Room Air Room Air 01/17 0000 100 Room Air Room Air 01/17 2000 100 Nasal 2.0L Cannula 01/16 192 100 Nasal 2.0L Cannula 01/16 1600 97.5 110 17 130/70 100 Nasal 2.0L Cannula 01/16 1600 99 Nasal 2.0L Cannula 01/16 1200 99 Aerosol 35% Mask Intake & Output 01/17 0800 01/17 0000 Intake Total 633.0 801.0 Output Total 1200 500 Balance -567.0 301.0 Intake, IV 94 Intake, Lipid 94.0 105.0 Intake, Oral 0 Intake, 539 602 TPN/PPN Number 0 0 Bowel Movements Output, Urine 1200 500 Physical Exam Other Physical Findings: He appears comfortable in no acute distress Neck right IJ triple-lumen catheter remains in place, with no inflammation at the site Lungs scattered rhonchi bilaterally Heart regular rhythm with no murmur Abdomen distended, nontender with positive bowel sounds; suprapubic tube with leakage of fluid, with no erythema or tenderness and with no output recorded Extremities 1+ edema of the upper extremities; PICC in place in the right upper extremity Guthrie catheter remains in place; perineum with dressing intact Results Last 24 Hours of Lab Results: Laboratory Tests 01/17 01/16 01/16 0540 1600 1500 Chemistry Sodium (137 - 145 mmol/L) 141 139 Cancelled Potassium (3.5 - 5.1 mmol/L) 4.7 4.9 Cancelled Chloride (98 - 107 mmol/L) 106 106 Cancelled Carbon Dioxide (22 - 30 mmol/L) 27 26 Cancelled Anion Gap (5 - 16) 8 8 Cancelled BUN (9 - 20 mg/dL) 26 H 25 H Cancelled Creatinine (0.7 - 1.2 mg/dL) 0.8 0.8 Cancelled Estimated GFR (>60 ml/min) > 60 > 60 BUN/Creatinine Ratio Cancelled Glucose (65 - 99 mg/dL) 113 H 110 H Calcium (8.4 - 10.2 mg/dL) 7.9 L 7.6 L Phosphorus (2.5 - 4.5 mg/dL) 3.9 4.0 Magnesium (1.6 - 2.3 mg/dL) 1.8 1.7 Total Bilirubin (0.2 - 1.3 mg/dL) 0.3 0.3 AST (17 - 59 U/L) 18 18 ALT (21 - 72 U/L) 34 34 Troponin I (<0.11 ng/ml) < 0.01 Albumin (3.5 - 5.0 g/dL) 2.0 L 1.9 L Hematology CBC w Diff NO MAN DIFF REQ WBC (4.8 - 10.8 /CUMM) 12.8 H RBC (4.70 - 6.10 /CUMM) 3.23 L Hgb (14.0 - 18.0 G/DL) 8.5 L Hct (42 - 52 %) 26.1 L MCV (80.0 - 94.0 FL) 80.6 MCH (27.0 - 31.0 PG) 26.3 L RDW (11.5 - 14.5 %) 16.1 H Plt Count (130 - 400 /CUMM) 645 H MPV (7.4 - 10.4 FL) 7.2 L Gran % (42.2 - 75.2 %) 77.1 H Lymphocytes % (20.5 - 51.1 %) 11.2 L Monocytes % (1.7 - 9.3 %) 10.7 H Eosinophils % (0 - 5 %) 0.9 Basophils % (0.0 - 2.0 %) 0.1 Absolute Granulocytes (1.4 - 6.5 /CUMM) 9.8 H Absolute Lymphocytes (1.2 - 3.4 /CUMM) 1.4 Absolute Monocytes (0.10 - 0.60 /CUMM) 1.4 H Absolute Eosinophils (0.0 - 0.7 /CUMM) 0.1 Absolute Basophils (0.0 - 0.2 /CUMM) 0 PUBS MCHC (33.0 - 37.0 G/DL) 32.6 L ESR Westergren (0 - 10 MM) 126 H 05/09 1130 Blood Gas pH (7.35 - 7.45 PH) 7.43 pCO2 (35 - 45 TORR) 40 pO2 (80 - 100 TORR) 114 H HCO3 (21 - 28 MEQ/L) 26 ABG O2 Sat (Measured) (>96.0 %) 98.0 P-50 (Temp Corrected) N Carboxyhemoglobin (1.5 - 5.0 %) 0.1 L O2 Concentration % 35% O2 Delivery Method T-PIECE Miscellaneous Phlebotomy Draw Site RIGHT RADIAL Bone biopsy January 15 negative for osteomyelitis Last 24 Hours of Ervin Results: Blood cultures January 16 negative Urine culture January 15 negative Urine culture January 16 pending Assessment/Plan Impression: Overall improved status post successful extubation yesterday and status post further debridement of a polymicrobial necrotizing fasciitis 2 days ago, with fibrinous exudate noted throughout the wound but with no significant necrosis reported. There is noted some leakage around the suprapubic tube, but no urine output, with all of his urine apparently draining through the Guthrie catheter, which was replaced intraoperatively, with evidence of gangrene erosion into the urethra. He remains afebrile on Meropenem and Fluconazole, with a mild persistent leukocytosis of unclear significance. His bone biopsy, obtained in the OR 5 days ago, is negative for osteomyelitis, but the bone culture did grow Group B strep and yeast and, though this may represent contamination from the more superficial tissues, given the MRI findings suggestive of osteomyelitis, feel he will require a prolonged course of antibiotics (4 weeks minimum), primarily directed against these organisms. Suggestion: 1. Remove the right IJ triple-lumen catheter 2. Continue Meropenem and Fluconazole
--- NOTE | 2017-01-17 10:57 | PN- General Surgery ---
Surgical Brief Attending Note Brief Attending Note: extubated. ok to eat. dressing change at bedside daily. May require diverting colostomy. will assess this week and schedule next week if necesary pending wound cares.
[2017-01-17 12:00] VITALS: BP 118/58
[2017-01-17 16:00] VITALS: BP 140/80
--- NOTE | 2017-01-17 18:01 | ULTRASOUND REPORT ---
PROCEDURE: PICC LINE PLACEMENT UNDER SONOGRAPHIC AND FLUOROSCOPIC GUIDANCE CLINICAL INFORMATION: 61-year-old paraplegic patient admitted with Jerad's Gangrene acquiring long-term antibiotics. Poor venous access. PICC line requested to facilitate antibiotic therapy. FI[employer] SENIOR SERGEANT: Dr. Chan Cross. ACCESS: Right brachial vein. TECHNIQUE/FINDINGS: Informed consent was obtained from the patient's niece, Purvi Mitchell prior to the procedure. During this process, the procedure and potential alternatives was explained, along with the intended outcome and benefits. The risks of the procedure, as well as the risk of not doing the procedure, were discussed. The patient's niece was given the opportunity to ask questions regarding the procedure and appeared competent to make medical decisions. A signed consent form which documents this discussion was placed in the medical record. The patient was brought to the interventional radiology suite and a final timeout procedure was performed. A sonographic survey was performed for assessment of venous access. The right brachial vein was confirmed to be patent. A sonographic image was sent to PACS for documentation. The right arm was sterilely prepped and draped. Maximum sterile barrier technique was maintained throughout the procedure. Following administration of local anesthesia using 1% lidocaine, a puncture was performed of the right brachial vein above the elbow joint under direct sonographic visualization. A Penhook mandrel wire was advanced into the needle to the superior vena cava. A 6 Salvadorean peel-away sheath was then in inserted using standard Seldinger technique. A 5 Salvadorean dual lumen Bard Power PICC was cut to 48 cm. The catheter was advanced under fluoroscopic guidance until its tip was at the SVC-right atrial junction. Both ports could be easily aspirated. The lumens of the PICC were flushed with heparinized saline. A Biopatch was placed around around the catheter at the entrance site. The catheter was secured with a StatLock. A sterile dressing was applied. The patient tolerated the procedure well. There was no evidence of complications. FLUOROSCOPY TIME: 1.5 minutes ESTIMATED RADIATION EXPOSURE: 21.9 Snyder-cm squared IMPRESSION: Successful placement of a 48 cm length dual-lumen power injectable PICC line via the right arm under a combination of sonographic and fluoroscopic guidance. No evidence of complications.
--- NOTE | 2017-01-17 20:47 | NUR ---
PT A GEN MED HOLD. PT A/OX2, REORIENTS TO TIME EASILY. FOLLOWS COMMANDS. DENIES ANY PAIN AT PRESENT. BREATH SOUNDS CLEAR WITH DIMINISHED BREATH SOUNDS AT BASES BILATERALLY. PRODUCTIVE COUGH OF MOD AMT OF THICK YELLOW SECREATIONS NOTED. NO SOB OR RESP DISTRESS NOTED AT PRESENT. VS STABLE AT PRESENT. ABD SOFT, NONTENDER, NONDISTENDED, POSITIVE BOWEL SOUNDS. MONTES IN PLACE-DRAINING ADEQUATE AMT OF CLEAR YELLOW URINE AT PRESENT. SUPRAPUBIC TUBE WITH MINIMAL DRAINAGE OF JUDY URINE. LT BUTTOCK DRESSING C/D/I. DTI TO LT HEEL. UNSTAGABLE RT JONES. PT ON CLINATRON BED
[2017-01-17 23:00] VITALS: BP 134/74
--- NOTE | 2017-01-18 03:01 | NUR ---
TPN TAPERED AND DISCONTINUED AT 0200 ORDERED
[2017-01-18 05:42] LABS: ABSOLUTE BASOPHIL COUNT 0.1 /CUMM (0.0-0.2); ABSOLUTE EOSINOPHIL COUNT 0.1 /CUMM (0.0-0.7); ABSOLUTE GRANULOCYTE CT 8.5 /CUMM (1.4-6.5); ABSOLUTE LYMPH COUNT 1.6 /CUMM (1.2-3.4); ABSOLUTE MONOCYTE COUNT 0.9 /CUMM (0.10-0.60); BASOPHIL % 1.1 % (0.0-2.0); EOSINOPHIL % 1.1 % (0-5); GRANULOCYTE % 75.3 % (42.2-75.2); HEMATOCRIT 27.2 % (42-52); MEAN CORPUSCULAR HGB 26.2 PG (27.0-31.0); MEAN CORPUSCULAR HGB CONC 32.5 G/DL (33.0-37.0); MEAN CORPUSCULAR VOLUME 80.5 FL (80.0-94.0); MEAN PLATELET VOLUME 8.1 FL (7.4-10.4); PLATELET COUNT 640 /CUMM (130-400); RBC DISTRIBUTION WIDTH 16.2 % (11.5-14.5); RED BLOOD CELL CT 3.38 /CUMM (4.70-6.10); WHITE BLOOD CELL COUNT 11.3 /CUMM (4.8-10.8)
--- NOTE | 2017-01-18 06:03 | PN- General Surgery ---
See Addendum Subjective Subjective: resting comfortably no major issues overnight tpn stopped early this am on carb 2 deit now Objective Vital Signs and I&Os Vital Signs Date Time Temp Pulse Resp B/P B/P Pulse O2 O2 Flow FiO2 Mean Ox Delivery Rate 01/18 0000 94 Room Air Room Air 01/17 2300 97.5 115 20 134/74 94 Room Air Room Air 01/17 2239 95 Room Air Room Air 01/17 1600 97 Room Air Room Air 01/17 1600 97.7 114 20 140/80 97 Room Air Room Air 01/17 1227 100 Room Air Room Air 01/17 1200 97.0 114 24 118/58 100 Room Air 01/17 0800 97.5 106 22 126/56 98 Room Air 01/17 0800 98 Room Air Intake & Output 01/18 0800 01/18 0000 05 1600 01/17 0800 01/17 0000 / 1600 Intake Total 661.0 1683 633.0 801.0 1587 Output Total 1200 1279 1200 500 700 Balance -539.0 404 -567.0 301.0 887 Intake, IV 422 02 7113 Intake, Lipid 20.0 94.0 105.0 Intake, Oral 360 800 0 Intake, 281 539 602 TPN/PPN Number 0 0 0 Bowel Movements Output, Urine 1200 1279 1200 500 700 Physical Exam: cv: rr lungs: clear bs abd: obese groin: drsg dry without draiange ext: no calf tenderness distal cms intact Assessment/Plan Assessment/Plan surgical stable plan drsg change later this morning possible OR debridement tomorrow discussing diverting colostomy currently continue current regimne
--- NOTE | 2017-01-18 07:47 | NUR ---
PT SLEPT ON AND OFF DURING THE NIGHT. PT ALERT, CONFUSED AT TIMES, DISORIENTED TO TIME. VS STABLE. LT BUTTOCK DRESSING DRAINING MOD AMT OF LIGHT BROWN DRAINAGE-PER SHAKA CERVANTES DAY [employer]GICAL [employer]SE STAFF TO CHANGE DRESSING. GOOD URINE OUTPUT VIA MONTES, NO DRAINAGE FROM SUPRAPUBIC TUBE. NO OTHER CHANGE IN PT ASSESSMENTS THOUGHOUT SHIFT
[2017-01-18 08:00] VITALS: BP 130/76
--- NOTE | 2017-01-18 08:15 | PN- Diabetes ---
Assessment/Plan Assessment: Patient is 61-year-old man with past medical history significant for hypertension, hyperlipidemia, stage IV sacral wound, hypothyroidism, diabetes mellitus type 2, was brought into ER after the patient was found to be lethargic and confused. Patient is wheel chair bound due to Hx of spina bifida. 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 He underwent debridement. Patient was extubated on 01/16/2017. TPN was discontinued this morning. He is going to be on diabetic diet. His FSGs were 164, 143, 188, 257, 204 and 161. Plan: 1. start Levemir 8 units twice a day ( levemir at bedtime will be held if his FSG is < 150 at bedtime); 2. stop Novolog coverage every 4 hours; 3. start Novolog coverage before meals and Novolog coverage at bedtime-- detail see the inpatient DM orders; 4. monitor FSGs. will follow. Inpatient Diabetes Orders Before Each Meal: Bolus Insulin: Novolog < 80 mg/dl: no coverage 80-100 mg/dl: 3 units 101-120 mg/dl: 3 units 121-150 mg/dl: 3 units 151-200 mg/dl: 5 units 201-250 mg/dl: 7 units 251-300 mg/dl: 9 units 301-350 mg/dl: 11 units 351-400 mg/dl: 13 units > 400 mg/dl: 15 units Bedtime: Bolus Insulin: Novolog < 80 mg/dl: no coverage 80-100 mg/dl: no coverage 101-120 mg/dl: no coverage 121-150 mg/dl: no coverage 151-200 mg/dl: no coverage 201-250 mg/dl: no coverage 251-300 mg/dl: 2 units 301-350 mg/dl: 3 units 351-400 mg/dl: 4 units > 400 mg/dl: 5 units Subjective Subjective: He is alert and awake. Objective Last 24 Hrs of Vital Signs/I&O Vital Signs Date Time Temp Pulse Resp B/P B/P Pulse O2 O2 Flow FiO2 Mean Ox Delivery Rate 01/18 0000 94 Room Air Room Air 01/17 2300 97.5 115 20 134/74 94 Room Air Room Air 01/17 2239 95 Room Air Room Air 01/17 1600 97 Room Air Room Air 01/17 1600 97.7 114 20 140/80 97 Room Air Room Air 01/17 1227 100 Room Air Room Air 01/17 1200 97.0 114 24 118/58 100 Room Air Intake & Output 01/18 1600 01/18 0800 01/18 0000 Intake Total 229.0 661.0 Output Total 1200 1200 Balance -971.0 -539.0 Intake, Lipid 45.0 20.0 Intake, Oral 120 360 Intake, 64 281 TPN/PPN Number 0 0 Bowel Movements Output, Urine 1200 1200 Findings Pertinent Lab/Ervin Results: Laboratory Tests 01/18 0430 Chemistry Sodium (137 - 145 mmol/L) 140 Potassium (3.5 - 5.1 mmol/L) 5.1 Chloride (98 - 107 mmol/L) 103 Carbon Dioxide (22 - 30 mmol/L) 29 Anion Gap (5 - 16) 7 BUN (9 - 20 mg/dL) 24 H Creatinine (0.7 - 1.2 mg/dL) 0.7 Estimated GFR (>60 ml/min) > 60 Glucose (65 - 99 mg/dL) 126 H Calcium (8.4 - 10.2 mg/dL) 8.0 L Phosphorus (2.5 - 4.5 mg/dL) 3.8 Magnesium (1.6 - 2.3 mg/dL) 1.7 Total Bilirubin (0.2 - 1.3 mg/dL) 0.5 AST (17 - 59 U/L) 38 ALT (21 - 72 U/L) 48 Albumin (3.5 - 5.0 g/dL) 2.1 L Hematology CBC w Diff NO MAN DIFF REQ WBC (4.8 - 10.8 /CUMM) 11.3 H RBC (4.70 - 6.10 /CUMM) 3.38 L Hgb (14.0 - 18.0 G/DL) 8.8 L Hct (42 - 52 %) 27.2 L MCV (80.0 - 94.0 FL) 80.5 MCH (27.0 - 31.0 PG) 26.2 L RDW (11.5 - 14.5 %) 16.2 H Plt Count (130 - 400 /CUMM) 640 H MPV (7.4 - 10.4 FL) 8.1 Gran % (42.2 - 75.2 %) 75.3 H Lymphocytes % (20.5 - 51.1 %) 14.1 L Monocytes % (1.7 - 9.3 %) 8.4 Eosinophils % (0 - 5 %) 1.1 Basophils % (0.0 - 2.0 %) 1.1 Absolute Granulocytes (1.4 - 6.5 /CUMM) 8.5 H Absolute Lymphocytes (1.2 - 3.4 /CUMM) 1.6 Absolute Monocytes (0.10 - 0.60 /CUMM) 0.9 H Absolute Eosinophils (0.0 - 0.7 /CUMM) 0.1 Absolute Basophils (0.0 - 0.2 /CUMM) 0.1 PUBS MCHC (33.0 - 37.0 G/DL) 32.5 L
--- NOTE | 2017-01-18 08:26 | PN- Resident CRCU ---
Subjective HPI/CRCU Issues: Follow up: -Jerad's gangrene s/p debridement POD#4 -Multisystem organ failure -Respiratory failure s/p extubation -DM -Spinabifida, paraplegia Patient was seen and examined this morning, he is alert oriented 3, denied any chest pain, palpitation, shortness of breath, abdominal pain, nausea or vomiting , last bowel movement 01/11/17, positive flatus. Patient was weaned off TPN overnight, he is on consistent carbohydrate diet 1 thin and puree. No overnight events reported by the nurse or the patient. 24 Hour Events: Patient is GenMed hold Vital signs are stable, saturating well 94% on room air Objective Vital Signs & I&O Last 8 Hrs of Vitals and I&O: 111 Exam General Appearance: alert Head: atraumatic, normal appearance Ears, Nose, Throat: normal pharynx, normal ENT inspection Neck: normal inspection, supple, full range of motion Respiratory: normal breath sounds, chest non-tender, no respiratory distress Cardiovascular: regular rate/rhythm Gastrointestinal: normal bowel sounds, soft, non-tender, distended Extremities: normal inspection, normal capillary refill, normal range of motion, BLLE trace edema Cranial Nerves: normal hearing, normal speech, PERRL Weaning Parameters NIF: 39 Minute Volume: 17.2 Resp rate: 28 Vt: 640 Heart Rate: 109 Weaning Schedule Start Time: 09 Minute Volume: 13.0 Resp Rate: 21 Vt: 621 Heart Rate: 112 End Time: 1032 Minute Volume: 10.6 Resp Rate: 17 Vt: 626 Heart Rate: 108 Start Time: 1032 Resp Rate: 20 Heart Rate: 112 End Time: 1148 Resp Rate: 22 Heart Rate: 118 Current Medications: Current Medications Sig/Michelle Start time Last Medication Dose Route Stop Time Status Admin Acetaminophen 1,000 MG Q6P PRN 01/10 0830 AC 01/18 N/A 1 UNIT IV 0922 Albuterol Sulfate 3 ML Q4H PRN 01/10 1015 AC 01/13 INH 1412 Fat Emulsion 500 ML Q24H 01/17 1900 AC 01/17 Intravenous IV 01/18 Fat Emulsion 500 ML Q24H 01/16 1900 DC / Intravenous IV 01/17 Fluconazole 200 MG Q24H 01/13 1200 AC 01/18 Sodium Chloride 100 ML IV 1342 Fluconazole 400 MG Q24H 01/13 1200 AC 01/18 Sodium Chloride 200 ML IV 1157 Heparin Sodium 5,000 UNIT Q8 01/10 0600 AC 01/18 (Porcine) SC 1341 Insulin Aspart 0 TIDAC/HS 01/18 1200 AC 01/18 SC 1200 Insulin Aspart 0 Q4 01/17 1400 DC 01/18 SC 0613 Insulin Detemir 8 UNITS BID 01/18 1000 AC 01/18 SC 0902 Magnesium Oxide 400 MG ONE ONE 01/18 0700 DC 01/18 PO 01/18 0701 0901 Meropenem 1 GM IQ8 01/10 1600 AC 01/18 IV 0901 Morphine Sulfate 2 MG Q4P PRN 01/16 2030 AC 01/18 IV 1342 Pantoprazole Sodium 40 MG DAILY 01/10 1000 AC 01/18 IV 0901 Total Parenteral 1 UNIT ONE 01/17 1900 AC 01/17 Nutrition IV 01/18 Total Parenteral 1 UNIT ONE 01/16 1900 DC 01/16 Nutrition IV 01/17 Impression/Plan Impression/Problem List Impression: Mr. Bowens is a 61 year old male with PMH type 2 diabetes mellitus, medication non-compliance, HTN, HLD, spina bifida, paraplegia, hypothyroidism and stage IV sacral decubitus ulcer who presented to the [facility] ED with chief complaint of confusion and chills. Associated symptoms included worsening of his buttocks wound infection, fever, penile/scrotal irritation from catheter placement and decreased oral intake. Patient is currently admitted to the ICU and the following is the management: #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 * Patient s/p debridement of skin, subcutaneous tissue, muscle and fascia of the perineum d/t Jerad's gangrene, no plans for further debridement per surgery POD#4 last debridement 01/15, confirmed with surgical PA, no plans for further debridement tomorrow * ID consult placed and appreciated IV meropenem 1gm Q8 and fluconazole 400 mg daily * Cultures from the OR growing Gram Negative Rods, Yeast, Alpha Strep. * Blood cultures growing Beta Strep Group B * Urine Culture: growing Yeast. Continue Fluconazole 600 mg IV from 01/13/2017. * Continue Guthrie and supra pubic tube * Biposy did not relveal any signs of acute or chronic osteomyelitis * PICC was placed 01/16/17 for mcfp antibotic use, IJ was removed today * ESR 126<130 #Severe hyperglycemia * Endocrinology consult appreciated * Swallow reevaluation today, will advance to mechanical ground and thin fluid, consistent carbohydrate 1 * Patient was weaned off TPN * Start Levemir 8 units twice a day, hold Levemir at bedtime if FSC less than 150 * Discontinue NovoLog coverage Q4 hours * Start NovoLog coverage 3 times a day before meals and bedtime * If plan change regarding further debridement tomorrow in a.m., Dr. storey should be contacted if dextrose will be started #Acute respiratory failure * Status post mechanical ventilator * On room air saturation 99% * Off fentanyl drip * IV protonix 40 mg daily #Hypernatremia * Improved #Hypocalcemia * Resolved * Corrected Ca 9.5 #LORENZO in the setting of septic shock * Resolved #Acute anemia * Patient has history of anemia noted in December 2016 at 10/30.8 * 2 U PRBC transfusion 01/11/2017 * H/H stable #Left Necrotic Ulcer foot * Podiatry consultation was obtained, the recommendation * Recommendation to keep the lesion dry with daily Betadine paint. Continue with offloading bed #Depression * Family reported stressful events and history of depression * Patient's consent was obtained for psych evaluation * Follow psych recommendation FULL CODE DVTP: Heparin SC Diet: CC1 Ground and thin Will downgrade to general med Problem List: 1. Osteomyelitis 2. Hyperglycemia due to type 2 diabetes mellitus Pain Ratin Tomorrow's Labs & Rationales: ICU bundle CBC Plan DVT/Prophylaxis: pharmacological
--- NOTE | 2017-01-18 08:44 | PN- Pulmonary ---
Subjective HPI/Critical Care Issues: The patient is awake and alert. He reports feeling improved overall. His respiratory status is stable noting he is on room air. He is intimately tachycardic however his heart rate is in the 80s at present time. The patient is upset this morning over his social situation. He acknowledges the fact that his wound worsened at home due to lack of care and sitting in urine/feces for long periods of time. Objective Current Medications: Current Medications Sig/Michelle Start time Last Medication Dose Route Stop Time Status Admin Acetaminophen 1,000 MG Q6P PRN 01/10 0830 AC 01/10 N/A 1 UNIT IV 0938 Albuterol Sulfate 3 ML Q4H PRN 01/10 1015 AC 01/13 INH 1412 Fat Emulsion 500 ML Q24H 01/17 1900 AC 01/17 Intravenous IV 01/18 Fat Emulsion 500 ML Q24H 01/16 1900 DC 01/16 Intravenous IV 01/17 Fluconazole 200 MG Q24H / 1200 AC 01/17 Sodium Chloride 100 ML IV 1633 Fluconazole 400 MG Q24H / 1200 AC /10 Sodium Chloride 200 ML IV 1140 Heparin Sodium 5,000 UNIT Q8 / 0600 AC 01/18 (Porcine) SC 0614 Insulin Aspart 0 TIDAC/HS 01/18 1200 AC SC Insulin Aspart 0 Q4 01/17 1400 DC 01/18 SC 0613 Insulin Aspart 0 Q4 / 1000 DC 01/17 SC 1020 Insulin Detemir 8 UNITS BID 01/18 1000 AC SC Magnesium Oxide 400 MG ONE ONE 01/18 0700 DC PO 01/18 0701 Meropenem 1 GM IQ8 / 1600 AC 01/18 IV 0039 Morphine Sulfate 2 MG Q4P PRN 01/16 2030 AC 01/18 IV 0049 Pantoprazole Sodium 40 MG DAILY 01/10 1000 AC 01/17 IV 0903 Total Parenteral 1 UNIT ONE 01/17 1900 AC 01/17 Nutrition IV 01/18 Total Parenteral 1 UNIT ONE 01/16 1900 DC 01/16 Nutrition IV 01/17 Vital Signs & I&O Last 24 Hrs of Vitals and I&O: Vital Signs Date Time Temp Pulse Resp B/P B/P Pulse O2 O2 Flow FiO2 Mean Ox Delivery Rate 01/18 0000 94 Room Air Room Air 01/17 2300 97.5 115 20 134/74 94 Room Air Room Air 01/17 2239 95 Room Air Room Air 01/17 1600 97 Room Air Room Air 01/17 1600 97.7 114 20 140/80 97 Room Air Room Air 01/17 1227 100 Room Air Room Air 01/17 1200 97.0 114 24 118/58 100 Room Air Intake & Output 01/18 1600 01/18 0800 01/18 0000 Intake Total 229.0 661.0 Output Total 1200 1200 Balance -971.0 -539.0 Intake, Lipid 45.0 20.0 Intake, Oral 120 360 Intake, 64 281 TPN/PPN Number 0 0 Bowel Movements Output, Urine 1200 1200 Physical Exam General Appearance: no apparent distress, awake, comfortable Head: atraumatic, normal appearance Neck: normal inspection, supple Respiratory: no respiratory distress, occasional crackles Cardiovascular: regular rate/rhythm, normal peripheral pulses Gastrointestinal: normal bowel sounds, soft, non-tender, no organomegaly Extremities: warm and dry Skin: Stage IV coccyx/lumbar wound, maceration of penis and scrotal area Results Last 24 Hrs of Lab Results: Laboratory Tests 01/18/17 0430: Anion Gap 7, Estimated GFR > 60, Glucose 126 H, Calcium 8.0 L, Phosphorus 3.8, Magnesium 1.7, Total Bilirubin 0.5, AST 38, ALT 48, Albumin 2.1 L, CBC w Diff NO MAN DIFF REQ, RBC 3.38 L, MCV 80.5, MCH 26.2 L, RDW 16.2 H, MPV 8.1, Gran % 75.3 H, Lymphocytes % 14.1 L, Monocytes % 8.4, Eosinophils % 1.1, Basophils % 1.1, Absolute Granulocytes 8.5 H, Absolute Lymphocytes 1.6, Absolute Monocytes 0.9 H, Absolute Eosinophils 0.1, Absolute Basophils 0.1, PUBS MCHC 32.5 L Impression/Plan Impression/Plan Impression/Plan: 1. Jerad's gangrene, status post debridement of skin, subcutaneous tissue muscle and fascia, and perineum. 2. Spina bifida and paraplegia with chronic pressure ulcers. 3. LORENZO - improving. Status post suprapubic catheter placement, and Castaneda catheter placement for urethral tear. 4. Respiratory failure, stable respiratory status post extubation. 5. Diabetes with improved blood sugar control, endocrine following. 6. History of hypothyroidism. 7. Depression. Recommendations: * Advance diet as recommended by speech therapy. * Psych consult regarding depression. * Suprapubic catheter and castaneda to continue indefinitely, until further urology recommendations are made. * Continue antibiotics per ID - Diflucan and meropenem. * Continue the patient on the pain pathway for adequate pain control. * Protonix daily. * Continue subcutaneous heparin for DVT prophylaxis at all times. * Out of bed to chair. * Continue all supportive care. * Will follow up with general surgery regarding long-term plan. * Case management to begin discharge planning for STR.
--- NOTE | 2017-01-18 10:43 | PN- Infect Dx ---
Subjective Subjective: Afebrile. He notes occasional muscle spasms in the right upper extremity. Objective Last 24 Hrs of Vital Signs/I&O Vital Signs Date Time Temp Pulse Resp B/P B/P Pulse O2 O2 Flow FiO2 Mean Ox Delivery Rate 01/18 0800 Room Air 01/18 0800 97.8 104 20 130/76 99 Room Air 01/18 0000 94 Room Air Room Air 01/17 2300 97.5 115 20 134/74 94 Room Air Room Air 01/17 2239 95 Room Air Room Air 01/17 1600 97 Room Air Room Air 01/17 1600 97.7 114 20 140/80 97 Room Air Room Air 01/17 1227 100 Room Air Room Air 01/17 1200 97.0 114 24 118/58 100 Room Air Intake & Output 01/18 1600 01/18 0800 01/18 0000 Intake Total 229.0 661.0 Output Total 1200 1200 Balance -971.0 -539.0 Intake, Lipid 45.0 20.0 Intake, Oral 120 360 Intake, 64 281 TPN/PPN Number 0 0 Bowel Movements Output, Urine 1200 1200 Physical Exam Other Physical Findings: He appears comfortable in no acute distress Lungs are clear Heart regular rhythm with no murmur Abdomen is soft, nontender with positive bowel sounds; suprapubic tube remains in place with no evidence of leakage but with no urine output Extremities no cyanosis, clubbing or edema; PICC in the right upper extremity with no inflammation at the site Guthrie catheter remains in place, with good urine output; perineal dressings intact Results Last 24 Hours of Lab Results: Laboratory Tests 01/18 0430 Chemistry Sodium (137 - 145 mmol/L) 140 Potassium (3.5 - 5.1 mmol/L) 5.1 Chloride (98 - 107 mmol/L) 103 Carbon Dioxide (22 - 30 mmol/L) 29 Anion Gap (5 - 16) 7 BUN (9 - 20 mg/dL) 24 H Creatinine (0.7 - 1.2 mg/dL) 0.7 Estimated GFR (>60 ml/min) > 60 Glucose (65 - 99 mg/dL) 126 H Calcium (8.4 - 10.2 mg/dL) 8.0 L Phosphorus (2.5 - 4.5 mg/dL) 3.8 Magnesium (1.6 - 2.3 mg/dL) 1.7 Total Bilirubin (0.2 - 1.3 mg/dL) 0.5 AST (17 - 59 U/L) 38 ALT (21 - 72 U/L) 48 Albumin (3.5 - 5.0 g/dL) 2.1 L Hematology CBC w Diff NO MAN DIFF REQ WBC (4.8 - 10.8 /CUMM) 11.3 H RBC (4.70 - 6.10 /CUMM) 3.38 L Hgb (14.0 - 18.0 G/DL) 8.8 L Hct (42 - 52 %) 27.2 L MCV (80.0 - 94.0 FL) 80.5 MCH (27.0 - 31.0 PG) 26.2 L RDW (11.5 - 14.5 %) 16.2 H Plt Count (130 - 400 /CUMM) 640 H MPV (7.4 - 10.4 FL) 8.1 Gran % (42.2 - 75.2 %) 75.3 H Lymphocytes % (20.5 - 51.1 %) 14.1 L Monocytes % (1.7 - 9.3 %) 8.4 Eosinophils % (0 - 5 %) 1.1 Basophils % (0.0 - 2.0 %) 1.1 Absolute Granulocytes (1.4 - 6.5 /CUMM) 8.5 H Absolute Lymphocytes (1.2 - 3.4 /CUMM) 1.6 Absolute Monocytes (0.10 - 0.60 /CUMM) 0.9 H Absolute Eosinophils (0.0 - 0.7 /CUMM) 0.1 Absolute Basophils (0.0 - 0.2 /CUMM) 0.1 PUBS MCHC (33.0 - 37.0 G/DL) 32.5 L Last 24 Hours of Ervin Results: Urine culture January 16 greater than 100,000 colonies of yeast Blood cultures 2 January 16 negative Assessment/Plan Impression: Doing well status post further debridement of a polymicrobial necrotizing fasciitis 3 days ago, with fibrinous exudate noted throughout the wound but with no significant necrosis reported. He remains afebrile with white blood cell count decreased on Meropenem and Fluconazole, with plans for possible OR debridement in the a.m. His urine continues to drain only through the Guthrie catheter, which was replaced intraoperatively, with evidence of gangrene erosion into the urethra, with no output from the suprapubic cystostomy. His bone biopsy obtained in the OR 6 days ago is negative for osteomyelitis, but the bone culture did grow Group B strep and yeast and, though this may represent contamination from the more superficial tissues, given the MRI findings suggestive of osteomyelitis, feel he will require a prolonged course of antibiotics (4 weeks minimum), primarily directed against these organisms. Suggestion: 1. Await possible OR debridement in the a.m. 2. Continue Meropenem and Fluconazole
--- NOTE | 2017-01-18 11:00 | NUR ---
0800: RECEIVED PT IN BED, A+OX3, CRYING, UPSET ABOUT FAMILY NOT BEING HERE TO VISIT, ESPECIALLY HIS NIECE FREDDY. EMOTIONAL SUPPORT GIVEN. ON RA. LUNGS CLEAR. PRODUCTIVE COUGH. ABDOMEN SOFT. +BS. TOLERATING PO. MONTES AND SUPRAPUBIC TUBE IN PLACE. MONTES DRAINING URINE, NO OUTPUT IN SUPRAPUBIC TUBE. ALPS IN PLACE. DTI TO LEFT HEEL, UNSTAGEABLE TO RIGHT JONES, DRESSING IN PLACE. LARGE WOUND WITH DRESSING TO LEFT BUTTOCK. AWAITING SURGICAL PA FOR DRESSING CHANGE. ON CLINITRON BED. KHUSHBU DL PICC IN PLACE. +BLOOD RETURN, BIOPATCH IN PLACE. DRESSING INTACT. PT COMPLAINING OF LEFT LEG SPASMS. IV TYLENOL GIVEN, PT REFUSING MORPHINE, DOESNT WANT NARCOTICS. REPOSITIONED. WILL MONITOR.
--- NOTE | 2017-01-18 15:00 | NUR ---
NURSING NOTE: PATIENT TRANSFERED TO FLOOR IN CLINITRON BED FROM ICU. CHART ARRIVED WITH PATIENT. ICU NURSE GAVE BEDSIDE REPORT. ALL BELONGINGS WITH PATIENT. WILL CONTINUE TO MONITOR.
[2017-01-18 15:39] VITALS: BP 130/78
[2017-01-18 22:34] VITALS: BP 144/68
[2017-01-19 07:42] VITALS: BP 135/57
[2017-01-19 08:10] LABS: ABSOLUTE BASOPHIL COUNT 0.1 /CUMM (0.0-0.2); ABSOLUTE EOSINOPHIL COUNT 0.1 /CUMM (0.0-0.7); ABSOLUTE GRANULOCYTE CT 7.1 /CUMM (1.4-6.5); ABSOLUTE LYMPH COUNT 1.4 /CUMM (1.2-3.4); ABSOLUTE MONOCYTE COUNT 1.2 /CUMM (0.10-0.60); BASOPHIL % 0.9 % (0.0-2.0); EOSINOPHIL % 0.7 % (0-5); GRANULOCYTE % 72.5 % (42.2-75.2); HEMATOCRIT 25.6 % (42-52); MEAN CORPUSCULAR HGB 26.4 PG (27.0-31.0); MEAN CORPUSCULAR HGB CONC 32.8 G/DL (33.0-37.0); MEAN CORPUSCULAR VOLUME 80.3 FL (80.0-94.0); MEAN PLATELET VOLUME 8.1 FL (7.4-10.4); PLATELET COUNT 656 /CUMM (130-400); RBC DISTRIBUTION WIDTH 16.1 % (11.5-14.5); RED BLOOD CELL CT 3.18 /CUMM (4.70-6.10); WHITE BLOOD CELL COUNT 9.8 /CUMM (4.8-10.8)
--- NOTE | 2017-01-19 08:18 | PN- Housestaff ---
VINITA SANDOVAL 01/19/17 0817: Subjective Follow-up For: 1. Simeon's gangrene, status post debridement of skin, subcutaneous tissue muscle and fascia, and perineum. 2. Spina bifida and paraplegia with chronic pressure ulcers. 3. LORENZO - improving. Status post suprapubic catheter placement, and Castaneda catheter placement for urethral tear. 4. Respiratory failure, stable respiratory status post extubation. 5. Diabetes with improved blood sugar control, endocrine following. 6. History of hypothyroidism. 7. Depression. Complaints: pain scale (0-10) Subjective: Patient was seen and examined this morning.The patient is awake and alert. He is oriented to time place and person. No acute events noticed overnight He reports feeling improved overall. His respiratory status is stable noting he is on room air. Denies any chest pain, racing of heart, difficulty breathing. Denies any pain at the site of surgical debridement However he has some pain right upper extremity with swelling, will rule out deep -vein thrombosis Review of Systems Constitutional: Reports: see HPI. Objective Last 24 Hrs of Vital Signs/I&O Vital Signs Date Time Temp Pulse Resp B/P B/P Pulse O2 O2 Flow FiO2 Mean Ox Delivery Rate 01/19 1506 98.6 99 18 125/75 100 Room Air 01/19 1442 Room Air Room Air 01/19 1243 98.4 86 20 102/60 96 Room Air 01/19 0742 99.0 94 20 135/57 91 Room Air 01/18 2234 100.8 112 20 144/68 95 Room Air 01/18 1600 Room Air 01/18 1539 98.2 101 18 130/78 95 Room Air Intake & Output 01/19 1600 01/19 0800 01/19 0000 Intake Total 160 480 Output Total 1106 730 Balance -946 -250 Intake, IV 100 Intake, Oral 60 480 Output, Urine 1106 730 Physical Exam General Appearance: Alert, Oriented X3, Cooperative, No Acute Distress Skin: No Rashes, No Breakdown HEENT: Atraumatic, PERRLA, EOMI, Mucous Membr. moist/pink Neck: Supple, No JVD Lymphatic: Cervical nl Cardiovascular: Normal S1, Normal S2 Lungs: Normal Air Movement Abdomen: Normal Bowel Sounds, Soft, No Tenderness Extremities: No Clubbing, No Cyanosis, No Edema Vascular: Normal Pulses Current Medications: Current Medications Sig/Michelle Start time Last Medication Dose Route Stop Time Status Admin Acetaminophen 1,000 MG Q6P PRN 01/10 0830 AC 01/18 N/A 1 UNIT IV 2302 Albuterol Sulfate 3 ML Q4H PRN 01/10 1015 DC 01/13 INH 1412 Alteplase, 2 MG ONE ONE 01/18 2330 DC Recombinant IV 01/18 2331 Baclofen 10 MG ONCE ONE 01/19 1530 UNVr PO 01/19 1531 Fat Emulsion 500 ML Q24H 01/17 1900 DC 05 Intravenous IV 01/18 [id number] Fluconazole 200 MG Q24H / 1200 AC 01/19 Sodium Chloride 100 ML IV 1235 Fluconazole 400 MG Q24H / 1200 AC 01/19 Sodium Chloride 200 ML IV 1404 Heparin Sodium 5,000 UNIT Q8 01/10 0600 AC 01/19 (Porcine) SC 0504 Insulin Aspart 0 TIDAC/HS 01/18 1200 AC 01/19 SC 0838 Insulin Detemir 8 UNITS BID 01/18 1000 AC 01/19 SC 0942 Meropenem 1 GM IQ8 01/10 1600 AC 01/19 IV 0838 Morphine Sulfate 2 MG Q4P PRN 01/16 2030 AC 01/19 IV 1403 Pantoprazole Sodium 40 MG DAILY 01/10 1000 AC 01/19 IV 0942 Patient Medication 1 ED ONE ONE 01/19 1400 DC Teaching ED 01/19 1401 Polyethylene Glycol 17 GM DAILY 01/19 1000 AC 01/19 PO 0942 Senna/Docusate Sodium 1 TAB BID 01/19 0115 AC 01/19 PO 0942 Total Parenteral 1 UNIT ONE 01/17 190 DC 01/17 Nutrition IV 01/18 Last 24 Hrs of Lab/Ervin Results Last 24 Hrs of Labs/Mics: Laboratory Tests 01/19/17 0630: Anion Gap 8, Estimated GFR > 60, BUN/Creatinine Ratio 23.8, CBC w Diff NO MAN DIFF REQ, RBC 3.18 L, MCV 80.3, MCH 26.4 L, RDW 16.1 H, MPV 8.1, Gran % 72.5, Lymphocytes % 13.9 L, Monocytes % 12.0 H, Eosinophils % 0.7, Basophils % 0.9, Absolute Granulocytes 7.1 H, Absolute Lymphocytes 1.4, Absolute Monocytes 1.2 H, Absolute Eosinophils 0.1, Absolute Basophils 0.1, PUBS MCHC 32.8 L Assessment/Plan Assessment: Mr. Bowens is a 61 year old male with PMH type 2 diabetes mellitus, medication non-compliance, HTN, HLD, spina bifida, paraplegia, hypothyroidism and stage IV sacral decubitus ulcer who presented to the [place] ED with chief complaint of confusion and chills. Associated symptoms included worsening of his buttocks wound infection, fever, penile/scrotal irritation from catheter placement and decreased oral intake. He was in ICU initially and treated for septic shock secondary to necrotizing fasciitis of perineum and scrotum status post debridement, respiratory failure status post intubation and extubation. He was transferred to general medicine floor from ICU once he was stable. #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 * Patient s/p debridement of skin, subcutaneous tissue, muscle and fascia of the perineum for Simeon's gangrene, no plans for further debridement per surgery ( POD#5 last debridement 01/15) * IV meropenem 1gm Q8 and fluconazole 600 mg daily * Cultures from the OR growing Gram Negative Rods, Yeast, Alpha Strep. * Blood cultures growing Beta Strep Group B * Urine Culture: growing Yeast. * Continue Castaneda and supra pubic catheter * His bone biopsy obtained in the OR 1 week ago was negative for osteomyelitis, but the bone culture did grow Group B strep and yeast and the MRI findings suggestive of osteomyelitis, he will require a prolonged course of antibiotics (4 weeks minimum). * PICC was placed 01/16/17 for jail antibotic use #Severe hyperglycemia * Endocrinology consult appreciated * Swallow reevaluation- advanced to mechanical ground and thin fluid, consistent carbohydrate 1 * Patient was weaned off TPN * Levemir 8 units twice a day * NovoLog coverage 3 times a day before meals and bedtime #Acute respiratory failure * On room air saturation 99% * Off fentanyl drip,extubated * IV protonix 40 mg daily #LORENZO in the setting of septic shock * Resolved #Acute anemia * Patient has history of anemia noted in December 2016 -07/09.8 * 2 U PRBC transfusion 01/11/2017 * H/H stable #Left Necrotic Ulcer foot * Podiatry consultation was obtained * Recommendation to keep the lesion dry with daily Betadine paint. * Continue with offloading bed #Depression * Family reported stressful events and history of depression * Patient's consent was obtained for psych evaluation * psych recommendation -advised antidepressants- However patient denied * Please take advantage of alternative therapies available on her hospital including aromatherapy, music, and animal therapy. * Please have patient followed by psychiatry at rehabilitation placement. FULL CODE DVTP: Heparin SC diet - consistent- carbohydrate diet 1 Ground and thin Problem List: 1. Hyperglycemia due to type 2 diabetes mellitus 2. Necrotizing fasciitis 3. 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 Pain Ratin Pain Location: low abdomen, right upper ext Pain Goal: Remain pain free Pain Plan: tylinol morphine Tomorrow's Labs & Rationales: cbc in the setting of anemia ANAM YOUNG 01/19/17 1343: Attending MD Review Statement Attending Statement Attending MD Statement: examined this patient, discuss w/resident/PA/AIRCRAFT ENGINE ASSEMBLER, agreed w/resident/PA/AIRCRAFT ENGINE ASSEMBLER, discussed with family, reviewed EMR data (avail), discussed with nursing, discussed with case mgmt, reviewed images, amended to note Attending Assessment/Plan: 61 O/M with simeon gangrene s/p debridement and respiratroy failure s/p extubation transferred from ICU to gen/med. Impression/Plan: 1. Simeon's gangrene, status post debridement of skin, subcutaneous tissue muscle and fascia, and perineum. 2. Spina bifida and paraplegia with chronic pressure ulcers. 3. LORENZO - improving. Status post suprapubic catheter placement, and Castaneda catheter placement for urethral tear. 4. Respiratory failure, stable respiratory status post extubation. 5. Diabetes with improved blood sugar control, endocrine following. 6. History of hypothyroidism. 7. Depression. PLAN Advance diet as recommended by speech therapy. f/u pysch for depression Suprapubic catheter and castaneda , to continue indefinitely, f/u urology recommendations. Continue antibiotics per ID - Diflucan and meropenem. Continue the patient on the pain pathway for adequate pain control. gi/dvt prophylaxis Out of bed to chair. Continue current care follow up with general surgery regarding long-term plan. Case management to begin discharge planning for STR. follow up with general surgery regarding long-term plan. Case management to begin discharge planning for STR.
--- NOTE | 2017-01-19 08:24 | Transfer of Care Summary ---
Hospital Course Course Hospital Course: Please review Dr. Jerry's transfer of care summary for events prior to 01/16/17 Mr. Bowens is a 61 year old male with PMH type 2 diabetes mellitus, medication non-compliance, HTN, HLD, spina bifida, paraplegia, hypothyroidism and stage IV sacral decubitus ulcer who presented to the [place] ED with chief complaint of confusion and chills. Associated symptoms included worsening of his buttocks wound infection, fever, penile/scrotal irritation from catheter placement and decreased oral intake. Patient was admitted to ICU and managed for the following: #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 * Patient was extubated successfully on 01/16/17, patient alert oriented 3 and passed swallow evaluation * Patient s/p debridement of skin, subcutaneous tissue, muscle and fascia of the perineum d/t Jerad's gangrene, no plans for further debridement per surgery, last debridement 01/15 * ID consult placed and appreciated, will continue IV meropenem 1gm Q8 for polymicrobial infection and fluconazole 400 mg daily for positive Bette in urine, sputum and body fluid * Cultures from the OR growing Gram Negative Rods, Yeast, Alpha Strep * Blood cultures growing Beta Strep Group B * Urine Culture: growing Yeast * Continue Guthrie and supra pubic tube * Biposy did not relveal any signs of acute or chronic osteomyelitis * PICC was placed 01/16/17 for [facility] antibotic use, IJ was removed * ESR 126<130 #Severe hyperglycemia * Endocrinology consult appreciated * Patient was weaned off TPN, diet was started after swallow eval * Levemir 8 units twice a day, hold Levemir at bedtime if FSC less than 150 * NovoLog coverage 3 times a day before meals and bedtime * If there is any plan regarding further debridement please contact Dr. storey for NovoLog sliding scale adjustment #Acute respiratory failure * Status post mechanical ventilator * On room air saturation 99% * IV protonix 40 mg daily #Hypernatremia * Improved #Hypocalcemia * Resolved * Corrected Ca 9.5 #LORENZO in the setting of septic shock * Resolved #Acute anemia * Patient has history of anemia noted in December 2016 at 10/30.8 * 2 U PRBC transfusion 01/11/2017 * H/H stable #Left Necrotic Ulcer foot * Podiatry consultation was obtained, the recommendation * Recommendation to keep the lesion dry with daily Betadine paint. Continue with offloading bed #Depression * Family reported stressful events and history of depression * Patient's consent was obtained for psych evaluation * Follow psych recommendation FULL CODE DVTP: Heparin SC Diet: CC1 Ground and thin Assessment/Plan: see above please
--- NOTE | 2017-01-19 09:25 | PN- Diabetes ---
Assessment/Plan Assessment: Patient is 61-year-old man with past medical history significant for hypertension, hyperlipidemia, stage IV sacral wound, hypothyroidism, diabetes mellitus type 2, was brought into ER after the patient was found to be lethargic and confused. Patient is wheel chair bound due to Hx of spina bifida. 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 He underwent debridement. Patient was extubated on 01/16/2017. TPN was discontinued. He is on diabetic diet. He was put on Levemir 8 units twice a day, Novolog coverage before meals and Novolog coverage at bedtime. His FSGs were 161, 176, 118, 103, 131 and 120. Plan: continue the current insulin regimen for now; monitor FSGs. will follow. Subjective Subjective: He feels sore. But his glucose level has been stable. Objective Last 24 Hrs of Vital Signs/I&O Vital Signs Date Time Temp Pulse Resp B/P B/P Pulse O2 O2 Flow FiO2 Mean Ox Delivery Rate 01/19 0742 99.0 94 20 135/57 91 Room Air 01/18 2234 100.8 112 20 144/68 95 Room Air 01/18 1600 Room Air 01/18 1539 98.2 101 18 130/78 95 Room Air Intake & Output 01/19 1600 01/19 0800 01/19 0000 Intake Total 160 480 Output Total 1106 730 Balance -946 -250 Intake, IV 100 Intake, Oral 60 480 Output, Urine 1106 730 Findings Pertinent Lab/Ervin Results: Laboratory Tests 01/19 0630 Chemistry Sodium (137 - 145 mmol/L) 141 Potassium (3.5 - 5.1 mmol/L) 4.6 Chloride (98 - 107 mmol/L) 104 Carbon Dioxide (22 - 30 mmol/L) 29 Anion Gap (5 - 16) 8 BUN (9 - 20 mg/dL) 19 Creatinine (0.7 - 1.2 mg/dL) 0.8 Estimated GFR (>60 ml/min) > 60 BUN/Creatinine Ratio (7 - 25 %) 23.8 Hematology CBC w Diff NO MAN DIFF REQ WBC (4.8 - 10.8 /CUMM) 9.8 RBC (4.70 - 6.10 /CUMM) 3.18 L Hgb (14.0 - 18.0 G/DL) 8.4 L Hct (42 - 52 %) 25.6 L MCV (80.0 - 94.0 FL) 80.3 MCH (27.0 - 31.0 PG) 26.4 L RDW (11.5 - 14.5 %) 16.1 H Plt Count (130 - 400 /CUMM) 656 H MPV (7.4 - 10.4 FL) 8.1 Gran % (42.2 - 75.2 %) 72.5 Lymphocytes % (20.5 - 51.1 %) 13.9 L Monocytes % (1.7 - 9.3 %) 12.0 H Eosinophils % (0 - 5 %) 0.7 Basophils % (0.0 - 2.0 %) 0.9 Absolute Granulocytes (1.4 - 6.5 /CUMM) 7.1 H Absolute Lymphocytes (1.2 - 3.4 /CUMM) 1.4 Absolute Monocytes (0.10 - 0.60 /CUMM) 1.2 H Absolute Eosinophils (0.0 - 0.7 /CUMM) 0.1 Absolute Basophils (0.0 - 0.2 /CUMM) 0.1 PUBS MCHC (33.0 - 37.0 G/DL) 32.8 L
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
--- NOTE | 2017-01-19 12:27 | PN- Infect Dx ---
Subjective Subjective: MAXIMUM TEMPERATURE 100.8. He does note pain in the right upper extremity Objective Last 24 Hrs of Vital Signs/I&O Vital Signs Date Time Temp Pulse Resp B/P B/P Pulse O2 O2 Flow FiO2 Mean Ox Delivery Rate 01/19 0742 99.0 94 20 135/57 91 Room Air 01/18 2234 100.8 112 20 144/68 95 Room Air 01/18 1600 Room Air 01/18 1539 98.2 101 18 130/78 95 Room Air Intake & Output 01/19 1600 01/19 0800 01/19 0000 Intake Total 160 480 Output Total 1106 730 Balance -946 -250 Intake, IV 100 Intake, Oral 60 480 Output, Urine 1106 730 Physical Exam Other Physical Findings: He appears comfortable in no acute distress Lungs are clear Heart regular rhythm with no murmur Abdomen is soft, nontender with positive bowel sounds; suprapubic tube with no inflammation at the site Extremities right upper extremity swelling, tender to palpation; PICC in the right upper extremity with no inflammation at the site Guthrie catheter remains in place, with good urine output; perineum not examined Results Last 24 Hours of Lab Results: Laboratory Tests 01/19 0630 Chemistry Sodium (137 - 145 mmol/L) 141 Potassium (3.5 - 5.1 mmol/L) 4.6 Chloride (98 - 107 mmol/L) 104 Carbon Dioxide (22 - 30 mmol/L) 29 Anion Gap (5 - 16) 8 BUN (9 - 20 mg/dL) 19 Creatinine (0.7 - 1.2 mg/dL) 0.8 Estimated GFR (>60 ml/min) > 60 BUN/Creatinine Ratio (7 - 25 %) 23.8 Hematology CBC w Diff NO MAN DIFF REQ WBC (4.8 - 10.8 /CUMM) 9.8 RBC (4.70 - 6.10 /CUMM) 3.18 L Hgb (14.0 - 18.0 G/DL) 8.4 L Hct (42 - 52 %) 25.6 L MCV (80.0 - 94.0 FL) 80.3 MCH (27.0 - 31.0 PG) 26.4 L RDW (11.5 - 14.5 %) 16.1 H Plt Count (130 - 400 /CUMM) 656 H MPV (7.4 - 10.4 FL) 8.1 Gran % (42.2 - 75.2 %) 72.5 Lymphocytes % (20.5 - 51.1 %) 13.9 L Monocytes % (1.7 - 9.3 %) 12.0 H Eosinophils % (0 - 5 %) 0.7 Basophils % (0.0 - 2.0 %) 0.9 Absolute Granulocytes (1.4 - 6.5 /CUMM) 7.1 H Absolute Lymphocytes (1.2 - 3.4 /CUMM) 1.4 Absolute Monocytes (0.10 - 0.60 /CUMM) 1.2 H Absolute Eosinophils (0.0 - 0.7 /CUMM) 0.1 Absolute Basophils (0.0 - 0.2 /CUMM) 0.1 PUBS MCHC (33.0 - 37.0 G/DL) 32.8 L Last 24 Hours of Ervin Results: Urine culture January 16 greater than 100,000 colonies of presumptive Bette albicans Blood cultures 2 January 16 negative Assessment/Plan Impression: Stable with his most recent debridement for polymicrobial necrotizing fasciitis 4 days ago, with fibrinous exudate noted throughout the wound but with no significant necrosis reported. His bone biopsy obtained in the OR 1 week ago was negative for osteomyelitis, but the bone culture did grow Group B strep and yeast and, though this may represent contamination from the more superficial tissues, given the MRI findings suggestive of osteomyelitis, feel he will require a prolonged course of antibiotics (4 weeks minimum), primarily directed against these organisms. He did have a low-grade fever last evening of unclear significance with white blood cell count now normal on Meropenem and Fluconazole. His urine continues to drain only through the Guthrie catheter, which was replaced intraoperatively, with evidence of gangrene erosion into the urethra, still with no output from the suprapubic cystostomy. His right upper extremity swelling and tenderness are of some concern with a PICC in place and would rule out a DVT. Suggestion: 1. Doppler of the right upper extremity 2. Further management of his wound/debridement per Surgery 3. Continue Meropenem and Fluconazole
[2017-01-19 12:43] VITALS: BP 102/60
--- NOTE | 2017-01-19 14:22 | PN- General Surgery ---
Surgical Brief Attending Note Brief Attending Note: WOUND DRESSING CHANGE PERFORMED AT BEDSIDE. NO NECROSIS REQUIRING OPERATIVE DEBRIDEMENT. WILL REQUIRE AT LEAST DAILY DRESSING CHANGES. UNFORTUNATELY GIVEN THE EXTENT AND IMMOBILITY OF THE PROCESS, THIS WILL REQUIRE A LARGE AMOUNT OF NURSING AND HOSPITAL STAFF RESOURCES. HIS CARE WOULD BE BETTER IF HE WERE TRANSFERRED TO THE [facility] WHEN MEDICALLY SUITABLE.
[2017-01-19 15:06] VITALS: BP 125/75
--- NOTE | 2017-01-19 20:07 | NUR ---
[employer] CALLED. SENDING PT BACK TO FLOOR. PT REFUSING ULTRASOUND AT THIS TIME. DR. LUCY TOVAR MADE AWARE.
--- NOTE | 2017-01-19 20:43 | NUR ---
ELECTROMATIC TYPIST DARIELA ASSIST WITH TRANSFERING PT BACK INTO CLINATRON MATTRESS. DSG REINFORCED AT THIS TIME. KHUSHBU PICC DSG CDI. SUPRAPUBIC TUBE, MONTES DRAINED 200ML. SMALL BM AT THIS TIME.
[2017-01-19 22:32] VITALS: BP 130/60
[2017-01-20 07:22] VITALS: BP 138/82
--- NOTE | 2017-01-20 08:11 | PN- Housestaff ---
REENA DELUNA,JALYN 01/20/17 0811: Subjective Follow-up For: necrotizing fasciitis Subjective: pt seen today with Dr. Beltrán at bedside. He appears lethargic and it was difficult to understand his speech (sounds mumbled/gargbled). he did respond appropriately to questions. strength both upper extremities wnl, was able to follow commands, unable to assess strength of both lower extremities. sensation intact. he did receive 2mg of iv morphine this am around 6 spoke to his nurse, who states that gargbled speech, tearful, and emotional lability, is his baseline. pt refused doppler yesterday due to pain, will attempt again this morning. 1xalteplase was given for picc. Review of Systems Constitutional: Reports: see HPI. Objective Last 24 Hrs of Vital Signs/I&O Vital Signs Date Time Temp Pulse Resp B/P B/P Pulse O2 O2 Flow FiO2 Mean Ox Delivery Rate 01/20 0722 99.1 93 20 138/82 99 Room Air 01/20 0000 98 Room Air Room Air 01/19 2232 99.1 92 20 130/60 98 Room Air 01/19 1506 98.6 99 18 125/75 100 Room Air 01/19 1442 Room Air Room Air 01/19 1243 98.4 86 20 102/60 96 Room Air Intake & Output 01/20 1600 01/20 0800 01/20 0000 Intake Total 360 280 Output Total 1165 1600 Balance -805 -1320 Intake, Oral 360 280 Number 2 Bowel Movements Output, Urine 1165 1600 Physical Exam General Appearance: Alert, lethargic Cardiovascular: Regular Rate, Normal S1, Normal S2 Lungs: Clear to Auscultation Abdomen: Normal Bowel Sounds, Soft, No Tenderness Neurological: as in hpi Extremities: No Edema Current Medications: Current Medications Sig/Michelle Start time Last Medication Dose Route Stop Time Status Admin Acetaminophen 650 MG Q6P PRN 01/20 0030 AC 01/20 PO 0059 Acetaminophen 1,000 MG Q6P PRN 01/10 0830 AC 01/18 N/A 1 UNIT IV 2302 Alteplase, 2 MG ONE ONE 01/20 0830 DC Recombinant IV 01/20 0831 Baclofen 10 MG ONCE ONE 01/19 1530 DC 01/19 PO 01/19 1531 1858 Benzonatate 100 MG TID 01/20 0100 AC 01/20 PO 0233 Fluconazole 200 MG Q24H 01/13 1200 AC 01/19 Sodium Chloride 100 ML IV 1235 Fluconazole 400 MG Q24H / 1200 AC 01/19 Sodium Chloride 200 ML IV 1404 Guaifenesin 600 MG Q12 01/20 0100 AC 01/20 PO 0233 Heparin Sodium 5,000 UNIT Q8 01/10 0600 AC 01/20 (Porcine) SC 0522 Insulin Aspart 0 TIDAC/HS 01/18 1200 AC 01/20 SC 0844 Insulin Detemir 8 UNITS BID 01/18 1000 AC 01/20 SC 0843 Meropenem 1 GM IQ8 01/10 1600 AC 01/20 IV 0900 Morphine Sulfate 2 MG Q4P PRN 01/16 2030 AC 01/20 IV 0635 Pantoprazole Sodium 40 MG DAILY 01/10 1000 AC 01/19 IV 0942 Patient Medication 1 ED ONE ONE 01/19 1400 PA 01/19 Teaching ED 01/19 1401 1609 Polyethylene Glycol 17 GM DAILY 01/19 1000 AC 01/19 PO 0942 Senna/Docusate Sodium 1 TAB BID 01/19 0115 AC 01/19 PO 2200 Last 24 Hrs of Lab/Ervin Results Last 24 Hrs of Labs/Mics: Laboratory Tests 01/20/17 0700: Anion Gap 8, Estimated GFR > 60, BUN/Creatinine Ratio 21.3, CBC w Diff NO MAN DIFF REQ, RBC 3.11 L, MCV 80.2, MCH 25.9 L, RDW 16.4 H, MPV 8.3, Gran % 73.9, Lymphocytes % 13.6 L, Monocytes % 11.2 H, Eosinophils % 0.7, Basophils % 0.6, Absolute Granulocytes 6.7 H, Absolute Lymphocytes 1.2, Absolute Monocytes 1.0 H, Absolute Eosinophils 0.1, Absolute Basophils 0.1, PUBS MCHC 32.4 L Assessment/Plan Assessment: Mr. Bowens is a 61 year old male with PMH type 2 diabetes mellitus, medication non-compliance, HTN, HLD, spina bifida, paraplegia, hypothyroidism and stage IV sacral decubitus ulcer who presented to the [facility] ED with chief complaint of confusion and chills. Associated symptoms included worsening of his buttocks wound infection, fever, penile/scrotal irritation from catheter placement and decreased oral intake. He was in ICU initially and treated for septic shock secondary to necrotizing fasciitis of perineum and scrotum status post debridement, respiratory failure status post intubation and extubation. He was transferred to general medicine floor from ICU once he was stable. 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 NO DIVERTING COLOSTOMY planned as per Dr. Garcia * HIS CARE WOULD BE BETTER IF HE WERE TRANSFERRED TO THE [facility] WHEN MEDICALLY SUITABLE. * On castaneda * IV meropenem 1gm Q8 and fluconazole 600 mg daily * Cultures from the OR growing Gram Negative Rods, Yeast, Alpha Strep. * Blood cultures growing Beta Strep Group B * Urine Culture: growing Yeast. * Continue Castaneda and supra pubic catheter * His bone biopsy obtained in the OR 1 week ago was negative for osteomyelitis, but the bone culture did grow Group B strep and yeast and the MRI findings suggestive of osteomyelitis, he will require a prolonged course of antibiotics (4 weeks minimum). * PICC was placed 01/16/17 for [facility] antibotic use #Severe hyperglycemia * Endocrinology consult appreciated * Swallow reevaluation- advanced to mechanical ground and thin fluid, consistent carbohydrate 1 * Patient was weaned off TPN * Levemir 8 units twice a day * NovoLog coverage 3 times a day before meals and bedtime #Acute respiratory failure * On room air saturation 99% * Off fentanyl drip,extubated * IV protonix 40 mg daily #LORENZO in the setting of septic shock * Resolved #Acute anemia * Patient has history of anemia noted in December 2016 -07/09.8 * 2 U PRBC transfusion 01/11/2017 * H/H stable #Left Necrotic Ulcer foot * Podiatry consultation was obtained * Recommendation to keep the lesion dry with daily Betadine paint. * Continue with offloading bed #Depression * Family reported stressful events and history of depression * Patient's consent was obtained for psych evaluation * psych recommendation -advised antidepressants- However patient denied * Please take advantage of alternative therapies available on her hospital including aromatherapy, music, and animal therapy. * Please have patient followed by psychiatry at rehabilitation placement. FULL CODE DVTP: Heparin SC diet - consistent- carbohydrate diet Ground and thin Problem List: 1. 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 His speech is somewhat garbled but according to the report from nursing and housestaff, this is his baseline. Vital Signs Date Time Temp Pulse Resp B/P B/P Pulse O2 O2 Flow FiO2 Mean Ox Delivery Rate 01/20 1435 99.3 102 20 150/70 98 Room Air 01/20 0800 Room Air 01/20 0722 99.1 93 20 138/82 99 Room Air 01/20 0000 98 Room Air Room Air 01/19 2232 99.1 92 20 130/60 98 Room Air on exam; awake, nad. cv; s1,s2, rrr resp; clear abd; soft, nt, bs+, suprapubic catheter in place. ext; no edema labs. 01/20 0700 Chemistry Sodium (137 - 145 mmol/L) 138 Potassium (3.5 - 5.1 mmol/L) 4.5 Chloride (98 - 107 mmol/L) 103 Carbon Dioxide (22 - 30 mmol/L) 27 Anion Gap (5 - 16) 8 BUN (9 - 20 mg/dL) 17 Creatinine (0.7 - 1.2 mg/dL) 0.8 Estimated GFR (>60 ml/min) > 60 BUN/Creatinine Ratio (7 - 25 %) 21.3 Hematology CBC w Diff NO MAN DIFF REQ WBC (4.8 - 10.8 /CUMM) 9.1 RBC (4.70 - 6.10 /CUMM) 3.11 L Hgb (14.0 - 18.0 G/DL) 8.1 L Hct (42 - 52 %) 25.0 L MCV (80.0 - 94.0 FL) 80.2 MCH (27.0 - 31.0 PG) 25.9 L RDW (11.5 - 14.5 %) 16.4 H Plt Count (130 - 400 /CUMM) 584 H MPV (7.4 - 10.4 FL) 8.3 Gran % (42.2 - 75.2 %) 73.9 Lymphocytes % (20.5 - 51.1 %) 13.6 L Monocytes % (1.7 - 9.3 %) 11.2 H Eosinophils % (0 - 5 %) 0.7 Basophils % (0.0 - 2.0 %) 0.6 Absolute Granulocytes (1.4 - 6.5 /CUMM) 6.7 H Absolute Lymphocytes (1.2 - 3.4 /CUMM) 1.2 Absolute Monocytes (0.10 - 0.60 /CUMM) 1.0 H Absolute Eosinophils (0.0 - 0.7 /CUMM) 0.1 Absolute Basophils (0.0 - 0.2 /CUMM) 0.1 PUBS MCHC (33.0 - 37.0 G/DL) 32.4 L PICC line in right upper x-ray, venous Doppler ultrasound of the right upper extremity is negative. A/P; 61-year-old male with past medical history significant for type 2 diabetes mellitus, medication non-compliance, HTN, HLD, spina bifida, paraplegia, hypothyroidism and stage IV sacral decubitus admitted with fourniers gangrene. Patient remains on meropenem and and fluconazole per infectious disease. Status post debridement of the fourniers gangrene. Insulin management per endocrinology. DVT px: Heparin subcutaneous. Needs placement in STR
--- NOTE | 2017-01-20 08:30 | NUR ---
LATE ENTRY: ONE OF PT'S LUMENS ON HIS PICC LINE NOT FUNCTIONING AND NO BLOOD RETURN PRESENT. MD NOTIFIED. SNO FOR ATEPLASE. ATEPLASE INSTILLED- SUCCESSFUL. BLOOD RETURN PRESENT IN BOTH LUMENS NOW. RN ALSO ABLE TO FLUSH BOTH LUMENS WITHOUT ANY DIFFICULTY. WILL CONT TO MONITOR.
[2017-01-20 09:04] LABS: ABSOLUTE BASOPHIL COUNT 0.1 /CUMM (0.0-0.2); ABSOLUTE EOSINOPHIL COUNT 0.1 /CUMM (0.0-0.7); ABSOLUTE GRANULOCYTE CT 6.7 /CUMM (1.4-6.5); ABSOLUTE LYMPH COUNT 1.2 /CUMM (1.2-3.4); BASOPHIL % 0.6 % (0.0-2.0); EOSINOPHIL % 0.7 % (0-5); GRANULOCYTE % 73.9 % (42.2-75.2); MEAN CORPUSCULAR HGB 25.9 PG (27.0-31.0); MEAN CORPUSCULAR HGB CONC 32.4 G/DL (33.0-37.0); MEAN CORPUSCULAR VOLUME 80.2 FL (80.0-94.0); MEAN PLATELET VOLUME 8.3 FL (7.4-10.4); PLATELET COUNT 584 /CUMM (130-400); RBC DISTRIBUTION WIDTH 16.4 % (11.5-14.5); RED BLOOD CELL CT 3.11 /CUMM (4.70-6.10); WHITE BLOOD CELL COUNT 9.1 /CUMM (4.8-10.8)
--- NOTE | 2017-01-20 10:15 | PN- Infect Dx ---
Subjective Subjective: Afebrile. He does not report any specific complaints. Objective Last 24 Hrs of Vital Signs/I&O Vital Signs Date Time Temp Pulse Resp B/P B/P Pulse O2 O2 Flow FiO2 Mean Ox Delivery Rate 01/20 0722 99.1 93 20 138/82 99 Room Air 01/20 0000 98 Room Air Room Air 01/19 2232 99.1 92 20 130/60 98 Room Air 01/19 1506 98.6 99 18 125/75 100 Room Air 01/19 1442 Room Air Room Air 01/19 1243 98.4 86 20 102/60 96 Room Air Intake & Output 01/20 1600 01/20 0800 01/20 0000 Intake Total 360 280 Output Total 1165 1600 Balance -805 -1320 Intake, Oral 360 280 Number 2 Bowel Movements Output, Urine 1165 1600 Physical Exam Other Physical Findings: He is awake and alert and responsive to questions, though his speech is somewhat difficult to understand Lungs are clear Heart regular rhythm with no murmur Abdomen soft, nontender with positive bowel sounds; suprapubic tube site with no inflammation, with 36 mL output yesterday and 15 mL overnight Extremities decreased right upper extremity edema, though slide forming machine tender to palpation; PICC in the right upper extremity with no inflammation at the site Guthrie catheter remains in place Results Last 24 Hours of Lab Results: Laboratory Tests 01/20 0700 Chemistry Sodium (137 - 145 mmol/L) 138 Potassium (3.5 - 5.1 mmol/L) 4.5 Chloride (98 - 107 mmol/L) 103 Carbon Dioxide (22 - 30 mmol/L) 27 Anion Gap (5 - 16) 8 BUN (9 - 20 mg/dL) 17 Creatinine (0.7 - 1.2 mg/dL) 0.8 Estimated GFR (>60 ml/min) > 60 BUN/Creatinine Ratio (7 - 25 %) 21.3 Hematology CBC w Diff NO MAN DIFF REQ WBC (4.8 - 10.8 /CUMM) 9.1 RBC (4.70 - 6.10 /CUMM) 3.11 L Hgb (14.0 - 18.0 G/DL) 8.1 L Hct (42 - 52 %) 25.0 L MCV (80.0 - 94.0 FL) 80.2 MCH (27.0 - 31.0 PG) 25.9 L RDW (11.5 - 14.5 %) 16.4 H Plt Count (130 - 400 /CUMM) 584 H MPV (7.4 - 10.4 FL) 8.3 Gran % (42.2 - 75.2 %) 73.9 Lymphocytes % (20.5 - 51.1 %) 13.6 L Monocytes % (1.7 - 9.3 %) 11.2 H Eosinophils % (0 - 5 %) 0.7 Basophils % (0.0 - 2.0 %) 0.6 Absolute Granulocytes (1.4 - 6.5 /CUMM) 6.7 H Absolute Lymphocytes (1.2 - 3.4 /CUMM) 1.2 Absolute Monocytes (0.10 - 0.60 /CUMM) 1.0 H Absolute Eosinophils (0.0 - 0.7 /CUMM) 0.1 Absolute Basophils (0.0 - 0.2 /CUMM) 0.1 PUBS MCHC (33.0 - 37.0 G/DL) 32.4 L Last 24 Hours of Ervin Results: Blood cultures 2 January 16 remain negative Assessment/Plan Impression: Stable now 5 days status post his most recent debridement for Jerad's gangrene, with temperatures and white blood cell count normal on Meropenem and Fluconazole for a polymicrobial infection, with possible underlying osteomyelitis, with an MRI 3 weeks prior to admission suggesting subtle osteomyelitis in the inferior pubic rami and the inferior aspect of the ischial tuberosity and with the bone culture obtained in the OR positive for Group B strep and yeast, though the bone biopsy was negative for osteomyelitis. Based on these findings feel he will require a prolonged course of antibiotics (4 weeks minimum), primarily directed against the Group B strep and yeast. His right upper extremity swelling is somewhat improved, but he remains tender and, with the PICC in place, would rule out a DVT. Suggestion: 1. Doppler of the right upper extremity 2. Further management of his wound/debridement per Surgery 3. Continue Meropenem and Fluconazole
--- NOTE | 2017-01-20 12:33 | ULTRASOUND REPORT ---
EXAMINATION: US TRIPLEX UPPER EXTREMITY, RIGHT CLINICAL INFORMATION: This is a [id number] male with pain in the right upper extremity. Possible deep vein thrombosis. COMPARISON: None TECHNIQUE: Color-flow triplex imaging with spectral analysis and compression Doppler was performed on the right upper extremity. FINDINGS: The right internal jugular, subclavian, and axillary veins are patent and free of thrombus. The imaged segment of the left brachiocephalic vein is patent. Spectral doppler waveforms are normal. The brachial, basilic, cephalic, radial, and ulnar veins are patient and compressible. IMPRESSION: Normal venous ultrasound of the right upper extremity without evidence of deep vein thrombosis.
--- NOTE | 2017-01-20 12:57 | NUR ---
SURGICAL PA SHAKA NOTIFIED RN THAT DSG CHANGES MAY BE DONE BY RN. DSG CHANGED THIS AM BY SURGICAL PA LETTY PER RN REPORT. DSG INTACT AT PRESENT.PER BILLY MATT, DSGS ARE WET TO DRY. PT LIKELY TO HAVE SURGICAL PROCEDURE TO ASSIST WITH THAT ISSUE. WILL CONT TO MONITOR.
[2017-01-20 14:35] VITALS: BP 150/70
--- NOTE | 2017-01-20 15:01 | PN- Diabetes ---
Assessment/Plan Assessment: Patient is 61-year-old man with past medical history significant for hypertension, hyperlipidemia, stage IV sacral wound, hypothyroidism, diabetes mellitus type 2, was brought into ER after the patient was found to be lethargic and confused. Patient is wheel chair bound due to Hx of spina bifida. 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 He underwent debridement. Patient was extubated on 01/16/2017. TPN was discontinued. He is on diabetic diet. He was put on Levemir 8 units twice a day, Novolog coverage before meals and Novolog coverage at bedtime. Whalen's fingerstick blood sugars yesterday were 120 before lunch 119 before dinner 171 and before supper and 211 at bedtime. This morning his fingerstick sugar was 214 for breakfast but was 160 before lunch. Plan: Suggest continue the present insulin. The patient's blood sugars are in satisfactory control. Subjective Subjective: Feels about the same Review of Systems Constitutional: Denies: chills, fever. Cardiovascular: Denies: chest pain. Respiratory: Denies: short of breath. Gastrointestinal: Denies: nausea, vomiting. Objective Last 24 Hrs of Vital Signs/I&O Vital Signs Date Time Temp Pulse Resp B/P B/P Pulse O2 O2 Flow FiO2 Mean Ox Delivery Rate 01/20 1435 99.3 102 20 150/70 98 Room Air 01/20 0800 Room Air 01/20 0722 99.1 93 20 138/82 99 Room Air 01/20 0000 98 Room Air Room Air 01/19 2232 99.1 92 20 130/60 98 Room Air 01/19 1506 98.6 99 18 125/75 100 Room Air Intake & Output 01/20 1600 01/20 0800 01/20 0000 Intake Total 360 280 Output Total 700 1165 1600 Balance -700 -805 -1320 Intake, Oral 360 280 Number 2 Bowel Movements Output, Urine 700 1165 1600 Physical Exam General Appearance: awake Head: normal appearance Neck: normal inspection Respiratory: normal breath sounds Cardiovascular: regular rate/rhythm Current Medications: Current Medications Sig/Michelle Start time Last Medication Dose Route Stop Time Status Admin Acetaminophen 650 MG Q6P PRN 01/20 0030 AC 01/20 PO 0059 Acetaminophen 1,000 MG Q6P PRN 01/10 0830 AC 01/18 N/A 1 UNIT IV 2302 Alteplase, 2 MG ONE ONE 01/20 0830 DC 01/20 Recombinant IV 01/20 0831 1431 Baclofen 10 MG ONCE ONE 01/19 1530 DC 01/19 PO 01/19 1531 1858 Benzonatate 100 MG TID 01/20 0100 AC 01/20 PO 1219 Fluconazole 200 MG Q24H / 1200 AC 01/20 Sodium Chloride 100 ML IV 1219 Fluconazole 400 MG Q24H / 1200 AC 01/20 Sodium Chloride 200 ML IV 1219 Guaifenesin 600 MG Q12 01/20 0100 AC 01/20 PO 1219 Heparin Sodium 5,000 UNIT Q8 01/10 0600 AC 01/20 (Porcine) SC 1437 Insulin Aspart 0 TIDAC/HS 01/18 1200 AC 01/20 SC 1220 Insulin Detemir 8 UNITS BID 01/18 1000 AC 01/20 SC 0843 Meropenem 1 GM IQ8 01/10 1600 AC 01/20 IV 0900 Morphine Sulfate 2 MG Q4P PRN 01/16 2030 AC 01/20 IV 0635 Pantoprazole Sodium 40 MG DAILY 01/10 1000 AC 01/20 IV 1219 Polyethylene Glycol 17 GM DAILY 01/19 1000 AC 01/20 PO 1218 Senna/Docusate Sodium 1 TAB BID 01/19 0115 AC 01/20 PO 1219 Laboratory Tests 01/20 0700 Chemistry Sodium (137 - 145 mmol/L) 138 Potassium (3.5 - 5.1 mmol/L) 4.5 Chloride (98 - 107 mmol/L) 103 Carbon Dioxide (22 - 30 mmol/L) 27 Anion Gap (5 - 16) 8 BUN (9 - 20 mg/dL) 17 Creatinine (0.7 - 1.2 mg/dL) 0.8 Estimated GFR (>60 ml/min) > 60 BUN/Creatinine Ratio (7 - 25 %) 21.3 Hematology CBC w Diff NO MAN DIFF REQ WBC (4.8 - 10.8 /CUMM) 9.1 RBC (4.70 - 6.10 /CUMM) 3.11 L Hgb (14.0 - 18.0 G/DL) 8.1 L Hct (42 - 52 %) 25.0 L MCV (80.0 - 94.0 FL) 80.2 MCH (27.0 - 31.0 PG) 25.9 L RDW (11.5 - 14.5 %) 16.4 H Plt Count (130 - 400 /CUMM) 584 H MPV (7.4 - 10.4 FL) 8.3 Gran % (42.2 - 75.2 %) 73.9 Lymphocytes % (20.5 - 51.1 %) 13.6 L Monocytes % (1.7 - 9.3 %) 11.2 H Eosinophils % (0 - 5 %) 0.7 Basophils % (0.0 - 2.0 %) 0.6 Absolute Granulocytes (1.4 - 6.5 /CUMM) 6.7 H Absolute Lymphocytes (1.2 - 3.4 /CUMM) 1.2 Absolute Monocytes (0.10 - 0.60 /CUMM) 1.0 H Absolute Eosinophils (0.0 - 0.7 /CUMM) 0.1 Absolute Basophils (0.0 - 0.2 /CUMM) 0.1 PUBS MCHC (33.0 - 37.0 G/DL) 32.4 L Findings Pertinent Lab/Ervin Results: Laboratory Tests 01/20 0700 Chemistry Sodium (137 - 145 mmol/L) 138 Potassium (3.5 - 5.1 mmol/L) 4.5 Chloride (98 - 107 mmol/L) 103 Carbon Dioxide (22 - 30 mmol/L) 27 Anion Gap (5 - 16) 8 BUN (9 - 20 mg/dL) 17 Creatinine (0.7 - 1.2 mg/dL) 0.8 Estimated GFR (>60 ml/min) > 60 BUN/Creatinine Ratio (7 - 25 %) 21.3 Hematology CBC w Diff NO MAN DIFF REQ WBC (4.8 - 10.8 /CUMM) 9.1 RBC (4.70 - 6.10 /CUMM) 3.11 L Hgb (14.0 - 18.0 G/DL) 8.1 L Hct (42 - 52 %) 25.0 L MCV (80.0 - 94.0 FL) 80.2 MCH (27.0 - 31.0 PG) 25.9 L RDW (11.5 - 14.5 %) 16.4 H Plt Count (130 - 400 /CUMM) 584 H MPV (7.4 - 10.4 FL) 8.3 Gran % (42.2 - 75.2 %) 73.9 Lymphocytes % (20.5 - 51.1 %) 13.6 L Monocytes % (1.7 - 9.3 %) 11.2 H Eosinophils % (0 - 5 %) 0.7 Basophils % (0.0 - 2.0 %) 0.6 Absolute Granulocytes (1.4 - 6.5 /CUMM) 6.7 H Absolute Lymphocytes (1.2 - 3.4 /CUMM) 1.2 Absolute Monocytes (0.10 - 0.60 /CUMM) 1.0 H Absolute Eosinophils (0.0 - 0.7 /CUMM) 0.1 Absolute Basophils (0.0 - 0.2 /CUMM) 0.1 PUBS MCHC (33.0 - 37.0 G/DL) 32.4 L
[2017-01-20 23:05] VITALS: BP 132/66
[2017-01-21 06:48] VITALS: BP 140/82
--- NOTE | 2017-01-21 07:22 | PN- General Surgery ---
Subjective Subjective: The patient was seen this morning postoperatively. He reports feeling generally comfortable and has no other complaints at the current time. He is tolerating regular diet and is having regular frequent loose bowel movements. Objective Vital Signs and I&Os Vital Signs Date Time Temp Pulse Resp B/P B/P Pulse O2 O2 Flow FiO2 Mean Ox Delivery Rate 01/21 0648 98.5 95 20 140/82 95 Room Air 01/20 2305 99.0 99 20 132/66 98 Room Air 01/20 1700 93 01/20 1435 99.3 102 20 150/70 98 Room Air 01/20 0800 Room Air 01/20 0722 99.1 93 20 138/82 99 Room Air Intake & Output 01/21 0801/21 0000 01/20 1600 01/20 0801/20 0000 01/19 1600 Intake Total 240 800 360 280 Output Total 750 1200 1400 1165 1600 Balance -750 -960 -600 -805 -1320 Intake, IV 400 Intake, Oral 240 400 360 280 Number 1 2 2 Bowel Movements Output, Urine 750 1200 1400 1165 1600 Physical Exam: Gen.: Alert and obvious distress Skin: Warm and dry Abdomen: Soft, obese, nontender, bowel sounds positive. Posteriorly the surgical wound was changed by nursing with wet-to-dry dressing changes and packing. The central area continues to be granulating well with some fibrinous exudate around the periphery but no signs of necrosis. Extremities: Bilateral lower extremities are warm without calf tenderness. Assessment/Plan Assessment/Plan Assessment: 61-year-old male status post multiple debridements/I&D due to necrotizing fasciitis. The patient has making significant progress and his wound appears clean requiring no further surgical debridement of the current time. Recommendations: Daily dressing changes with wet-to-dry packing and when necessary if stool answers the wound area. Antibiotics per ID recommendations Out of bed to recliner Continue current pain regiment As previously recommended the patient should be transferred to [facility]'s burn unit for further wound management Continue care per primary team
--- NOTE | 2017-01-21 07:49 | PN- Housestaff ---
See Addendum Subjective Follow-up For: necrotizing fasciitis Subjective: i was able to understand his speech today, he was coherent, and responded appropriately to questions reports that he wants to get his nails cut, and pérez shaved, told him that we can probably help him with that tomorow. he was tearful about the possibility of transferring to [place] because he is not familiar with the place. he complains of discomfort with the alps noted further drop in wbc from 9.1 to 8, hb 8.1 to 7.8. as he is stable currently, will get type and cross with his am bloodwork tomorrow, anticipate that he might need another transfusion. Review of Systems Constitutional: Reports: see HPI. Objective Last 24 Hrs of Vital Signs/I&O Vital Signs Date Time Temp Pulse Resp B/P B/P Pulse O2 O2 Flow FiO2 Mean Ox Delivery Rate 01/21 0648 98.5 95 20 140/82 95 Room Air 01/20 2305 99.0 99 20 132/66 98 Room Air 01/20 1700 93 01/20 1435 99.3 102 20 150/70 98 Room Air Intake & Output 01/21 1600 01/21 0800 01/21 0000 Intake Total 225 240 Output Total 750 1200 Balance -525 -960 Intake, IV 225 Intake, Oral 240 Number 1 1 Bowel Movements Output, Urine 750 1200 Physical Exam General Appearance: Alert, Oriented X3, Cooperative, Mild Distress Cardiovascular: Regular Rate, Normal S1, Normal S2 Lungs: Clear to Auscultation, Normal Air Movement Abdomen: Normal Bowel Sounds, Soft, No Tenderness Extremities: No Edema Current Medications: Current Medications Sig/Michelle Start time Last Medication Dose Route Stop Time Status Admin Acetaminophen 650 MG Q6P PRN 01/20 0030 AC 01/20 PO 210 Acetaminophen 1,000 MG Q6P PRN 01/10 0830 AC 01/18 N/A 1 UNIT IV 2302 Alteplase, 2 MG ONE ONE 01/21 0030 DC 01/21 Recombinant IV 01/21 003 0228 Alteplase, 2 MG ONE ONE 01/20 2100 DC 01/20 Recombinant IV 01/20 210 2221 Benzonatate 100 MG TID 01/20 0100 AC 01/21 PO 0829 Fluconazole 200 MG Q24H 01/13 1200 AC 01/20 Sodium Chloride 100 ML IV 1219 Fluconazole 400 MG Q24H 01/13 1200 AC 01/20 Sodium Chloride 200 ML IV 1219 Guaifenesin 600 MG Q12 01/20 0100 AC 01/21 PO 0830 Heparin Sodium 5,000 UNIT Q8 01/10 0600 AC 01/21 (Porcine) SC 0614 Insulin Aspart 0 TIDAC/HS 01/18 1200 AC 01/21 SC 0826 Insulin Detemir 8 UNITS BID 01/18 1000 AC 01/21 SC 0826 Meropenem 1 GM IQ8 01/10 1600 AC 01/21 IV 0828 Morphine Sulfate 2 MG Q4P PRN 01/16 2030 AC 01/21 IV 0454 Pantoprazole Sodium 40 MG DAILY 01/10 1000 AC 01/21 IV 0828 Polyethylene Glycol 17 GM DAILY 01/19 1000 AC 01/20 PO 1218 Senna/Docusate Sodium 1 TAB BID 01/19 0115 AC 01/20 PO 2104 Sodium Chloride 1,000 ML Q13H 01/21 0045 DC 01/21 IV 0158 Last 24 Hrs of Lab/Ervin Results Last 24 Hrs of Labs/Mics: Laboratory Tests 01/21/17 0716: Anion Gap 8, Estimated GFR > 60, BUN/Creatinine Ratio 17.1, CBC w Diff NO MAN DIFF REQ, RBC 2.97 L, MCV 80.3, MCH 26.2 L, RDW 16.3 H, MPV 7.7, Gran % 76.2 H, Lymphocytes % 13.4 L, Monocytes % 8.7, Eosinophils % 1.1, Basophils % 0.6, Absolute Granulocytes 6.1, Absolute Lymphocytes 1.1 L, Absolute Monocytes 0.7 H, Absolute Eosinophils 0.1, Absolute Basophils 0.1, PUBS MCHC 32.7 L Assessment/Plan Assessment: Mr. Bowens is a 61 year old male with PMH type 2 diabetes mellitus, medication non-compliance, HTN, HLD, spina bifida, paraplegia, hypothyroidism and stage IV sacral decubitus ulcer who presented to the [place] ED with chief complaint of confusion and chills. Associated symptoms included worsening of his buttocks wound infection, fever, penile/scrotal irritation from catheter placement and decreased oral intake. He was in ICU initially and treated for septic shock secondary to necrotizing fasciitis of perineum and scrotum status post debridement, respiratory failure status post intubation and extubation. He was transferred to general medicine floor from ICU once he was stable. #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 * Patient s/p debridement of skin, subcutaneous tissue, muscle and fascia of the perineum for Jerad's gangrene, no plans for further debridement per surgery ( POD#7 last debridement 01/15). NO DIVERTING COLOSTOMY surgery planned as per Dr. Garcia * HIS CARE WOULD BE BETTER IF HE WERE TRANSFERRED TO THE [place] [facility] WHEN MEDICALLY SUITABLE. * On castaneda * IV meropenem 1gm Q8 and fluconazole 600 mg daily * Cultures from the OR growing Gram Negative Rods, Yeast, Alpha Strep. * Blood cultures growing Beta Strep Group B * Urine Culture: growing Yeast. * Continue Castaneda and supra pubic catheter * His bone biopsy obtained in the OR 1 week ago was negative for osteomyelitis, but the bone culture did grow Group B strep and yeast and the MRI findings suggestive of osteomyelitis, he will require a prolonged course of antibiotics (4 weeks minimum). * PICC was placed 01/16/17 for [facility] antibotic use #Severe hyperglycemia * Endocrinology consult appreciated * Swallow reevaluation- advanced to mechanical ground and thin fluid, consistent carbohydrate 1 * Patient was weaned off TPN * Levemir 8 units twice a day * NovoLog coverage 3 times a day before meals and bedtime #Acute respiratory failure * On room air saturation 99% * Off fentanyl drip,extubated * IV protonix 40 mg daily #LORENZO in the setting of septic shock * Resolved #Acute anemia * Patient has history of anemia noted in December 2016 -07/09.8 * 2 U PRBC transfusion 01/11/2017 * H/H stable #Left Necrotic Ulcer foot * Podiatry consultation was obtained * Recommendation to keep the lesion dry with daily Betadine paint. * Continue with offloading bed #Depression * Family reported stressful events and history of depression * Patient's consent was obtained for psych evaluation * psych recommendation -advised antidepressants- However patient denied * Please take advantage of alternative therapies available on her hospital including aromatherapy, music, and animal therapy. * Please have patient followed by psychiatry at rehabilitation placement. FULL CODE DVTP: Heparin SC diet - consistent- carbohydrate diet Ground and thin Problem List: 1. Jerad's gangrene in male Pain Ratin Pain Location: none Pain Goal: Remain pain free Pain Plan: morphine Tomorrow's Labs & Rationales: cbc for anemia bep for electrolytes DVT/Prophylaxis: mechanical, pharmacological
[2017-01-21 07:51] LABS: ABSOLUTE BASOPHIL COUNT 0.1 /CUMM (0.0-0.2); ABSOLUTE EOSINOPHIL COUNT 0.1 /CUMM (0.0-0.7); ABSOLUTE GRANULOCYTE CT 6.1 /CUMM (1.4-6.5); ABSOLUTE LYMPH COUNT 1.1 /CUMM (1.2-3.4); ABSOLUTE MONOCYTE COUNT 0.7 /CUMM (0.10-0.60); BASOPHIL % 0.6 % (0.0-2.0); EOSINOPHIL % 1.1 % (0-5); GRANULOCYTE % 76.2 % (42.2-75.2); HEMATOCRIT 23.9 % (42-52); MEAN CORPUSCULAR HGB 26.2 PG (27.0-31.0); MEAN CORPUSCULAR HGB CONC 32.7 G/DL (33.0-37.0); MEAN CORPUSCULAR VOLUME 80.3 FL (80.0-94.0); MEAN PLATELET VOLUME 7.7 FL (7.4-10.4); PLATELET COUNT 621 /CUMM (130-400); RBC DISTRIBUTION WIDTH 16.3 % (11.5-14.5); RED BLOOD CELL CT 2.97 /CUMM (4.70-6.10)
--- NOTE | 2017-01-21 10:36 | PN- Diabetes ---
Assessment/Plan Assessment: Patient is 61-year-old man with past medical history significant for hypertension, hyperlipidemia, stage IV sacral wound, hypothyroidism, diabetes mellitus type 2, was brought into ER after the patient was found to be lethargic and confused. Patient is wheel chair bound due to Hx of spina bifida. 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 He underwent debridement. Patient was extubated on 01/16/2017. TPN was discontinued. He is on diabetic diet. He was put on Levemir 8 units twice a day, Novolog coverage before meals and Novolog coverage at bedtime. He is drinking some Glucerna. Yesterday's blood sugar readings were 214 before breakfast, 160 before lunch, 133 before dinner and 179 at bedtime. This morning his blood sugar is 245 before breakfast. Plan: Suggest continue the present insulin. Patient's blood sugars aren't satisfactory control. Continue to improve nutrition. Subjective Subjective: Concerned about having to change to a burn center Review of Systems Constitutional: Denies: chills, fever. Cardiovascular: Denies: chest pain. Respiratory: Denies: short of breath. Gastrointestinal: Denies: nausea, vomiting. Objective Last 24 Hrs of Vital Signs/I&O Vital Signs Date Time Temp Pulse Resp B/P B/P Pulse O2 O2 Flow FiO2 Mean Ox Delivery Rate 01/21 0648 98.5 95 20 140/82 95 Room Air 01/20 2305 99.0 99 20 132/66 98 Room Air 01/20 1700 93 01/20 1435 99.3 102 20 150/70 98 Room Air Intake & Output 01/21 0801/21 0000 Intake Total 225 240 Output Total 750 1200 Balance -525 -960 Intake, IV 225 Intake, Oral 240 Number 1 1 Bowel Movements Output, Urine 750 1200 Vital Signs Date Time Temp Pulse Resp B/P B/P Pulse O2 O2 Flow FiO2 Mean Ox Delivery Rate 01/21 0648 98.5 95 20 140/82 95 Room Air 01/20 2305 99.0 99 20 132/66 98 Room Air 01/20 1700 93 01/20 1435 99.3 102 20 150/70 98 Room Air Intake & Output 01/21 0800 01/21 0000 Intake Total 225 240 Output Total 750 1200 Balance -525 -960 Intake, IV 225 Intake, Oral 240 Number 1 1 Bowel Movements Output, Urine 750 1200 Physical Exam General Appearance: alert, awake, anxious Head: normal appearance Neck: normal inspection Respiratory: normal breath sounds Cardiovascular: regular rate/rhythm Abdomen: normal bowel sounds, soft Current Medications: Current Medications Sig/Michelle Start time Last Medication Dose Route Stop Time Status Admin Acetaminophen 650 MG Q6P PRN 01/20 0030 AC 01/20 PO 2106 Acetaminophen 1,000 MG Q6P PRN / 0830 AC 01/18 N/A 1 UNIT IV 2302 Alteplase, 2 MG ONE ONE 01/21 0030 DC 01/21 Recombinant IV 01/21 0031 0228 Alteplase, 2 MG ONE ONE 01/20 2100 DC 01/20 Recombinant IV 01/20 2101 2221 Benzonatate 100 MG TID 01/20 0100 AC 01/21 PO 0829 Fluconazole 200 MG Q24H /06 1200 AC 01/20 Sodium Chloride 100 ML IV 1219 Fluconazole 400 MG Q24H /06 1200 AC 01/20 Sodium Chloride 200 ML IV 1219 Guaifenesin 600 MG Q12 01/20 0100 AC 01/21 PO 0830 Heparin Sodium 5,000 UNIT Q8 / 0600 AC 01/21 (Porcine) SC 0614 Insulin Aspart 0 TIDAC/HS 01/18 1200 AC 01/21 SC 0826 Insulin Detemir 8 UNITS BID 01/18 1000 AC 01/21 SC 0826 Meropenem 1 GM IQ8 / 1600 AC 01/21 IV 0828 Morphine Sulfate 2 MG Q4P PRN 01/16 2030 AC 01/21 IV 0454 Pantoprazole Sodium 40 MG DAILY 01/10 1000 AC 01/21 IV 0828 Polyethylene Glycol 17 GM DAILY 01/19 1000 AC 01/20 PO 1218 Senna/Docusate Sodium 1 TAB BID 01/19 0115 AC 01/20 PO 2104 Sodium Chloride 1,000 ML Q13H 01/21 0045 DC 01/21 IV 0158 Findings Pertinent Lab/Ervin Results: Laboratory Tests 01/21 0716 Chemistry Sodium (137 - 145 mmol/L) 137 Potassium (3.5 - 5.1 mmol/L) 3.9 Chloride (98 - 107 mmol/L) 104 Carbon Dioxide (22 - 30 mmol/L) 26 Anion Gap (5 - 16) 8 BUN (9 - 20 mg/dL) 12 Creatinine (0.7 - 1.2 mg/dL) 0.7 Estimated GFR (>60 ml/min) > 60 BUN/Creatinine Ratio (7 - 25 %) 17.1 Hematology CBC w Diff NO MAN DIFF REQ WBC (4.8 - 10.8 /CUMM) 8.0 RBC (4.70 - 6.10 /CUMM) 2.97 L Hgb (14.0 - 18.0 G/DL) 7.8 L Hct (42 - 52 %) 23.9 L MCV (80.0 - 94.0 FL) 80.3 MCH (27.0 - 31.0 PG) 26.2 L RDW (11.5 - 14.5 %) 16.3 H Plt Count (130 - 400 /CUMM) 621 H MPV (7.4 - 10.4 FL) 7.7 Gran % (42.2 - 75.2 %) 76.2 H Lymphocytes % (20.5 - 51.1 %) 13.4 L Monocytes % (1.7 - 9.3 %) 8.7 Eosinophils % (0 - 5 %) 1.1 Basophils % (0.0 - 2.0 %) 0.6 Absolute Granulocytes (1.4 - 6.5 /CUMM) 6.1 Absolute Lymphocytes (1.2 - 3.4 /CUMM) 1.1 L Absolute Monocytes (0.10 - 0.60 /CUMM) 0.7 H Absolute Eosinophils (0.0 - 0.7 /CUMM) 0.1 Absolute Basophils (0.0 - 0.2 /CUMM) 0.1 PUBS MCHC (33.0 - 37.0 G/DL) 32.7 L
[2017-01-21 15:19] VITALS: BP 140/80
--- NOTE | 2017-01-21 17:44 | Discharge Summary ---
Visit Information Visit Dates Admission Date: 01/09/17 Discharge Date: 01/22/17 Hospital Course Course Attending Physician: Dr. Dwyer Primary Care Physician: LUANNE FLORES MD Consulting Request: 1 Consulting Specialty: Endocrinology Consulting Request: 2 Consulting Specialty: General Surgery Consulting Request: 3 Consulting Specialty: Infectious Disease Consulting Request: 4 Consulting Specialty: Pulmonary Disease Consulting Request: 5 Consulting Specialty: Psychiatry Consulting Request: 6 Consulting Specialty: Urology Hospital Course: This is a 61 year old gentleman with PMH significant for type 2 diabetes mellitus, medication non-compliance, HTN, HLD, spina bifida(wheel chair bound), paraplegia, hypothyroidism and with a nonhealing sacral decubitus for the past 4 months, hospitalized at [facility] and apparently treated with IV antibiotics, with a condom catheter used to avoid contamination, with the development of penile and scrotal maceration, and with the more recent development of a left ischial decubitus, with an MRI of the pelvis 3 weeks prior to admission revealing abnormal bone marrow edema in the inferior pubic rami and inferior aspect of the adjacent ischial tuberosity suspicious for subtle osteomyelitis who presented to the [facility] ED with history of decreased oral intake, increased weakness, left groin pain and fevers and more acute onset of diarrhea and confusion. On admission he was febrile to 102.3. Laboratory data revealed a white blood cell count of 14,000, with 89 segs and 6 bands, glucose 735, BUN/creatinine 38 and 1.6, sodium 129, lactic acid 2.2, alk phosphatase 143, INR 1.35. Chest x-ray was negative. CT of the pelvis revealed a large volume of air extending from the scrotal sac into the peritoneum and posteriorly into the ischiorectal fat, with induration seen around the distal rectum and sigmoid. He was given 6 L of fluid in the emergency room for hypotension and was begun on Vancomycin, Clindamycin and Ceftazidime. 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 A right IJ was inserted in the ED. The following problems were addressed during the course of his hospital stay: #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 Patient is s/p debridement of skin, subcutaneous tissue, muscle and fascia of the perineum for Jerad's gangrene. He was transferred to the ICU postoperatively, with the addition of Levophed for hypotension, and he was intubated and sedated. Blood cultures positive for Group B strep and OR cultures positive for multiple organisms including Group B strep, alpha strep, Klebsiella, Escherichia coli and yeast. Urine and sputum cultures growing yeast. ID consult was placed and AB adjustment was done as per ID recs; patient on IV Meropnenem (since 01/10/17) and IV fluconazole (since 01/12/17 ). The right IJ removed (01/17) and PICC line was placed in Rt arm(01/16). There was evidence of gangrene erosion into the urethra, with no output from the suprapubic cystostomy. His bone biopsy obtained in the OR on 01/12 negative for osteomyelitis, but the bone culture did grow Group B strep and yeast and, though this may represent contamination from the more superficial tissues, given the MRI findings suggestive of osteomyelitis, feel he will require a prolonged course of antibiotics (4 weeks minimum), primarily directed against these organisms. He was extubated successfully on 01/16/17, was down graded to general medicine. Stable now 6(01/21) days status post his most recent debridement for Jerad's gangrene, with temperatures and white blood cell count normal on Meropenem and Fluconazole for a polymicrobial infection, with possible underlying osteomyelitis, with an MRI 3 weeks prior to admission suggesting subtle osteomyelitis in the inferior pubic rami and the inferior aspect of the ischial tuberosity and with the bone culture obtained in the OR positive for Group B strep and yeast, though the bone biopsy was negative for osteomyelitis. Per ID recs, given the MRI findings suggestive of osteomyelitis, feel he will require a prolonged course of antibiotics (4 weeks minimum), primarily directed against these organisms. The patient had right upper extremity swelling and tenderness on 01/19/17. Doppler of the right upper extremity was performed to r/o DVT given some concern with a PICC in place; Doppler of RUE was negative for any DVTs. Per surgery, there is no plan for further debridement (last debridement 01/15). There is no plan for diverting colostomy. Per surgery, the patient will need at least daily dressing changes and given the extent and immobility of the process, his care will require multiple nursing and hospital staff resources and would be better if he were transsferred to the [facility] burn unit when medically suitable. Patient is medically stable for transfer today. Accepting attending is Dr. Cox at [facility] burn unit. #SPT Placement The patient has Castaneda catheter left in place, which is draining urine. SPT was placed by urology on 01/12/17. He has had minimal urine output from his SPT since placement. Per urology, given his previous hx of urinary incontinence with use of a condom catheter, it is unlikely that the urine will exit from the SPT during the time he is supine. Once he is up and about in his wheelchair, it will likely be functional. Urology did not recommend removing the SPT as it is not a site worrisome for UTI and the patient is on abx. They also suggested to continue the castaneda catheter to aid in healing of the Jerad's infection site. #Severe hyperglycemia At the time of admission, glucose level 735. Patient was initially started on an insulin drip and IV fluids. Endocrinology consultation was placed. Once the patient was more stable, he was started on TPN. Fasting Blood Sugars were moniroted. TPN was Dc'd on 01/17/17 after patient passed swallow eval and was tolerated diet. Ins adjustments as per endocrinology recs; he is on Levemir 8 units twice a day, Novolog coverage before meals and Novolog coverage at bedtime. BG levels remained in satisfactory control for the most part. #Acute respiratory failure Status post mechanical ventilator, now on room air saturation 99%. On IV protonix 40 mg daily #Hypernatremia/Hypocalcemia Resolved #LORENZO in the setting of septic shock Resolved #Acute anemia Patient has history of anemia noted in December 2016 at 07/09.8. 2 U PRBC transfusion 01/11/2017. H/H stable. #Left Necrotic Ulcer foot Patient did have a 1.5 cm 1.5 cm posterior lateral necrotic ulcer on his left heel. Podiatry consultation was obtained, Recommendation to keep the lesion dry with daily Betadine paint. Continue with offloading bed #Depression Family reported stressful events and history of depression. Patient's consent was obtained for psych evaluation. Psych advised antidepressants; however patient denied. Psych recommended to take advantage of alternative therapies available on her hospital including aromatherapy, music, and animal therapy. Please have patient followed by psychiatry at rehabilitation placement. FULL CODE DVTP: Heparin SC Diet: CC3 Mechanical soft (Ground) and Regular(thin) liquids. Allergies: Coded Allergies: Penicillins (U 01/09/17) latex (U 01/09/17) sulfamethoxazole (From BACTRIM) (U 01/09/17) trimethoprim (From BACTRIM) (U 01/09/17) Significant Procedures: 1-Surgery Date: 01/10/17 Name of Procedure: Debridement of skin subcutaneous tissue muscle and fascia, perineum Pre-Operative Diagnosis: Jerad's gangrene 2-Surgery Date: 01/12/17 Name of Procedure: Sharp scalpel debridement of necrotizing fasciitis scrotum and left perineum, extent included skin subcutaneous fat deep fascia muscle, periosteum and bone ( sent for micro, histo) Pre-Operative Diagnosis: Necrotizing fasciitis perineum and scrotum 3-Surgery Date: 01/15/17 Name of Procedure: Debridement of perineum Pre-Operative Diagnosis: Jerad's gangrene 4-Surgery Date: 01/15/17 Name of Procedure: replacement of castaneda catheter Pre-Operative Diagnosis: Jerad's infection Pertinent Lab Results: 01/09/17: Blood cultures 2 positive for Group B strep 01/10/17: Urine culture approximately 15,000 colonies of yeast 01/10/17: OR culture positive for Group B strep, Escherichia coli resistant to Ampicillin, Klebsiella resistant to Ampicillin and yeast 01/11/17: Sputum culture light growth of yeast 01/12/17: OR culture labeled gluteal area positive for Group B strep and yeast 01/15/17: Urine culture negative 01/16/17: Blood cultures 2 negative 01/16/17: Urine culture greater than 100,000 colonies of presumptive Bette albicans Disposition Summary Disposition Principal Diagnosis: 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 Additional Diagnosis: Severe hyperglycemia Acute respiratory failure Hypernatremia/Hypocalcemia LORENZO in the setting of septic shock Acute anemia Left Necrotic Ulcer foot Depression Discharge Disposition: other general hospital Discharge Instructions General Discharge Information Code Status: Full Code Patient's Diet: Diabetic (CC3) Mechanical soft (Ground) and Regular(thin) liquids. Patient's Activity: As tolerated. Follow-Up Instructions/Appts: f/u With your primary care doctor in 1 week f/u infectious doctor in 1-2 weeks f/u diabetes doctor in 1-2 weeks f/u general surgeon in 1-2 weeks Please continue IV antibiotics meropenam 1gm q8 and fluconazole 600 mg iv for 3 more weeks Medications at Discharge Discharge Medications: Continue taking these medications: Aspirin (Lo-Dose Aspirin EC) 81 MG TABLET.DR 1 Tablet ORAL DAILY Qty = 30 Bupropion HCl (Bupropion XL) 150 MG TAB.ER.24H 1 Tablet ORAL DAILY Qty = 90 Atorvastatin Calcium (Atorvastatin Calcium) 20 MG TABLET 1 Tablet ORAL DAILY Qty = 90 Amlodipine Besylate (Amlodipine Besylate) 10 MG TABLET 1 Tablet ORAL DAILY Qty = 90 Pantoprazole Sodium (Pantoprazole Sodium) 20 MG TABLET.DR 1 Tablet ORAL DAILY Qty = 90 Start taking the following new medications: Insulin Detemir (Levemir) 100 UNIT/ML VIAL 8 Units Inject into fatty tissue TWICE DAILY Qty = 30 No Refills Insulin Aspart (Novolog) 100 UNIT/ML VIAL 0 Units Inject into fatty tissue BEFORE MEALS AND AT BEDTIME as needed for diabetes Qty = 30 No Refills Instructions: BLOOD SUGAR SLIDING SCALE 80-150 3UNITS 151-220 5UNITS 201-250 7UNITS 251-300 9UNITS 301-350 11UNITS 351-400 13UNITS >400 15UNITS,CALL BLOOD SUGAR BED TIME COVERAGE 251-300 2UNITS 301-350 3UNITS 351-400 4UNITS MORE THAN 400 5UNITS Guaifenesin (Guaifenesin ER) 600 MG TAB.ER.12H 600 Milligram ORAL EVERY 12 HOURS Qty = 30 No Refills Polyethylene Glycol 3350 (Miralax) 17 GRAM/DOSE POWDER 17 Gram ORAL DAILY as needed for constipation Qty = 10 No Refills Sennosides/Docusate Sodium (Senna Plus Tablet) 8.6 MG-50 MG TABLET 1 Tablet ORAL TWICE DAILY as needed for constipation Qty = 10 No Refills Fluconazole in NaCl,Iso-Osm (Fluconazole-NaCl 400 MG/200 Ml) 400 MG/200 ML PIGGYBACK 600 Milligram INTRAVEN DAILY Days = 21 No Refills Ceftriaxone Sodium (Ceftriaxone) 500 MG VIAL 2 Gram INTRAVEN DAILY Days = 21 No Refills Metronidazole/Sodium Chloride (Metro IV 500 MG/100 Ml) 500 MG/100 ML PIGGYBACK 500 Milligram INTRAVEN EVERY 8 HOURS Days = 21 No Refills Copies To: MARK DELUNA,LUANNE Jones
--- NOTE | 2017-01-21 20:58 | NUR ---
ALERT AND ORIENTED X 3. VITAL SIGNS STABLE. DENIES CHEST PAIN. + PULSES ON ROOM AIR. TOTAL ASSIST WITH KRIS LIFT. ULCER TO BOTTOM. DSG C/D/I. MEDICATION GIVEN FOR DISCOMFORT. WILL CONTINUE TO MONITOR
[2017-01-21 22:39] VITALS: BP 138/88
[2017-01-22 06:45] VITALS: BP 140/70
--- NOTE | 2017-01-22 07:48 | PN- Housestaff ---
VINITA SANDOVAL 01/22/17 0748: Subjective Follow-up For: Septic shock secondary to necrotizing fasciitis Complaints: pain scale (0-10) Subjective: Patient was seen and examined this morning. He is alert awake and oriented to time place and person He offers no complaints. He denies any pain. [facility] is [facility] level [facility] for his wounds Review of Systems Constitutional: Reports: see HPI. Objective Last 24 Hrs of Vital Signs/I&O Vital Signs Date Time Temp Pulse Resp B/P B/P Pulse O2 O2 Flow FiO2 Mean Ox Delivery Rate 01/22 0645 99.0 100 20 140/70 98 Room Air 01/21 2239 98.6 103 20 138/88 98 Room Air 01/21 1519 97.5 90 20 140/80 98 Room Air Intake & Output 01/22 1600 01/22 0800 01/22 0000 Intake Total 950 340 565 Output Total 800 600 Balance 950 -460 -35 Intake, IV 350 225 Intake, Oral 600 340 340 Number 1 1 Bowel Movements Output, Urine 800 600 Physical Exam General Appearance: Alert, Oriented X3, Cooperative, No Acute Distress Skin: No Rashes, No Breakdown HEENT: Atraumatic, PERRLA, EOMI Neck: Supple, No JVD Lymphatic: Cervical nl Cardiovascular: Normal S1, Normal S2 Lungs: Normal Air Movement Abdomen: Normal Bowel Sounds, Soft, No Tenderness Neurological: Strength at 5/5 X4 Ext, Sensation Intact, Cranial Nerves 3-12 NL Extremities: No Clubbing, No Cyanosis, No Edema Vascular: Pulses Symmetrical Current Medications: Current Medications Sig/Michelle Start time Last Medication Dose Route Stop Time Status Admin Acetaminophen 650 MG .STK-MED ONE 01/22 526 DC PO 01/22 527 Acetaminophen 650 MG .STK-MED ONE 01/22 2224 DC PO 01/21 222 Acetaminophen 650 MG Q6P PRN 01/20 0030 AC 01/22 PO 1331 Acetaminophen 1,000 MG Q6P PRN 01/10 0830 AC 01/18 N/A 1 UNIT IV 2302 Benzonatate 100 MG TID 01/20 0100 AC 01/22 PO 0957 Fluconazole 200 MG Q24H 01/13 1200 AC 01/21 Sodium Chloride 100 ML IV 1252 Fluconazole 400 MG Q24H 01/13 1200 AC 01/22 Sodium Chloride 200 ML IV 1330 Guaifenesin 600 MG Q12 01/20 0100 AC 01/22 PO 0957 Heparin Sodium 5,000 UNIT Q8 01/10 0600 AC 01/22 (Porcine) SC 1339 Insulin Aspart 0 TIDAC/HS 01/18 1200 AC 01/22 SC 1331 Insulin Detemir 8 UNITS BID 01/18 1000 AC 01/22 SC 0956 Meropenem 1 GM IQ8 01/10 1600 AC 01/22 IV 0851 Morphine Sulfate 2 MG Q4P PRN 01/16 2030 AC 01/22 IV 0844 Pantoprazole Sodium 40 MG DAILY 01/10 1000 AC 01/22 IV 0957 Patient Medication 1 ED .STK-MED ONE 01/22 1252 OH Teaching ED 01/22 1253 Polyethylene Glycol 17 GM DAILY 01/19 1000 AC 01/20 PO 1218 Senna/Docusate Sodium 1 TAB BID 01/19 0115 AC 01/21 PO 2220 Last 24 Hrs of Lab/Ervin Results Last 24 Hrs of Labs/Mics: Laboratory Tests 01/22/17 0534: Anion Gap 9, Estimated GFR > 60, BUN/Creatinine Ratio 14.3, CBC w Diff NO MAN DIFF REQ, RBC 3.06 L, MCV 79.9 L, MCH 26.1 L, RDW 16.2 H, MPV 7.7, Gran % 70.2, Lymphocytes % 17.1 L, Monocytes % 11.0 H, Eosinophils % 1.0, Basophils % 0.7, Absolute Granulocytes 5.4, Absolute Lymphocytes 1.3, Absolute Monocytes 0.9 H, Absolute Eosinophils 0.1, Absolute Basophils 0.1, PUBS MCHC 32.7 L Assessment/Plan Assessment: Mr. Bowens is a 61 year old male with PMH type 2 diabetes mellitus, medication non-compliance, HTN, HLD, spina bifida, paraplegia, hypothyroidism and stage IV sacral decubitus ulcer who presented to the [facility] ED with chief complaint of confusion and chills. Associated symptoms included worsening of his buttocks wound infection, fever, penile/scrotal irritation from catheter placement and decreased oral intake. He was in ICU initially and treated for septic shock secondary to necrotizing fasciitis of perineum and scrotum status post debridement, respiratory failure status post intubation and extubation. He was transferred to general medicine floor from ICU once he was stable. #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 * Patient s/p debridement of skin, subcutaneous tissue, muscle and fascia of the perineum for Jerad's gangrene, no plans for further debridement per surgery ( POD#7 last debridement 01/15). NO DIVERTING COLOSTOMY surgery planned as per Dr. Garcia * HIS CARE WOULD BE BETTER IF HE WERE TRANSFERRED TO THE [facility] WHEN MEDICALLY SUITABLE-planning to transfer to [facility] this afternoon. * IV meropenem 1gm Q8 discontinued and started IV ceftriaxone 2 g every day, Flagyl 500 mg every 8 hours daily, fluconazole 600 mg daily for 3 more weeks according to ID recommendations * Cultures from the OR growing Gram Negative Rods, Yeast, Alpha Strep. * Blood cultures growing Beta Strep Group B * Urine Culture: growing Yeast. * Continue Guthrie and supra pubic catheter * His bone biopsy obtained in the OR 1 week ago was negative for osteomyelitis, but the bone culture did grow Group B strep and yeast and the MRI findings suggestive of osteomyelitis, he will require a prolonged course of antibiotics (4 weeks minimum). * PICC was placed 01/16/17 for mcc antibotic use #Severe hyperglycemia * Endocrinology consult appreciated * Swallow reevaluation- advanced to mechanical ground and thin fluid, consistent carbohydrate 1 * Patient was weaned off TPN * Levemir 8 units twice a day * NovoLog coverage 3 times a day before meals and bedtime #Acute respiratory failure * On room air saturation 99% * Off fentanyl drip,extubated * IV protonix 40 mg daily #LORENZO in the setting of septic shock * Resolved #Acute anemia * Patient has history of anemia noted in December 2016 -07/09.8 * 2 U PRBC transfusion 01/11/2017 * H/H stable #Left Necrotic Ulcer foot * Podiatry consultation was obtained * Recommendation to keep the lesion dry with daily Betadine paint. * Continue with offloading bed #Depression * Family reported stressful events and history of depression * Patient's consent was obtained for psych evaluation * psych recommendation -advised antidepressants- However patient denied * Please take advantage of alternative therapies available on her hospital including aromatherapy, music, and animal therapy. * Please have patient followed by psychiatry at rehabilitation placement. FULL CODE DVTP: Heparin SC diet - consistent- carbohydrate diet Ground and thin Problem List: 1. Osteomyelitis 2. Jerad's gangrene in male Pain Ratin Pain Location: scrotum Pain Goal: Remain pain free Pain Plan: tylinol Tomorrow's Labs & Rationales: none Consulting Request: Consulting Specialty: Urology ANAM YOUNG 01/22/17 1122: Attending MD Review Statement Attending Statement Attending MD Statement: examined this patient, discuss w/resident/PA/POTATO LOADER, agreed w/resident/PA/POTATO LOADER, discussed with family, reviewed EMR data (avail), discussed with nursing, discussed with case mgmt, reviewed images, amended to note Attending Assessment/Plan: A/P; 61-year-old male with past medical history significant for type 2 diabetes mellitus, medication non-compliance, HTN, HLD, spina bifida, paraplegia, hypothyroidism and stage IV sacral decubitus admitted with fourniers gangrene s/ p debridement. Patient remains on meropenem and and fluconazole per infectious disease. Diabetes management per endocrinology. Surgeries recommending [facility] transfer for wound management to the burn unit. Patient was evaluated by Sophia on Sunday. Antibiotics and antifungal as per infectious disease. (21 more days). Patient is medically stable for the transfer. Paged surgical PA about accepting attending physician. DVT prophylaxis: Heparin subcutaneous.
[2017-01-22 08:33] LABS: ABSOLUTE BASOPHIL COUNT 0.1 /CUMM (0.0-0.2); ABSOLUTE EOSINOPHIL COUNT 0.1 /CUMM (0.0-0.7); ABSOLUTE GRANULOCYTE CT 5.4 /CUMM (1.4-6.5); ABSOLUTE LYMPH COUNT 1.3 /CUMM (1.2-3.4); ABSOLUTE MONOCYTE COUNT 0.9 /CUMM (0.10-0.60); BASOPHIL % 0.7 % (0.0-2.0); GRANULOCYTE % 70.2 % (42.2-75.2); HEMATOCRIT 24.5 % (42-52); MEAN CORPUSCULAR HGB 26.1 PG (27.0-31.0); MEAN CORPUSCULAR HGB CONC 32.7 G/DL (33.0-37.0); MEAN CORPUSCULAR VOLUME 79.9 FL (80.0-94.0); MEAN PLATELET VOLUME 7.7 FL (7.4-10.4); PLATELET COUNT 589 /CUMM (130-400); RBC DISTRIBUTION WIDTH 16.2 % (11.5-14.5); RED BLOOD CELL CT 3.06 /CUMM (4.70-6.10); WHITE BLOOD CELL COUNT 7.7 /CUMM (4.8-10.8)
--- NOTE | 2017-01-22 09:00 | Patient Discharge Instructions ---
Discharge Instructions General Discharge Information You were seen/treated for: 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 Additional Diagnosis: Severe hyperglycemia Acute respiratory failure Hypernatremia/Hypocalcemia LORENZO in the setting of septic shock Acute anemia Left Necrotic Ulcer foot Depression You had these procedures: Sharp scalpel debridement of necrotizing fasciitis scrotum and left perineum, extent included skin subcutaneous fat deep fascia muscle, periosteum and bone Watch for these problems: pain and swelling scrotal area Special Instructions: f/u With your primary care doctor in 1 week f/u infectious doctor in 1-2 weeks f/u diabetes doctor in 1-2 weeks f/u general surgeon in 1-2 weeks Please continue IV antibiotics ceftriaxone 2gm daily, flagyl 500mg iv q8 and fluconazole 600 mg iv for 3 more weeks Diet Recommended Diet: Diabetic Additional DIET Information: Diabetic (CC3) Mechanical soft (Ground) and Regular(thin) liquids. Activity Activity Self Limited: Yes Acute Coronary Syndrome Inclusion Criteria At DC or during hospital stay patient has or had the following: ACS DIAGNOSIS No Discharge Core Measures Meds if any: Prescribed or Continued at Discharge Meds if any: NOT Prescribed or Continued at Discharge Congestive Heart Failure Inclusion Criteria At DC or during hospital stay patient has or had the following: CHF DIAGNOSIS No Discharge Core Measures Meds if any: Prescribed or Continued at Discharge Meds if any: NOT Prescribed or Continued at Discharge Cerebrovascular accident Inclusion Criteria At DC or during hospital stay patient has or had the following: CVA/TIA Diagnosis No Discharge Core Measures Meds if any: Prescribed or Continued at Discharge Meds if any: NOT Prescribed or Continued at Discharge Venous thromboembolism Inclusion Criteria VTE Diagnosis No VTE Type NONE VTE Confirmed by (Test) NONE Discharge Core Measures - Per Current guidelines, there needs to be overlap - treatment for the first 5 days of Warfarin therapy. - If discharged on Warfarin prior to 5 days of - overlap therapy, the patient will need to be - assessed for post discharge needs including - *Post discharge parental anticoagulation - *Warfarin and/or parental anticoagulation education - *Follow up date to check INR post discharge At least 5 days overlap therapy as Inpatient No Meds if any: Prescribed or Continued at Discharge Note: Overlap Therapy is Warfarin and Anticoagulant Meds if any: NOT Prescribed or Continued at Discharge
--- NOTE | 2017-01-22 09:24 | PN- General Surgery ---
See Addendum Subjective Subjective: Pre-medicated with morphine prior to dressing change, assisted by 3 of the PA staff and the nurse. Apparently had stool contamination into the wound over the weekend, but not appreciated during today's dressing change. Objective Vital Signs and I&Os Vital Signs Date Time Temp Pulse Resp B/P B/P Pulse O2 O2 Flow FiO2 Mean Ox Delivery Rate 01/22 0645 99.0 100 20 140/70 98 Room Air 01/21 2239 98.6 103 20 138/88 98 Room Air 01/21 1519 97.5 90 20 140/80 98 Room Air Intake & Output 01/22 1600 01/22 0800 01/22 0000 01/21 1600 01/21 0800 01/21 0000 Intake Total 340 565 625 225 240 Output Total 800 600 937 753 9587 Balance -460 -35 -125 -525 -960 Intake, IV 225 425 225 Intake, Oral 340 340 200 240 Number 1 1 1 1 1 Bowel Movements Output, Urine 800 600 592 701 3161 Physical Exam: General - alert & oriented. no acute distress. Abdomen - soft, obese, nontender. patient turned with multiple staff to locate kerlex gauze wet to dry dressings, which was only present in one of the two debrided areas. area irrigated with normal saline. repacked both areas with kerlex soaked guaze, and placed large ABD dressing over the area. Assessment/Plan Assessment/Plan 61-year-old male s/p multiple debridements, I&D due to necrotizing fasciitis, now requiring daily bedside dressing changes apparently awaiting an accepting physician for possible transfer to [place] to the burn unit for more specialized wound care. non-emergent diverting colostomy to be considered at a future date. will continue daily wet to dry dressing changes management as per primary team d/w
--- NOTE | 2017-01-22 11:45 | PN- Diabetes ---
Assessment/Plan Assessment: Patient is 61-year-old man with past medical history significant for hypertension, hyperlipidemia, stage IV sacral wound, hypothyroidism, diabetes mellitus type 2, was brought into ER after the patient was found to be lethargic and confused. Patient is wheel chair bound due to Hx of spina bifida. 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 He underwent debridement. Patient was extubated on 01/16/2017. TPN was discontinued. He is on diabetic diet. He was put on Levemir 8 units twice a day, Novolog coverage before meals and Novolog coverage at bedtime. He is drinking some Glucerna. His FSGs were 245, 199, 133 and 107. Plan: continue the current insulin regimen; monitor FSGs will follow. Subjective Subjective: His FSGs have been relatively stable. Objective Last 24 Hrs of Vital Signs/I&O Vital Signs Date Time Temp Pulse Resp B/P B/P Pulse O2 O2 Flow FiO2 Mean Ox Delivery Rate 01/22 0645 99.0 100 20 140/70 98 Room Air 01/21 2239 98.6 103 20 138/88 98 Room Air 01/21 1519 97.5 90 20 140/80 98 Room Air Intake & Output 01/22 1600 01/22 0800 01/22 0000 Intake Total 340 565 Output Total 800 600 Balance -460 -35 Intake, IV 225 Intake, Oral 340 340 Number 1 1 Bowel Movements Output, Urine 800 600 Findings Pertinent Lab/Ervin Results: Laboratory Tests 01/22 0534 Chemistry Sodium (137 - 145 mmol/L) 139 Potassium (3.5 - 5.1 mmol/L) 4.4 Chloride (98 - 107 mmol/L) 103 Carbon Dioxide (22 - 30 mmol/L) 28 Anion Gap (5 - 16) 9 BUN (9 - 20 mg/dL) 10 Creatinine (0.7 - 1.2 mg/dL) 0.7 Estimated GFR (>60 ml/min) > 60 BUN/Creatinine Ratio (7 - 25 %) 14.3 Hematology CBC w Diff NO MAN DIFF REQ WBC (4.8 - 10.8 /CUMM) 7.7 RBC (4.70 - 6.10 /CUMM) 3.06 L Hgb (14.0 - 18.0 G/DL) 8.0 L Hct (42 - 52 %) 24.5 L MCV (80.0 - 94.0 FL) 79.9 L MCH (27.0 - 31.0 PG) 26.1 L RDW (11.5 - 14.5 %) 16.2 H Plt Count (130 - 400 /CUMM) 589 H MPV (7.4 - 10.4 FL) 7.7 Gran % (42.2 - 75.2 %) 70.2 Lymphocytes % (20.5 - 51.1 %) 17.1 L Monocytes % (1.7 - 9.3 %) 11.0 H Eosinophils % (0 - 5 %) 1.0 Basophils % (0.0 - 2.0 %) 0.7 Absolute Granulocytes (1.4 - 6.5 /CUMM) 5.4 Absolute Lymphocytes (1.2 - 3.4 /CUMM) 1.3 Absolute Monocytes (0.10 - 0.60 /CUMM) 0.9 H Absolute Eosinophils (0.0 - 0.7 /CUMM) 0.1 Absolute Basophils (0.0 - 0.2 /CUMM) 0.1 PUBS MCHC (33.0 - 37.0 G/DL) 32.7 L
--- NOTE | 2017-01-22 12:24 | PN- Infect Dx ---
Subjective Subjective: Afebrile. He notes some perineal discomfort after being moved earlier today. Objective Last 24 Hrs of Vital Signs/I&O Vital Signs Date Time Temp Pulse Resp B/P B/P Pulse O2 O2 Flow FiO2 Mean Ox Delivery Rate 01/22 0645 99.0 100 20 140/70 98 Room Air 01/21 2239 98.6 103 20 138/88 98 Room Air 01/21 1519 97.5 90 20 140/80 98 Room Air Intake & Output 01/22 1600 01/22 0800 01/22 0000 Intake Total 340 565 Output Total 800 600 Balance -460 -35 Intake, IV 225 Intake, Oral 340 340 Number 1 1 Bowel Movements Output, Urine 800 600 Physical Exam Other Physical Findings: He appears comfortable in no acute distress Lungs are clear Heart regular rhythm with no murmur Abdomen is soft, nontender with positive bowel sounds; suprapubic catheter remains in place Extremities no cyanosis, clubbing or edema; PICC in the right upper extremity with no inflammation at the site Guthrie catheter remains in place Results Last 24 Hours of Lab Results: Laboratory Tests 01/22 0534 Chemistry Sodium (137 - 145 mmol/L) 139 Potassium (3.5 - 5.1 mmol/L) 4.4 Chloride (98 - 107 mmol/L) 103 Carbon Dioxide (22 - 30 mmol/L) 28 Anion Gap (5 - 16) 9 BUN (9 - 20 mg/dL) 10 Creatinine (0.7 - 1.2 mg/dL) 0.7 Estimated GFR (>60 ml/min) > 60 BUN/Creatinine Ratio (7 - 25 %) 14.3 Hematology CBC w Diff NO MAN DIFF REQ WBC (4.8 - 10.8 /CUMM) 7.7 RBC (4.70 - 6.10 /CUMM) 3.06 L Hgb (14.0 - 18.0 G/DL) 8.0 L Hct (42 - 52 %) 24.5 L MCV (80.0 - 94.0 FL) 79.9 L MCH (27.0 - 31.0 PG) 26.1 L RDW (11.5 - 14.5 %) 16.2 H Plt Count (130 - 400 /CUMM) 589 H MPV (7.4 - 10.4 FL) 7.7 Gran % (42.2 - 75.2 %) 70.2 Lymphocytes % (20.5 - 51.1 %) 17.1 L Monocytes % (1.7 - 9.3 %) 11.0 H Eosinophils % (0 - 5 %) 1.0 Basophils % (0.0 - 2.0 %) 0.7 Absolute Granulocytes (1.4 - 6.5 /CUMM) 5.4 Absolute Lymphocytes (1.2 - 3.4 /CUMM) 1.3 Absolute Monocytes (0.10 - 0.60 /CUMM) 0.9 H Absolute Eosinophils (0.0 - 0.7 /CUMM) 0.1 Absolute Basophils (0.0 - 0.2 /CUMM) 0.1 PUBS MCHC (33.0 - 37.0 G/DL) 32.7 L Last 24 Hours of Ervin Results: No recent cultures Recent Imaging Studies: Doppler of the right upper extremity negative Assessment/Plan Impression: Stable now 1 week status post his most recent debridement for Jerad's gangrene, with temperatures and white blood cell count remaining normal on Meropenem and Fluconazole for a polymicrobial infection, with an MRI 3 weeks prior to admission suggesting subtle osteomyelitis in the inferior pubic rami and the inferior aspect of the ischial tuberosity and with the bone culture obtained in the OR positive for Group B strep and yeast. Though the bone biopsy was negative for osteomyelitis, based on the MRI and culture, feel he will require a prolonged course of antibiotics (4 weeks from his most recent debridement), primarily directed against the Group B strep and yeast. His antibiotics can be narrowed at this point while still covering the organisms isolated from his OR cultures. Suggestion: 1. Await possible transfer to [facility] burn unit 2. Would discontinue Meropenem and begin Ceftriaxone 2 grams IV every 24 hours and Flagyl 500 mg IV every 8 hours for 3 more weeks 3. Continue Fluconazole for 3 more weeks
[2017-01-22] MEDS ORDERED: LEVEMIR100 UNIT/1 SC (12:25)
[2017-01-22] MEDS ORDERED: MEROPENEM1 G1 IV (12:30)
[2017-01-22] MEDS ORDERED: MIRALAX119 GM PO (12:30)
[2017-01-22] MEDS ORDERED: GUAIFENESIN ER600 MG PO (12:30)
[2017-01-22] MEDS ORDERED: SENNA PLUS TAB1 EACH PO (12:30)
[2017-01-22] MEDS ORDERED: FLUCONAZOL400 MG/200 IV (12:39)
[2017-01-22] MEDS ORDERED: NOVOLOG100 UNIT/2 SC ×3 (12:39→13:09)
--- NOTE | 2017-01-22 13:40 | Event Note ---
Event Note Event Note: Spoke w/Dr. Aguirre(president and cmo) at [facility] via phone. Their team would like to speak to our surgical team for details. Phone number [phone]. Gave the number to surgical attending Dr. Hernandez to contact their department.
[2017-01-22] MEDS ORDERED: CEFTRIAXONE500 MG IV (14:36)
[2017-01-22] MEDS ORDERED: METRO IV 5500 MG/100 IV (14:36)
[2017-01-22 14:40] VITALS: BP 136/70
[2017-01-22 15:09] VITALS: BP 136/70
--- NOTE | 2017-02-06 10:55 | Operative Report ---
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 Patient was cleaned taken to the L4 by general surgery for Simeon's debridement. Patient also required scrotal debridement as well as suprapubic tube placement. Patient's family member was consented for this procedure and all questions were answered. Patient was brought into the operating room and was already intubated. Cystoscopy was performed with the rigid cystoscope however the urethral lumen was very difficult and the bladder neck was very taut. The rigid cystoscope was unable to be traversed into the bladder completely. It was not able to be inspected and a complete manner. However visualization was possible to view the roof of the bladder. The suprapubic to kit was then used to place the suprapubic to 2 fingerbreadths above the pubic bone. The wire was placed after the needle was used to find the bladder. Clear reflux was done emanating from the needle with no bleeding. The wire was placed and the needle was removed. The dilators were then used to sequentially increasing size. The 18 Stateless silicone catheter was placed and 10 mL was inflated into the balloon. The cystoscope U due to see if the Guthrie catheter and there was no active bleeding. The 0 silk suture was used to secure the suprapubic tube to the skin. Of 18 Stateless Guthrie catheter was placed back into the bladder via the urethra to minimize the amount of urinary incontinence from the site and to protect the open wound site. Attention was then turned to the scrotal area. It was debrided of exudate and necrotic tissue. There was minimal active bleeding. The perineum and the left scrotal area was already open to the area with minimal to no skin around it. The right scrotum and testicle were still intact and did not require any further debridement. Bone biopsies were taken and sent to pathology for culture. Patient tolerated the procedure well. Findings: necrotic tissue in the perineal and scrotal area with large amount of exudate over the tissue as well. Discharge Disposition: PACU
== END 2017-01-22 17:25 | disposition short-term general hospital (02) | DRG 710 ==
LOC: ERH 15:44 → CRI 18:49 → 2NB 18:49 → ERHI 18:49 → 2NB 18:49 → EDBEDREQ 20:27 → EDBEDREQTM 20:27 → ERHI 20:28 → ENRESERV 20:30 → CRI 23:52 → 2NB 01-18 15:05
PROVIDERS: Emergency Medicine; Internal Medicine; Ophthalmology; Radiology Diagnostic Radiology; Student in an Organized Health Care Education/Training Program; ADMIT Internal Medicine
PROC: 0BH17EZ Insertion of Endotracheal Airway into Trachea, Via Natural or Artificial Opening (ICD-10-PCS; principal; 2017-01-09)
PROC: 0KBM0ZZ Excision of Perineum Muscle, Open Approach (ICD-10-PCS; principal; 2017-01-09)
PROC: 5A1955Z Respiratory Ventilation, Greater than 96 Consecutive Hours (ICD-10-PCS; principal; 2017-01-09)
PROC: 0QB30ZZ Excision of Left Pelvic Bone, Open Approach (ICD-10-PCS; 2017-01-12)
PROC: 0JBB0ZZ Excision of Perineum Subcutaneous Tissue and Fascia, Open Approach (ICD-10-PCS; 2017-01-15)
PROC: 0T9B70Z Drainage of Bladder with Drainage Device, Via Natural or Artificial Opening (ICD-10-PCS; 2017-01-15)
PROC: 02HV33Z Insertion of Infusion Device into Superior Vena Cava, Percutaneous Approach (ICD-10-PCS; 2017-01-17)
DX: A41.9 Sepsis, unspecified organism (principal); R65.21 Severe sepsis with septic shock; J96.90 Respiratory failure, unspecified, unspecified whether with hypoxia or hypercapnia; N17.0 Acute kidney failure with tubular necrosis; M72.6 Necrotizing fasciitis; E11.00 Type 2 diabetes mellitus with hyperosmolarity without nonketotic hyperglycemic-hyperosmolar coma (NKHHC); L89.154 Pressure ulcer of sacral region, stage 4; E87.0 Hyperosmolality and hypernatremia; G82.20 Paraplegia, unspecified; R15.9 Full incontinence of feces; E83.51 Hypocalcemia; N49.3 Fournier gangrene; E87.1 Hypo-osmolality and hyponatremia; M86.8X8 Other osteomyelitis, other site; E78.5 Hyperlipidemia, unspecified; E03.9 Hypothyroidism, unspecified; Z79.84 Long term (current) use of oral hypoglycemic drugs; F17.200 Nicotine dependence, unspecified, uncomplicated; E86.0 Dehydration; Q05.9 Spina bifida, unspecified; R32 Unspecified urinary incontinence; D64.9 Anemia, unspecified; F32.9 Major depressive disorder, single episode, unspecified
CPT/HCPCS: 2NBSP; 84133; 84300; 87070; 87075; CCU; ERO; 36415; 77001; 82436; 82570; 86920; 87040; 87071; 87086; 87088; 87147; 88304; 93005; 93010; 94799; 96361; 96374; 96375; 99291; C1769; C8929; EXP; J0131; J0713; J1450; J1642; J1644; J1815; J2060; J2185; J2997; J3010; J3370; J3490; J7040; J7060; P9016; Q9957